=== PATIENT | male | born 1950 | race Caucasian/White ===

== ENCOUNTER 2022-08-20 07:48 | Outpatient (CLI) | payer MEDICARE, BC, SELFPAY ==
--- NOTE | 2022-08-20 09:43 | W.ANESCHARGE ---
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
--- NOTE | 2022-08-20 10:56 | W.ANESCHARGE ---
Anesthesia Charges Start Date/Time Anesthesia Start Date: 08/20/22 Anesthesia Start Time: 09:15 Stop Date/Time Anesthesia Stop Date: 08/20/22 Anesthesia Stop Time: 09:40
== END 2022-08-20 07:49 | disposition home or self-care (01) ==
LOC: OP CLINIC 07:52
PROVIDERS: PCP Family Medicine; Visit Provider Internal Medicine Gastroenterology
DX: K22.70 Barrett's esophagus without dysplasia (principal); K44.9 Diaphragmatic hernia without obstruction or gangrene; K31.89 Other diseases of stomach and duodenum
CPT/HCPCS: 43239; 731; 88305; 88342; 99100; J2704

== ENCOUNTER 2022-08-28 12:22 | Inpatient (IN) | payer OTHER, MEDICARE, BC, SELFPAY ==
[2022-08-28 12:30] VITALS: BP 151/89; PULSE 109; RESP 18; TEMP 36.5; O2SAT 93; BMI 34.2
--- NOTE | 2022-08-28 12:54 | CRLHL7_ITS ---
For Patients: As a result of the Century Cures Act, medical imaging exams and procedure reports are released immediately into your electronic medical record. You may view this report before your referring provider. If you have questions, please contact your health care provider. INDICATION: Leg pain and swelling TECHNIQUE: Ultrasound venous duplex lower right extremity. Compression venous exam was performed using prado-scale, color Doppler, and spectral Doppler imaging. COMPARISON: None. FINDINGS: There is extensive thrombosis within the distal superficial femoral, popliteal and peroneal vein thrombosis extending into the posterior tibial veins. The proximal superficial femoral and common femoral veins are compressible. IMPRESSION: Extensive deep venous thrombosis within the distal superficial femoral, popliteal and posterior tibial veins. Findings were discussed with Jorge Alberto Chin at 3:10 p.m. August 28, 2022 Dictated by Joe Cortés MD @ 08/28/2022 3:13:46 PM (Electronically Signed)
--- NOTE | 2022-08-28 12:56 | CRLHL7_ITS ---
For Patients: As a result of the Cures Act, medical imaging exams and procedure reports are released immediately into your electronic medical record. You may view this report before your referring provider. If you have questions, please contact your health care provider. INDICATION: Short of breath TECHNIQUE: Chest radiograph 2 views COMPARISON: 10/07/2014 FINDINGS: Mediastinum: The mediastinum is normal in appearance. The heart silhouette is normal in size and morphology. Lung: Both lungs are unremarkable in appearance. A small calcified granuloma is suspected in the left lateral costophrenic sulcus. No sign of pleural effusion seen. No pneumothorax is identified. Bone and Soft tissue: Unremarkable for age. IMPRESSION: 1. No acute cardiopulmonary disease is seen. Dictated by: Vinicio Ragland MD @ 08/28/2022 13:26:25 (Electronically Signed)
[2022-08-28 13:27] LABS: Troponin, Point-of-Care* 0.02 ng/ml (0.01-0.04)
--- NOTE | 2022-08-28 13:37 | ED_ITS ---
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 No radiation of discomfort, no pleuritic pain, no overt fevers at least not these take his temperature with, denies sore throat runny nose, fully COVID vaccinated but no history of COVID in the past. Just underwent upper endoscopy where they did biopsies approximately week and half ago. Wonders if this had something to do with it. No past history of DVTs pulmonary emboli, on no anticoagulants. Does have a history hypertension, Associated symptoms: cough, fever/chills, malaise and shortness of breath Treatments prior to arrival: none Related Data Home Medications Medication Instructions Recorded Confirmed amlodipine 5 mg tablet 10 mg PO DAILY 08/28/22 08/28/22 Allergies Allergy/AdvReac Type Severity Reaction Status Date / Time No Known Drug Allergies Allergy Verified 08/20/22 09:59 Review of Systems Status of ROS: Reports: 10 or more systems reviewed and unremarkable except as noted in History and below PFSH PFSH Social History Smoking Status: Never smoker How often do you have a drink containing alcohol: never AUDIT-C Alcohol total score: 0 Non-prescribed substance use: denies use Exam Narrative: Exam Narrative: On examination room 5 he has absolutely no distress he is pleasant and alert, speaking to me in conversing normally. Pupils are equal round reactive to light there is no scleral icterus or redness TMs bilaterally are normal his oropharynx is normal there is no lymphadenopathy in the anterior posterior chains, TMs are normal bilaterally chest is good air entry bilaterally full expiration inspiration is noted there is no splinting, no extra sounds, heart sounds no clicks murmurs or gallops his abdomen is soft and slightly obese, no guarding no organomegaly no tenderness is noted. 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 Const: Vital Signs, click to edit/add: Vital Signs - 24 hr 08/28/22 12:30 08/28/22 14:55 Temperature 97.7 F Pulse Rate [Pulse Oximeter] 109 H 95 Respiratory Rate 18 Blood Pressure [Ri ght Upper Arm] 151/89 H 136/89 Pulse Oximetry 93 92 Oxygen Delivery Me thod Room Air Room Air Documenting provider has reviewed patient's vital signs: yes Course Course Hospital Course: Patient's D-dimer is very high, this is consistent with his ultrasound which shows a large clot burden of his right leg, given his shortness of breath, we will also do a CT I am currently waiting on the basic metabolic profile, before order this. I discussed this with the patient. He likely will need admission Reevaluation(s) Reevaluation #1: Discussed with the patient we will do a chest CT, given his episode of shortness of breath is positive ultrasound of his legs, his creatinine was 1.0, Time: 16:26 Reevaluation #2: Chest CT and multiple pulmonary emboli are noted. We will wait for the radiological read, I spoke to Dr. Cantu from Hospital [facility], she would like Lovenox, we will dose this at 1 milligram/kilogram, and she follow-up with the results, spoke to patient, admissions suggested. Time: 17:21 Vital Signs Vital signs: Initial Vital Signs Temperature 97.7 F 08/28/22 12:30 Temperature Source Temporal Artery Scan 08/28/22 12:30 Pulse Rate 109 H 08/28/22 12:30 Respiratory Rate 18 08/28/22 12:30 Blood Pressure 151/89 H 08/28/22 12:30 Blood Pressure Mean 109 08/28/22 12:30 Blood Pressure Position Supine 08/28/22 12:30 Pulse Oximetry 93 08/28/22 12:30 Oxygen Delivery Method 08/28/22 12:30 Vital Signs Temperature 97.7 F 08/28/22 12:30 Pulse Rate 109 H 08/28/22 12:30 Respiratory Rate 18 08/28/22 12:30 Blood Pressure 151/89 H 03/21/23 12:30 Pulse Oximetry 93 08/28/22 12:30 Oxygen Delivery Method 08/28/22 12:30 Temperature 97.7 F 08/28/22 12:30 Pulse Rate 95 08/28/22 14:55 Respiratory Rate 18 08/28/22 12:30 Blood Pressure 136/89 08/28/22 14:55 Pulse Oximetry 92 08/28/22 14:55 Oxygen Delivery Method 08/28/22 14:55 Medical Decision Making MDM Narrative Medical decision making narrative: During this evaluation I did consider multiple causes of his shortness of breath and right leg pain including pulmonary embolism, DVT, ischemic heart disease, a tear, or strain, cellulitis, or necrotizing fasciitis, COVID, or other viral etiologies pneumonia. Medical Records Medical records reviewed: Yes I reviewed the patient's medical records Lab Data Lab results reviewed: Yes I reviewed the patient's lab results Labs: Lab Results 08/28/22 08/28/22 08/28/22 Range/Units 12:56 13:10 13:10 WBC (4.50-11.00) K/uL RBC (4.30-5.90) m/uL Hgb (13.5-17.5) gm/dL Hct (37.0-53.0) % MCV (80-100) fL MCH (26-34) pg MCHC (32-36) gm/dL RDW Coeff of Oleksandr (11.5-15.5) % Plt Count (140-440) K/uL Neut % (Auto) (42.0-72.0) % Lymph % (Auto) (20-44) % Mccreary % (Auto) (0.0-11.0) % Eos % (Auto) (0.0-7.0) % Baso % (Auto) (0.0-3.0) % Neut # (Auto) (1.7-7.0) K/uL Lymph # (Auto) (0.90-2.90) K/uL Mccreary # (Auto) (0.00-0.90) K/UL Eos # (Auto) (0.00-0.50) K/uL Baso # (Auto) (0.00-0.30) K/uL D-Dimer Quant (PE/DVT) 18.55 H (0.00-0.50) ug/ml Sodium (135-149) mmol/L Potassium (3.6-5.1) mmol/L Chloride (96-114) mmol/L Carbon Dioxide (20-32) mmol/L BUN (7-30) mg/dL Creatinine (0.5-1.5) mg/dL Estimated Creat Clear Estimated GFR ml/min Glucose (60-115) mg/dL Calcium (8.4-10.6) mg/dL C-Reactive Protein 5.2 H (0.5-1.0) mg/dL NT-Pro-B Natriuret Pep 402 pg/mL SARS-CoV-2 (PCR) Negative SARS-CoV-2 (Negative) Influenza Type A (PCR) Negative PCR FLU A (Negative) Influenza Type B (PCR) Negative PCR FLU B (Negative) RSV (PCR) Negative PCR RSV (Negative) POC Creatinine (0.6-1.3) mg/dl POC Troponin I (0.01-0.04) ng/ml 08/28/22 08/28/22 08/28/22 Range/Units 13:10 13:30 14:44 WBC 7.50 (4.50-11.00) K/uL RBC 4.52 (4.30-5.90) m/uL Hgb 13.8 (13.5-17.5) gm/dL Hct 40.5 (37.0-53.0) % MCV 90 (80-100) fL MCH 31 (26-34) pg MCHC 34 (32-36) gm/dL RDW Coeff of Oleksandr 11.8 (11.5-15.5) % Plt Count 163 (140-440) K/uL Neut % (Auto) 72.6 H (42.0-72.0) % Lymph % (Auto) 16.7 L (20-44) % Mccreary % (Auto) 8.8 (0.0-11.0) % Eos % (Auto) 1.1 (0.0-7.0) % Baso % (Auto) 0.5 (0.0-3.0) % Neut # (Auto) 5.40 (1.7-7.0) K/uL Lymph # (Auto) 1.30 (0.90-2.90) K/uL Mccreary # (Auto) 0.70 (0.00-0.90) K/UL Eos # (Auto) 0.08 (0.00-0.50) K/uL Baso # (Auto) 0.04 (0.00-0.30) K/uL D-Dimer Quant (PE/DVT) (0.00-0.50) ug/ml Sodium 137 (135-149) mmol/L Potassium 3.8 (3.6-5.1) mmol/L Chloride 108 (96-114) mmol/L Carbon Dioxide 23 (20-32) mmol/L BUN 19 (7-30) mg/dL Creatinine 1.1 (0.5-1.5) mg/dL Estimated Creat Clear 57.00 Estimated GFR 70 ml/min Glucose 171 H (60-115) mg/dL Calcium 8.5 (8.4-10.6) mg/dL C-Reactive Protein (0.5-1.0) mg/dL NT-Pro-B Natriuret Pep pg/mL SARS-CoV-2 (PCR) (Negative) Influenza Type A (PCR) (Negative) Influenza Type B (PCR) (Negative) RSV (PCR) (Negative) POC Creatinine (0.6-1.3) mg/dl POC Troponin I 0.02 (0.01-0.04) ng/ml 08/28/22 Range/Units 16:00 WBC (4.50-11.00) K/uL RBC (4.30-5.90) m/uL Hgb (13.5-17.5) gm/dL Hct (37.0-53.0) % MCV (80-100) fL MCH (26-34) pg MCHC (32-36) gm/dL RDW Coeff of Oleksandr (11.5-15.5) % Plt Count (140-440) K/uL Neut % (Auto) (42.0-72.0) % Lymph % (Auto) (20-44) % Mccreary % (Auto) (0.0-11.0) % Eos % (Auto) (0.0-7.0) % Baso % (Auto) (0.0-3.0) % Neut # (Auto) (1.7-7.0) K/uL Lymph # (Auto) (0.90-2.90) K/uL Mccreary # (Auto) (0.00-0.90) K/UL Eos # (Auto) (0.00-0.50) K/uL Baso # (Auto) (0.00-0.30) K/uL D-Dimer Quant (PE/DVT) (0.00-0.50) ug/ml Sodium (135-149) mmol/L Potassium (3.6-5.1) mmol/L Chloride (96-114) mmol/L Carbon Dioxide (20-32) mmol/L BUN (7-30) mg/dL Creatinine (0.5-1.5) mg/dL Estimated Creat Clear Estimated GFR ml/min Glucose (60-115) mg/dL Calcium (8.4-10.6) mg/dL C-Reactive Protein (0.5-1.0) mg/dL NT-Pro-B Natriuret Pep pg/mL SARS-CoV-2 (PCR) (Negative) Influenza Type A (PCR) (Negative) Influenza Type B (PCR) (Negative) RSV (PCR) (Negative) POC Creatinine 1.0 (0.6-1.3) mg/dl POC Troponin I (0.01-0.04) ng/ml Imaging Data Chest x-ray: Attestation: I have reviewed the pertinent imaging results. My impression: No acute findings Radiologist's impression: Patient: Elie William MR#: [id number] : 1950 Acct:[id number] Loc: ED Service Date: 08/28/[address]: Ordering Physician: Jorge Alberto Chin M.D. Date of Service: 08/28/22 Procedure(s): XR chest 2V Accession Number(s): [id number] cc: Kristin Bird M.D.; Jorge Alberto Chin M.D.~ For Patients:? As a result of the 21st Century Cures Act, medical imaging exams and procedure reports are released immediately into your electronic medical record.? You may view this report before your referring provider.? If you have questions, please contact your health care provider. INDICATION: Short of breath TECHNIQUE: Chest radiograph 2 views COMPARISON: 10/07/2014 FINDINGS: Mediastinum: The mediastinum is normal in appearance. The heart silhouette is normal in size and morphology. Lung: Both lungs are unremarkable in appearance. A small calcified granuloma is suspected in the left lateral costophrenic sulcus. No sign of pleural effusion seen. No pneumothorax is identified. Bone and Soft tissue: Unremarkable for age. IMPRESSION: 1. No acute cardiopulmonary disease is seen. Dictated by: Vinicio Ragland MD @ 08/28/2022 13:26:25 (Electronically Signed) ECG Data Attestation: I personally reviewed and interpreted this ECG as follows: Prior ECG tracings: not available for review Interpretation: EKG shows mild sinus tachycardia with heart rate of 103, no acute ST wave changes, QRS QT AR intervals are all normal. Assessment nonacute Discharge Plan Discharge Clinical Impression: Pulmonary air embolism, Deep venous thrombosis Patient Disposition: Admitted As Inpatient Condition: Stable
[2022-08-28 13:43] LABS: C Reactive Protein* 5.2 mg/dL (0.5-1.0)
[2022-08-28 13:46] LABS: D Dimer Quantitative* 18.55 ug/ml (0.00-0.50)
[2022-08-28 13:50] LABS: Basophils Absolute Auto 0.04 K/uL (0.00-0.30); Basophils Percent Auto 0.5 % (0.0-3.0); Eosinophils Absolute Auto 0.08 K/uL (0.00-0.50); Eosinophils Percent Auto 1.1 % (0.0-7.0); Hematocrit 40.5 % (37.0-53.0); Hemoglobin* 13.8 gm/dL (13.5-17.5); Immature Granulocytes Abs Auto 0.02 K/uL (0.00-0.30); Immature Granulocytes Pct Auto 0.3 %; Lymphocytes Percent Auto 16.7 % (20-44); Mean Corpuscular HGB Conc 34 gm/dL (32-36); Mean Corpuscular Hemoglobin 31 pg (26-34); Mean Corpuscular Volume 90 fL (80-100); Monocytes Percent Auto 8.8 % (0.0-11.0); Neutrophils Percent Auto 72.6 % (42.0-72.0); Platelet Count* 163 K/uL (140-440); RDW Coefficient of Variation % 11.8 % (11.5-15.5); Red Blood Count 4.52 m/uL (4.30-5.90)
[2022-08-28 13:57] LABS: Slide Review Reflex No
[2022-08-28 13:58] LABS: PCR FLU A Negative PCR FLU A (Negative); PCR FLU B Negative PCR FLU B (Negative); PCR RSV Negative PCR RSV (Negative)
[2022-08-28 13:58] LABS: NT Pro B Type NatriureticPept* 402 pg/mL
[2022-08-28 14:07] LABS: SARS PCR* Negative SARS-CoV-2 (Negative)
[2022-08-28 14:55] VITALS: BP 136/89; PULSE 95; O2SAT 92
[2022-08-28] MEDS: 0.9 % SODIUM CHLORIDE 500 ML 500 ML IV (15:33)
[2022-08-28 15:58] LABS: Chloride* 108 mmol/L (96-114); Potassium* 3.8 mmol/L (3.6-5.1); Sodium* 137 mmol/L (135-149)
[2022-08-28 16:01] LABS: Blood Urea Nitrogen* 19 mg/dL (7-30); Carbon Dioxide* 23 mmol/L (20-32); Creatinine* 1.1 mg/dL (0.5-1.5); Estimated Glomerular Filt Rate 70 ml/min; Glucose* 171 mg/dL (60-115)
[2022-08-28 16:02] LABS: Calcium* 8.5 mg/dL (8.4-10.6)
--- NOTE | 2022-08-28 16:12 | CRLHL7_ITS ---
For Patients: As a result of the Century Cures Act, medical imaging exams and procedure reports are released immediately into your electronic medical record. You may view this report before your referring provider. If you have questions, please contact your health care provider. INDICATION: Shortness of breath, known deep venous thrombosis. TECHNIQUE: CT chest PE was acquired with 95 cc Isovue 370 intravenous contrast. COMPARISON: None. FINDINGS: Heart and vasculature: Multiple filling defects within the pulmonary arteries consistent with pulmonary embolus. This includes a partially occlusive components within the right lower lobe, right middle lobe and right upper lobe as well as at the proximal aspect of the lingula and left upper lobe. Occlusive components within the superior segment of the left lower lobe. RV/LV ratio: 1.4 No pericardial effusion. Thoracic aorta is normal in caliber. No pericardial effusion. Lungs and pleural: No pleural effusion or pneumothorax. There is discoid atelectasis within the lung bases. Lymph nodes/mediastinum: No mediastinal, hilar, or axillary adenopathy. Chest wall: No masses. Upper abdomen: Moderate sized hiatal hernia. Multiple cysts within the liver. Low-density right adrenal lesion measuring 3.9 centimeters and -57 Hounsfield unit consistent with an adrenal myelolipoma. Colonic diverticulosis. Status post cholecystectomy. Bones: Unremarkable for age. IMPRESSION: 1. Acute pulmonary embolus extending to all lobes with elevated RV/LV ratio suggesting right heart strain. 2. Moderate-sized hiatal hernia. 3. Right adrenal myelolipoma measuring 3.9 centimeters. Results called to Dr. Krishnamurthy at 1745 on 08/28/2022 Please note that all CT scans at this facility use dose modulation, iterative reconstruction, and/or weight-based dosing when appropriate to reduce radiation dose to as low as reasonably achievable. Dictated by Delroy Aranda MD @ 08/28/2022 5:50:13 PM (Electronically Signed)
--- NOTE | 2022-08-28 16:34 | ED.NURSE ---
report given to salvador rn, pt will transfer to room [address]
[2022-08-28] MEDS: ENOXAPARIN 100 MG/ML INJ SUBCUT (17:40)
--- NOTE | 2022-08-28 17:43 | ED.NURSE ---
lovenox SQ given, update called to salvador rn, pt to medsurg via wheelchair with belongings.
[2022-08-28 18:20] VITALS: BP 149/95; PULSE 103; RESP 20; TEMP 36.8; O2SAT 93; BMI 34.2
--- NOTE | 2022-08-28 19:15 | P.IMHP_ITS ---
Hospitalist- H&P: HPI History of Present Illness Time Seen by Provider: 19:00 Date Seen: 08/28/22 Chief complaint: Right leg pain swelling/feeling hot and cold Narrative: Elie William is a 72 year old male garcia who presented through the emergency department with shortness of breath and right leg pain and swelling. He noticed his right leg was hurting about a month ago, but he thought it was just from sitting on his billfold, so he took his billfold out and the pain got better. About a week and a half ago he had a preop with his primary care provider for an EGD that he had later that same week. At the preop his primary care provider asked him if he was short of breath and he recalls saying that he was not at the time. Later that day he went out and was putting wood in the outside wood burner and he noticed that he did feel winded with some of the bigger chunks of would, which seemed unusual for him. He usually does not get his heart rate up otherwise because he walks slowly because of the ice and a bad knee. 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 About a week ago he had taken a trip to [place] by car and did drive a little bit farther, but recalls having frequent breaks with that as well. Last Saturday or Saturday he started having right leg pain in the upper calf and noticed that his leg was somewhat swollen as well. He has not had any chest pain or discomfort, but notices that the shortness of breath has been getting somewhat worse and is now present with almost any exertion. Today he is felt chilly especially while in the emergency department and now feels warm here. He has had some sweats over the last week and feelings of hot and cold. He has no history of DVTs or PEs. 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 Contact with stingray as cause of accidental injury Diverticulosis large intestine w/o perforation or abscess w/o bleeding Fatty liver Gallstone Hypertension Junctional nevus of back Severe obesity (BMI 35.0-35.9 with comorbidity) Sleep apnea Umbilical hernia without obstruction and without gangrene Urinary retention Varicose veins of both lower extremities Surgical History (Updated 08/28/22 @ 19:11 by Tabitha Cantu MD) H/O colonoscopy H/O esophagogastroduodenoscopy H/O umbilical hernia repair (~09/12/15) H/O wisdom tooth extraction Hx laparoscopic cholecystectomy (~09/12/15) S/P ERCP (~06/19/16) S/P total knee arthroplasty Status post laparoscopic Del fundoplication Family History (Updated 08/28/22 @ 19:11 by Tabitha Cantu MD) Father Prostate cancer Sister Stroke Social History (Updated 08/28/22 @ 19:49 by Tabitha Cantu MD) 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 Never smoker, no chewing tobacco. Denies EtOH or recreational drugs. FULL CODE, no mcc life support. Highest level of school completed/degree received: Associate degree: occupational, technical, vocational program Smoking Status: Never smoker How often do you have a drink containing alcohol: monthly or less AUDIT-C Alcohol total score: 1 Non-prescribed substance use: denies use Caffeine: Yes service: Yes Meds Home Medications and Allergies Home Medications Medication Instructions Recorded Confirmed Type amlodipine 5 mg tablet 10 mg PO DAILY 08/28/22 08/28/22 History loperamide 2 mg capsule 2 mg PO DAILY 08/28/22 08/28/22 History omeprazole 20 mg capsule,delayed 20 mg PO BID 08/28/22 08/28/22 History release Allergies Allergy/AdvReac Type Severity Reaction Status Date / Time No Known Drug Allergies Allergy Verified 08/20/22 09:59 Exam Narrative: Exam Narrative: General: [No acute distress.] [Awake alert oriented x3.] HEENT: [Normocephalic atraumatic], [pupils equally round and reactive to light and accommodation]. Oropharynx [clear]. Mucous membranes are [moist]. [No cervical lymphadenopathy, thyromegaly or carotid bruits]. No JVD. Cardiovascular: [Regular rate and rhythm]. [No murmurs, gallops, or rubs]. Chest: No increased work of breathing. Able to talk in full sentences. [Clear to auscultation bilaterally. No crackles or wheezes]. Abdomen: Bowel sounds [present]. [Soft, nondistended, nontender.] [No hepatosplenomegaly or masses]. Extremities: Varicose veins bilaterally. Right lower extremity has 1+ nonpitting edema, is slightly more warm without erythema. There is tenderness to palpation in the upper calf just below the knee posteriorly. Skin: [No jaundice,] [no pallor,] [no rashes]. Const: Vital Signs, click to edit/add: Vital Signs - 24 hr 08/28/22 12:30 08/28/22 14:55 08/28/22 18:20 Temperature 97.7 F 98.3 F Pulse Rate [Left P ulse Oximeter] 103 H Pulse Rate [Pulse Oximeter] 109 H 95 Respiratory Rate 18 20 Blood Pressure [Le ft Arm] 149/95 H Blood Pressure [Ri ght Upper Arm] 151/89 H 136/89 Pulse Oximetry 93 92 93 Oxygen Delivery Me thod Room Air Room Air Room Air Documenting provider has reviewed patient's vital signs: yes Hospitalist - H&P: Result Labs Labs: Short CBC 08/28/22 Range/Units 13:30 WBC 7.50 (4.50-11.00) K/uL Hgb 13.8 (13.5-17.5) gm/dL Hct 40.5 (37.0-53.0) % Plt Count 163 (140-440) K/uL BMP 08/28/22 14:44 Sodium 137 Potassium 3.8 Chloride 108 Carbon Dioxide 23 BUN 19 Creatinine 1.1 Glucose 171 H Calcium 8.5 08/28/2022 1:01 p.m. EKG: Sinus tachycardia, heart rate 103 beats per minute. Low-voltage QRS, cannot rule out anterior infarct, age undetermined. Ordering Physician: Jorge Alberto Chin M.D. Date of Service: 08/28/22 Procedure(s): US venous LE RT Accession Number(s): [id number] cc: Kristin Bird M.D.; Jorge Alberto Chin M.D.~ For Patients: As a result of the Cures Act, medical imaging exams and procedure reports are released immediately into your electronic medical record. You may view this report before your referring provider. If you have questions, please contact your health care provider. INDICATION: Leg pain and swelling TECHNIQUE: Ultrasound venous duplex lower right extremity. Compression venous exam was performed using prado-scale, color Doppler, and spectral Doppler imaging. COMPARISON: None. FINDINGS: There is extensive thrombosis within the distal superficial femoral, popliteal and peroneal vein thrombosis extending into the posterior tibial veins. The proximal superficial femoral and common femoral veins are compressible. IMPRESSION: Extensive deep venous thrombosis within the distal superficial femoral, popliteal and posterior tibial veins. Findings were discussed with Jorge Alberto Chin at 3:10 p.m. August 28, 2022 Dictated by Joe Cortés MD @ 08/28/2022 3:13:46 PM (Electronically Signed) Ordering Physician: Jorge Alberto Chin M.D. Date of Service: 08/28/22 Procedure(s): XR chest 2V Accession Number(s): [id number] cc: Kristin Bird M.D.; Jorge Alberto Chin M.D.~ For Patients: As a result of the Cures Act, medical imaging exams and procedure reports are released immediately into your electronic medical record. You may view this report before your referring provider. If you have questions, please contact your health care provider. INDICATION: Short of breath TECHNIQUE: Chest radiograph 2 views COMPARISON: 10/07/2014 FINDINGS: Mediastinum: The mediastinum is normal in appearance. The heart silhouette is normal in size and morphology. Lung: Both lungs are unremarkable in appearance. A small calcified granuloma is suspected in the left lateral costophrenic sulcus. No sign of pleural effusion seen. No pneumothorax is identified. Bone and Soft tissue: Unremarkable for age. IMPRESSION: 1. No acute cardiopulmonary disease is seen. Dictated by: Vinicio Ragland MD @ 08/28/2022 13:26:25 (Electronically Signed) Ordering Physician: Jorge Alberto Chin M.D. Date of Service: 08/28/22 Procedure(s): CT angio chest PE protocol Accession Number(s): [id number] cc: Kristin Bird M.D.; Jorge Alberto Chin M.D.~ For Patients: As a result of the Century Cures Act, medical imaging exams and procedure reports are released immediately into your electronic medical record. You may view this report before your referring provider. If you have questions, please contact your health care provider. INDICATION: Shortness of breath, known deep venous thrombosis. TECHNIQUE: CT chest PE was acquired with 95 cc Isovue 370 intravenous contrast. COMPARISON: None. FINDINGS: Heart and vasculature: Multiple filling defects within the pulmonary arteries consistent with pulmonary embolus. This includes a partially occlusive components within the right lower lobe, right middle lobe and right upper lobe as well as at the proximal aspect of the lingula and left upper lobe. Occlusive components within the superior segment of the left lower lobe. RV/LV ratio: 1.4 No pericardial effusion. Thoracic aorta is normal in caliber. No pericardial effusion. Lungs and pleural: No pleural effusion or pneumothorax. There is discoid atelectasis within the lung bases. Lymph nodes/mediastinum: No mediastinal, hilar, or axillary adenopathy. Chest wall: No masses. Upper abdomen: Moderate sized hiatal hernia. Multiple cysts within the liver. Low-density right adrenal lesion measuring 3.9 centimeters and -57 Hounsfield unit consistent with an adrenal myelolipoma. Colonic diverticulosis. Status post cholecystectomy. Bones: Unremarkable for age. IMPRESSION: 1. Acute pulmonary embolus extending to all lobes with elevated RV/LV ratio suggesting right heart strain. 2. Moderate-sized hiatal hernia. 3. Right adrenal myelolipoma measuring 3.9 centimeters. Results called to Dr. Krishnamurthy at 1745 on 08/28/2022 Please note that all CT scans at this facility use dose modulation, iterative reconstruction, and/or weight-based dosing when appropriate to reduce radiation dose to as low as reasonably achievable. Dictated by Delroy Aranda MD @ 08/28/2022 5:50:13 PM (Electronically Signed) Assessment and Plan Assessment and plan (1) Pulmonary embolism: Problem comment: CT chest 08/28/22: Acute pulmonary embolus extending to all lobes with elevated RV/LV ratio suggesting right heart strain. - Mildly tachycardic, vitals stable, troponin unremarkable. Due to extensive size and possible right heart strain, I will contact PE team at [facility]. Therapeutic Lovenox started in ER. Status: Acute (2) Deep venous thrombosis: Problem comment: Extensive deep venous thrombosis within the distal superficial femoral, popliteal and posterior tibial veins - Lovenox started. - Suspect varicose veins and sitting in tractor for extensive hours per day has contributed to this. Status: Acute (3) Varicose veins of both lower extremities: Status: Acute (4) Hypertension: Problem comment: Continue home meds Status: Chronic (5) Sleep apnea: Problem comment: Not using his CPAP. Did not work for him so stopped. Not snoring or apnea that he is aware Status: Chronic (6) Adenoma of right adrenal gland: Problem comment: - known since 09/19/2015 - Right adrenal myelolipoma measuring 3.[address] chest 08/28/22 Status: Chronic
[2022-08-28 20:00] VITALS: BP 140/84; PULSE 102; RESP 20; TEMP 36.9; O2SAT 92
[2022-08-28 21:30] VITALS: PULSE 94
[2022-08-28] MEDS: SODIUM CHLORIDE 0.9 % (FLUSH) 10 ML SYRINGE 5 ML IVF (21:54)
[2022-08-28] MEDS: OMEPRAZOLE 20 MG CAPSULE DR PO (21:54)
--- NOTE | 2022-08-28 22:48 | PC.NURSE ---
End of Shift: Patient admitted to 256. Pleasant and cooperative. Afebrile. Rating pain in right leg 4/10 at rest up to 7/10 with activity. Denies need for PRN pain medication. O2 sats greater than 90% while awake. Decrease to 87-89% while asleep. Tele showing NSR to sinus tach. Tolerating regular diet with no nausea.
[2022-08-29] VITALS (11 sets, daily range): BP systolic 119–134; BP diastolic 74–89; PULSE 79–96; RESP 14–20; TEMP 36.4–36.8; O2SAT 91–96
[2022-08-29] MEDS: ENOXAPARIN 120 MG/0.8 ML INJ 100 MG SUBCUT (05:32)
--- NOTE | 2022-08-29 07:36 | PC.NURSE ---
END OF SHIFT NOTE: PT PLEASANT AND COOPERATIVE. DENIES CP, SOB, N/V. PT C/O TENDERNESS TO RIGHT CALF; CALF IS SWOLLEN AND WARM. BILATERAL PEDAL PULSES STRONG AND EQUAL. AMBULATES INDEPENDENTLY WITHIN ROOM. VSS ON 2L SUPPLEMENTAL OXYGEN WITH SPO2 IN MID 90'S; AFEBRILE. CALL LIGHT WITHIN PT?S REACH.
[2022-08-29 07:40] LABS: Troponin I* < 0.01 ng/mL (0.01-0.04)
[2022-08-29] MEDS: OMEPRAZOLE 20 MG CAPSULE DR PO ×2 (07:44→20:51)
[2022-08-29] MEDS: SODIUM CHLORIDE 0.9 % (FLUSH) 10 ML SYRINGE 5 ML IVF ×2 (08:52→20:51)
[2022-08-29] MEDS: LOPERAMIDE HCL 2 MG CAPSULE PO (08:52)
[2022-08-29] MEDS: AMLODIPINE 5 MG TABLET 10 MG PO (08:52)
--- NOTE | 2022-08-29 09:42 | PM.IMPN1 ---
Progress Note: A&P Assessment and plan (1) Pulmonary embolism: Problem details: CT chest 08/28/22: Acute pulmonary embolus extending to all lobes with elevated RV/LV ratio suggesting right heart strain. Clinically improved overnight. Off oxygen this morning. Not tachycardic or hypotensive. Echocardiogram pending. Continue anticoagulation. Will check with pharmacy about cost to help decide what anticoagulation the patient will get. Status: Acute (2) Deep venous thrombosis: Problem details: Extensive deep venous thrombosis within the distal superficial femoral, popliteal and posterior tibial veins - Lovenox started. Decide about outpatient oral anticoagulant after review with pharmacy Status: Acute (3) Adenoma of right adrenal gland: Problem details: - known since 09/19/2015 - Right adrenal myelolipoma measuring 3.[address] chest 08/28/22 Status: Chronic (4) Sleep apnea: Problem details: Not using his CPAP. Did not work for him so stopped. Not snoring or apnea that he is aware Status: Chronic (5) Hypertension: Problem details: Hold home meds pending clinical course Status: Chronic (6) Varicose veins of both lower extremities: Problem details: Chronic, support hose Status: Acute Plan Continue in-hospital for monitoring of vital signs and symptoms. Continue anticoagulation. Investigate options for long-term anticoagulation. Time Spent With Patient Total time spent: Total time spent today is 45 minutes. 30 minutes in coordination of care with discussion about anticoagulation. Subjective Date Seen: 08/29/22 Interval history: 72-year-old male seen in followup of hospital admission for right lower extremity DVT and pulmonary embolism. Last week patient had onset of right lower extremity calf pain which has gradually increased over the past week. He has also noted some increase in dyspnea. He has also noted some chest pain which he attributed to esophageal biopsies last week. In the emergency department he was found to have extensive right lower extremity DVT and CT PE study showed multiple bilateral pulmonary emboli with evidence of right heart strain. He was started on enoxaparin. He was tachycardic and hypoxic on admission but that has resolved overnight. He was never hypotensive. He reports his leg is feeling a little better this morning. He has been on supplemental oxygen overnight and has had no dyspnea. He has no history of thrombophilia. He has no family history of thrombophilia except he thinks 1 of his nephews is had a blood clot. He has not had any recent lower extremity injury, hospitalization or surgery. 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 No prolonged immobilization. No history of malignancy. Exam Narrative: Exam Narrative: He is alert and appears in no distress. He is oriented to his circumstances. Breathing is unlabored. Respirations are clear to auscultation. Cardiovascular: S1, S2, regular rate and rhythm. No murmur gallop or rub. Abdomen: Bowel sounds active. Abdomen is soft without tenderness or mass. Lower extremities are examined. He has mild edema of the right calf compared to the left. There is mild tenderness on the left calf compared to the right. No other evidence of trauma or inflammation or erythema. Previous right knee arthroplasty noted. Incision is well healed and knee otherwise appears normal. Intact pedal pulses. Const: Vital Signs, click to edit/add: Vital Signs - 24 hr 08/28/22 12:30 08/28/22 14:55 08/28/22 18:20 Temperature 97.7 F 98.3 F Pulse Rate Pulse Rate [Left P ulse Oximeter] 103 H Pulse Rate [Pulse Oximeter] 109 H 95 Respiratory Rate 18 20 Blood Pressure [Le ft Arm] 149/95 H Blood Pressure [Ri ght Upper Arm] 151/89 H 136/89 Pulse Oximetry 93 92 93 Oxygen Delivery Me thod Room Air Room Air Room Air Oxygen Flow Rate 08/28/22 18:20 08/28/22 20:00 08/28/22 21:30 Temperature 98.4 F Pulse Rate 94 Pulse Rate [Left P ulse Oximeter] 102 H Pulse Rate [Pulse Oximeter] Respiratory Rate 20 20 Blood Pressure [Le ft Arm] 140/84 H Blood Pressure [Ri ght Upper Arm] Pulse Oximetry 92 Oxygen Delivery Me thod Room Air Oxygen Flow Rate 08/29/22 00:24 08/29/22 00:15 08/29/22 00:15 Temperature Pulse Rate 92 Pulse Rate [Left P ulse Oximeter] 89 Pulse Rate [Pulse Oximeter] Respiratory Rate 20 Blood Pressure [Le ft Arm] Blood Pressure [Ri ght Upper Arm] Pulse Oximetry 94 Oxygen Delivery Me thod Oxygen Flow Rate 08/29/22 00:15 08/29/22 00:15 08/29/22 03:10 Temperature 98.3 F Pulse Rate Pulse Rate [Left P ulse Oximeter] 89 85 Pulse Rate [Pulse Oximeter] Respiratory Rate 20 20 20 Blood Pressure [Le ft Arm] 126/85 125/82 Blood Pressure [Ri ght Upper Arm] Pulse Oximetry 94 94 94 Oxygen Delivery Me thod CPAP Nasal Cannula Oxygen Flow Rate 2 2 2 08/29/22 07:25 08/29/22 07:25 Temperature Pulse Rate Pulse Rate [Left P ulse Oximeter] Pulse Rate [Pulse Oximeter] Respiratory Rate 14 Blood Pressure [Le ft Arm] Blood Pressure [Ri ght Upper Arm] Pulse Oximetry 92 92 Oxygen Delivery Me thod Nasal Cannula Oxygen Flow Rate 2 Documenting provider has reviewed patient's vital signs: yes Labs Labs: Laboratory Results - last 24 hr 08/28/22 08/28/22 08/28/22 12:56 13:10 13:10 WBC RBC Hgb Hct MCV MCH MCHC RDW Coeff of Oleksandr Plt Count Neut % (Auto) Lymph % (Auto) [place] % (Auto) Eos % (Auto) Baso % (Auto) Neut # (Auto) Lymph # (Auto) [place] # (Auto) Eos # (Auto) Baso # (Auto) D-Dimer Quant (PE/DVT) 18.55 H Sodium Potassium Chloride Carbon Dioxide BUN Creatinine Estimated Creat Clear Estimated GFR Glucose Calcium Troponin I C-Reactive Protein 5.2 H NT-Pro-B Natriuret Pep 402 SARS-CoV-2 (PCR) Negative SARS-CoV-2 Influenza Type A (PCR) Negative PCR FLU A Influenza Type B (PCR) Negative PCR FLU B RSV (PCR) Negative PCR RSV POC Creatinine POC Troponin I 08/28/22 08/28/22 08/28/22 13:10 13:30 14:44 WBC 7.50 RBC 4.52 Hgb 13.8 Hct 40.5 MCV 90 MCH 31 MCHC 34 RDW Coeff of Oleksandr 11.8 Plt Count 163 Neut % (Auto) 72.6 H Lymph % (Auto) 16.7 L [place] % (Auto) 8.8 Eos % (Auto) 1.1 Baso % (Auto) 0.5 Neut # (Auto) 5.40 Lymph # (Auto) 1.30 [place] # (Auto) 0.70 Eos # (Auto) 0.08 Baso # (Auto) 0.04 D-Dimer Quant (PE/DVT) Sodium 137 Potassium 3.8 Chloride 108 Carbon Dioxide 23 BUN 19 Creatinine 1.1 Estimated Creat Clear 57.00 Estimated GFR 70 Glucose 171 H Calcium 8.5 Troponin I C-Reactive Protein NT-Pro-B Natriuret Pep SARS-CoV-2 (PCR) Influenza Type A (PCR) Influenza Type B (PCR) RSV (PCR) POC Creatinine POC Troponin I 0.02 08/28/22 08/29/22 16:00 05:33 WBC RBC Hgb Hct MCV MCH MCHC RDW Coeff of Oleksandr Plt Count Neut % (Auto) Lymph % (Auto) [place] % (Auto) Eos % (Auto) Baso % (Auto) Neut # (Auto) Lymph # (Auto) [place] # (Auto) Eos # (Auto) Baso # (Auto) D-Dimer Quant (PE/DVT) Sodium Potassium Chloride Carbon Dioxide BUN Creatinine Estimated Creat Clear Estimated GFR Glucose Calcium Troponin I < 0.01 L C-Reactive Protein NT-Pro-B Natriuret Pep SARS-CoV-2 (PCR) Influenza Type A (PCR) Influenza Type B (PCR) RSV (PCR) POC Creatinine 1.0 POC Troponin I Imaging Venous US: Radiologist's impression: INDICATION: Leg pain and swelling TECHNIQUE: Ultrasound venous duplex lower right extremity.? Compression venous exam was performed using prado-scale, color Doppler, and spectral Doppler imaging. COMPARISON: None. FINDINGS: There is extensive thrombosis within the distal superficial femoral, popliteal and peroneal vein thrombosis extending into the posterior tibial veins. The proximal superficial femoral and common femoral veins are compressible. IMPRESSION: Extensive deep venous thrombosis within the distal superficial femoral, popliteal and posterior tibial veins. CT scan - chest: Radiologist's impression: INDICATION: Shortness of breath, known deep venous thrombosis. TECHNIQUE: CT chest PE was acquired with 95 cc Isovue 370 intravenous contrast. COMPARISON: None. FINDINGS: Heart and vasculature: Multiple filling defects within the pulmonary arteries consistent with pulmonary embolus. This includes a partially occlusive components within the right lower lobe, right middle lobe and right upper lobe as well as at the proximal aspect of the lingula and left upper lobe. Occlusive components within the superior segment of the left lower lobe. RV/LV ratio: 1.4 No pericardial effusion. Thoracic aorta is normal in caliber. No pericardial effusion. Lungs and pleural: No pleural effusion or pneumothorax. There is discoid atelectasis within the lung bases. Lymph nodes/mediastinum: No mediastinal, hilar, or axillary adenopathy. Chest wall: No masses. Upper abdomen: Moderate sized hiatal hernia. Multiple cysts within the liver. Low-density right adrenal lesion measuring 3.9 centimeters and -57 Hounsfield unit consistent with an adrenal myelolipoma. Colonic diverticulosis. Status post cholecystectomy. Bones: Unremarkable for age. IMPRESSION: 1. Acute pulmonary embolus extending to all lobes with elevated RV/LV ratio suggesting right heart strain. 2. Moderate-sized hiatal hernia. 3. Right adrenal myelolipoma measuring 3.9 centimeters.
--- NOTE | 2022-08-29 14:22 | PC.NURSE ---
Pt cooperative and pleasant during shift. Pt is independent in room. Applied PORTIA coyle at 11am per MD request. Pt is tolerating well. Pt was on 2l of oxygen at beginning of shift. Now on RA and tolerating well. VSS. Pt slept on ad off most of shift. Pt had an echo done at 1400.
[2022-08-29] MEDS: ENOXAPARIN 100 MG/ML INJ SUBCUT (17:18)
--- NOTE | 2022-08-29 22:16 | PC.NURSE ---
Shift Note [id number]: Shift unremarkable. Pt moving independently around room. Denies pain. VS WNL and LS COA. Denies SOB or dyspnea.
[2022-08-30 03:00] VITALS: BP 132/83; PULSE 92; RESP 20; O2SAT 96
[2022-08-30] MEDS: ENOXAPARIN 100 MG/ML INJ SUBCUT (05:00)
--- NOTE | 2022-08-30 05:52 | PC.NURSE ---
END OF SHIFT NOTE: PT PLEASANT AND COOPERATIVE. DENIES CP, SOB, N/V. AMBULATES INDEPENDENTLY. VSS ON RA; AFEBRILE.?CALL LIGHT WITHIN PT?S REACH. PT REPORTS RIGHT CALF TENDERNESS, BUT DECLINES PAIN MEDICATION. HX OF ISIDRO. ON RA DURING SLEEP PT WITH PERIODS OF APNEA SPO2 DECREASE TO MID 80?S THEN REBOUNDED BACK INTO THE 90?S.?PT STATES HE IS HOPEFUL TO GO HOME TODAY.
[2022-08-30 07:00] VITALS: BP 141/92; PULSE 96; RESP 20; TEMP 36.4; O2SAT 94
[2022-08-30] MEDS: OMEPRAZOLE 20 MG CAPSULE DR PO (08:18)
[2022-08-30] MEDS: SODIUM CHLORIDE 0.9 % (FLUSH) 10 ML SYRINGE 5 ML IVF (08:31)
[2022-08-30 10:14] VITALS: PULSE 89; RESP 20; TEMP 36.4
--- NOTE | 2022-08-30 14:16 | P.DS_ITS ---
DS: Providers Provider Date Seen: 08/30/22 Date of admission: 08/28/22 20:35 Primary care physician: Kristin Bird MD Admitting Clinician: Tabitha Cantu MD Attending Physician on discharge: Cuco Mccauley MD Date of Discharge: 08/30/22 DS: Diagnosis Discharge Diagnosis (1) Pulmonary embolism: Status: Acute Problem details: CT chest 08/28/22: Acute pulmonary embolus extending to all lobes with elevated RV/LV ratio suggesting right heart strain. Initially hypoxic and tachycardic. Hypoxia and tachycardia resolved. Never hypotensive. Treated with enoxaparin in the hospital. Transition to apixaban as outpatient. Discussed anticoagulation at length with patient and [facility] to make sure there is no gap in anticoagulation. (2) Deep venous thrombosis: Status: Acute Problem details: Extensive deep venous thrombosis within the distal superficial femoral, popliteal and posterior tibial veins Treated as above. 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 Did not work for him so stopped. (5) Hypertension: Status: Chronic Problem details: Resume home meds on discharge (6) Varicose veins of both lower extremities: Status: Acute Problem details: Chronic, recommend support lubna DS: Summary Hospital Course Hospital Course: 72-year-old male admitted to the hospital with right leg pain and swelling. Incidentally noticed with some dyspnea with exertion as well. Emergency evaluation showed pulmonary embolism and DVT as above. Treated with enoxaparin. Signs and symptoms of PE mostly resolved. Still having some calf pain. Extensive conversation about appropriate anticoagulation. At this point patient elects to do apixaban 10 mg b.i.d. for 1 week followed by 5 mg b.i.d.. Duration of anticoagulation is uncertain. This appears to be unprovoked and therefore consideration of long-term anticoagulation is appropriate. Status at Discharge Functional status at discharge: independent ambulation Overall status at discharge: patient is back to baseline Time Spent with Patient Time attestation: Total time spent providing and/or coordinating discharge services: Time spent: Greater than 30 minutes Exam Narrative: Exam Narrative: He is alert and appears in no distress. Vitals are normal. Respirations are clear to auscultation. Cardiovascular: S1, S2, regular rate and rhythm. Right calf has mild tenderness and mild swelling. Const: Vital Signs, click to edit/add: Vital Signs - 24 hr 08/29/22 15:00 08/29/22 15:00 08/29/22 15:00 Temperature Pulse Rate 96 Pulse Rate [Left P ulse Oximeter] Respiratory Rate 16 Blood Pressure [Le ft Arm] Pulse Oximetry 91 91 Oxygen Delivery Me thod Room Air 08/29/22 15:00 08/29/22 15:00 08/29/22 19:00 Temperature 97.9 F 98.2 F Pulse Rate Pulse Rate [Left P ulse Oximeter] 93 91 91 Respiratory Rate 16 16 16 Blood Pressure [Le ft Arm] 119/74 131/75 Pulse Oximetry 91 91 Oxygen Delivery Me thod Room Air Room Air 08/29/22 23:00 08/29/22 23:00 08/29/22 23:00 Temperature Pulse Rate Pulse Rate [Left P ulse Oximeter] 91 Respiratory Rate 20 20 Blood Pressure [Le ft Arm] Pulse Oximetry 96 96 Oxygen Delivery Me thod Room Air 08/29/22 23:00 08/29/22 23:14 08/30/22 03:00 Temperature 98.1 F Pulse Rate 89 Pulse Rate [Left P ulse Oximeter] 91 92 Respiratory Rate 20 20 Blood Pressure [Le ft Arm] 122/78 132/83 Pulse Oximetry 96 96 Oxygen Delivery Me thod Room Air Room Air 08/30/22 07:00 08/30/22 07:00 08/30/22 07:00 Temperature 97.5 F L Pulse Rate Pulse Rate [Left P ulse Oximeter] 96 Respiratory Rate 20 20 Blood Pressure [Le ft Arm] 141/92 H Pulse Oximetry 94 94 94 Oxygen Delivery Me thod Room Air Room Air 08/30/22 10:14 Temperature 97.5 F L Pulse Rate 89 Pulse Rate [Left P ulse Oximeter] Respiratory Rate 20 Blood Pressure [Le ft Arm] Pulse Oximetry Oxygen Delivery Me thod Documenting provider has reviewed patient's vital signs: yes DS: Data Data Completed and Pending Labs on day of discharge: Preliminary micro results at discharge 08/28/22 13:30 Blood Culture - Preliminary Blood NO GROWTH AFTER 48 HOURS 08/28/22 13:10 Blood Culture - Preliminary Blood NO GROWTH AFTER 48 HOURS Discharge Plan Discharge Disposition: Home, Self-Care Date of Admission: 08/28/22 20:35 Attending Provider on Discharge: Prakash Mccauley Primary Care Provider: Kristin Bird Condition: Stable Anticipated Discharge Date/Time: 08/30/22 09:05 Discharge Medications: New apixaban 5 mg (74 tabs) tablets,dose pack 5 mg PO BID PRNQty: 74 0RF Rx Instructions: Take 10 mg twice daily for 7 days then 5 mg twice daily Continued amlodipine 5 mg tablet 10 mg PO DAILY loperamide 2 mg capsule 2 mg PO DAILY omeprazole 20 mg capsule,delayed release(DR/EC) 20 mg PO BID Discharge Orders: Discharge Order (Routine); Ordered 08/30/22 Ordered By: Prakash Mccauley Patient Education: Apixaban (By mouth), Pulmonary Embolism (GEN), Deep Vein Thrombosis (GEN) Activity Level: No Restrictions Discharge Diet: Regular Follow Up Appointments: Kristin Bird MD [Primary Care Provider] - 09/06/22 10:15 am ([facility] in [place]. Follow up with your doctor next week to follow-up your pulmonary embolism and blood pressure) Forms: [employer] ([email or web address]) Info Instructions
== END 2022-08-30 11:30 | disposition home or self-care (01) | DRG 176 ==
LOC: ED 17:17 → MEDSURG 17:44
PROVIDERS: Admitting Provider Family Medicine; Emergency Provider Family Medicine; PCP Family Medicine; Visit Provider Family Medicine
DX: I26.99 Other pulmonary embolism without acute cor pulmonale (principal); I82.413 Acute embolism and thrombosis of femoral vein, bilateral; I82.433 Acute embolism and thrombosis of popliteal vein, bilateral; I82.443 Acute embolism and thrombosis of tibial vein, bilateral; D35.01 Benign neoplasm of right adrenal gland; G47.30 Sleep apnea, unspecified; I10 Essential (primary) hypertension; I83.893 Varicose veins of bilateral lower extremities with other complications
CPT/HCPCS: 36415; 71046; 71260; 80048; 82565; 83880; 84484; 85025; 85379; 86140; 87040; 87502; 87634; 87635; 93005; 93306; 93971; 94761; 99285; A9270; J1650; J7120; Q9967

== ENCOUNTER 2023-07-08 12:23 | Emergency (ER) | payer MEDICARE, OTHER, BC, SELFPAY ==
[2023-07-08 12:51] VITALS: BP 135/95; PULSE 96; RESP 18; TEMP 36.6; O2SAT 95; BMI 35.0
--- NOTE | 2023-07-08 12:56 | ED_ITS ---
HPI - General Adult General Date Seen: 07/08/23 Chief complaint: Extremity Pain/Injury, Upper Stated complaint: Possible blood clot L arm Time Seen by Provider: 07/08/23 12:43 Source: patient and RN notes reviewed Mode of arrival: ambulatory Limitations: no limitations History of Present Illness HPI narrative: Patient is a 72-year-old male, cared for largely at the [facility], who presents for num bness and tingling and now some pain in his 4th and 5th finger on the left hand. Symptoms have been present for about 2 weeks. He has had some paresthesias in the left forearm as well in the ulnar distribution, but has not had anything more proximally to that. No trauma. Notably, he has not had swelling redness or warmth to the arm. Apparently he saw somebody for his symptoms previously who had suggested that he get an ultrasound to rule out a blood clot, he was then seen at the ER at the [facility], where they declined to do an ultrasound because they did not feel that symptoms were likely related to DVT. 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 He comes in today because he partially was concerned that they did not do an ultrasound as he was told by this other doctor that it could be a blood clot, and also because now he has pain in the fingers. He has not really noticed any weakness. He does note some viral symptoms with sore throat and cough over the past month although he says that that is largely improved. He does note that he has persistent sore throat and is wondering if that should be checked. Related Data Home Medications Medication Instructions Recorded Confirmed amlodipine 5 mg tablet 10 mg PO DAILY 08/28/22 08/28/22 loperamide 2 mg capsule 2 mg PO DAILY 08/28/22 08/28/22 omeprazole 20 mg capsule,delayed 20 mg PO BID 08/28/22 08/28/22 release Previous Rx's Medication Instructions Recorded apixaban 5 mg (74 tabs) tablets in 5 mg PO BID PRN #74 ea 08/30/22 a dose pack gabapentin 100 mg capsule 100 mg PO TID #30 caps 07/08/23 prednisone 20 mg tablet 20 mg PO BID #10 tabs 07/08/23 Allergies Allergy/AdvReac Type Severity Reaction Status Date / Time No Known Drug Allergies Allergy Verified 08/20/22 09:59 PFSH PFSH Medical History (Updated 07/08/23 @ 12:56 by Leigha Carrington MD) Varicose veins of both lower extremities ?I83.93 - Asymptomatic varicose veins of bilateral lower extremities (ICD-10) Contact with stingray as cause of accidental injury ?W56.89XA - Other contact with other nonvenomous marine animals, initial encounter (ICD-10) 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 (ICD-10) Adenomatous colon polyp ?D12.6 - Benign neoplasm of colon, unspecified (ICD-10) Severe obesity (BMI 35.0-35.9 with comorbidity) ?E66.01 - Morbid (severe) obesity due to excess calories (ICD-10) ?Z68.35 - Body mass index [BMI] 35.0-35.9, adult (ICD-10) Junctional nevus of back ?D22.5 - Melanocytic nevi of trunk (ICD-10) Abnormal LFTs ?R79.89 - Other specified abnormal findings of blood chemistry (ICD-10) Adenoma of right adrenal gland ?D35.01 - Benign neoplasm of right adrenal gland (ICD-10) Fatty liver ?K76.0 - Fatty (change of) liver, not elsewhere classified (ICD-10) Sleep apnea ?G47.30 - Sleep apnea, unspecified (ICD-10) Gallstone ?K80.20 - Calculus of gallbladder without cholecystitis without obstruction (ICD-10) Diverticulosis large intestine w/o perforation or abscess w/o bleeding ?K57.30 - Diverticulosis of large intestine without perforation or abscess without bleeding (ICD-10) Umbilical hernia without obstruction and without gangrene ?K42.9 - Umbilical hernia without obstruction or gangrene (ICD-10) Hypertension ?I10 - Essential (primary) hypertension (ICD-10) Urinary retention ?R33.9 - Retention of urine, unspecified (ICD-10) Surgical History (Updated 08/28/22 @ 19:11 by Tabitha Cantu MD) H/O wisdom tooth extraction ?K08.409 - Partial loss of teeth, unspecified cause, unspecified class (ICD- 10) H/O umbilical hernia repair (~09/12/15) ?Z98.890 - Other specified postprocedural states (ICD-10) ?Z87.19 - Personal history of other diseases of the digestive system (ICD-10) Hx laparoscopic cholecystectomy (~09/12/15) ?Z90.49 - Acquired absence of other specified parts of digestive tract (ICD- 10) Status post laparoscopic Del fundoplication ?Z98.890 - Other specified postprocedural states (ICD-10) S/P ERCP (~06/19/16) ?Z98.890 - Other specified postprocedural states (ICD-10) H/O esophagogastroduodenoscopy ?Z98.890 - Other specified postprocedural states (ICD-10) H/O colonoscopy ?Z98.890 - Other specified postprocedural states (ICD-10) S/P total knee arthroplasty ?Z96.659 - Presence of unspecified artificial knee joint (ICD-10) Family History (Updated 08/28/22 @ 19:11 by Tabitha Cantu MD) Father Prostate cancer Sister Stroke Social History (Updated 08/28/22 @ 19:49 by Tabitha Cantu MD) 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 Never smoker, no chewing tobacco. Denies EtOH or recreational drugs. 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 Highest level of school completed/degree received: Associate degree: occupation al, technical, vocational program Smoking Status: Never smoker How often do you have a drink containing alcohol: monthly or less AUDIT-C Alcohol total score: 1 Non-prescribed substance use: denies use Caffeine: Yes service: Yes Exam Narrative: Exam Narrative: Vital signs as noted above. In general, an alert, well-appearing patient. Head: Normocephalic, atraumatic. Eyes: Pupils are equal reactive. Extraocular movements are full. Conjunctivae are normal. ENT: Mucous membranes are moist. Throat is normal. Neck: Supple without lymphadenopathy. Heart: Regular rate and rhythm. No murmur or rub. Lungs: Clear bilaterally. No increased work of breathing, crackles or wheezes. Abdomen: Soft and nontender. No organomegaly. Extremities: Well perfused. No edema. No calf tenderness. Pulses intact. The left upper extremity specifically is normal in appearance without edema, erythema or tenderness. Pulses intact, distal CMS notable for mild weakness of the abductor digiti minimi and paresthesias over the 4th and 5th fingers. Remainder the hand is intact. Strength in the wrist, elbow and shoulder is intact. Neurologic: Patient is alert and oriented to person and place. Speech is fluent. Face is symmetric. Moves all extremities equally. Left upper extremity as noted above. Affect: Normal. Skin: Warm and dry. Well perfused. Const: Vital Signs, click to edit/add: Vital Signs - 24 hr 07/08/23 12:51 Temperature 97.9 F Pulse Rate [Pulse Oximeter] 96 Respiratory Rate 18 Blood Pressure [Ri ght Upper Arm] 135/95 H Pulse Oximetry 95 Oxygen Delivery Me thod Room Air Documenting provider has reviewed patient's vital signs: yes Course Course ED Course: I reviewed with him that I do not think this represents DVT and I would agree that an ultrasound is not needed. He appears to have ulnar neuropathy, which I would be more suspicious of a distal cause at the elbow or wrist but cannot entirely rule out the possibility of cervical problem. He did 1 I went back in to talk to him say that he has some pain that goes up and to the inside of his upper arm. I have suggested that we try some gabapentin and a short course of prednisone to see if we can help him symptomatically. I do think the appro priate next step would be EMG, which it seems has been arranged for at the [facility]. Discussed with him I would not be able to really accomplish that any faster than a couple of weeks from now. Return for acute worsening, otherwise will try the above medications, talked about avoiding placing his weight on his elbows, wrapping the elbow and a towel at night to prevent him from sleeping with his arm tightly flexed. I did run a strep for him which was negative, COVID flu and RSV testing pending at the time of his discharge. Vital Signs Vital signs: Initial Vital Signs Temperature 97.9 F 07/08/23 12:51 Temperature Source Temporal Artery Scan 07/08/23 12:51 Pulse Rate 96 07/08/23 12:51 Pulse Rhythm Regular 07/08/23 12:51 Respiratory Rate 18 07/08/23 12:51 Blood Pressure 135/95 H 07/08/23 12:51 Blood Pressure Mean 108 H 07/08/23 12:51 Blood Pressure Position Sitting 07/08/23 12:51 Pulse Oximetry 95 07/08/23 12:51 Oxygen Delivery Method Room Air 07/08/23 12:51 Vital Signs Temperature 97.9 F 07/08/23 12:51 Pulse Rate 96 07/08/23 12:51 Respiratory Rate 18 07/08/23 12:51 Blood Pressure 135/95 H 07/08/23 12:51 Pulse Oximetry 95 07/08/23 12:51 Oxygen Delivery Method Room Air 07/08/23 12:51 Temperature 97.9 F 07/08/23 12:51 Pulse Rate 96 07/08/23 12:51 Respiratory Rate 18 07/08/23 12:51 Blood Pressure 135/95 H 07/08/23 12:51 Pulse Oximetry 95 07/08/23 12:51 Oxygen Delivery Method Room Air 07/08/23 12:51 Medical Decision Making Lab Data Labs: Lab Results 07/08/23 Range/Units 13:12 SARS-CoV-2 (PCR) ERROR (Negative) Influenza Type A (PCR) ERROR (Negative) Influenza Type B (PCR) ERROR (Negative) RSV (PCR) ERROR (Negative) Group A Strep DNA NOT DETECTED (Not Detectd) Discharge Plan Discharge Clinical Impression: Neuropathy, ulnar nerve Patient Disposition: Home, Self-Care Condition: Stable Instructions: Paresthesia (ED) Additional Instructions: I agree with the diagnosis of ulnar neuropathy for your symptoms. Symptoms are not suggestive of a blood clot in the arm. It sounds as if you have appropriate follow-up scheduled, I would not be able to schedule anything sooner than that. We can try a medication for nerve related symptoms called gabapentin to see if that is helpful symptomatically. Another recommendation would be to wrap your arm and a towel at the elbow at night so that you are limited in how much you can flex your elbow. This protects the nerve and may help alleviate symptoms. Avoid leaning on your elbows as much as possible. Prescriptions: New gabapentin 100 mg capsule 100 mg PO TID Qty: 30 2RF prednisone 20 mg tablet 20 mg PO BID Qty: 10 0RF No Action amlodipine 5 mg tablet 10 mg PO DAILY loperamide 2 mg capsule 2 mg PO DAILY omeprazole 20 mg capsule,delayed release(DR/EC) 20 mg PO BID apixaban 5 mg (74 tabs) tablets,dose pack 5 mg PO BID PRNQty: 74 0RF Rx Instructions: Take 10 mg twice daily for 7 days then 5 mg twice daily Follow Up/Referrals: Kristin Bird MD [Primary Care Provider] - Stand Alone Forms: [employer] Info Instructions
--- OUTSIDE RECORDS SUMMARY | 2023-07-08 13:10 | XMS_ITS | Encounter Summary ---
Author Name [facility] Organization [facility] of [facility] Address [address] [place] [id number] Support Name Relationship Address Phone REJI WATTS Next of Kin RT [address] REJI WATTS Emergency Contact RT 4 JANA SALINAS [phone] Insurance Providers: All historical and current Section Date Range: From patient's date of to the date document was created. This section includes the names of all active insurance providers for the patient. Insurance Provider Type of Coverage Plan Name Start of Policy Coverage End of Policy Coverage Group Number Member ID Insurance Provider's Telephone Number Policy Mejias's Name Patient's Relationship to Policy Mejias [place] SU[place] MEDIC ARE SUPPL EMENT Jun 10, 2016 [id number] DELMA ZARATE PATIENT [place] MED[place] ARE SUPPL EMENT Jun 10, 2016 [id number] DELMA ZARATE PATIENT MEDICARE (WNR) MEDICARE (M) PART A Jul 11, 2013 PART A [id number] DELMA ZARATE PATIENT MEDICARE (WNR) MEDICARE (M) PART B Jul 11, 2013 PART B [id number] CRISTY ZARATEE PATIENT Selected Encounter This section includes the information on record at [facility] for the Encounter. Date/Time Encounter Type Encounter Description Reason Pro vider Source Aug 30, 2022 09:12 AM Outpatient Encounter TELEPHONE PRIMARY CARE [facility] Encounter Template Text not used by [facility] Plan of Treatment: Future Appointments (+ 6 months) and Future Tests (+/- 45 days) The Plan of Treatment section includes future care activities for the patient from all [facility] treatmentfacilities. This section includes future appointments and future orders which are active, pending or scheduled. Future Appointments This section includes appointments that were scheduled to occur 6 months from the date of the Encounter, up to a maximum of 20 appointments. The data comes from all [place] treatment facilities. Appointment Date/Time Appointment Type Appointme nt Facility Name Sep 03, 2022 10:30 AM AMBULATORY - NONE [facility] October 10, 2022 09:00 AM AMBULATORY - NONE [facility] Dec 26, 2022 10:00 AM [facility] - [facility]IC[facility] Dec 27, 2022 09:15 AM AMBULATORY - NONE [facility] Dec 27, 2022 09:30 AM AMBULATORY - NONE [facility] Dec 27, 2022 11:30 AM [facility]ORY - [facility] Lab Results: +/- 30 days of the encounter This section includes the Chemistry and Hematology Lab Results on record with [facility] for the patient. Radiology Reports and Pathology Reports are provided separately, in subsequent sections. Lab Results This section contains the Chemistry/Hematology Results that were resulted 30 days before or 30 daysafter the date of the Encounter. Date/Time Source Result Type Result - Unit Interpretation Reference Range Comment Sep 03, 2022 10:18 AM [facility] AST/SGOT Specimen Type: PLASMA No comment entered. Ordering Provider: ADRIAN SHELLEY Report Released Date/Time: Aug 30, 2022 02:20 PM Reporting Lab: [facility] [id number] Performing Lab: [facility] [id number] AST/SGOT 15 <34 Sep 03, 2022 10:18 AM [facility] ALT/SGPT Specimen Type: PLASMA No comment entered. Ordering Provider: ADRINA SHELLEY Report Released Date/Time: Aug 30, 2022 02:20 PM Reporting Lab: [facility] [id number] Performing Lab: [facility] [id number] ALT/SGPT 24 <55 Social History: Smoking Status (Most current) and Tobacco Use (All prior to encounter date) This section includes the most current, and the historical, smoking and tobacco- related health factors from the [place] facility where the Encounter took place. Current Smoking Status This section includes the most current smoking, or tobacco-related health factor, from the [place] facility where the Encounter took place. Date/Time Current Smoking Status Comment Facil ity Feb 23, 2021 08:44 AM VA-TOBACCO NEVER USED [facility] Tobacco Use History This section includes a history of the smoking, or tobacco-related health factors, that were collected on or before the date of the Encounter. The data comes from the [facility] where the Encounter took place. Date/Time Smoking Status/Tobacco Use Comment F acility Feb 24, 2019 12:45 PM VA-TOBACCO NEVER USED [facility] Jul 16, 2018 09:59 AM VA-TOBACCO NEVER USED [facility] Jul 09, 2017 07:52 AM FORMER TOBACCO USER 7Y OR GREATE R [facility] Jul 03, 2016 08:23 AM FORMER TOBACCO USER 7Y OR GREATE R [facility] May 27, 2015 08:15 AM LIFETIME NON-TOBACCO USER [facility] Mar 12, 2014 08:16 AM LIFETIME NON-TOBACCO USER [facility] Feb 12, 2007 07:57 AM LIFETIME NON-TOBACCO USER [facility] Encounter Notes: All associated encounter notes This section contains the clinical notes associated to the Encounter. Date/Time Encounter Note(s) Provider Source Aug 30, 2022 09:12 AM PRIMARY CARE [facility] NOTE: LOCAL TITLE: CO-MANAGED CARE NOTE STANDARD TITLE: PRIMARY CARE [facility] NOTE DATE OF NOTE: AUG 30, 2022@09:12 ENTRY DATE: AUG 30, 2022@09:12:41 AUTHOR: PAULINA LAWRENCE COSIGNER: URGENCY: STATUS: COMPLETED CO-MANAGED CARE NOTE Has ADDENDA Received a request for: 1. Apixaban 5mg, take 10mg every 12hours for 7 days, then 5mg every [address] an anticoag consult. Once the consult is placed please order a 30day supply for mail out. Records scanned and available for review. Rx written by: Dr Tabitha Cantu Facility: [facility] Local provider phone #[phone] Local provider fax #[phone] Please alert me if med isn't approved or additional information is requested. If med is denied let me know what alternatives would be approved so I can communicate that information back to the local provider. /melissa/ PAULINA LAWRENCE LPN [employer] Signed: 08/30/2022 09:23 Receipt Acknowledged By: 08/30/2022 10:44 /GARIMA Holcomb DNP 08/30/2022 ADDENDUM STATUS: COMPLETED Check if patient has apixaban - as per Pharm he needs to use [facility] for 30 day supply /GARIMA Holcomb DNP Signed: 08/30/2022 10:46 Receipt Acknowledged By: 08/30/2022 11:34 /melissa/ EMA COHEN RN, MOMO PACT RN 08/30/2022 ADDENDUM STATUS: COMPLETED RN spoke with [facility]-managed care. [facility] for 30 days with zero refills. RN will call pharmacy to overnight medication for . It is not necessary to use [facility]. /melissa/ EMA COHEN RN, MOMO PACT RN Signed: 08/30/2022 11:37 Receipt Acknowledged By: * AWAITING SIGNATURE * [facility]AYCE T[facility]
--- OUTSIDE RECORDS SUMMARY | 2023-07-08 13:10 | XMS_ITS | Encounter Summary ---
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 Department of Vetera [facility] Address [address] [place] [id number] Support Name Relationship Address Phone REJI WATTS Next of Kin RT 4 JANA SALINAS REJI WATTS Emergency Contact RT 4 JANA SALINAS [phone] Insurance Providers: All historical and current Section [...] MEDIC ARE SUPPL EMENT Jun 10, 2016 [id number] DELMA ZARATE PATIENT [place] MED[place] SUPPLEMEN LEOBARDO MEDIC ARE SUPPL EMENT Jun 10, 2016 [id number] [phone] DELMA ZARATE PATIENT MEDICARE (WNR) MEDICARE (M) PART A Jul 11, 2013 PART A [id number] [phone] DELMA ZARATE PATIENT MEDICARE (WNR) MEDICARE (M) PART B Jul 11, 2013 PART B [id number] DELMA ZARATE PATIENT Selected Encounter This section includes the information on record at [place] for the Encounter. Date/Time Encounter Type Encounter Description Reason Provider Source Aug 30, 2022 11:43 AM Outpatient Encounter ADMIN PAT ACTIVTIES (MASNONCT) ANOOP GONZALEZ Mick Encounter Template Text not used by [place] Plan of Treatment: Future Appointments (+ 6 months) and Future Tests (+/- 45 days) The Plan of Treatment section includes future care activities for the patient from all [place] treatmentfacil[facility] hospital. This section includes future appointments and future orders which are active, pending or scheduled. Future Appointments This section includes appointments that were scheduled to occur 6 months from the date of the Encounter, up to a maximum of 20 appointments. The data comes from all [place] treatment facilities. Appointment Date/Time Appointment Type Appointme nt Facility Name Sep 03, 2022 10:30 AM AMBULATORY - NONE [facility] October 10, 2022 09:00 AM AMBULATORY - NONE [facility] Dec 26, 2022 10:00 AM AM[facility]ATORY - MEDICINE [facility] Dec 27, 2022 09:15 AM AMBULATORY - NONE [facility] Dec 27, 2022 09:30 AM AMBULATORY - NONE [facility] Dec 27, 2022 11:30 AM AMBULATORY - MEDICINE [facility] Lab Results: +/- 30 days of the encounter This section includes the Chemistry and Hematology Lab Results on record with [place] for the patient. Radiology Reports and Pathology Reports are provided separately, in subsequent sections. Lab Results This section contains the Chemistry/Hematology Results that were resulted 30 days before or 30 daysafter the date of the Encounter. Date/Time Source Result Type Result - Unit Interpretation Reference Range Comment Sep 03, 2022 10:18 AM [facility] AST/SGOT Specimen Type: PLASMA No comment entered. Ordering Provider: ADRIAN SHELLEY Report Released Date/Time: Aug 30, 2022 02:20 PM Reporting Lab: [facility] [id number] Performing Lab: [facility] [id number] AST/SGOT 15 <34 Sep 03, 2022 10:18 AM [facility] ALT/SGPT Specimen Type: PLASMA No comment entered. Ordering Provider: ADRIAN SHELLEY Report Released Date/Time: Aug 30, 2022 02:20 PM Reporting Lab: [facility] [id number] Performing Lab: [facility] [id number] ALT/SGPT 24 <55 Social History: Smoking Status (Most current) and Tobacco Use (All prior to encounter date) This section includes the most current, and the historical, smoking and tobacco- related health factors from the [place] facility where the Encounter took place. Current Smoking Status This section includes the most current smoking, or tobacco-related health factor, from the [facility] where the Encounter took place. Date/Time Current Smoking Status Comment Facil ity Feb 23, 2021 08:44 AM VA-TOBACCO NEVER USED [facility] Tobacco Use History This section includes a history of the smoking, or tobacco-related health factors, that were collected on or before the date of the Encounter. The data comes from the [facility] where the Encounter took place. Date/Time Smoking Status/Tobacco Use Comment F acility Feb 24, 2019 12:45 PM VA-TOBACCO NEVER USED [facility] Jul 16, 2018 09:59 AM VA-TOBACCO NEVER USED [facility] Jul 09, 2017 07:52 AM FORMER TOBACCO USER 7Y OR GREATE R [facility] Jul 03, 2016 08:23 AM FORMER TOBACCO USER 7Y OR GREATE R [facility] May 27, 2015 08:15 AM LIFETIME NON-TOBACCO USER [facility] Mar 12, 2014 08:16 AM LIFETIME NON-TOBACCO USER [facility] Feb 12, 2007 07:57 AM LIFETIME NON-TOBACCO USER [facility] Encounter Notes: All associated encounter notes This section contains the clinical notes associated to the Encounter. Date/Time Encounter Note(s) Provider Source Aug 28, 2022 12:25 PM NONVA NOTE: LOCAL TITLE: [facility]UNITY [facility] SELF PRESENTING CARE COORD PLAN STANDARD TITLE: NONVA NOTE DATE OF NOTE: AUG 28, 2022@12:25 ENTRY DATE: AUG 30, 2022@11:44:56 AUTHOR: SERGIO MARTINEZ EXP COSIGNER: URGENCY: STATUS: COMPLETED COMMUNITY CARE-[facility] SELF PRESENTING CARE COORD PLAN NOTE Has ADDENDA Emergency Notification Intake Date Presenting to the Facility: Aug Method of Contact: Notified from ECR worklist Notification ID: [id number] [facility] Referral #: [facility] Name: Hospital: [facility] Address: City: [place] State: [place] Zip Code: Phone : [facility] Point of Contact: Name: FAMILIA BOYER RN Chief complaint: [id number], [id number], [id number] Primary Diagnosis: Disposition Unknown at time of intake note entry 1703 Clinical Review /es/ SERGIO MARTINEZ SENIOR RESEARCH SCIENTIST Signed: 08/30/2022 11:49 Receipt Acknowledged By: 08/30/2022 13:11 /junior GONZALEZ Community [facility] materials handling 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 /junior GONZALEZ [facility] materials handling equipment operator Signed: 08/30/2022 13:12 Receipt Acknowledged By: 08/30/2022 18:28 /junior LOVE RN REGISTERED NURSE for CRIS GARCIA 08/30/2022 ADDENDUM STATUS: COMPLETED DISCHARGE NOTE CLINICAL CARE COORDINATION INFORMATION Hospital Name: [facility] Admit date: 08/28/22 Discharge date: 08/30/22 Level of Care: med Primary Diagnosis: 1. Pulmonary Embolism, acute pulmonary embolus extending to all lobes w/ elevated RV/LV ratio suggesting right heart strain. Initially hypoxic and tachycardic, resolved. Never hypotensive. Treated w/ enoxaparin in the hospital. Transition to apixaban as outpatient. Discussed anticoagulation at length w/ pt and private pharmacy and [facility] to make sure there is no gap in anticoagulation. 2. DVT, Acute - extensive deep venous thrombosis within the distal superficial femoral, popliteal and posterior tibial veins 3. Adenoma of the right adrenal gland, sleep apnea, and HTN are chronic conditions 4. Varicose Veins of both Lower Extremities Other Issues for Outpatient Follow-up: Review medication regimen changes, anticoagulation orders. PCP f/u next week. Discharge Disposition: Independed ambulation. Home, Self-Care. Hospital records sent to [facility] to be uploaded. If notes are required immediately, contact me via [employer]. Please review for plan of care and any follow up needed. Thank you. /junior GONZALEZ Community [employer] materials handling equipment operator Signed: 08/30/2022 15:25 Receipt Acknowledged By: * AWAITING SIGNATURE * JAYCE TATE 08/30/2022 18:30 /junior LOVE RN REGISTERED NURSE for CRIS GARCIA 08/30/2022 ADDENDUM STATUS: COMPLETED Apixaban ordered and anticoagulation PharmD is following. /junior LOVE RN REGISTERED NURSE Signed: 08/30/2022 18:31 SERGIO MARTINEZ [facility]
--- OUTSIDE RECORDS SUMMARY | 2023-07-08 13:10 | XMS_ITS | Encounter Summary ---
Author Name [facility] Organization [facility] of [facility] Address [address] [place] [address] Support Name Relationship Address Phone REJI WATTS Next of Kin RT 4 JANA SALINAS REJI WATTS Emergency Contact RT 4 JANA SALINAS [phone] Insurance Providers: All historical and current Section [...] MEDIC ARE SUPPL EMENT Jun 10, 2016 [id number] DELMA ZARATE PATIENT [place] MEDICARE SUPPLEMEN LEOBARDO MEDIC ARE SUPPL EMENT Jun 10, 2016 [id number] [phone] DELMA ZARATE PATIENT MEDICARE (WNR) MEDICARE (M) PART A Jul 11, 2013 PART A [id number] DELMA ZARATE PATIENT MEDICARE (WNR) MEDICARE (M) PART B Jul 11, 2013 PART B [id number] DELMA ZARATE PATIENT Selected Encounter This section includes the information on record at [place] for the Encounter. Date/Time Encounter Type Encounter Description Reason Provider Source Aug 30, 2022 01:00 PM QNHP OL DIG ASSMT&MGMT 21+ CLINICAL PHARMACY ICD-10-CM Z79.01 penitentiary (current) use of anticoagulants BLANCA SHELLEY Encounter Template Text not used by [place] Assessments - Encounter Diagnoses This section includes the primary and secondary diagnoses documented for the Encounter. 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 This section includes future appointments and future orders which are active, pending or scheduled. Future Appointments This section includes appointments that were scheduled to occur 6 months from the date of the Encounter, up to a maximum of 20 appointments. The data comes from all [place] treatment facilities. Appointment Date/Time Appointment Type Appointme nt Facility Name Sep 03, 2022 10:30 AM AMBULATORY - NONE [facility] October 10, 2022 09:00 AM AMBULATORY - NONE [facility] Dec 26, 2022 10:00 AM AMBULATORY - MEDICINE [facility] Dec 27, 2022 09:15 AM AMBULATORY - NONE [facility] Dec 27, 2022 09:30 AM AMBULATORY - NONE [facility] Dec 27, 2022 11:30 AM AMB[facility]ATORY - MEDICINE [facility] Lab Results: +/- 30 days of the encounter This section includes the Chemistry and Hematology Lab Results on record with [place] for the patient. Radiology Reports and Pathology Reports are provided separately, in subsequent sections. Lab Results This section contains the Chemistry/Hematology Results that were resulted 30 days before or 30 daysafter the date of the Encounter. Date/Time Source Result Type Result - Unit Interpretation Reference Range Comment Sep 03, 2022 10:18 AM [facility] AST/SGOT Specimen Type: PLASMA No comment entered. Ordering Provider: ADRIAN SHELLEY Report Released Date/Time: Aug 30, 2022 02:20 PM Reporting Lab: [facility] [id number] Performing Lab: [facility] [id number] AST/SGOT 15 <34 Sep 03, 2022 10:18 AM [facility] ALT/SGPT Specimen Type: PLASMA No comment entered. Ordering Provider: ADRIAN SHELLEY Report Released Date/Time: Aug 30, 2022 02:20 PM Reporting Lab: [facility] [id number] Performing Lab: [facility] [id number] ALT/SGPT 24 <55 Social History: Smoking Status (Most current) and Tobacco Use (All prior to encounter date) This section includes the most current, and the historical, smoking and tobacco- related health factors from the [facility] where the Encounter took place. Current Smoking Status This section includes the most current smoking, or tobacco-related health factor, from the [facility] where the Encounter took place. Date/Time Current Smoking Status Comment Facil ity Feb 23, 2021 08:44 AM [place]-TOBACCO NEVER USED [facility] Tobacco Use History This section includes a history of the smoking, or tobacco-related health factors, that were collected on or before the date of the Encounter. The data comes from the [facility] where the Encounter took place. Date/Time Smoking Status/Tobacco Use Comment F acility Feb 24, 2019 12:45 PM VA-TOBACCO NEVER USED [facility] Jul 16, 2018 09:59 AM [place]-TOBACCO NEVER USED [facility] Jul 09, 2017 07:52 AM FORMER TOBACCO USER 7Y OR GREATE R [facility] Jul 03, 2016 08:23 AM FORMER TOBACCO USER 7Y OR GREATE R [facility] May 27, 2015 08:15 AM LIFETIME NON-TOBACCO USER [facility] Mar 12, 2014 08:16 AM LIFETIME NON-TOBACCO USER [facility] Feb 12, 2007 07:57 AM LIFETIME NON-TOBACCO USER [facility] Encounter Notes: All associated encounter notes This section contains the clinical notes associated to the Encounter. Date/Time Encounter Note(s) Provider Source Aug 30, 2022 01:00 PM MEDICATION MGT CON SULT: LOCAL TITLE: ANTICOAGULATION CLINIC CONSULT STANDARD TITLE: MEDICATION MGT CONSULT DATE OF NOTE: AUG 30, 2022@13:00 ENTRY DATE: AUG 30, 2022@13:00:09 AUTHOR: ADRIAN SHELLEY EXP COSIGNER: URGENCY: STATUS: COMPLETED DOAC INITIATION - Anticoagulant: Apixaban 10mg q12H x7d then 5mg q12H - Indication(s): unprovoked DVT/PE Details: dx at [facility] 08/28/22, extensive DVT in distal superficial femoral, popliteal & peroneal vein extending into the posterior tibial veins. Also acute PE extending to all lobes and suggesting R heart strain. 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 (breaks every 2-3 hours) - Relevant PMH: - Otto's esophagus, h/o Del fundoplication (stomach wrapped around lower part of the esophagus) - fatty liver, h/o abnormal LFTs - Prior major bleeds: none - Prior anticoagulants: o warfarin s/p TKA ~2013 - Start date: 08/28/22, ALL 08/30/22 - Anticipated duration: indefinite - HASBLED extrapolated = age = 1 --> MODERATE RISK - Risk of recurrent VTE (Chest 2016): --> HIGH RISK until 11/28/22 provoked due to non-surgical transient risk factor: 15%/5 years unprovoked: 30% in 5 years (continue unless high bleed risk) SUBJECTIVE/OBJECTIVE Obtained from chart review, [facility]/outside records, and patient at - pt had a biopsy on esophagus ~a week ago, was under anesthesia <15 minutes. - pt reported R leg symptoms >a month ago to [facility] ED provider on 08/28/22. OSH MD suggested initiating Lovenox and then apixaban. - apixaban requested through co-managed care on 08/29/22. - [facility] ?or overnight Rx requested of PCP on 08/30/22; pt only has 4 tablets of apixaban for tonight and tomorrow AM doses. YES Active bleeding/increased bleeding risk: - saws a lot of wood and uses tools, advised to take precautions and obtain bandages No Active endocarditis: No Falls risk: No Abnormal mental status\compliance concerns: - takes meds pretty well No Significant drug interactions: - generally stays away from meds - Lovenox BID 08/28-08/30/22 AM dose YES Alcohol use: - Baseline: 3-4 drinks/wk; advised on limits No Renal or hepatic dysfunction: No Valvular disease (mitral stenosis) or mechanical valve replacement: - outside ECHO 08/29/22: sclerotic mitral valve but no regurg No Active cancer/hypercoagulability: No History of bariatric or bowel resection surgery: - pt does have h/o Del fundoplication where the stomach is wrapped around a lower part of the esophagus, nothing actually removed. No Weight >150kg/BMI >50 Comanaged patients YES Agrees to management by our [facility] clinic since comanagement is not allowed. YES Agreeable to routine [facility] labs when requested. YES Agreeable to contacting us with major health changes from OSH. Dashboard flags: none Active and Recently Outpatient Medications (excluding Supplies): Active Outpatient Medications Status 1) FLUTICASONE PROP 50MCG 120D NASAL INHL SPRAY 1 SPRAY ACTIVE IN EACH NOSTRIL TWICE A DAY USE REGULARLY FOR RELIEF OF ALLERGIES/CONGESTION 2) LOPERAMIDE HCL 2MG CAP TAKE ONE CAPSULE BY FEEDING ACTIVE TUBE EVERY DAY NEEDED FOR DIARRHEA 3) OMEPRAZOLE 20MG EC CAP TAKE ONE CAPSULE BY MOUTH ACTIVE EVERY DAY ON AN EMPTY STOMACH, AT LEAST 30 MINUTES PRIOR TO A MEAL FOR STOMACH ACID Labs ---- Age: 72 Weight: 230.7 lb [104.64 kg] (02/26/2022 08:05) BMI: 34.1 Height: 69 in [175.3 cm] (02/26/2022 08:05) Outside hemoglobin Lab result: 13.8 Date: August 28, 2022 Outside platelet count Lab result: 163 Date: August 28, 2022 Outside creatinine (serum) Lab result: 1.1 Date: August 28, 2022 CREATININE 1.0 PLASMA (02/26/22 08:39) Cockcroft & Gault (Actual body weight) = 96 mL/min Collection DT Spec WBC HGB HCT PLT MCV NEUT LYMPHS 02/26/2022 08:39 BLOOD 5.82 15.4 45.6 200 90.7 64.1 27.0 Collection DT Specimen Test Name Result Units Ref Range 02/26/2022 08:39 PLASMA BILIRUBIN, TOTAL 0.6 mg/dL 0.2 - 1.2 02/26/2022 08:39 PLASMA ALKALINE PHOSPHAT 67 U/L 40 - 150 02/26/2022 08:39 PLASMA AST/SGOT 15 U/L Ref: <=34 02/26/2022 08:39 PLASMA ALT/SGPT 20 U/L Ref: <=55 Collection DT Specimen Test Name Result Units Ref Range 05/21/2013 13:29 PLASMA .INR 1.09 ASSESSMENT/PLAN - Appropriate for DOAC use. - Likely would NOT be appropriate for dose reduction after 6 months d/t: o massive clotting event - Baseline labs within the past ~30 days: o partially missing, updated remaining labs required within the next 30 days. 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 - Approve DOAC use: Apixaban 10mg q12H x7d then 5mg q12H --> overnighted 30-DS from [facility] before 2:30pm today. Will add additional refills after initial fill releases. - Education attempt(s) below. Will mail DOAC/Rx education materials. - Appropriate review planned: periodic, initial - Lab monitoring frequency defined by dashboard or as clinically indicated. - Monitor dashboard for labs, drug interactions, and compliance. - pt w/ h/o Del fundoplication; portion of upper stomach wrapped around lower esophagus, nothing actually removed. Advised pt on potential for reduced absorption, but apixaban is mainly absorbed in the small intestine. Pt does not prefer to go on warfarin. Time spent: 30 minutes Patient Education of Treatment Plan: Indicates readiness to learn, verbalizes understanding, agreement and satisfaction with the treatment plan. Denies further questions. Anticoagulation Educational Assessment Part One Barriers/Special Needs No barriers identified Part Two Readiness to learn No barriers identified PARTICIPANTS: Patient TEACHING STRATEGY: 1:1, Written/print materials Apixaban Content Reviewed: o Recognize medication by names (apixaban (Eliquis)) & proper tablet identification (on prescription bottle) o Indication, expected duration for therapy o Daily dosage, importance of medication adherence, management of missed/extra doses o Monitoring requirements, importance of compliance with follow-up lab monitoring requirements o Risks and benefits of therapy to include possible adverse reactions or medication failure and what to do if these occur; fall-associated risks & importance of seeking urgent care if falls occur o Interactions (drug, alcohol, and disease states) o Importance of informing your anticoagulation provider as soon as possible when major changes in medications/health occur, upcoming procedures are expected that require interruption, or for evidence of new bleeds or thromboses Patient received a written, detailed copy of the educational handout to include contact information for anticoagulation clinic and instructions for how to obtain supply of medication. PATIENT/FAMILY RESPONSE (OUTCOME): Demonstrates skills(s) safely and effectively FOLLOW-UP RECOMMENDED: None needed Time spent on education: 30 minutes /melissa/ Adrian Shelley PharmD. Pharmacist Signed: 08/30/2022 14:29 ADRIAN SHELLEY [facility]
--- OUTSIDE RECORDS SUMMARY | 2023-07-08 13:10 | XMS_ITS | Continuity of Care Document ---
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 It does not include entries that were removed or entered in error. 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 Benign prostatic hyperplasia Active Condition [facility] Body mass index 30+ - obesity Active Condition [facility] Cerebral atherosclerosis Active Condition Dec 27, 2022 Entered By: RAQUEL HODGE Comment: see 2013 CT for details [facility] Chest Wall Pain (ICD-9-CM 786.52) Active Condition [facility] Depressed mood (SNOMED CT 207209345) Active Condition [facility] DVT - Deep vein thrombosis Active Condition Mar 12, 2023 En tered By: FIONA FERREIRA Comment: Dx- 08/28/22, right leg DVT and PE, started on Eliquis [facility] Erectile dysfunction (SNOMED CT 169683172) Active Condition [facility] Family social history Active Condition Dec 27, 2022 En tered By: RAQUEL HODGE Comment: Lives alone, Friend lives with him some time, daughter helpsJul 2022 Entered By: RAQUEL HODGE Comment: [place], 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 , [place] Entered By: RAQUEL HODGE Comment: Alcohol 2 Beers 2 times a week or lessJul 2022 Entered By: RAQUEL HODGE Comment: NEVER USED TobaccoJul 2022 Entered By: RAQUEL HODGE Comment: 1 Biological daughter lives close byJul 2022 Entered By: RAQUEL HODGE Comment: Dad was 82, had prostate cancer, Mom was 100Jul 2022 Entered By: RAQUEL HODGE Comment: 2 Older sisters, one at age 82 aneurysm, One sister is aliveOct 2022 Entered By: FIONA FERREIRA Comment: last colonoscopy- 08/2022, 5 year plan , [facility] 2022 Entered By: FIONA FERREIRA Comment: [place] Entered By: FIONA FERREIRA Comment: OK to leave phone message [facility] Gynecomastia * (ICD-9-CM 611.1) Active Condition [facility] Hiatal hernia Active Condition Mar Entered By: FIONA FERREIRA Comment: Non [place] GI- Dr. Christian Noland, stae C5-M5 5 cm in size - last visit- 08/2022 [facility] History of surgery Active Condition Dec 27, 2022 En tered By: RAQUEL HODGE Comment: Jun 06, 2004 [facility] Entered By: RAQUEL HODGE Comment: s/p RIGHT KNEE REPLACEMENTJul 2022 Entered By: RAQUEL HODGE Comment: S/P Cholecystectomy [facility] Hyperlipidemia (SNOMED CT 93086409) Active Condition [facility] HYPERTENSION Active Condition [facility] Long-term current use of anticoagulant Active Condition [facility] MDD, Recurrent, unspec Active Condition [facility] Obstructive sleep apnea of adult Active Condition Dec 27, 2022 En tered By: RAQUEL HODGE Comment: Could not tolerate CPAP [facility] Onychomycosis Active Condition [facility] Osteoarthritis Active Condition Dec 092022 Entered By: RAQUEL HODGE Comment: Degenerative changes noted in spine on previous ABD CT [facility] Overactive Bladder (ICD-9-CM 596.51) Active Condition [facility] Pain in left arm Active Condition [facility] Pulmonary embolism Active Condition [facility] Umbilical hernia Active Condition Mar 12, 2023 Entered By: FIONA FERREIRA Comment: without obstruction and without gangrene [facility] Diagnosis: ICD-10-CM R20.2 Paresthesia of skin Active Diagnosis [facility] Diagnosis: ICD-10-CM M79.622 Pain in left upper arm Active Diagnosis [facility] Diagnosis: ICD-10-CM 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 Diagnosis [facility] Diagnosis: ICD-10-CM Z00.01 Encounter for general adult medical exam w abnormal findings Active Diagnosis [facility] Diagnosis: ICD-10-CM R51.9 Headache, unspecified Active Diagnosis [facility] Diagnosis: ICD-10-CM R42 Dizziness and giddiness Active Diagnosis [facility] Diagnosis: ICD-10-CM R73.09 Other abnormal glucose Active Diagnosis [facility] Diagnosis: ICD-10-CM R07.9 Chest pain, unspecified Active Diagnosis [facility] Diagnosis: ICD-10-CM Z51.81 Encounter for therapeutic drug level monitoring Active Diagnosis [facility] Diagnosis: ICD-10-CM Z00.00 Encntr for general adult medical exam w/o abnormal findings Active Diagnosis [facility] Medications Combined list of outpatient medications from Department of Defense and Veterans Affairs facilities.Medications provided include 1) outpatient medications from the last 15 months, and 2) patient-reported medications. Medication Details Route Status Patient Instructions Prescription Expires Prescription Number Last Dispense Date Ordering Provider Order Date Source AMLODIPINE BESYLATE 10MG TAB TAKE ONE TABLET BY MOUTH EVERY DAY FOR BLOOD PRESSURE ORALLY SUSPEND ED 07/03/2024 [id number] 4 NAY FERREIRA 2023 [facility] AMLODIPINE BESYLATE 10MG TAB TAKE ONE TABLET BY MOUTH EVERY DAY FOR BLOOD PRESSURE ORALLY DISCONT INUED 03/12/2024 [id number] 4 NAY FERREIRA 2022 [facility] AMLODIPINE BESYLATE 10MG TAB TAKE ONE TABLET BY MOUTH EVERY DAY FOR BLOOD PRESSURE ORALLY DISCONT INUED 10/11/2023 [id number] JOHNY TATE I 2022 [facility] APIXABAN 5MG TAB TAKE ONE TABLET BY MOUTH EVERY 12 HOURS TO TREAT AND/OR PREVENT BLOOD CLOTS ORALLY ACTIVE 03/14/2024 [id number] 4 ADRIAN SHELLEY 2022 [place] [facility] APIXABAN 5MG TAB TAKE ONE TABLET BY MOUTH EVERY 12 HOURS TO TREAT AND/OR PREVENT BLOOD CLOTS ORALLY DISCONT INUED (EDIT) 10/10/2023 [id number] VANESSA PONCE 2022 [place] [facility] APIXABAN 5MG TAB TAKE ONE TABLET BY MOUTH EVERY 12 HOURS TO TREAT AND/OR PREVENT BLOOD CLOTS ORALLY DISCONT INUED (EDIT) 09/01/2023 [id number] 3 ADRIAN SHELLEY 2022 [facility] APIXABAN 5MG TAB TAKE TWO TABLETS BY MOUTH EVERY 12 HOURS FOR 6 DAYS, THEN TAKE ONE TABLET EVERY 12 HOURS TO TREAT AND/OR PREVENT BLOOD CLOTS ORALLY DISCONT INUED 09/29/2022 [id number] ADRIAN SHELLEY 2022 [facility] CARBAMIDE PEROXIDE 6.5%/GLYCER IN SOLN,OTIC INSTILL 2 DROPS IN BOTH EARS EVERY MORNING FOR EAR WAX REMOVAL FOR NEXT 7DAYS BOTH EARS 06/10/2023 [id number] 3 NAY FERREIRA 2022 [facility] DICLOFENAC NA 1% GEL,TOP APPLY 4 GRAMS TOPICALL Y FOUR TIMES A DAY NEEDED TO AFFECTED AREA FOR PAIN TOPICA LLY ACTIVE 08/02/2023 [id number] DELMI GARRISON 2023 [place] [facility] FLUTICASONE PROPIONATE 50MCG/SPRAY SOLN,NASAL, 16GM SPRAY 1 SPRAY IN EACH NOSTRIL TWICE A DAY USE REGULARL Y FOR RELIEF OF ALLERGIE S/CONGES TION NASAL ACTIVE 03/12/2024 [id number] 4 NAY FERREIRA 2022 [facility] LOPERAMIDE HCL 2MG CAP TAKE ONE CAPSULE BY FEEDING TUBE EVERY DAY NEEDED FOR DIARRHEA FEEDIN G TUBE ACTIVE 03/12/2024 [id number] 3 NAY FERREIRA 2022 [facility] LORATADINE 10MG TAB TAKE ONE TABLET BY MOUTH EVERY DAY FOR ALLERGIE S ORALLY ACTIVE 03/12/2024 [id number] 3 NAY FERREIRA 2022 [facility] LORATADINE 10MG TAB TAKE ONE TABLET BY MOUTH EVERY DAY FOR ALLERGIE S ORALLY DISCONT INUED 10/11/2023 [id number] JOHNY TATE I 2022 [facility] OMEPRAZOLE 20MG CAP,EC TAKE ONE CAPSULE BY MOUTH EVERY DAY ON AN EMPTY STOMACH, AT LEAST 30 MINUTES PRIOR TO A MEAL FOR STOMACH ACID ORALLY ACTIVE 03/12/2024 [id number] 3 NAY FERREIRA 2022 [facility] POLYVINYL ALCOHOL 1.4%/POVIDO NE (PF) SOLN,OPH INSTILL DROP(S) IN BOTH EYES TWICE A DAY NEEDED FOR DRY EYES BOTH EYES ACTIVE 07/03/2024 [id number] 4 NAY FERREIRA 2023 [facility] SILDENAFIL CITRATE 50MG TAB TAKE ONE TABLET BY MOUTH EVERY DAY NEEDED FOR ERECTILE DYSFUNCT ION TAKE 30 MINUTES -4 HOURS BEFORE SEXUAL ACTIVITY , MAX- 100MG PER 24 HOURS ORALLY ACTIVE 04/08/2024 [id number] 3 NAY FERREIRA 2022 [facility] TAMSULOSIN HCL 0.4MG CAP TAKE ONE CAPSULE BY MOUTH EVERY MORNING FOR BLADDER SYMPTOMS AFTER MEAL ORALLY ACTIVE 04/08/2024 [id number] 3 NAY FERREIRA 2022 [facility] VANICREAM APPLY THIN LAYER TOPICALL Y EVERY MORNING FOR DRY SKIN TOPICA LLY ACTIVE 03/12/2024 [id number] 3 NAY FERREIRA 2022 [facility] Immunizations Combined list of available immunizations from the Department of Defense and Veterans Affairs facilities. 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 Comments Source TD (ADULT), 5 LF TETANUS TOXOID, PRESERVATIVE FREE, ADSORBED 2021 113 complet ed [facility] COVID-19 (mobicanvas), MRNA, LNP-S, PF, 30 MCG/0.3 ML DOSE 2021 208 complet ed [facility] COVID-19 (RFEyeD), VECTOR-NR, RS-AD26, PF, 0.5 ML 1 2020 212 complet ed [facility] ZOSTER RECOMBINANT 2 2018 187 complet ed [facility] ZOSTER RECOMBINANT 1 2018 187 complet ed [facility] INFLUENZA, HIGH DOSE SEASONAL 2017 135 complet ed [facility] INFLUENZA, HIGH DOSE SEASONAL 2016 135 complet ed [facility] PNEUMOCOCCAL POLYSACCHARID E PPV23 2016 33 complet ed mer[employer] lot [id number] exp 07/01/17 [facility] PNEUMOCOCCAL CONJUGATE PCV 13 2014 133 complet ed [id number], 09/2016 [facility] ZOSTER LIVE 2011 121 complet ed [employer] Lot# [id number] Exp.Date- -07/12/19 13 [facility] PNEUMOCOCCAL, UNSPECIFIED FORMULATION 2011 109 complet ed merck [id number], [facility] TDAP 2011 115 complet ed private [facility] TDAP 2008 115 complet ed [facility] INFLUENZA, UNSPECIFIED FORMULATION 2005 88 complet ed [facility] INFLUENZA, UNSPECIFIED FORMULATION 2004 88 complet ed [facility] Results Combined list of recent chemistry, hematology and other laboratory results from Department of Defense and Veterans Affairs, ranging from 15 months to all on record, depending upon the facility. Order Name Results Value Reference Range Date Interpretation Specimen Comments Source COVID-19 AND FLU/RSV DIAG PANEL(CB [facility]) SARS-COV-2 (COVID-19) RNA [PRESENCE] IN RESPIRATOR Y SPECIMEN BY SARY WITH PROBE DETECTION Not Detected 07/03 Specimen Type: NASOPHARYNG EAL No comment entered. Ordering Provider: JUAN MANUEL FERREIRA Report Released Date/Time: Jul 03, 2023 11:57 AM Reporting Lab: [facility] [address] [place] [address] Performing Lab: [facility] [address] [place] [address] [facility] COVID-19 AND FLU/RSV DIAG PANEL(CB [facility]) INFLUENZA VIRUS A RNA [PRESENCE] IN UPPER RESPIRATOR Y SPECIMEN BY SARY WITH PROBE DETECTION Not Detected 07/03 Specimen Type: NASOPHARYNG EAL No comment entered. Ordering Provider: JUAN MANUEL FERREIRA Report Released Date/Time: Jul 03, 2023 11:57 AM Reporting Lab: [facility] [address] [place] [place] [address] Performing Lab: [facility] [address] [place] [place] [address] [facility] COVID-19 AND FLU/RSV DIAG PANEL(CB [facility]) INFLUENZA VIRUS B RNA [PRESENCE] IN UPPER RESPIRATOR Y SPECIMEN BY SARY WITH PROBE DETECTION Not Detected 07/03 Specimen Type: NASOPHARYNG EAL No comment entered. Ordering Provider: JUAN MANUEL FERREIRA Report Released Date/Time: Jul 03, 2023 11:57 AM Reporting Lab: [facility] [address] [place] [place] [address] Performing Lab: [facility] [address] [place] [address] [facility] COVID-19 AND FLU/RSV DIAG PANEL(CB [facility]) RESPIRATOR Y SYNCYTIAL VIRUS RNA [PRESENCE] IN UPPER RESPIRATOR Y SPECIMEN BY SARY WITH PROBE DETECTION Not Detected 07/03 Specimen Type: NASOPHARYNG EAL No comment entered. Ordering Provider: JUAN MANUEL FERREIRA Report Released Date/Time: Jul 03, 2023 11:57 AM Reporting Lab: [facility] [address] [place] [address] Performing Lab: [facility] [address] [place] [address] [facility] BASIC METABOLI C PANEL+MG CREATININE [MASS/VOLU ME] IN SERUM OR PLASMA 1.0 0.7 - 1.2 07/03 Specimen Type: PLASMA No comment entered. Ordering Provider: JUAN MANUEL FERREIRA Report Released Date/Time: Jul 03, 2023 10:44 AM Reporting Lab: [facility] [address] Performing Lab: [facility] [address] [facility] BASIC METABOLI C PANEL+MG UREA NITROGEN [MASS/VOLU ME] IN SERUM OR PLASMA 25 8 - 26 07/03 Specimen Type: PLASMA No comment entered. Ordering Provider: JUAN MANUEL FERREIRA Report Released Date/Time: Jul 03, 2023 10:44 AM Reporting Lab: [facility] [address] Performing Lab: [facility] [address] [facility] BASIC METABOLI C PANEL+MG GLUCOSE [MASS/VOLU ME] IN SERUM OR PLASMA 137 70 - 100 07/03 H Specimen Type: PLASMA No comment entered. Ordering Provider: JUAN MANUEL FERREIRA Report Released Date/Time: Jul 03, 2023 10:44 AM Reporting Lab: [facility] [address] Performing Lab: [facility] [address] [facility] BASIC METABOLI C PANEL+MG SODIUM [MOLES/VOL UME] IN SERUM OR PLASMA 142 136 - 145 07/03 Specimen Type: PLASMA No comment entered. Ordering Provider: JUAN MANUEL FERREIRA Report Released Date/Time: Jul 03, 2023 10:44 AM Reporting Lab: [facility] [address] Performing Lab: [facility] [address] [facility] BASIC METABOLI C PANEL+MG POTASSIUM [MOLES/VOL UME] IN SERUM OR PLASMA 4.1 3.5 - 5.1 07/03 Specimen Type: PLASMA No comment entered. Ordering Provider: JUAN MANUEL FERREIRA Report Released Date/Time: Jul 03, 2023 10:44 AM Reporting Lab: [facility] [address] Performing Lab: [facility] [address] [facility] BASIC METABOLI C PANEL+MG CHLORIDE [MOLES/VOL UME] IN SERUM OR PLASMA 110 98 - 107 07/03 H Specimen Type: PLASMA No comment entered. Ordering Provider: JUAN MANUEL FERREIRA Report Released Date/Time: Jul 03, 2023 10:44 AM Reporting Lab: [facility] [address] Performing Lab: [facility] [address] [facility] BASIC METABOLI C PANEL+MG CARBON DIOXIDE, TOTAL [MOLES/VOL UME] IN SERUM OR PLASMA 22 - 07/03 Specimen Type: PLASMA No comment entered. Ordering Provider: JUAN MANUEL FERREIRA Report Released Date/Time: Jul 03, 2023 10:44 AM Reporting Lab: [facility] [address] Performing Lab: [facility] [address] [facility] BASIC METABOLI C PANEL+MG CALCIUM [MASS/VOLU ME] IN SERUM OR PLASMA 9.2 8.4 - 10.2 07/03 Specimen Type: PLASMA No comment entered. Ordering Provider: JUAN MANUEL FERREIRA Report Released Date/Time: Jul 03, 2023 10:44 AM Reporting Lab: [facility] [address] Performing Lab: [facility] [address] [facility] BASIC METABOLI C PANEL+MG MAGNESIUM [MASS/VOLU ME] IN SERUM OR PLASMA 2.0 1.6 - 2.6 07/03 Specimen Type: PLASMA No comment entered. Ordering Provider: JUAN MANUEL FERREIRA Report Released Date/Time: Jul 03, 2023 10:44 AM Reporting Lab: [facility] [address] Performing Lab: [facility] [address] [facility] BASIC METABOLI C PANEL+MG ANION GAP IN SERUM OR PLASMA 10 5 - 15 07/03 Specimen Type: PLASMA No comment entered. Ordering Provider: JUAN MANUEL FERREIRA Report Released Date/Time: Jul 03, 2023 10:44 AM Reporting Lab: [facility] [address] Performing Lab: [facility] [address] [facility] BASIC METABOLI C PANEL+MG GLOMERULAR FILTRATION RATE/1.73 SQ M.PREDICTE D [VOLUME RATE/AREA] IN SERUM, PLASMA OR BLOOD BY CREATININE -BASED FORMULA (CKD-EPI 2020) 79 60 07/03 Specimen Type: PLASMA No comment entered. Ordering Provider: JUAN MANUEL FERREIRA Report Released Date/Time: Jul 03, 2023 10:44 AM Reporting Lab: [facility] [address] Performing Lab: [facility] [address] [facility] CBC & DIFF LEUKOCYTES [#/VOLUME] IN BLOOD BY AUTOMATED COUNT 6.54 4.0 - 11.0 07/03 Specimen Type: BLOOD Comment: Automated Differentia l Performed Ordering Provider: JUAN MANUEL FERREIRA Report Released Date/Time: Jul 03, 2023 10:44 AM Reporting Lab: [facility] [address] Performing Lab: [facility] [address] [facility] CBC & DIFF ERYTHROCYT ES [#/VOLUME] IN BLOOD BY AUTOMATED COUNT 4.66 4.6 - 6.2 07/03 Specimen Type: BLOOD Comment: Automated Differentia l Performed Ordering Provider: JUAN MANUEL FERREIRA Report Released Date/Time: Jul 03, 2023 10:44 AM Reporting Lab: [facility] [address] Performing Lab: [facility] [address] [facility] CBC & DIFF HEMOGLOBIN [MASS/VOLU ME] IN BLOOD 14.5 13.5 - 17.9 07/03 Specimen Type: BLOOD Comment: Automated Differentia l Performed Ordering Provider: JUAN MANUEL FERREIRA Report Released Date/Time: Jul 03, 2023 10:44 AM Reporting Lab: [facility] [address] Performing Lab: [facility] [address] [facility] CBC & DIFF HEMATOCRIT [VOLUME FRACTION] OF BLOOD BY AUTOMATED COUNT 42.9 41 - 54 07/03 Specimen Type: BLOOD Comment: Automated Differentia l Performed Ordering Provider: JUAN MANUEL FERREIRA Report Released Date/Time: Jul 03, 2023 10:44 AM Reporting Lab: [facility] [address] Performing Lab: [facility] [address] [facility] CBC & DIFF MCV [ENTITIC VOLUME] BY AUTOMATED COUNT 92.1 80 - 100 07/03 Specimen Type: BLOOD Comment: Automated Differentia l Performed Ordering Provider: JUAN MANUEL FERREIRA Report Released Date/Time: Jul 03, 2023 10:44 AM Reporting Lab: [facility] [address] Performing Lab: [facility] [address] [facility] CBC & DIFF MCH [ENTITIC MASS] BY AUTOMATED COUNT 31.1 27 - 33 07/03 Specimen Type: BLOOD Comment: Automated Differentia l Performed Ordering Provider: JUAN MANUEL FERREIRA Report Released Date/Time: Jul 03, 2023 10:44 AM Reporting Lab: [facility] [address] Performing Lab: [facility] [address] [facility] CBC & DIFF MCHC [MASS/VOLU ME] BY AUTOMATED COUNT 33.8 32.0 - 37.5 07/03 Specimen Type: BLOOD Comment: Automated Differentia l Performed Ordering Provider: JUAN MANUEL FERREIRA Report Released Date/Time: Jul 03, 2023 10:44 AM Reporting Lab: [facility] [address] Performing Lab: [facility] [address] [facility] CBC & DIFF PLATELETS [#/VOLUME] IN BLOOD BY AUTOMATED COUNT 283 150 - 400 07/03 Specimen Type: BLOOD Comment: Automated Differentia l Performed Ordering Provider: JUAN MANUEL FERREIRA Report Released Date/Time: Jul 03, 2023 10:44 AM Reporting Lab: [facility] [address] Performing Lab: [facility] [address] [facility] CBC & DIFF PLATELET MEAN VOLUME [ENTITIC VOLUME] IN BLOOD BY AUTOMATED COUNT 10.5 7.4 - 10.4 07/03 H Specimen Type: BLOOD Comment: Automated Differentia l Performed Ordering Provider: JUAN MANUEL FERREIRA Report Released Date/Time: Jul 03, 2023 10:44 AM Reporting Lab: [facility] [address] Performing Lab: [facility] [address] [facility] CBC & DIFF NEUTROPHIL S/100 LEUKOCYTES IN BLOOD BY MANUAL COUNT 65.2 40.0 - 80.0 07/03 Specimen Type: BLOOD Comment: Automated Differentia l Performed Ordering Provider: JUAN MANUEL FERREIRA Report Released Date/Time: Jul 03, 2023 10:44 AM Reporting Lab: [facility] [address] Performing Lab: [facility] [address] [facility] CBC & DIFF LYMPHOCYTE S/100 LEUKOCYTES IN BLOOD BY MANUAL COUNT 26.5 15.0 - 45.0 07/03 Specimen Type: BLOOD Comment: Automated Differentia l Performed Ordering Provider: JUAN MANUEL FERREIRA Report Released Date/Time: Jul 03, 2023 10:44 AM Reporting Lab: [facility] [address] Performing Lab: [facility] [address] [facility] CBC & DIFF MONOCYTES/ 100 LEUKOCYTES IN BLOOD BY AUTOMATED COUNT 5.4 2.0 - 12.0 07/03 Specimen Type: BLOOD Comment: Automated Differentia l Performed Ordering Provider: JUAN MANUEL FERREIRA Report Released Date/Time: Jul 03, 2023 10:44 AM Reporting Lab: [facility] [address] Performing Lab: [facility] [address] [facility] CBC & DIFF EOSINOPHIL S/100 LEUKOCYTES IN BLOOD BY AUTOMATED COUNT 1.4 0.0 - 6.0 07/03 Specimen Type: BLOOD Comment: Automated Differentia l Performed Ordering Provider: JUAN MANUEL FERREIRA Report Released Date/Time: Jul 03, 2023 10:44 AM Reporting Lab: [facility] [address] Performing Lab: [facility] [address] [facility] CBC & DIFF BASOPHILS/ 100 LEUKOCYTES IN BLOOD BY MANUAL COUNT 0.9 0.0 - 2.0 07/03 Specimen Type: BLOOD Comment: Automated Differentia l Performed Ordering Provider: JUAN MANUEL FERREIRA Report Released Date/Time: Jul 03, 2023 10:44 AM Reporting Lab: [facility] [address] Performing Lab: [facility] [address] [facility] CBC & DIFF ERYTHROCYT E DISTRIBUTI ON WIDTH [RATIO] BY AUTOMATED COUNT 11.9 11.5 - 14.5 07/03 Specimen Type: BLOOD Comment: Automated Differentia l Performed Ordering Provider: JUAN MANUEL FERREIRA Report Released Date/Time: Jul 03, 2023 10:44 AM Reporting Lab: [facility] [address] Performing Lab: [facility] [address] [facility] CBC & DIFF LYMPHOCYTE S [#/VOLUME] IN BLOOD BY AUTOMATED COUNT 1.73 1.0 - 4.0 07/03 Specimen Type: BLOOD Comment: Automated Differentia l Performed Ordering Provider: JUAN MANUEL FERREIRA Report Released Date/Time: Jul 03, 2023 10:44 AM Reporting Lab: [facility] [address] Performing Lab: [facility] [address] [facility] CBC & DIFF MONOCYTES [#/VOLUME] IN BLOOD BY AUTOMATED COUNT 0.35 0.1 - 1.0 07/03 Specimen Type: BLOOD Comment: Automated Differentia l Performed Ordering Provider: JUAN MANUEL FERREIRA Report Released Date/Time: Jul 03, 2023 10:44 AM Reporting Lab: [facility] [address] Performing Lab: [facility] [address] [facility] CBC & DIFF NEUTROPHIL S [#/VOLUME] IN BLOOD BY AUTOMATED COUNT 4.27 2.0 - 7.7 07/03 Specimen Type: BLOOD Comment: Automated Differentia l Performed Ordering Provider: JUAN MANUEL FERREIRA Report Released Date/Time: Jul 03, 2023 10:44 AM Reporting Lab: [facility] [address] Performing Lab: [facility] [address] [facility] CBC & DIFF EOSINOPHIL S [#/VOLUME] IN BLOOD BY AUTOMATED COUNT 0.09 0 - 0.5 07/03 Specimen Type: BLOOD Comment: Automated Differentia l Performed Ordering Provider: JUAN MANUEL FERREIRA Report Released Date/Time: Jul 03, 2023 10:44 AM Reporting Lab: [facility] [address] Performing Lab: [facility] [address] [facility] CBC & DIFF BASOPHILS [#/VOLUME] IN BLOOD BY AUTOMATED COUNT 0.06 0 - 0.2 07/03 Specimen Type: BLOOD Comment: Automated Differentia l Performed Ordering Provider: JUAN MANUEL FERREIRA Report Released Date/Time: Jul 03, 2023 10:44 AM Reporting Lab: [facility] [address] [facility]forming Lab[facility] [facility] [address] [facility] CBC & DIFF IG(META,MY JEFFERY,PRO) 0.6 07/03 Specimen Type: BLOOD Comment: Automated Differentia l Performed Ordering Provider: JUAN MANUEL FERREIRA Report Released Date/Time: Jul 03, 2023 10:44 AM Reporting Lab: [facility] [address] Performing Lab: [facility] [address] [facility] CBC & DIFF IMMATURE GRANULOCYT ES [PRESENCE] IN BLOOD BY AUTOMATED COUNT 0.04 0 - 0.1 07/03 Specimen Type: BLOOD Comment: Automated Differentia l Performed Ordering Provider: JUAN MANUEL FERREIRA Report Released Date/Time: Jul 03, 2023 10:44 AM Reporting Lab: [facility] [address] Performing Lab: [facility] [address] [facility] TSH W/REFLEX TO FREE T4 THYROTROPI N [UNITS/VOL UME] IN SERUM OR PLASMA 1.72 0.35 - 4.94 03/12 Specimen Type: PLASMA No comment entered. Ordering Provider: JUAN MANUEL FERREIRA Report Released Date/Time: Mar 12, 2023 09:07 AM Reporting Lab: [facility] [address] Performing Lab: [facility] [address] [facility] HEMOGLOB IN A1C HEMOGLOBIN A1C/HEMOGL OBIN.TOTAL IN BLOOD 5.5 4.0 - 6.0 03/12 Specimen Type: BLOOD Comment: Values obtained from A1C measurement s can vary. For typical A1C assays, a reported value of 7.0 could actually be between 6.7 and 7.3 if measured by a reference method. A reported value of 9.0 could actually be between 8.7 and 9.3. Ref: http://www. ngsp.org/[place] Pdata.asp Ordering Provider: JUAN MANUEL FERREIRA Report Released Date/Time: Mar 12, 2023 09:07 AM Reporting Lab: [facility] [address] Performing Lab: [facility] [address] [facility] CBC LEUKOCYTES [#/VOLUME] IN BLOOD BY AUTOMATED COUNT 6.10 4.0 - 11.0 03/12 Specimen Type: BLOOD No comment entered. Ordering Provider: JUAN MANUEL FERREIRA Report Released Date/Time: Mar 12, 2023 09:07 AM Reporting Lab: [facility] [address] Performing Lab: [facility] [address] [facility] CBC ERYTHROCYT ES [#/VOLUME] IN BLOOD BY AUTOMATED COUNT 5.14 4.6 - 6.2 03/12 Specimen Type: BLOOD No comment entered. Ordering Provider: JUAN MANUEL FERREIRA Report Released Date/Time: Mar 12, 2023 09:07 AM Reporting Lab: [facility] [address] Performing Lab: [facility] [address] [facility] CBC HEMOGLOBIN [MASS/VOLU ME] IN BLOOD 16.2 13.5 - 17.9 03/12 Specimen Type: BLOOD No comment entered. Ordering Provider: JUAN MANUEL FERREIRA Report Released Date/Time: Mar 12, 2023 09:07 AM Reporting Lab: [facility] [address] Performing Lab: [facility] [address] [facility] CBC HEMATOCRIT [VOLUME FRACTION] OF BLOOD BY AUTOMATED COUNT 46.5 41 - 54 03/12 Specimen Type: BLOOD No comment entered. Ordering Provider: JUAN MANUEL FERREIRA Report Released Date/Time: Mar 12, 2023 09:07 AM Reporting Lab: [facility] [address] Performing Lab: [facility] [address] [facility] CBC MCV [ENTITIC VOLUME] BY AUTOMATED COUNT 90.5 80 - 100 03/12 Specimen Type: BLOOD No comment entered. Ordering Provider: JUAN MANUEL FERREIRA Report Released Date/Time: Mar 12, 2023 09:07 AM Reporting Lab: [facility] [address] Performing Lab: [facility] [address] [facility] CBC MCH [ENTITIC MASS] BY AUTOMATED COUNT 31.5 27 - 33 03/12 Specimen Type: BLOOD No comment entered. Ordering Provider: JUAN MANUEL FERREIRA Report Released Date/Time: Mar 12, 2023 09:07 AM Reporting Lab: [facility] [address] Performing Lab: [facility] [address] [facility] CBC MCHC [MASS/VOLU ME] BY AUTOMATED COUNT 34.8 32.0 - 37.5 03/12 Specimen Type: BLOOD No comment entered. Ordering Provider: JUAN MANUEL FERREIRA Report Released Date/Time: Mar 12, 2023 09:07 AM Reporting Lab: [facility] [address] Performing Lab: [facility] [address] [facility] CBC PLATELETS [#/VOLUME] IN BLOOD BY AUTOMATED COUNT 221 150 - 400 03/12 Specimen Type: BLOOD No comment entered. Ordering Provider: JUAN MANUEL FERREIRA Report Released Date/Time: Mar 12, 2023 09:07 AM Reporting Lab: [facility] [address] Performing Lab: [facility] [address] [facility] CBC PLATELET MEAN VOLUME [ENTITIC VOLUME] IN BLOOD BY AUTOMATED COUNT 11.2 7.4 - 10.4 03/12 H Specimen Type: BLOOD No comment entered. Ordering Provider: JUAN MANUEL FERREIRA Report Released Date/Time: Mar 12, 2023 09:07 AM Reporting Lab: [facility] [address] Performing Lab: [facility] [address] [facility] CBC ERYTHROCYT E DISTRIBUTI ON WIDTH [RATIO] BY AUTOMATED COUNT 12.0 11.5 - 14.5 03/12 Specimen Type: BLOOD No comment entered. Ordering Provider: JUAN MANUEL FERREIRA Report Released Date/Time: Mar 12, 2023 09:07 AM Reporting Lab: [facility] [address] Performing Lab: [facility] [address] [facility] COMPREHE NSIVE METABOLI C PANEL+MG CREATININE [MASS/VOLU ME] IN SERUM OR PLASMA 1.0 0.7 - 1.2 03/12 Specimen Type: PLASMA No comment entered. Ordering Provider: JUAN MANUEL FERREIRA Report Released Date/Time: Mar 12, 2023 09:07 AM Reporting Lab: [facility] [address] Performing Lab: [facility] [address] [facility] COMPREHE NSIVE METABOLI C PANEL+MG UREA NITROGEN [MASS/VOLU ME] IN SERUM OR PLASMA 22 8 - 26 03/12 Specimen Type: PLASMA No comment entered. Ordering Provider: JUAN MANUEL FERREIRA Report Released Date/Time: Mar 12, 2023 09:07 AM Reporting Lab: [facility] [address] Performing Lab: [facility] [address] [facility] COMPREHE NSIVE METABOLI C PANEL+MG GLUCOSE [MASS/VOLU ME] IN SERUM OR PLASMA 98 70 - 100 03/12 Specimen Type: PLASMA No comment entered. Ordering Provider: JUAN MANUEL FERREIRA Report Released Date/Time: Mar 12, 2023 09:07 AM Reporting Lab: [facility] [address] Performing Lab: [facility] [address] [facility] COMPREHE NSIVE METABOLI C PANEL+MG SODIUM [MOLES/VOL UME] IN SERUM OR PLASMA 139 136 - 145 03/12 Specimen Type: PLASMA No comment entered. Ordering Provider: JUAN MANUEL FERREIRA Report Released Date/Time: Mar 12, 2023 09:07 AM Reporting Lab: [facility] [address] Performing Lab: [facility] [address] [facility] COMPREHE NSIVE METABOLI C PANEL+MG POTASSIUM [MOLES/VOL UME] IN SERUM OR PLASMA 4.2 3.5 - 5.1 03/12 Specimen Type: PLASMA No comment entered. Ordering Provider: JUAN MANUEL FERREIRA Report Released Date/Time: Mar 12, 2023 09:07 AM Reporting Lab: [facility] [address] Performing Lab: [facility] [address] [facility] COMPREHE NSIVE METABOLI C PANEL+MG CHLORIDE [MOLES/VOL UME] IN SERUM OR PLASMA 107 98 - 107 03/12 Specimen Type: PLASMA No comment entered. Ordering Provider: JUAN MANUEL FERREIRA Report Released Date/Time: Mar 12, 2023 09:07 AM Reporting Lab: [facility] [address] Performing Lab: [facility] [address] [facility] COMPREHE NSIVE METABOLI C PANEL+MG CARBON DIOXIDE, TOTAL [MOLES/VOL UME] IN SERUM OR PLASMA 19 22 - 29 03/12 L Specimen Type: PLASMA No comment entered. Ordering Provider: JUAN MANUEL FERREIRA Report Released Date/Time: Mar 12, 2023 09:07 AM Reporting Lab: [facility] [address] Performing Lab: [facility] [address] [facility] COMPREHE NSIVE METABOLI C PANEL+MG CALCIUM [MASS/VOLU ME] IN SERUM OR PLASMA 9.6 8.4 - 10.2 03/12 Specimen Type: PLASMA No comment entered. Ordering Provider: JUAN MANUEL FERREIRA Report Released Date/Time: Mar 12, 2023 09:07 AM Reporting Lab: [facility] [address] Performing Lab: [facility] [address] [facility] COMPREHE NSIVE METABOLI C PANEL+MG PROTEIN [MASS/VOLU ME] IN SERUM OR PLASMA 7.9 6.0 - 8.3 03/12 Specimen Type: PLASMA No comment entered. Ordering Provider: JUAN MANUEL FERREIRA Report Released Date/Time: Mar 12, 2023 09:07 AM Reporting Lab: [facility] [address] Performing Lab: [facility] [address] [facility] COMPREHE NSIVE METABOLI C PANEL+MG ALBUMIN [MASS/VOLU ME] IN SERUM OR PLASMA 4.6 3.5 - 5.2 03/12 Specimen Type: PLASMA No comment entered. Ordering Provider: JUAN MANUEL FERREIRA Report Released Date/Time: Mar 12, 2023 09:07 AM Reporting Lab: [facility] [address] Performing Lab: [facility] [address] [facility] COMPREHE NSIVE METABOLI C PANEL+MG BILIRUBIN. TOTAL [MASS/VOLU ME] IN SERUM OR PLASMA 1.1 0.2 - 1.2 03/12 Specimen Type: PLASMA No comment entered. Ordering Provider: JUAN MANUEL FERREIRA Report Released Date/Time: Mar 12, 2023 09:07 AM Reporting Lab: [facility] [address] Performing Lab: [facility] [address] [facility] COMPREHE NSIVE METABOLI C PANEL+MG MAGNESIUM [MASS/VOLU ME] IN SERUM OR PLASMA 2.1 1.6 - 2.6 03/12 Specimen Type: PLASMA No comment entered. Ordering Provider: JUAN MANUEL FERREIRA Report Released Date/Time: Mar 12, 2023 09:07 AM Reporting Lab: [facility] [address] Performing Lab: [facility] [address] [facility] COMPREHE NSIVE METABOLI C PANEL+MG ANION GAP IN SERUM OR PLASMA 13 5 - 15 03/12 Specimen Type: PLASMA No comment entered. Ordering Provider: JUAN MANUEL FERREIRA Report Released Date/Time: Mar 12, 2023 09:07 AM Reporting Lab: [facility] [address] Performing Lab: [facility] [address] [facility] COMPREHE NSIVE METABOLI C PANEL+MG ALKALINE PHOSPHATAS E [ENZYMATIC ACTIVITY/V OLUME] IN SERUM OR PLASMA 75 40 - 150 03/12 Specimen Type: PLASMA No comment entered. Ordering Provider: JUAN MANUEL FERREIRA Report Released Date/Time: Mar 12, 2023 09:07 AM Reporting Lab: [facility] [address] Performing Lab: [facility] [address] [facility] COMPREHE NSIVE METABOLI C PANEL+MG ALANINE AMINOTRANS FERASE [ENZYMATIC ACTIVITY/V OLUME] IN SERUM OR PLASMA 24 <55 - 55 03/12 Specimen Type: PLASMA No comment entered. Ordering Provider: JUAN MANUEL FERREIRA Report Released Date/Time: Mar 12, 2023 09:07 AM Reporting Lab: [facility] [address] Performing Lab: [facility] [address] [facility] COMPREHE NSIVE METABOLI C PANEL+MG ASPARTATE AMINOTRANS FERASE [ENZYMATIC ACTIVITY/V OLUME] IN SERUM OR PLASMA 20 <34 - 34 03/12 Specimen Type: PLASMA No comment entered. Ordering Provider: JUAN MANUEL FERREIRA Report Released Date/Time: Mar 12, 2023 09:07 AM Reporting Lab: [facility] [address] Performing Lab: [facility] [address] [facility] COMPREHE NSIVE METABOLI C PANEL+MG GLOMERULAR FILTRATION RATE/1.73 SQ M.PREDICTE D [VOLUME RATE/AREA] IN SERUM, PLASMA OR BLOOD BY CREATININE -BASED FORMULA (CKD-EPI 2020) 79 60 03/12 Specimen Type: PLASMA No comment entered. Ordering Provider: JUAN MANUEL FERREIRA Report Released Date/Time: Mar 12, 2023 09:07 AM Reporting Lab: [facility] [address] Performing Lab: [facility] [address] [facility] HEMOGLOB IN A1C HEMOGLOBIN A1C/HEMOGL OBIN.TOTAL IN BLOOD 5.5 4.0 - 6.0 12/27 Specimen Type: BLOOD Comment: Values obtained from A1C measurement s can vary. For typical A1C assays, a reported value of 7.0 could actually be between 6.7 and 7.3 if measured by a reference method. A reported value of 9.0 could actually be between 8.7 and 9.3. Ref: http://www. ngsp.org/[place] Pdata.asp Ordering Provider: Steffany TATE Report Released Date/Time: Dec 26, 2022 10:26 AM Reporting Lab: [facility] [address] Performing Lab: [facility] [address] [facility] BASIC METABOLI C PANEL+MG CREATININE [MASS/VOLU ME] IN SERUM OR PLASMA 1.1 0.7 - 1.2 12/27 Specimen Type: PLASMA No comment entered. Ordering Provider: Steffany TATE Report Released Date/Time: Dec 26, 2022 10:26 AM Reporting Lab: [facility] [address] Performing Lab: [facility] [address] [facility] BASIC METABOLI C PANEL+MG UREA NITROGEN [MASS/VOLU ME] IN SERUM OR PLASMA 15 8 - 26 12/27 Specimen Type: PLASMA No comment entered. Ordering Provider: Steffany TATE Report Released Date/Time: Dec 26, 2022 10:26 AM Reporting Lab: [facility] [address] Performing Lab: [facility] [address] [facility] BASIC METABOLI C PANEL+MG GLUCOSE [MASS/VOLU ME] IN SERUM OR PLASMA 100 70 - 100 07/20 /2023 Specimen Type: PLASMA No comment entered. Ordering Provider: Steffany TATE Report Released Date/Time: Dec 26, 2022 10:26 AM Reporting Lab: [facility] [address] Performing Lab: [facility] [address] [facility] BASIC METABOLI C PANEL+MG SODIUM [MOLES/VOL UME] IN SERUM OR PLASMA 137 136 - 145 12/27 Specimen Type: PLASMA No comment entered. Ordering Provider: Steffany TATE Report Released Date/Time: Dec 26, 2022 10:26 AM Reporting Lab: [facility] [address] Performing Lab: [facility] [address] [facility] BASIC METABOLI C PANEL+MG POTASSIUM [MOLES/VOL UME] IN SERUM OR PLASMA 4.2 3.5 - 5.1 12/27 Specimen Type: PLASMA No comment entered. Ordering Provider: Steffany TATE Report Released Date/Time: Dec 26, 2022 10:26 AM Reporting Lab: [facility] [address] Performing Lab: [facility] [address] [facility] BASIC METABOLI C PANEL+MG CHLORIDE [MOLES/VOL UME] IN SERUM OR PLASMA 105 98 - 107 12/27 Specimen Type: PLASMA No comment entered. Ordering Provider: Steffany TATE Report Released Date/Time: Dec 26, 2022 10:26 AM Reporting Lab: [facility] [address] Performing Lab: [facility] [address] [facility] BASIC METABOLI C PANEL+MG CARBON DIOXIDE, TOTAL [MOLES/VOL UME] IN SERUM OR PLASMA 24 22 - 29 12/27 Specimen Type: PLASMA No comment entered. Ordering Provider: Steffany TATE Report Released Date/Time: Dec 26, 2022 10:26 AM Reporting Lab: [facility] [address] Performing Lab: [facility] [address] [facility] BASIC METABOLI C PANEL+MG CALCIUM [MASS/VOLU ME] IN SERUM OR PLASMA 9.2 8.4 - 10.2 12/27 Specimen Type: PLASMA No comment entered. Ordering Provider: Steffany TATE Report Released Date/Time: Dec 26, 2022 10:26 AM Reporting Lab: [facility] [address] Performing Lab: [facility] [address] [facility] BASIC METABOLI C PANEL+MG MAGNESIUM [MASS/VOLU ME] IN SERUM OR PLASMA 2.1 1.6 - 2.6 12/27 Specimen Type: PLASMA No comment entered. Ordering Provider: Steffany TATE Report Released Date/Time: Dec 26, 2022 10:26 AM Reporting Lab: [facility] [address] Performing Lab: [facility] [address] [facility] BASIC METABOLI C PANEL+MG ANION GAP IN SERUM OR PLASMA 8 5 - 15 12/27 Specimen Type: PLASMA No comment entered. Ordering Provider: Steffany TATE Report Released Date/Time: Dec 26, 2022 10:26 AM Reporting Lab: [facility] [address] Performing Lab: [facility] [address] [facility] BASIC METABOLI C PANEL+MG GLOMERULAR FILTRATION RATE/1.73 SQ M.PREDICTE D [VOLUME RATE/AREA] IN SERUM, PLASMA OR BLOOD BY CREATININE -BASED FORMULA (CKD-EPI 2020) 70 12/27 Specimen Type: PLASMA No comment entered. Ordering Provider: Steffany TATE Report Released Date/Time: Dec 26, 2022 10:26 AM Reporting Lab: [facility] [address] Performing Lab: [facility] [address] [facility] CBC & DIFF LEUKOCYTES [#/VOLUME] IN BLOOD BY AUTOMATED COUNT 6.07 4.0 - 11.0 12/27 Specimen Type: BLOOD Comment: Automated Differentia l Performed Ordering Provider: Steffany TATE Report Released Date/Time: Dec 26, 2022 10:26 AM Reporting Lab: [facility] [address] Performing Lab: [facility] [address] [facility] CBC & DIFF ERYTHROCYT ES [#/VOLUME] IN BLOOD BY AUTOMATED COUNT 5.21 4.6 - 6.2 12/27 Specimen Type: BLOOD Comment: Automated Differentia l Performed Ordering Provider: Steffany TATE Report Released Date/Time: Dec 26, 2022 10:26 AM Reporting Lab: [facility] [address] Performing Lab: [facility] [address] [facility] CBC & DIFF HEMOGLOBIN [MASS/VOLU ME] IN BLOOD 16.0 13.5 - 17.9 12/27 Specimen Type: BLOOD Comment: Automated Differentia l Performed Ordering Provider: Steffany TATE Report Released Date/Time: Dec 26, 2022 10:26 AM Reporting Lab: [facility] [address] Performing Lab: [facility] [address] [facility] CBC & DIFF HEMATOCRIT [VOLUME FRACTION] OF BLOOD BY AUTOMATED COUNT 47.5 41 - 54 12/27 Specimen Type: BLOOD Comment: Automated Differentia l Performed Ordering Provider: Steffany TATE Report Released Date/Time: Dec 26, 2022 10:26 AM Reporting Lab: [facility] [address] Performing Lab: [facility] [address] [facility] CBC & DIFF MCV [ENTITIC VOLUME] BY AUTOMATED COUNT 91.2 80 - 100 12/27 Specimen Type: BLOOD Comment: Automated Differentia l Performed Ordering Provider: Steffany TATE Report Released Date/Time: Dec 26, 2022 10:26 AM Reporting Lab: [facility] [address] Performing Lab: [facility] [address] [facility] CBC & DIFF MCH [ENTITIC MASS] BY AUTOMATED COUNT 30.7 27 - 33 12/27 Specimen Type: BLOOD Comment: Automated Differentia l Performed Ordering Provider: Steffany TATE Report Released Date/Time: Dec 26, 2022 10:26 AM Reporting Lab: [facility] [address] Performing Lab: [facility] [address] [facility] CBC & DIFF MCHC [MASS/VOLU ME] BY AUTOMATED COUNT 33.7 32.0 - 37.5 12/27 Specimen Type: BLOOD Comment: Automated Differentia l Performed Ordering Provider: Steffany TATE Report Released Date/Time: Dec 26, 2022 10:26 AM Reporting Lab: [facility] [address] Performing Lab: [facility] [address] [facility] CBC & DIFF PLATELETS [#/VOLUME] IN BLOOD BY AUTOMATED COUNT 231 150 - 400 12/27 Specimen Type: BLOOD Comment: Automated Differentia l Performed Ordering Provider: Steffany TATE Report Released Date/Time: Dec 26, 2022 10:26 AM Reporting Lab: [facility] [address] Performing Lab: [facility] [address] [facility] CBC & DIFF PLATELET MEAN VOLUME [ENTITIC VOLUME] IN BLOOD BY AUTOMATED COUNT 10.7 7.4 - 10.4 12/27 H Specimen Type: BLOOD Comment: Automated Differentia l Performed Ordering Provider: Steffany TATE Report Released Date/Time: Dec 26, 2022 10:26 AM Reporting Lab: [facility] [address] Performing Lab: [facility] [address] [facility] CBC & DIFF NEUTROPHIL S/100 LEUKOCYTES IN BLOOD BY MANUAL COUNT 59.2 12/27 Specimen Type: BLOOD Comment: Automated Differentia l Performed Ordering Provider: Steffany TATE Report Released Date/Time: Dec 26, 2022 10:26 AM Reporting Lab: [facility] [address] Performing Lab: [facility] [address] [facility] CBC & DIFF LYMPHOCYTE S/100 LEUKOCYTES IN BLOOD BY MANUAL COUNT 30.6 12/27 Specimen Type: BLOOD Comment: Automated Differentia l Performed Ordering Provider: Steffany TATE Report Released Date/Time: Dec 26, 2022 10:26 AM Reporting Lab: [facility] [address] Performing Lab: [facility] [address] [facility] CBC & DIFF MONOCYTES/ 100 LEUKOCYTES IN BLOOD BY AUTOMATED COUNT 7.7 12/27 Specimen Type: BLOOD Comment: Automated Differentia l Performed Ordering Provider: Steffany TATE Report Released Date/Time: Dec 26, 2022 10:26 AM Reporting Lab: [facility] [address] Performing Lab: [facility] [address] [facility] CBC & DIFF EOSINOPHIL S/100 LEUKOCYTES IN BLOOD BY AUTOMATED COUNT 1.2 12/27 Specimen Type: BLOOD Comment: Automated Differentia l Performed Ordering Provider: Steffany TATE Report Released Date/Time: Dec 26, 2022 10:26 AM Reporting Lab: [facility] [address] Performing Lab: [facility] [address] [facility] CBC & DIFF BASOPHILS/ 100 LEUKOCYTES IN BLOOD BY MANUAL COUNT 1.0 12/27 Specimen Type: BLOOD Comment: Automated Differentia l Performed Ordering Provider: Steffany TATE Report Released Date/Time: Dec 26, 2022 10:26 AM Reporting Lab: [facility] [address] Performing Lab: [facility] [address] [facility] CBC & DIFF ERYTHROCYT E DISTRIBUTI ON WIDTH [RATIO] BY AUTOMATED COUNT 12.2 11.5 - 14.5 12/27 Specimen Type: BLOOD Comment: Automated Differentia l Performed Ordering Provider: Steffany TATE Report Released Date/Time: Dec 26, 2022 10:26 AM Reporting Lab: [facility] [address] Performing Lab: [facility] [address] [facility] CBC & DIFF LYMPHOCYTE S [#/VOLUME] IN BLOOD BY AUTOMATED COUNT 1.86 1.0 - 4.0 12/27 Specimen Type: BLOOD Comment: Automated Differentia l Performed Ordering Provider: Steffany TATE Report Released Date/Time: Dec 26, 2022 10:26 AM Reporting Lab: [facility] [address] Performing Lab: [facility] [address] [facility] CBC & DIFF MONOCYTES [#/VOLUME] IN BLOOD BY AUTOMATED COUNT 0.47 0.1 - 1.0 12/27 Specimen Type: BLOOD Comment: Automated Differentia l Performed Ordering Provider: Steffany TATE Report Released Date/Time: Dec 26, 2022 10:26 AM Reporting Lab: [facility] [address] Performing Lab: [facility] [address] [facility] CBC & DIFF NEUTROPHIL S [#/VOLUME] IN BLOOD BY AUTOMATED COUNT 3.59 2.0 - 7.7 12/27 Specimen Type: BLOOD Comment: Automated Differentia l Performed Ordering Provider: Steffany TATE Report Released Date/Time: Dec 26, 2022 10:26 AM Reporting Lab: [facility] [address] Performing Lab: [facility] [address] [facility] CBC & DIFF EOSINOPHIL S [#/VOLUME] IN BLOOD BY AUTOMATED COUNT 0.07 0 - 0.5 12/27 Specimen Type: BLOOD Comment: Automated Differentia l Performed Ordering Provider: Steffany TATE Report Released Date/Time: Dec 26, 2022 10:26 AM Reporting Lab: [facility] [id number] Performing Lab: [facility] [phone] [facility] CBC & DIFF BASOPHILS [#/VOLUME] IN BLOOD BY AUTOMATED COUNT 0.06 0 - 0.2 12/27 Specimen Type: BLOOD Comment: Automated Differentia l Performed Ordering Provider: Steffany TATE Report Released Date/Time: Dec 26, 2022 10:26 AM Reporting Lab: [facility] [phone] Performing Lab: [facility] [address] [facility] CBC & DIFF IG(META,MY JEFFERY,PRO) 0.3 12/27 Specimen Type: BLOOD Comment: Automated Differentia l Performed Ordering Provider: Steffany TATE Report Released Date/Time: Dec 26, 2022 10:26 AM Reporting Lab: [facility] [id number] Performing Lab: [facility] [address] [facility] CBC & DIFF IMMATURE GRANULOCYT ES [PRESENCE] IN BLOOD BY AUTOMATED COUNT 0.02 0 - 0.1 12/27 Specimen Type: BLOOD Comment: Automated Differentia l Performed Ordering Provider: Steffany TATE Report Released Date/Time: Dec 26, 2022 10:26 AM Reporting Lab: [facility] SYSTEM [id number] Performing Lab: [facility] [id number] [facility] Vital Signs Combined list of inpatient and outpatient Vital Signs from Department of Defense and Veterans Affairs, ranging from 12 months to all on record, depending upon the facility. Vital Sign Value Date Comments Source SYSTOLIC BLOOD PRESSURE 134 07/03/2023 10:12:11 [facility] DIASTOLIC BLOOD PRESSURE 89 07/03/2023 10:12:11 [facility] PULSE OXIMETRY 96% 07/03/2023 10:12:11 [facility] WEIGHT 230.9 07/03/2023 10:12:11 [facility] BMI 35kg/m2 07/03/2023 10:12:11 [facility] PAIN 6 07/03/2023 10:12:11 [facility] TEMPERATURE 99.3 07/03/2023 10:12:11 [facility] PULSE 93 07/03/2023 10:12:11 [facility] RESPIRATION 16 07/03/2023 10:12:11 [facility] SYSTOLIC BLOOD PRESSURE 143 03/12/2023 08:18:17 [facility] DIASTOLIC BLOOD PRESSURE 89 03/12/2023 08:18:17 [facility] PULSE OXIMETRY 95% 03/12/2023 08:18:17 [facility] WEIGHT 230.8 03/12/2023 08:18:17 [facility] BMI 35kg/m2 03/12/2023 08:18:17 [facility] PAIN 0 03/12/2023 08:18:17 [facility] HEIGHT 68.504 03/12/2023 08:18:17 [facility] TEMPERATURE 97.4 03/12/2023 08:18:17 [facility] PULSE 74 03/12/2023 08:18:17 [facility] RESPIRATION 16 03/12/2023 08:18:17 [facility] SYSTOLIC BLOOD PRESSURE 137 12/27/2022 09:52:43 [facility] DIASTOLIC BLOOD PRESSURE 87 12/27/2022 09:52:43 [facility] PULSE OXIMETRY 95% 12/27/2022 09:52:43 [facility] PAIN 7 12/27/2022 09:52:43 [facility] TEMPERATURE 97.7 12/27/2022 09:52:43 [facility] PULSE 78 12/27/2022 09:52:43 [facility] SYSTOLIC BLOOD PRESSURE 142 10/10/2022 09:16:54 [facility] DIASTOLIC BLOOD PRESSURE 87 10/10/2022 09:16:54 [facility] PULSE OXIMETRY 96% 10/10/2022 09:16:54 [facility] WEIGHT 228.9 10/10/2022 09:16:54 [facility] BMI 34kg/m2 10/10/2022 09:16:54 [facility] PAIN 0 10/10/2022 09:16:54 [facility] TEMPERATURE 97.1 10/10/2022 09:16:54 [facility] PULSE 69 10/10/2022 09:16:54 [facility] RESPIRATION 16 10/10/2022 09:16:54 [facility] SYSTOLIC BLOOD PRESSURE 120 09/03/2022 10:45:02 [facility] DIASTOLIC BLOOD PRESSURE 82 09/03/2022 10:45:02 [facility] PULSE 76 09/03/2022 10:45:02 [facility] Encounters Combined list of: 1) Encounters from [facility] facilities going back up to thelast 18 months. 2) Encounters from the [facility] of [facility] facilities going back up to 280 months. Location Location Details Encounter Type Encounter Number Reason For Visit Attending Provider ADM Date DC Date Status Disposition Source [place] [id number] Diagnos is: ICD-10- CM Z00.00 Encntr for general adult medical exam w/o abnorma l finding s
Jolanta GUZMAN EBECCA L 02/26 [facility] Outpatient Encounter [id number] 02/27 [facility] [place] [facility] Outpatient Encounter [id number] STAS GODWIN 03/20 [facility] [place] [facility] Outpatient Encounter [id number] 03/23 [place] [facility] [place] [facility] Outpatient Encounter [id number] 08/28 [place] [facility] [place] [facility] Outpatient Encounter [id number] 08/29 [place] [facility] [place] [facility] Outpatient Encounter [id number] 08/30 [place] [facility] [place] [facility] Outpatient Encounter [id number] HANY GONZALEZ 08/30 [place] [facility] [place] [facility] QNHP OL DIG ASSMT&MGMT 21+ [id number] Diagnos is: ICD-10- CM Z79.01 nursing home (curren t) use of anticoa gulants
HELMRICK,A BBIE M 08/30 [place] [facility] [place] [facility] Outpatient Encounter [id number] 09/07 [place] [facility] [place] [facility] Outpatient Encounter [id number] 10/04 [place] [facility] [place] [facility] HC PRO PHONE CALL 11-20 MIN [id number] Diagnos is: ICD-10- CM Z51.81 Encount er for therape utic drug level monitor ing<br/ > VANESSA PONCE 10/09 [place] [facility] HC PRO PHONE CALL 11-20 MIN [id number] Diagnos is: ICD-10- CM Z79.01 nursing home (curren t) use of anticoa gulants
FULLERTONVANESSA TITUS 10/09 [facility] OFFICE O/P EST LOW 20-29 MIN [id number] Diagnos is: ICD-10- CM R07.9 Chest pain, unspeci fied
NALLUSAMY, SELVINUMATHI 10/10 [facility] HC PRO PHONE CALL 11-20 MIN [id number] Diagnos is: ICD-10- CM R73.09 Other abnorma l glucose
GRICELDA COHENEMA Susie 12/26 [facility] OFF/OP EST MAY X REQ PHY/QHP [id number] Diagnos is: ICD-10- CM R42 Dizzine ss and giddine ss
GRICELDA COHENEMA Susie 12/27 [facility] [place] [facility] Outpatient Encounter [id number] 12/27 [place] OFFICE O/P EST MOD 30-39 MIN [id number] Diagnos is: ICD-10- CM R51.9 Headach e, unspeci fied
HODGEELISE Yuriy S 12/27 [facility] [place] [facility] QNHP OL DIG ASSMT&MGMT 11-20 [id number] Diagnos is: ICD-10- CM Z79.01 nursing home (curr t) use of anticoa gulants
BORIS GARCIA 02/27 [place] [facility] [place] [facility] Outpatient Encounter [id number] 03/11 [place] [facility] [place] [facility] Outpatient Encounter [id number] 03/12 [place] OFFICE O/P EST LOW 20-29 MIN [id number] Diagnos is: ICD-10- CM Z00.01 Encount er for general adult medical exam w abnorma l finding s
LACEY FERREIRA ANTONY D 03/12 [facility] [place] [facility] QNHP OL DIG ASSMT&MGMT 21+ [id number] Diagnos is: ICD-10- CM Z79.01 nursing home (curr t) use of anticoa gulants
Yuriy SHELLEY 03/13 [place] [facility] [place] [facility] Outpatient Encounter [id number] 04/05 [place] [facility] [place] [facility] Outpatient Encounter [id number] 04/08 [place] [facility] [place] [facility] Outpatient Encounter [id number] 07/02 [place] [facility] OFFICE O/P EST MOD 30 MIN [id number] Diagnos is: ICD-10- CM M79.622 Pain in left upper arm<br/ > LACEY FERREIRA CASSIA Pearl 07/03 [facility] [place] [facility] EMERGENCY DEPT VISIT [facility] [id number] Diagnos is: ICD-10- CM R20.2 Paresth esia of skin
DELMI GARRISON 07/03 [facility] Social History Combined list of available smoking, tobacco, and other social history from Department of Defense and Veterans Affairs facilities. Social History Type Response Date Comment Sourc e Tobacco smoking status [facility] VA-TOBACCO NEVER USED 03/12/2023 [facility] History of tobacco use [place] US[place] 02/26/2022 [facility] History of tobacco use [place] US[place] 02/23/2021 [facility] History of tobacco use [place] NEVER USED 02/24/2019 [facility] History of tobacco use [place] NEVER USED 07/16/2018 [facility] History of tobacco use FORMER TOBACCO US ER 7Y OR GREATER 07/09/2017 [facility] History of tobacco use FORMER TOBACCO US ER 7Y OR GREATER 07/03/2016 [facility] 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 Additional future care activities may be listed in the Assessment and Plan section. Date/Time Care Activity Care Activity Detail Facili ty 07/19/2023 AMBULATORY - NONE [facility] NONE [facility]
--- OUTSIDE RECORDS SUMMARY | 2023-07-08 13:10 | XMS_ITS | Encounter Summary ---
Author Name Department of [facility] Organization Department of [facility] Address [address] [place] [address] Support Name Relationship Address Phone REJI WATTS Next of Kin RT 4 JANA SALINAS REJI WATTS Emergency Contact RT 4 JANA SALINAS [phone] Insurance Providers: All historical and current Section [...] Name Patient's Relationship to Policy [place] SUPPLEMEN [place] MEDIC ARE SUPPL EMENT Jun 10, 2016 [id number] [phone] DELMA ZARATE PATIENT [place] MED[place]ARE SUPPLEMEN [place] MEDIC ARE SUPPL EMENT Jun 10, 2016 [id number] [phone] DELMA ZARATE PATIENT MEDICARE (WNR) MEDICARE (M) PART A Jul 11, 2013 PART A [id number] DELMA ZARATE PATIENT MEDICARE (WNR) MEDICARE (M) PART B Jul 11, 2013 PART B [id number] [phone] DELMA ZARATE PATIENT Selected Encounter This section includes the information on record at [place] for the Encounter. Date/Time Encounter Type Encounter Description Reason Pro vider Source Aug 28, 2022 12:00 AM Outpatient Encounter EVENT (HISTORICAL) IHE Encounter Template Text not used by [facility] Plan of Treatment: Future Appointments (+ 6 months) and Future Tests (+/- 45 days) The Plan of Treatment section includes future care activities for the patient from all [facility]. This section includes future appointments and future orders which are active, pending or scheduled. Future Appointments This section includes appointments that were scheduled to occur 6 months from the date of the Encounter, up to a maximum of 20 appointments. The data comes from all [place] treatment facilities. Appointment Date/Time Appointment Type Appointme nt Facility Name Aug 30, 2022 11:43 AM [facility]ORY - NONE [place] [facility] Sep 03, 2022 10:30 AM AMBULATORY - NONE [facility] October 10, 2022 09:00 AM AMBULATORY - NONE [facility] Dec 26, 2022 10:00 AM [facility] - [facility] Dec 27, 2022 09:15 AM AMBULATORY - NONE [facility] Dec 27, 2022 09:30 AM AMBULATORY - NONE [facility] Dec 27, 2022 11:30 AM [facility]ORY - MEDICINE [facility] Lab Results: +/- 30 days of the encounter This section includes the Chemistry and Hematology Lab Results on record with [place] for the patient. Radiology Reports and Pathology Reports are provided separately, in subsequent sections. Lab Results This section contains the Chemistry/Hematology Results that were resulted 30 days before or 30 daysafter the date of the Encounter. Date/Time Source Result Type Result - Unit Interpretation Reference Range Comment Sep 03, 2022 10:18 AM [facility] AST/SGOT Specimen Type: PLASMA No comment entered. Ordering Provider: ADRIAN SHELLEY Report Released Date/Time: Aug 30, 2022 02:20 PM Reporting Lab: [facility] [id number] Performing Lab: [facility] [id number] AST/SGOT 15 <34 Sep 03, 2022 10:18 AM [facility] ALT/SGPT Specimen Type: PLASMA No comment entered. Ordering Provider: ADRIAN SEHLLEY Report Released Date/Time: Aug 30, 2022 02:20 PM Reporting Lab: [facility] [id number] Performing Lab: [facility] [id number] ALT/SGPT 24 <55 Social History: Smoking Status (Most current) and Tobacco Use (All prior to encounter date) This section includes the most current, and the historical, smoking and tobacco- related health factors from the [place] facility where the Encounter took place. Current Smoking Status This section includes the most current smoking, or tobacco-related health factor, from the [place] facility where the Encounter took place. Date/Time Current Smoking Status Comment Facil ity Feb 23, 2021 08:44 AM VA-TOBACCO NEVER USED [facility] Tobacco Use History This section includes a history of the smoking, or tobacco-related health factors, that were collected on or before the date of the Encounter. The data comes from the [place] facility where the Encounter took place. Date/Time Smoking Status/Tobacco Use Comment F acility Feb 24, 2019 12:45 PM VA-TOBACCO NEVER USED [facility] Jul 16, 2018 09:59 AM VA-TOBACCO NEVER USED [facility] Jul 09, 2017 07:52 AM FORMER TOBACCO USER 7Y OR GREATE R [facility] Jul 03, 2016 08:23 AM FORMER TOBACCO USER 7Y OR GREATE R [facility] May 27, 2015 08:15 AM LIFETIME NON-TOBACCO USER [facility] Mar 12, 2014 08:16 AM LIFETIME NON-TOBACCO USER [facility] Feb 12, 2007 07:57 AM LIFETIME NON-TOBACCO USER [facility]
--- OUTSIDE RECORDS SUMMARY | 2023-07-08 13:10 | XMS_ITS | Encounter Summary ---
Author Name Department of [facility] Organization Department of [facility] Address [address] [place] [address] Support Name Relationship Address Phone REJI WATTS Next of Kin RT 4 JANA SALINAS REJI WATTS Emergency Contact RT 4 JANA SALINAS [phone] Insurance Providers: All historical and current Section [...] MEDIC ARE SUPPL EMENT Jun 10, 2016 [id number] DELMA ZARATE PATIENT [place] SUPPLEMEN [place] MEDIC ARE SUPPL EMENT Jun 10, 2016 [id number] DELMA ZARATE PATIENT MEDICARE (WNR) MEDICARE (M) PART A Jul 11, 2013 PART A [id number] [phone] DELMA ZARATE PATIENT MEDICARE (WNR) MEDICARE (M) PART B Jul 11, 2013 PART B [id number] CRISTY ZARATEE PATIENT Selected Encounter This section includes the information on record at [place] for the Encounter. Date/Time Encounter Type Encounter Description Reason Pro vider Source Aug 29, 2022 02:31 PM Outpatient Encounter [facility]IMARY [facility] IHE Encounter Template Text not used by [place] Plan of Treatment: Future Appointments (+ 6 months) and Future Tests (+/- 45 days) The Plan of Treatment section includes future care activities for the patient from all [place] treatmentfacilities. This section includes future appointments and future orders which are active, pending or scheduled. Future Appointments This section includes appointments that were scheduled to occur 6 months from the date of the Encounter, up to a maximum of 20 appointments. The data comes from all [place] treatment facilities. Appointment Date/Time Appointment Type Appointme nt Facility Name Aug 30, 2022 11:43 AM [facility]ORY - NONE [place] [facility] Sep 03, 2022 10:30 AM AMBULATORY - NONE [facility] October 10, 2022 09:00 AM AMBULATORY - NONE [facility] Dec 26, 2022 10:00 AM [facility] - MEDICINE [facility] Dec 27, 2022 09:15 AM AMBULATORY - NONE [facility] Dec 27, 2022 09:30 AM AMBULATORY - NONE [facility] Dec 27, 2022 11:30 AM [facility] - MEDICINE [facility] Lab Results: +/- 30 days of the encounter This section includes the Chemistry and Hematology Lab Results on record with [place] for the patient. Radiology Reports and Pathology Reports are provided separately, in subsequent sections. Lab Results This section contains the Chemistry/Hematology Results that were resulted 30 days before or 30 daysafter the date of the Encounter. Date/Time Source Result Type Result - Unit Interpretation Reference Range Comment Sep 03, 2022 10:18 AM [facility] AST/SGOT Specimen Type: PLASMA No comment entered. Ordering Provider: ADRIAN SHELLEY Report Released Date/Time: Aug 30, 2022 02:20 PM Reporting Lab: [facility] [id number] Performing Lab: [facility] [id number] AST/SGOT 15 <34 Sep 03, 2022 10:18 AM [facility] ALT/SGPT Specimen Type: PLASMA No comment entered. Ordering Provider: ADRIAN SHELLEY Report Released Date/Time: Aug 30, 2022 02:20 PM Reporting Lab: [facility] [id number] Performing Lab: [facility] [id number] ALT/SGPT 24 <55 Social History: Smoking Status (Most current) and Tobacco Use (All prior to encounter date) This section includes the most current, and the historical, smoking and tobacco- related health factors from the [place] facility where the Encounter took place. Current Smoking Status This section includes the most current smoking, or tobacco-related health factor, from the [place] facility where the Encounter took place. Date/Time Current Smoking Status Comment Facil ity Feb 23, 2021 08:44 AM VA-TOBACCO NEVER USED [facility] Tobacco Use History This section includes a history of the smoking, or tobacco-related health factors, that were collected on or before the date of the Encounter. The data comes from the [facility] where the Encounter took place. Date/Time Smoking Status/Tobacco Use Comment F acility Feb 24, 2019 12:45 PM VA-TOBACCO NEVER USED [facility] Jul 16, 2018 09:59 AM VA-TOBACCO NEVER USED [facility] Jul 09, 2017 07:52 AM FORMER TOBACCO USER 7Y OR GREATE R [facility] Jul 03, 2016 08:23 AM FORMER TOBACCO USER 7Y OR GREATE R [facility] May 27, 2015 08:15 AM LIFETIME NON-TOBACCO USER [facility] Mar 12, 2014 08:16 AM LIFETIME NON-TOBACCO USER [facility] Feb 12, 2007 07:57 AM LIFETIME NON-TOBACCO USER [facility] Encounter Notes: All associated encounter notes This section contains the clinical notes associated to the Encounter. Date/Time Encounter Note(s) Provider Source Aug 29, 2022 02:31 PM PRIMARY CARE NONVA NOTE: LOCAL TITLE: CO-MANAGED CARE NOTE STANDARD TITLE: PRIMARY CARE NONVA NOTE DATE OF NOTE: AUG 29, 2022@14:31 ENTRY DATE: AUG 29, 2022@14:31:58 AUTHOR: ORTIZ ALFORD EXP COSIGNER: URGENCY: STATUS: COMPLETED The following prescriptions have been received in co-managed care. Prescriptions are generally reviewed in the order received. A separate co-managed care note will be entered and alerted to the PCP once reviewed if records have been received. If additional records are needed or formulary issues need to be addressed co- managed care will attempt to work with the patient's local clinic to resolve those issues. apixaban rx and records rcv'd /es/ ORTIZ ALFORD LPN [employer]inder Signed: 08/29/2022 14:33 ORTIZ ALFORD [facility]
--- OUTSIDE RECORDS SUMMARY | 2023-07-08 13:10 | XMS_ITS | Encounter Summary ---
Author Name [facility] Organization [facility] Address [address] [place] [id number] Support Name Relationship Address Phone REJI WATTS Next of Kin RT 4 JANA SALINAS REJI WATTS Emergency Contact RT 4 JANA SALINAS [phone] Insurance Providers: All historical and current Section [...] MEDIC ARE SUPPL EMENT Jun 10, 2016 [id number] [phone] DELMA ZARATE [place] SUPPLEMEN [place] MEDIC ARE SUPPL EMENT Jun 10, 2016 [id number] [phone] DELMA ZARATE PATIENT MEDICARE (WNR) MEDICARE (M) PART A Jul 11, 2013 PART A [id number] [phone] DELMA ZARATE PATIENT MEDICARE (WNR) MEDICARE (M) PART B Jul 11, 2013 PART B [id number] [phone] DELMA ZARATE PATIENT Selected Encounter This section includes the information on record at [place] for the Encounter. Date/Time Encounter Type Encounter Description Reason Pro vider Source Sep 07, 2022 09:41 AM Outpatient Encounter [facility] Encounter Template Text not used by [facility] Plan of Treatment: Future Appointments (+ 6 months) and Future Tests (+/- 45 days) The Plan of Treatment section includes future care activities for the patient from all [facility] treatment[facility]. This section includes future appointments and future orders which are active, pending or scheduled. Future Appointments This section includes appointments that were scheduled to occur 6 months from the date of the Encounter, up to a maximum of 20 appointments. The data comes from all [place] treatment facilities. Appointment Date/Time Appointment Type Appointme nt Facility Name October 10, 2022 09:00 AM AMBULATORY - NONE [facility] Dec 26, 2022 10:00 AM AMBULATORY - MEDICINE [facility] Dec 27, 2022 09:15 AM AMBULATORY - NONE [facility] Dec 27, 2022 09:30 AM AMBULATORY - NONE [facility] Dec 27, 2022 11:30 AM AMBULATORY - MEDICINE [facility] Lab Results: +/- 30 days of the encounter This section includes the Chemistry and Hematology Lab Results on record with [place] for the patient. Radiology Reports and Pathology Reports are provided separately, in subsequent sections. Lab Results This section contains the Chemistry/Hematology Results that were resulted 30 days before or 30 daysafter the date of the Encounter. Date/Time Source Result Type Result - Unit Interpretation Reference Range Comment Sep 03, 2022 10:18 AM [facility] AST/SGOT Specimen Type: PLASMA No comment entered. Ordering Provider: ADRIAN SHELLEY Report Released Date/Time: Aug 30, 2022 02:20 PM Reporting Lab: [facility] [id number] Performing Lab: [facility] [id number] AST/SGOT 15 <34 Sep 03, 2022 10:18 AM [facility] ALT/SGPT Specimen Type: PLASMA No comment entered. Ordering Provider: ADRIAN SHELLEY Report Released Date/Time: Aug 30, 2022 02:20 PM Reporting Lab: [facility] [id number] Performing Lab: [facility] [id number] ALT/SGPT 24 <55 Social History: Smoking Status (Most current) and Tobacco Use (All prior to encounter date) This section includes the most current, and the historical, smoking and tobacco- related health factors from the [place] facility where the Encounter took place. Current Smoking Status This section includes the most current smoking, or tobacco-related health factor, from the [place] facility where the Encounter took place. Date/Time Current Smoking Status Comment Facil ity Feb 23, 2021 08:44 AM VA-TOBACCO NEVER USED [facility] Tobacco Use History This section includes a history of the smoking, or tobacco-related health factors, that were collected on or before the date of the Encounter. The data comes from the [place] facility where the Encounter took place. Date/Time Smoking Status/Tobacco Use Comment Julienne acmatilde Feb 24, 2019 12:45 PM VA-TOBACCO NEVER USED [facility] Jul 16, 2018 09:59 AM VA-TOBACCO NEVER USED [facility] Jul 09, 2017 07:52 AM FORMER TOBACCO USER 7Y OR GREATE R [facility] Jul 03, 2016 08:23 AM FORMER TOBACCO USER 7Y OR GREATE R [facility] May 27, 2015 08:15 AM LIFETIME NON-TOBACCO USER [facility] Mar 12, 2014 08:16 AM LIFETIME NON-TOBACCO USER [facility] Feb 12, 2007 07:57 AM LIFETIME NON-TOBACCO USER [facility] Encounter Notes: All associated encounter notes This section contains the clinical notes associated to the Encounter. Date/Time Encounter Note(s) Provider Source Sep 07, 2022 09:47 AM PHARMACY NOTE: LOCAL TITLE: PHARMACY NON [place] CARE MEDICATIONS STANDARD TITLE: PHARMACY NOTE DATE OF NOTE: SEP 07, 2022@09:47 ENTRY DATE: SEP 07, 2022@09:47:18 AUTHOR: LIT ADAMS EXP COSIGNER: URGENCY: STATUS: COMPLETED [facility] Outpatient [facility] RECEIVED electronic prescription(s) (eRX(s)) from NON-[place] Provider: PAULINA RICHARDS Date eRX received: Aug not eligible to receive non-[facility] prescription(s) at this time. Prescription(s) REDIRECTED via FAX to: [X] [facility] eRx Reference #: [id number] eRx Prescription Information: Graduated Compression Stockings eRx Qty: 2 eRx Refills: 3 For personal use. Length: calf Strength: 16-20 mmHg Size large regular E 2 pairs /es/ Lit Adams, Pharm.D PHARMACIST Signed: 09/07/2022 09:48 LIT ADAMS [facility] Sep 07, 2022 09:41 AM PHARMACY NOTE: LOCAL TITLE: PHARMACY NON [place] CARE MEDICATIONS STANDARD TITLE: PHARMACY NOTE DATE OF NOTE: SEP 07, 2022@09:41 ENTRY DATE: SEP 07, 2022@09:41:51 AUTHOR: LIT ADAMS EXP COSIGNER: URGENCY: STATUS: COMPLETED [facility] received an eRX from [facility] provider eRX Information: eRx Provider: PAULINA RICHARDS eRx Reference #: [id number] apixaban 5 mg tablet (ELIQUIS) eRx Qty: 180 eRx Refills: 1 eRx Written Date: SEP 06, 2022 1 Tablet (5 mg) two times daily The eRX prescription was REJECTED back to the provider for the following reason: [ ] Patient not eligible [ ] Non-formulary drug [ ] Incorrect Pharmacy [X] [facility] ALREADY FOLLOW[facility] Additional comments: Clinic, please be aware community provider requesting 90 day supply. /melissa/ Lit Adams, Pharm.D PHARMACIST Signed: 09/07/2022 09:45 Receipt Acknowledged By: * AWAITING SIGNATURE * ADRIAN SHELLEY JASON R [facility]
--- OUTSIDE RECORDS SUMMARY | 2023-07-08 13:11 | XMS_ITS | Encounter Summary ---
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 Department of Vetera [facility] Address [address] [place] [id number] Support Name Relationship Address Phone REJI WATTS Next of Kin RT 4 JANA SALINAS REJI WATTS Emergency Contact RT 4 JANA SALINAS [phone] Insurance Providers: All historical and current Section [...] Name Patient's Relationship to Policy Mejias [place] SUPPLEMEN [place] MEDIC ARE SUPPL EMENT Jun 10, 2016 [id number] DELMA WILLIAM PATIENT [place] SUPPLEMEN [place] MEDIC ARE SUPPL EMENT Jun 10, 2016 [id number] DELMA WILLIAM PATIENT MEDICARE (WNR) MEDICARE (M) PART A Jul 11, 2013 PART A [id number] [phone] DELMA WILLIAM PATIENT MEDICARE (WNR) MEDICARE (M) PART B Jul 11, 2013 PART B [id number] [phone] DELMA WILLIAM PATIENT Selected Encounter This section includes the information on record at [place] for the Encounter. Date/Time Encounter Type Encounter Description Reason Provider Source Dec 27, 2022 11:30 AM OFFICE O/P EST MOD 30-39 MIN PRIMARY CARE/MEDICINE ICD-10-CM R51.9 Headache, unspecified HODGE,RAQUEL S IHE Encounter Template Text not used by [facility] Assessments - Encounter Diagnoses This section includes the primary and secondary diagnoses documented for the Encounter. Date/Time Primary/Secondary Diagnosis Diagnosis Name Provider Source Dec 27, 2022 08:06 PM PRIMARY Headache, unspecified RAQUEL HODGE [facility] Dec 27, 2022 08:06 PM SECONDARY Allergic rhinitis, unspecified RAQUEL HODGE [facility] Dec 27, 2022 08:06 PM SECONDARY Contact with and exposure to other hazardous substances RAQUEL HODGE [facility] Dec 27, 2022 08:06 PM SECONDARY Depression, unspecified HODGERAQUEL FLORENCE [facility] Dec 27, 2022 08:06 PM SECONDARY Dizziness and giddiness RAQUEL HODGE [facility] Dec 27, 2022 08:06 PM SECONDARY [facility] (current) use of anticoagulants RAQUEL HODGE [facility] Dec 27, 2022 08:06 PM SECONDARY Other male erectile dysfunction RAQUEL HODGE [place] [facility] Plan of Treatment: Future Appointments (+ 6 months) and Future Tests (+/- 45 days) The Plan of Treatment section includes future care activities for the patient from all [place] treatmentfacilities. This section includes future appointments and future orders which are active, pending or scheduled. Future Appointments This section includes appointments that were scheduled to occur 6 months from the date of the Encounter, up to a maximum of 20 appointments. The data comes from all [place] treatment facilities. Appointment Date/Time Appointment Type Appointme nt Facility Name Mar 12, 2023 08:30 AM AMBULATORY - MEDICINE CHANELL HDEZ [facility] Lab Results: +/- 30 days of the encounter This section includes the Chemistry and Hematology Lab Results on record with [place] for the patient. Radiology Reports and Pathology Reports are provided separately, in subsequent sections. Lab Results This section contains the Chemistry/Hematology Results that were resulted 30 days before or 30 daysafter the date of the Encounter. Date/Time Source Result Type Result - Unit Interpretation Reference Range Comment Dec 27, 2022 09:15 AM [place] [facility] HEMOGLOBIN A1C Specimen Type: BLOOD Comment: Values obtained from A1C measurements can vary. For typical A1C assays, a reported value of 7.0 could actually be between 6.7 and 7.3 if measured by a reference method. A reported value of 9.0 could actually be between 8.7 and 9.3. Ref: http://www.ngsp .org/CAPdata.as p Ordering Provider: SUZIE TATE Report Released Date/Time: Dec 26, 2022 10:26 AM Reporting Lab: [facility] [id number] Performing Lab: [facility] [id number] HEMOGLOBIN A1C 5.5 4.0-6.0 Dec 27, 2022 09:15 AM [facility] BASIC METABOLIC PANEL+MG Specimen Type: PLASMA No comment entered. Ordering Provider: SUZIE TATE Report Released Date/Time: Dec 26, 2022 10:26 AM Reporting Lab: [facility] [id number] Performing Lab: [facility] [id number] CREATININE 1.1 0.7-1.2 UREA NITROGEN 15 8-26 GLUCOSE 100 70-100 SODIUM 137 136-145 POTASSIUM 4.2 3.5-5.1 CHLORIDE 105 98-107 CO2 24 22-29 CALCIUM 9.2 8.4-10.2 MAGNESIUM 2.1 1.6-2.6 ANION GAP 8 5-15 .CREAT EGFR(CKD-EPI) 70 See_Comment Dec 27, 2022 09:15 AM [facility] CBC & DIFF Specimen Type: BLOOD Comment: Automated Differential Performed Ordering Provider: SUZIE TATE Report Released Date/Time: Dec 26, 2022 10:26 AM Reporting Lab: [facility] [id number] Performing Lab: [facility] [id number] WBC 6.07 4.0-11.0 RBC 5.21 4.6-6.2 HGB 16.0 13.5-17.9 HCT 47.5 41-54 MCV 91.2 80-100 MCH 30.7 27-33 MCHC 33.7 32.0-37.5 PLT 231 150-400 MPV 10.7 H 7.4-10.4 NEUT 59.2 LYMPHS 30.6 MONO 7.7 EOSINO 1.2 BASO 1.0 RDW 12.2 11.5-14.5 ABS LYMPH 1.86 1.0-4.0 ABS MONO 0.47 0.1-1.0 ABS NEUT 3.59 2.0-7.7 ABS EOS 0.07 0-0.5 ABS BASO 0.06 0-0.2 IG(META,MYELO ,PRO) 0.3 ABS IMMATURE GRAN 0.02 0-0.1 Vital Signs: All taken on the encounter date This section contains inpatient and outpatient Vital Signs collected on the date of the Encounter. Date/Time Temperature Pulse Blood Pressure Respiratory Rate SP02 Pain Height Weight Body Mass Index Source Dec 27, 2022 11:48 AM 97.8 F 78 /min 123/75 mm[Hg] 16 /min 97 % 0 232.2 lb 34 [facility] Dec 27, 2022 09:52 AM 97.7 F 78 /min 137/87 mm[Hg] 95 % 7 [facility] Social History: Smoking Status (Most current) and Tobacco Use (All prior to encounter date) This section includes the most current, and the historical, smoking and tobacco- related health factors from the [place] facility where the Encounter took place. Current Smoking Status This section includes the most current smoking, or tobacco-related health factor, from the [place] facility where the Encounter took place. Date/Time Current Smoking Status Comment Facil ity Feb 26, 2022 08:00 AM VA-TOBACCO NEVER USED [facility] Encounter Notes: All associated encounter notes This section contains the clinical notes associated to the Encounter. Date/Time Encounter Note(s) Provider Source Dec 27, 2022 12:48 PM PRIMARY CARE NOTE: LOCAL TITLE: [facility] PROGRESS NOTE - [facility] STANDARD TITLE: PRIMARY CARE NOTE DATE OF NOTE: DEC 27, 2022@12:48 ENTRY DATE: DEC 27, 2022@12:48:08 AUTHOR: RAQUEL HODGE EXP COSIGNER: URGENCY: STATUS: COMPLETED Nurse's notes reviewed from today. Co-managed care with a non-VA provider. Dr.Cynthia Kaur Bird MD at [facility]. DELMA WILLIAM is a 72 year old MALE with the following Chief complaint: Follow up for headache and dizziness. HPI: is a 72-year-old man with a known history of obesity, recurrent depression, Otto's esophagus, hypertension, untreated allergies, hyperlipidemia, overactive bladder, erectile dysfunction, untreated obstructive sleep apnea, cerebral atherosclerosis, currently on anticoagulation for pulmonary embolism and DVT. He is here today in the absence of [facility] clinician for evaluation of headache and dizziness. He was seen earlier today by RN and lab test results from earlier today are pending at this time. He tells me that everybody has told him that he has allergies and he needs to take medication but he feels that loratadine and Flonase is not helpful. 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 He does not report any new injury to his head. He has no associated nausea or vomiting or fever. He clears his throat constantly during conversation and does not report any cough or chest pain or shortness of breath. He has not been able to tolerate CPAP and reports that his head feels fuzzy. His older sister of an aneurysm and he has had a concussion 5 years ago. He has had a negative head CT in 2013 except for cerebrovascular atherosclerosis. He is currently on blood pressure medication and his LDL from 2020 was 92 and 95 in [facility] in 2020 at [facility]. He has never used tobacco and drinks alcohol 2 beers up to 2 times a week. No other concerns today. ROS: is negative, see positives in HPI Past Medical History Active problems - Computerized Problem List is the source for the followin. MDD, Recurrent, unspec 2. Otto's Esophagus 3. Gastro-esophageal reflux disease with esophagitis (SNOMED CT [id number]) 4. DEPRESSIVE DISORDER 5. History of surgery - Jun 06, 2004 Laparoscopy, Surgical, Esophagogastric Fundoplasty in [place] - s/p RIGHT KNEE REPLACEMENT - S/P Cholecystectomy 6. Gynecomastia * 7. Benign neoplasm of adrenal gland 8. Overactive Bladder 9. Male erectile disorder 10. HYPERTENSION 11. Chest Wall Pain 12. HYPERLIPIDEMIA NEC/NOS 13. 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 Obstructive sleep apnea of adult - Could not tolerate CPAP 15. Osteoarthritis - Degenerative changes noted in spine on previous ABD CT 16. Abnormal glucose level - A1C normal in 2020 17. Onychomycosis 18. Benign prostatic hyperplasia 19. Long-term current use of anticoagulant 20. DVT - Deep vein thrombosis 21. Pulmonary embolism 22. Cerebral atherosclerosis - see 2013 CT for details 23. Body mass index 30+ - obesity 24. Allergic Rhinitis ([facility] [id number]) Allergies: Patient has answered NKA Please see med list at the end of my note Patient Health Questionnaire - 9 (PHQ-9) Date Given: 12/27/2022 Clinician: Raquel Hodge Location: [facility] [place]: Delma William SSN: [id number] : [birth year] ([birth year]) Gender: Man PHQ-9 Depression Scale Score: 1 The total score may range from 0 to 27. Total Score Depression Severity 1-4 Minimal depression 5-9 Mild depression 10-14 Moderate depression 15-19 Moderately severe depression 20-27 Severe depression Questions and Answers Over the last 2 weeks, how often have you been bothered by any of the following problems? 1. Little interest or pleasure in doing things Not at all 2. Feeling down, depressed, or hopeless Several days 3. Trouble falling or staying asleep, or sleeping too much Not at all 4. Feeling tired or having little energy Not at all 5. Poor appetite or overeating Not at all 6. Feeling bad about yourself or that you are a failure or have let yourself or your family down Not at all 7. Trouble concentrating on things, such as reading the newspaper or watching television Not at all 8. Moving or speaking so slowly that other people could have noticed. Or the opposite being so fidgety or restless that you have been moving around a lot more than usual Not at all 9. Thoughts that you would be better off or of hurting yourself in some way Not at all 10. If you checked off any problems, how DIFFICULT have these problems made it for you to do your work, take care of things at home or get along with other people? Not difficult at all Information contained in this note is based on a self report assessment and is not sufficient to use alone for diagnostic purposes. Assessment results should be verified for accuracy and used in conjunction with other diagnostic activities. Copyright 2001 [employer]. All rights reserved. Reproduced with permission of [employer]. SHAMA is a trademark of [employer] EXAM: Vitals: BP: 123/75 (12/27/2022 11:48) P: 78 (12/27/2022 11:48) R: 16 (12/27/2022 11:48) T: 97.8 F [36.6 C] (12/27/2022 11:48) WT: 232.2 lb [105.32 kg] (12/27/2022 11:48) BMI: 34.4 Pain: 0 (12/27/2022 11:48) O2 Sat: 97% (12/27/2022 11:48) General: Alert, well dressed and groomed, no apparent distress HEENT: Normocephalic, atraumatic, ear canals clear, TMs normal, OP congested without exudates, neck: Movements intact, supple without mass, adenopathy or thyromegaly Lungs: Clear; no wheezes, rhonchi or rales, CV: RRR without murmur, rub or gallop GI: Abdomen is obese Skin: is intact, no rash or erythema MS: No joint swelling, ambulates without difficulty Psych: Good eye contact, speech normal rate and rhythm, affect full range Data/Labs: previous labs reviewed and today's test results are pending Assessment and Plan: Acute concerns today: Headache and dizziness or vertigo due to congestion and eustachian dysfunction from untreated allergies. Will await today's test results to rule out other causes. [place] reluctantly agrees to restart allergy medication and use neti pot along with mucinex when symptoms are not under control. He declines medicatoin and additional help from mental health services. [place] is informed to be seen in the ER if there is further changes in his health or if there is additional new symptoms or worsening symptoms. He is given information regarding Debrox eardrops to use as needed for cerumen impaction. Depressive disorder: [place] reassures me that he will be fine as he needs to and wants to take care of his animals. Venous stasis with pedal edema: He tells me that his oil pit attendant told him not to use compression socks anymore but he notes that his leg swells up without it. He is informed to continue using support stockings during the day and elevate legs when he is sitting down along with cutting back on salt intake. Erectile dysfunction: [place] wanted to know if it is safe for him to take sildenafil. I reviewed risk benefits of sildenafil and today's labs are still pending. He might benefit with taking low-dose statin to reduce cardiovascular risk. He is encouraged him to follow-up with his primary care aid for further management. Above plan was repeated multiple times and questions were answered. is encouraged to follow-up early as needed and or return as planned previously for annual visit. Patient verbalized understanding in agreement with satisfaction of the treatment plan. Toxic Exposure Screening Follow-Up: Exposure Concern(s): 10/10/2022 Agent [place] - Toxic Exposure Concern Airborne Hazards/Open Burn Pit - Toxic Exposure Concern Follow-up Question(s): 10/10/2022 No Questions - Toxic Exposure Concern [place]/caregiver has health or medical concerns related to their concern of environmental exposure. Concern: was exposed to agent orange in [place], has HYPERTENSION The following connections were provided to the [place]/caregiver: Veterans Benefits Administration (VBA) for Benefits/claims: [place] [employer]/Organization (VSO) https://www.macvso.org/find-a-cvso. html Medication Reconciliation: Education Evaluations *Was medication education provided for NEW medications or CHANGES to medications? (including medication name, dose, route, reason for use, and potential side effects). Yes. Verbal education was provided to patient/caregiver and patient/caregiver verbalized understanding. Additional Comment: reluctantly agrees to restart allergy medication and use neti pot along with mucinex when symptoms are not under control. He declines medicatoin and additional help from mental health services. He reassures me that he will be fine as he needs to and wants to take care of his animals. TERATOGENIC MED & CONTRACEPTION REVIEW (Optional)... [place] was informed about potential teratogenic risk of prescribed medications. intentions and need for effective contraception, if applicable, were discussed. MEDICATION RECONCILIATION List Given: An updated medication list was provided to the patient/caregiver. Review Done: The medication list shown below was verified for accuracy and it includes all pending medications/active medications/all medications or discontinued within the last 90 days/all remote medications and non-VA medications. If a given category (i.e. remote meds) is not shown, that means that a patient doesn't have a medication(s) in that category. Allergies listed below were also reviewed/updated for accuracy. Allergies/ADR from [facility] may not display in CPRS. Use JLV MRT5 - Allergies/ADRs FACILITY ALLERGY/ADR -------- No Remote Allergy/ADR Data available for this patient [facility] No Known Allergies Active and Recently Outpatient Medications (including Supplies): Issue Date Status Last Fill Active Outpatient Medications Refills Expiration === 1) AMLODIPINE BESYLATE 10MG TAB Qty: 90 ACTIVE Issu:10-10-22 for 90 days Sig: TAKE ONE TABLET BY Refills: 3 Last:10-10-22 MOUTH EVERY DAY FOR BLOOD PRESSURE Expr:10-11-23 2) APIXABAN 5MG TAB Qty: 180 for 90 days ACTIVE Issu:10-09-22 Sig: TAKE ONE TABLET BY MOUTH EVERY 12 Refills: 3 Last:10-10-22 HOURS TO TREAT AND/OR PREVENT BLOOD Expr:10-10-23 CLOTS 3) FLUTICASONE PROP 50MCG 120D NASAL INHL ACTIVE Issu:02-26-22 Qty: 3 for 90 days Sig: SPRAY 1 SPRAY Refills: 3 Last:02-27-22 IN EACH NOSTRIL TWICE A DAY USE Expr:02-27-23 REGULARLY FOR RELIEF OF ALLERGIES/CONGESTION 4) LOPERAMIDE HCL 2MG CAP Qty: 90 for 90 ACTIVE Issu:02-26-22 days Sig: TAKE ONE CAPSULE BY FEEDING Refills: 3 Last:02-27-22 TUBE EVERY DAY NEEDED FOR DIARRHEA Expr:02-27-23 5) LORATADINE 10MG TAB Qty: 90 for 90 days ACTIVE Issu:10-10-22 Sig: TAKE ONE TABLET BY MOUTH EVERY Refills: 3 Last:10-10-22 DAY FOR ALLERGIES Expr:10-11-23 6) OMEPRAZOLE 20MG EC CAP Qty: 90 for 90 ACTIVE Issu:02-26-22 days Sig: TAKE ONE CAPSULE BY MOUTH Refills: 3 Last:03-02-22 EVERY DAY ON AN EMPTY STOMACH, AT Expr:02-27-23 LEAST 30 MINUTES PRIOR TO A MEAL FOR STOMACH ACID Issue Date Status Last Fill Inactive Outpatient Medications Refills Expiration === 1) APIXABAN 5MG TAB Qty: 60 for 30 days DISCONTINUED Issu:08-31-22 Sig: TAKE ONE TABLET BY MOUTH EVERY 12 (EDIT) Last:10-11-22 HOURS TO TREAT AND/OR PREVENT BLOOD Refills: 4 Expr:09-01-23 CLOTS 2) APIXABAN 5MG TAB Qty: 72 for 30 days DISCONTINUED Issu:08-30-22 Sig: TAKE TWO TABLETS BY MOUTH EVERY Refills: 0 Last:08-30-22 12 HOURS FOR 6 DAYS, THEN TAKE ONE Expr:09-29-22 TABLET EVERY 12 HOURS TO TREAT AND/OR PREVENT BLOOD CLOTS Start Date Inactive Non-VA Medications Refills Expiration === 1) Non-VA AMLODIPINE BESYLATE 10MG TAB DISCONTINUED SiMG MOUTH EVERY DAY 9 Total Medications /es/ RAQUEL HODGE MD PHYSICIAN [facility] Signed: 12/27/2022 20:06 Receipt Acknowledged By: * AWAITING SIGNATURE * JAYCE TATE GANGA S [place] [facility] Dec 27, 2022 11:49 AM PRIMARY CARE NURSI MAT NOTE: LOCAL TITLE: [facility] NURSING PROGRESS NOTE STANDARD TITLE: PRIMARY CARE NURSING NOTE DATE OF NOTE: DEC 27, 2022@11:49 ENTRY DATE: DEC 27, 2022@11:49:46 AUTHOR: MONET YOUNG EXP COSIGNER: URGENCY: STATUS: COMPLETED TYPE OF VISIT: Appointment Check In Type of appointment: In-person appointment REASON FOR VISIT: HEADACHES, DIZZY, HEADACHESD, AMISH PRESSURE SHOOTING PAIN THROUGH TOP OF HEAD ALLERGIES: Patient has answered NKA VITAL SIGNS: Blood Pressure: 123/75 (12/27/2022 11:48) Pulse: 78 (12/27/2022 11:48) Respiration: 16 (12/27/2022 11:48) Temperature: 97.8 F [36.6 C] (12/27/2022 11:48) Weight: 232.2 lb [105.32 kg] (12/27/2022 11:48) Height: 69 in [175.3 cm] (02/26/2022 08:05) BMI: 34.4 O2 Sat: 97% (12/27/2022 11:48) Pain: 0 (12/27/2022 11:48) PAIN SCREEN: Patient is not having significant pain that they wish to discuss with their provider today. MEDICATION Active Outpatient Medications (including Supplies): AMLODIPINE BESYLATE 10MG TAB TAKE ONE TABLET BY MOUTH ACTIVE EVERY DAY FOR BLOOD PRESSURE APIXABAN 5MG TAB TAKE ONE TABLET BY MOUTH EVERY 12 HOURS ACTIVE TO TREAT AND/OR PREVENT BLOOD CLOTS FLUTICASONE PROP 50MCG 120D NASAL INHL SPRAY 1 SPRAY IN ACTIVE EACH NOSTRIL TWICE A DAY USE REGULARLY FOR RELIEF OF ALLERGIES/CONGESTION LOPERAMIDE HCL 2MG CAP TAKE ONE CAPSULE BY FEEDING TUBE ACTIVE EVERY DAY NEEDED FOR DIARRHEA LORATADINE 10MG TAB TAKE ONE TABLET BY MOUTH EVERY DAY FOR ACTIVE ALLERGIES OMEPRAZOLE 20MG EC CAP TAKE ONE CAPSULE BY MOUTH EVERY DAY ACTIVE ON AN EMPTY STOMACH, AT LEAST 30 MINUTES PRIOR TO A MEAL FOR STOMACH ACID Patient reports the following changes regarding the current pharmacy list of medications: GAVE MED RECON: OK CONCUSSION PREVIOUSLY Over the Counter/Herbal Medications: The patient denies taking any outside medications or herbals. /melissa/ MONET YOUNG LPN LICENSED PRACTICAL NURSE Signed: 12/27/2022 11:52 MONET YOUNG [facility]
--- OUTSIDE RECORDS SUMMARY | 2023-07-08 13:11 | XMS_ITS | Encounter Summary ---
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 [facility] Address [address] [place] [address] Support Name Relationship Address Phone REJI WATTS Next of Kin RT 4 JANA SALINAS REJI WATTS Emergency Contact RT 4 JANA SALINAS [phone] Insurance Providers: All historical and current Section [...] MEDIC ARE SUPPL EMENT Jun 10, 2016 [id number] [phone] DELMA ZARATE PATIENT [place] SUPPLEMEN LEOBARDO MEDIC ARE SUPPL EMENT Jun 10, 2016 [id number] DELMA ZARATE PATIENT MEDICARE (WNR) MEDICARE (M) PART A Jul 11, 2013 PART A [id number] DELMA ZARATE PATIENT MEDICARE (WNR) MEDICARE (M) PART B Jul 11, 2013 PART B [id number] CRISTY ZARATEE PATIENT Selected Encounter This section includes the information on record at [place] for the Encounter. Date/Time Encounter Type Encounter Description Reason Provider Source Dec 26, 2022 10:00 AM HC PRO PHONE CALL 11-20 MIN TELEPHONE PRIMARY CARE ICD-10-CM R73.09 Other abnormal glucose EMA CAMILO Encounter Template Text not used by [facility] Assessments - Encounter Diagnoses This section includes the primary and secondary diagnoses documented for the Encounter. Date/Time Primary/Secondary Diagnosis Diagnosis Name Provider Source Dec 26, 2022 10:00 AM PRIMARY Other abnormal glucose GRICELDA COHENEMA Susie BOYD [facility] Plan of Treatment: Future Appointments (+ 6 months) and Future Tests (+/- 45 days) The Plan of Treatment section includes future care activities for the patient from all [place] treatmentfacilities. This section includes future appointments and future orders which are active, pending or scheduled. Future Appointments This section includes appointments that were scheduled to occur 6 months from the date of the Encounter, up to a maximum of 20 appointments. The data comes from all [place] treatment facilities. Appointment Date/Time Appointment Type Appointme nt Facility Name Dec 27, 2022 09:15 AM AMBULATORY - NONE [facility] Dec 27, 2022 09:30 AM AMBULATORY - NONE [facility] Dec 27, 2022 11:30 AM AMBULATORY - MEDICINE [facility] Mar 12, 2023 08:30 AM AMBULATORY - MEDICINE [facility] Lab Results: +/- 30 days of the encounter This section includes the Chemistry and Hematology Lab Results on record with [place] for the patient. Radiology Reports and Pathology Reports are provided separately, in subsequent sections. Lab Results This section contains the Chemistry/Hematology Results that were resulted 30 days before or 30 daysafter the date of the Encounter. Date/Time Source Result Type Result - Unit Interpretation Reference Range Comment Dec 27, 2022 09:15 AM [facility] HEMOGLOBIN A1C Specimen Type: BLOOD Comment: Values [...] Dec 26, 2022 10:26 AM Reporting Lab: [facility] [id number] Performing Lab: [facility] [id number] HEMOGLOBIN A1C 5.5 4.0-6.0 Dec 27, 2022 09:15 AM [facility] BASIC METABOLIC PANEL+MG Specimen Type: PLASMA No comment entered. Ordering Provider: SUZIE TATE Report Released Date/Time: Dec 26, 2022 10:26 AM Reporting Lab: [facility] [id number] Performing Lab: [facility] [id number] CREATININE 1.1 0.7-1.2 UREA NITROGEN 15 8-26 GLUCOSE 100 70-100 SODIUM 137 136-145 POTASSIUM 4.2 3.5-5.1 CHLORIDE 105 98-107 CO2 24 22-29 CALCIUM 9.2 8.4-10.2 MAGNESIUM 2.1 1.6-2.6 ANION GAP 8 5-15 .CREAT EGFR(CKD-EPI) 70 See_Comment Dec 27, 2022 09:15 AM [facility] CBC & DIFF Specimen Type: BLOOD Comment: Automated Differential Performed Ordering Provider: SUZIE TATE Report Released Date/Time: Dec 26, 2022 10:26 AM Reporting Lab: [facility] [id number] Performing Lab: [facility] [id number] WBC 6.07 4.0-11.0 RBC 5.21 4.6-6.2 HGB [...] ,PRO) 0.3 ABS IMMATURE GRAN 0.02 0-0.1 Social History: Smoking Status (Most current) and Tobacco Use (All prior to encounter date) This section includes the most current, and the historical, smoking and tobacco- related health factors from the [place] facility where the Encounter took place. Current Smoking Status This section includes the most current smoking, or tobacco-related health factor, from the [place] facility where the Encounter took place. Date/Time Current Smoking Status Comment Crystal barriga Feb 26, 2022 08:00 AM [place]-TOBACCO NEVER USED [facility] [facility] Encounter Notes: All associated encounter notes This section contains the clinical notes associated to the Encounter. 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 Yes, if yes when? He reports that he has been to ENT for ear condition and was told his ears are good. He was treated for presumed allergies with nasal spray and Claritin but it has not helped. Possible reasons the patient identified this problem is occurring : was found to have blood clot in August and is worried this has something to do with that. Additional History: Active problems - Computerized Problem List is the source for the followin. MDD, Recurrent, unspec 2. Otto's Esophagus 3. Gastro-esophageal reflux disease with esophagitis (SNOMED CT [id number]) 4. DEPRESSIVE DISORDER 5. Laparoscopy, Surgical, Esophagogastric Fundoplasty (E.g. Jemima andrew Proc - Jun 06, 2004 in [facility] 6. Gynecomastia * 7. Benign neoplasm of adrenal gland 8. Overactive Bladder 9. Male erectile disorder 10. HYPERTENSION 11. Chest Wall Pain 12. HYPERLIPIDEMIA NEC/NOS 13. Health Maintenance - pneumovax 06/20/2011 14. Obstructive Sleep Apnea (Adult) (Pediatric) 15. Neck pain (SNOMED CT [id number]) 16. Abnormal glucose level 17. Onychomycosis 18. Benign prostatic hyperplasia 19. Long-term current use of anticoagulant 20. DVT - Deep vein thrombosis 21. Pulmonary embolism Treatments the has tried: Allergy medication What is the patient goal for the call? I don't know I just want to see if someone can figure me out Recommendation based on full assessment : Plan: Repeat A1C and other labs- (last 02/2021) 12/27/22 RN clinic visit for ear exam 12/27/22 Evaluation : agrees with plan. Additional Instructions to [place]: scheduled 12/27 929 Phone number can be reached if necessary: Patient calling with symptoms has been instructed to call if symptoms worsen or seek emergency care if symptoms become sever/life threatening. /es/ EMA COHEN RN, CWOCN PACT RN Signed: 12/26/2022 10:33 GRICELDA COHEN,EMA [facility]
--- OUTSIDE RECORDS SUMMARY | 2023-07-08 13:11 | XMS_ITS | Encounter Summary ---
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 [facility] Address [address] [place] [address] Support Name Relationship Address Phone REJI WATTS Next of Kin RT 4 JANA SALINAS REJI WATTS Emergency Contact RT 4 JANA SALINAS [phone] Insurance Providers: All historical and current Section [...] MEDIC ARE SUPPL EMENT Jun 10, 2016 [id number] [phone] DELMA ZARATE PATIENT [place] MED[place]ARE SUPPLEMEN LEOBARDO MEDIC ARE SUPPL EMENT Jun 10, 2016 [id number] DELMA ZARATE PATIENT MEDICARE (WNR) MEDICARE (M) PART A Jul 11, 2013 PART A [id number] DELMA ZARATE PATIENT MEDICARE (WNR) MEDICARE (M) PART B Jul 11, 2013 PART B [id number] CRISTY ZARATEE PATIENT Selected Encounter This section includes the information on record at [facility] for the Encounter. Date/Time Encounter Type Encounter Description Reason Provider Source Dec 27, 2022 09:30 AM OFF/OP EST OCTOBER X REQ PHY/QHP PRIMARY CARE/MEDICINE ICD-10-CM R42 Dizziness and giddiness EMA CAMILO Encounter Template Text not used by [facility] Assessments - Encounter Diagnoses This section includes the primary and secondary diagnoses documented for the Encounter. Date/Time Primary/Secondary Diagnosis Diagnosis Name Provider Source Dec 27, 2022 10:18 AM PRIMARY Dizziness and giddiness EMA CAMILO Plan of Treatment: Future Appointments (+ 6 months) and Future Tests (+/- 45 days) The Plan of Treatment section includes future care activities for the patient from all [place] treatmentfacilities. This section includes future appointments and [...] 08:30 AM AMBULATORY - MEDICINE [facility] Lab Results: +/- 30 days of [...] Range Comment Dec 27, 2022 09:15 AM [facility] HEMOGLOBIN A1C Specimen Type: BLOOD Comment: [...] Dec 26, 2022 10:26 AM Reporting Lab: [facility] [id number] Performing Lab: [facility] [id number] HEMOGLOBIN A1C 5.5 4.0-6.0 Dec 27, 2022 09:15 AM [facility] BASIC METABOLIC PANEL+MG Specimen Type: PLASMA No comment entered. Ordering Provider: SUZIE TATE Report Released Date/Time: Dec 26, 2022 10:26 AM Reporting Lab: [facility] [id number] Performing Lab: [facility] [id number] CREATININE 1.1 0.7-1.2 UREA NITROGEN 15 8-26 GLUCOSE 100 70-100 SODIUM 137 136-145 POTASSIUM 4.2 3.5-5.1 CHLORIDE 105 98-107 CO2 24 22-29 CALCIUM 9.2 8.4-10.2 MAGNESIUM 2.1 1.6-2.6 ANION GAP 8 5-15 .CREAT EGFR(CKD-EPI) 70 See_Comment Dec 27, 2022 09:15 AM [facility] CBC & DIFF Specimen Type: BLOOD Comment: Automated Differential Performed Ordering Provider: SUZIE TATE Report Released Date/Time: Dec 26, 2022 10:26 AM Reporting Lab: [facility] [id number] Performing Lab: [facility] [phone] WBC 6.07 4.0-11.0 RBC 5.21 4.6-6.2 HGB [...] /min 97 % 0 232.2 lb 34 [facility] Dec 27, 2022 09:52 AM 97.7 [...] Crystal barriga Feb 26, 2022 08:00 AM [place]-TOBACCO NEVER USED [facility] Encounter Notes: All associated encounter notes This section contains the clinical notes associated to the Encounter. Date/Time Encounter Note(s) Provider Source Dec 27, 2022 09:54 AM NURSING OUTPATIENT NOTE: LOCAL TITLE: [facility] NURSING RN NOTE STANDARD TITLE: NURSING OUTPATIENT NOTE DATE OF NOTE: DEC 27, 2022@09:54 ENTRY DATE: DEC 27, 2022@09:54:20 AUTHOR: EMA CAMILO COSIGNER: URGENCY: STATUS: COMPLETED TYPE OF VISIT: Nurse Clinic REASON FOR VISIT: c/o ANTONY and popping in ears and feeling woozy after eating. He was brought into RN clinic for ear check. Last A1C 2020 Today's plan: Labs and ear eval HX of DVT from Pharmacy note 10/09/22 Anticoagulant: Apixaban 10mg q12H x7d then 5mg [...] 08/28/22, ALL 08/30/22 - Anticipated duration: indefinite ASSESSMENT [place] walked to exam room slowly but independent. He c/o feeling not so good VS wnl for him Ear exam completed R ear has significant wax and L ear was clear No redness or drainage noted. RN instructed on benefit of getting ears cleaned out. He was instructed to start Debrox prior to coming for irrigation. [place] went on to talk about the pain in his head. He says headache is from the temporal area to top of head. Sometimes he gets a sharp pain that runs through his head He feels dizzy when bending over. Pain is worse after eating Increased weakness Neg facial drooping Neg arm weakness Neg slurred speech Neg vision changes Neg concerns with swallowing Denies poor balance Denies falls Negative neuro checks significant for DVT 08/28/2022 Diabetes history -Dx of diabetes -2020 A1C 5.6 ALLERGIES: FACILITY ALLERGY/ADR -------- No Remote Allergy/ADR Data available for this patient [facility] No Known Allergies VITAL SIGNS: Blood Pressure: 137/87 (12/27/2022 09:52) Pulse: 78 (12/27/2022 09:52) Respiration: 16 (10/10/2022 09:16) Temperature: 97.7 F [36.5 C] (12/27/2022 09:52) Weight: 228.9 lb [103.83 kg] (10/10/2022 09:16) Height: 69 in [175.3 cm] (02/26/2022 08:05) BMI: 33.9 O2 Sat: 95% (12/27/2022 09:52) Pain: 7 (12/27/2022 09:52) MEDICATION Active Outpatient Medications (including Supplies): AMLODIPINE [...] PRIOR TO A MEAL FOR STOMACH ACID PLAN: -Labs ordered today -Consultation with provider today due to changes in ANTONY/dizzyness with hx of DVT /es/ EMA COHEN RN, CWOCN PACT RN Signed: 12/27/2022 10:18 GRICELDA COHEN,EMA BOYD [facility]
--- OUTSIDE RECORDS SUMMARY | 2023-07-08 13:11 | XMS_ITS | Encounter Summary ---
Author Name [facility] Organization Department of [facility] Address [address] [place] [phone] Support Name Relationship Address Phone REJI WATTS Next of Kin RT 4 JANA SALINAS REJI WATTS Emergency Contact RT 4 JANA SALINAS [phone] Insurance Providers: All historical and current Section [...] Name Patient's Relationship to Policy Mejias [place] SUPPLEMEN [place]OBARDO MEDIC ARE SUPPL EMENT Jun 10, 2016 [id number] [phone] DELMA ZARATE PATIENT [place] MED[place] SUPPLEMEN LEOBARDO MEDIC ARE SUPPL EMENT Jun 10, 2016 [id number] [phone] DELMA ZARATE PATIENT MEDICARE (WNR) MEDICARE (M) PART A Jul 11, 2013 PART A [id number] DELMA ZARATE PATIENT MEDICARE (WNR) MEDICARE (M) PART B Jul 11, 2013 PART B [id number] CRISTY ZARATEE PATIENT Selected Encounter This section includes the information on record at [place] for the Encounter. Date/Time Encounter Type Encounter Description Reason Pro vider Source Oct 04, 2022 07:24 AM Outpatient Encounter TELEPHONE PRIMARY CARE IHE Encounter Template Text not used by [place] Plan of Treatment: Future Appointments (+ 6 months) and Future Tests (+/- 45 days) The Plan of Treatment section includes future care activities for the patient from all [place] treatmentfacilities. This section includes future appointments and future orders which are active, pending or scheduled. Future Appointments This section includes appointments that were scheduled to occur 6 months from the date of the Encounter, up to a maximum of 20 appointments. The data comes from all [place] treatment facilities. Appointment Date/Time Appointment Type Appointme nt Facility Name October 10, 2022 09:00 AM AMBULATORY - NONE [facility] Dec 26, 2022 10:00 AM AMBULATORY - MEDICINE [facility] Dec 27, 2022 09:15 AM AMBULATORY - NONE [facility] Dec 27, 2022 09:30 AM AMBULATORY - NONE [facility] Dec 27, 2022 11:30 AM [facility]ORY - MEDICINE [facility] Mar 12, 2023 08:30 AM [facility]ORY - MEDICINE [facility] Lab Results: +/- 30 days of the encounter This section includes the Chemistry and Hematology Lab Results on record with [place] for the patient. Radiology Reports and Pathology Reports are provided separately, in subsequent sections. Lab Results This section contains the Chemistry/Hematology Results that were resulted 30 days before or 30 daysafter the date of the Encounter. Date/Time Source Result Type Result - Unit Interpretation Reference Range Comment October 10, 2022 09:55 AM [facility] TSH W/REFLEX TO FREE T4 Specimen Type: PLASMA No comment entered. Ordering Provider: SUZIE TATE Report Released Date/Time: October 10, 2022 09:44 AM Reporting Lab: [facility] [id number] Performing Lab: [facility] [address] TSH 1.80 0.35-4.94 October 10, 2022 09:55 AM [facility] BASIC METABOLIC PANEL+MG Specimen Type: PLASMA No comment entered. Ordering Provider: SUZIE TATE ATHI Report Released Date/Time: October 10, 2022 09:44 AM Reporting Lab: [facility] [id number] Performing Lab: [facility] [address] CREATININE 1.0 0.7-1.2 UREA NITROGEN 20 8-26 GLUCOSE 103 H 70-100 SODIUM 137 136-145 POTASSIUM 4.2 3.5-5.1 CHLORIDE 106 98-107 CO2 20 L 22-29 CALCIUM 9.5 8.4-10.2 MAGNESIUM 2.0 1.6-2.6 ANION GAP 11 5-15 .CREAT EGFR(CKD-EPI) 79 >60 October 10, 2022 09:55 AM [facility] CBC & DIFF Specimen Type: BLOOD Comment: Automated Differential Performed Ordering Provider: SUZIE TATE Report Released Date/Time: October 10, 2022 09:44 AM Reporting Lab: [facility] [id number] Performing Lab: [facility] [id number] WBC 5.83 4.0-11.0 RBC 5.03 4.6-6.2 HGB 15.5 13.5-17.9 HCT 46.3 41-54 MCV 92.0 80-100 MCH 30.8 27-33 MCHC 33.5 32.0-37.5 PLT 229 150-400 MPV 10.9 H 7.4-10.4 NEUT 68.9 LYMPHS 22.8 MONO 6.2 EOSINO 0.9 BASO 0.9 RDW 12.5 11.5-14.5 ABS LYMPH 1.33 1.0-4.0 ABS MONO 0.36 0.1-1.0 ABS NEUT 4.02 2.0-7.7 ABS EOS 0.05 0-0.5 ABS BASO 0.05 0-0.2 IG(META,MYELO ,PRO) 0.3 ABS IMMATURE GRAN 0.02 0-0.1 Social History: Smoking Status (Most current) and Tobacco Use (All prior to encounter date) This section includes the most current, and the historical, smoking and tobacco- related health factors from the [place] facility where the Encounter took place. Current Smoking Status This section includes the most current smoking, or tobacco-related health factor, from the [place] facility where the Encounter took place. Date/Time Current Smoking Status Comment Crystal barriga Feb 23, 2021 08:44 AM [place]-TOBACCO NEVER USED [facility] Tobacco Use History This section includes a history of the smoking, or tobacco-related health factors, that were collected on or before the date of the Encounter. The data comes from the [place] facility where the Encounter took place. Date/Time Smoking Status/Tobacco Use Comment Julienne sandoval Feb 24, 2019 12:45 PM VA-TOBACCO NEVER USED [facility] Jul 16, 2018 09:59 AM VA-TOBACCO NEVER USED [facility] Jul 09, 2017 07:52 AM FORMER TOBACCO USER 7Y OR GREATE R [facility] Jul 03, 2016 08:23 AM FORMER TOBACCO USER 7Y OR GREATE R [facility] May 27, 2015 08:15 AM LIFETIME NON-TOBACCO USER [facility] Mar 12, 2014 08:16 AM LIFETIME NON-TOBACCO USER [facility] Feb 12, 2007 07:57 AM LIFETIME NON-TOBACCO USER [facility] Radiology Reports: +/- 30 days of the encounter Radiology Reports For cases when an order for radiology services may have been completed prior to the date of the Encounter, the report list includes the Radiology Reports that were completed up to 30 days before dateof the Encounter. For cases when an order for radiology services may have been completed after the date of the Encounter, the report list also includes the Radiology Reports that were completed up to30 days after date of the Encounter. The data comes from all [facility] facilities. Date/Time Radiology Report Provider Source October 10, 2022 09:43 AM CHEST 2 VIEWS PA A ND LAT: DELMA ZARATE [id number] -[id number] M Exm Date: OCTOBER 10, 2022@09:43 Req Phys: NALLUSAMY,VASUMATHI Pat Loc: [facility]ART[facility] (Req'g Loc) Img Loc: [facility] RADIOLOGY Service: Unknown (Case [id number] COMPLETE) CHEST 2 VIEWS PA AND LAT (RAD Detailed) CPT:28545 Reason for Study: chest pain - recent PE Clinical History: [place] IS NOT under investigation for COVID-19 or is COVID-19 negative chest pain - had a recent PE Responsible provider name and phone number to notify for critical findings if other than user placing the order and pager listed below: User placing orders pager: LAST CREATININE 1.0 (02/26/22) Report Status: Verified Date Reported: OCTOBER 10, 2022 Date Verified: OCTOBER 10, 2022 Opticianry Teacher E-Sig:/ES/BIPIN CULLEN MD Report: EXAMINATION: CHEST 2 VIEWS PA AND LAT 10/10/2022 9:43 AM INDICATION: chest pain - recent PE Impression: Heart size and pulmonary vascularity within normal limits. No pulmonary infiltrate or pleural effusion. Possible strands of fibrosis/atelectasis projected over the left costophrenic angle. Degenerative changes of the thoracic spine with mild right thoracic curve. Old healed upper left rib fracture. Primary Interpreting Staff: BIPIN CULLEN MD, RADIOLOGIST (Opticianry Teacher) /RTS BIPIN CULLEN [facility] Encounter Notes: All associated encounter notes This section contains the clinical notes associated to the Encounter. Date/Time Encounter Note(s) Provider Source Oct 04, 2022 07:24 AM PRIMARY CARE NONVA NOTE: LOCAL TITLE: CO-MANAGED CARE NOTE STANDARD TITLE: PRIMARY CARE NONVA NOTE DATE OF NOTE: OCT 04, 2022@07:24 ENTRY DATE: OCT 04, 2022@07:24:10 AUTHOR: ALEJANDRINA COREY EXP COSIGNER: URGENCY: STATUS: COMPLETED The following prescriptions have been received in co-managed care. Prescriptions are generally reviewed in the order received. A separate co-managed care note will be entered and alerted to the PCP once reviewed if records have been received. If additional records are needed or formulary issues need to be addressed co-managed care will attempt to work with the patient's local clinic to resolve those issues. Prescription dated: 09/06/22 Date prescription received: 09/06/22 Name of prescription/s received: graduated compression stockings Records received: no Faxed for additional information: 10/04/22 /melissa/ Alejandrina Corey LPN Co-Chlorine Operator Signed: 10/04/2022 07:25 ALEJANDRINA COREY [facility]
--- OUTSIDE RECORDS SUMMARY | 2023-07-08 13:11 | XMS_ITS | Encounter Summary ---
Author Name Department of [facility] Organization Department of [facility] Address [address] [place] [id number] Support Name Relationship Address Phone REJI WATTS Next of Kin RT 4 JANA SALINAS REJI WATTS Emergency Contact RT 4 JANA SALINAS [phone] Insurance Providers: All historical and current Section [...] Name Patient's Relationship to Policy [place] SU[place] MEDIC ARE SUPPL EMENT Jun 10, 2016 [id number] [phone] DELMA ZARATE PATIENT [place] SUPPLEMEN [place] MEDIC ARE SUPPL EMENT Jun 10, 2016 [id number] [phone] DELMA ZARATE PATIENT MEDICARE (WNR) MEDICARE (M) PART A Jul 11, 2013 PART A [id number] DELMA ZARATE PATIENT MEDICARE (WNR) MEDICARE (M) PART B Jul 11, 2013 PART B [id number] [phone] DELMA ZARATE PATIENT Selected Encounter This section includes the information on [place] at [place] for the [place]counter. Date/Time Encounter Type Encounter Description Reason Provider Source October 09, 2022 09:24 AM PRO PHONE CALL 11-20 MIN TELEPHONE/MICHELLE KEE ICD-10-CM Z51.81 Encounter for therapeutic drug level monitoring SALONI PONCE E Encounter Template Text not used by [place] Assessments - Encounter Diagnoses This section includes the primary and secondary diagnoses documented for the Encounter. Date/Time Primary/Secondary Diagnosis Diagnosis Name Provider Source October 09, 2022 09:24 AM PRIMARY Encounter for therapeutic drug level monitoring NURIS GALARZA [facility] October 09, 2022 09:24 AM SECONDARY Acute embolism and thombos unsp deep vn unsp lower extremity NURIS GALARZA [facility] October 09, 2022 09:24 AM SECONDARY rn international (current) use of anticoagulants NURIS GALARZA [facility] Plan of Treatment: Future Appointments (+ 6 months) and Future Tests (+/- 45 days) The Plan of Treatment section includes [place] care activities for the [place] [facility] [place] [facility] This section includes future appointments and future orders which are active, pending or scheduled. Future Appointments This section includes appointments that were scheduled to occur 6 months from the date of the Encounter, up to a maximum of 20 appointments. The data comes from all [place] treatment facilities. Appointment Date/Time Appointment Type Appointme nt Facility Name October 10, 2022 09:00 AM AMBULATORY - NONE [facility] Dec 26, 2022 10:00 AM AM[facility]ATORY - MEDICINE [facility] Dec 27, 2022 09:15 AM AMBULATORY - NONE [facility] Dec 27, 2022 09:30 AM AMBULATORY - NONE [facility] Dec 27, 2022 11:30 AM AM[facility]ATORY - [facility]IC[facility] Mar 12, 2023 08:30 AM AMBULATORY - MEDICINE [facility] Lab Results: +/- 30 days of the encounter This section includes the Chemistry and Hematology Lab Results on record with [place] for the patient. Radiology Reports and Pathology Reports are provided separately, in subsequent sections. Lab Results This section contains the Chemistry/Hematology Results that were resulted 30 days before or 30 daysafter the date of the Encounter. Date/Time Source Result Type Result - Unit Interpretation Reference Range Comment October 10, 2022 09:55 AM [facility] TSH W/REFLEX TO FREE T4 Specimen Type: PLASMA No comment entered. Ordering Provider: SUZIE TATE Report Released Date/Time: October 10, 2022 09:44 AM Reporting Lab: [facility] [id number] Performing Lab: [facility] [id number] TSH 1.80 0.35-4.94 October 10, 2022 09:55 AM [employer] BASIC METABOLIC PANEL+MG Specimen Type: PLASMA No comment entered. Ordering Provider: SUZIE TATE Report Released Date/Time: October 10, 2022 09:44 AM Reporting Lab: [facility] [id number] Performing Lab: [facility] [id number] CREATININE 1.0 0.7-1.2 UREA NITROGEN 20 8-26 GLUCOSE 103 H 70-100 SODIUM 137 136-145 POTASSIUM 4.2 3.5-5.1 CHLORIDE 106 98-107 CO2 20 L 22-29 CALCIUM 9.5 8.4-10.2 MAGNESIUM 2.0 1.6-2.6 ANION GAP 11 5-15 .CREAT EGFR(CKD-EPI) 79 >60 October 10, 2022 09:55 AM [facility] CBC & DIFF Specimen Type: BLOOD Comment: Automated Differential Performed Ordering Provider: SUZIE TATE ATHJaylyn Report Released Date/Time: October 10, 2022 09:44 AM Reporting Lab: [facility] [id number] Performing Lab: [facility] [id number] WBC 5.83 4.0-11.0 RBC 5.03 4.6-6.2 HGB [...] and tobacco- related health factors from the [place] facility where the Encounter took place. Current Smoking Status This section includes the most current smoking, or tobacco-related health factor, from the [place] facility where the Encounter took place. Date/Time Current Smoking Status Comment Facil ity Feb 23, 2021 08:44 AM VA-TOBACCO NEVER USED [facility] Tobacco Use History This section includes a history of the smoking, or tobacco-related health factors, that were collected on or before the date of the Encounter. The data comes from the [facility] where the Encounter took place. Date/Time Smoking Status/Tobacco Use Comment F acility Feb 24, 2019 12:45 PM VA-TOBACCO NEVER USED [facility] Jul 16, 2018 09:59 AM VA-TOBACCO NEVER USED [facility] Jul 09, 2017 07:52 AM FORMER TOBACCO USER 7Y OR GREATE R [facility] Jul 03, 2016 08:23 AM FORMER TOBACCO USER 7Y OR GREATE R [facility] May 27, 2015 08:15 AM LIFETIME NON-TOBACCO USER [facility] Mar 12, 2014 08:16 AM LIFETIME NON-TOBACCO USER [facility] Feb 12, 2007 07:57 AM LIFETIME NON-TOBACCO USER [facility] Radiology Reports: +/- 30 days of the [...] the Encounter. The data comes from all [facility] facilities. Date/Time Radiology Report Provider Source October 10, 2022 09:43 AM CHEST 2 VIEWS PA A ND LAT: DELMA ZARATE [id number] -[id number] M Exm Date: OCTOBER 10, 2022@09:43 Req Phys: NALLUSAMY,VASUMATHI Pat Loc: [facility] (Req'g Loc) Img Loc: [facility] RADIOLOGY Service: Unknown (Case [id number] COMPLETE) CHEST 2 VIEWS PA AND LAT (RAD Detailed) CPT:15860 Reason for Study: chest pain - recent PE Clinical History: IS NOT under investigation for COVID-19 or is COVID-19 negative chest pain - had a recent PE Responsible provider name and phone number to notify for critical findings if other than user placing the order and pager listed below: User placing orders pager: LAST CREATININE 1.0 (02/26/22) Report Status: Verified Date Reported: OCTOBER 10, 2022 Date Verified: OCTOBER 10, 2022 Rod Buster E-Sig:/ES/BIPIN CULLEN MD Report: EXAMINATION: CHEST 2 [...] Primary Interpreting Staff: BIPIN CULLEN MD, RADIOLOGIST (Rod Buster) /BIPIN [facility] Encounter Notes: All associated encounter notes This section contains the clinical notes associated to the Encounter. Date/Time Encounter Note(s) Provider Source October 09, 2022 09:24 AM PHARMACY OUTPATIEN T MEDICATION MGT NOTE: LOCAL TITLE: PHARMACY ANTICOAGULATION CLINIC F/U STANDARD TITLE: PHARMACY OUTPATIENT MEDICATION MGT NOTE DATE OF NOTE: OCTOBER 09, 2022@09:24 ENTRY DATE: OCTOBER 09, 2022@09:24:44 AUTHOR: NURIS GALARZA COSIGNER: URGENCY: STATUS: COMPLETED INITIAL DOAC FOLLOW-UP - Anticoagulant: Apixaban 5mg q12H - Indication(s): unprovoked DVT/PE Details: [...] 5 years (continue unless high bleed risk) SUBJECTIVE/OBJECTIVE: History obtained from chart review, and patient via phone [phone]. Yes Recent health changes: - headaches, lightheaded/dizzy, dry cough (see below) No Upcoming procedures requiring interruption: YES Bleeding or thromboembolic complications: - Chest pains that are moving from left to right side of his chest. Also stating felt lightheaded/dizzy, and having headache this morning. Recommended to seek emergent medical care for worsening symptoms -> attempt transfer call to provider -> noted to provider of request to call patient. No Falls or injuries: - denies any falls/injuries No Significant drug interactions: - generally stays away from meds YES Alcohol use: - Baseline: 3-4 drinks/wk; reiterated nmt2 drinks per day No Compliance concerns/frequently missed doses: ~Taking consistently as directed dashboard flags: none Lab: ---- Age: 72 Weight: 230.7 lb [104.64 kg] (02/26/2022 08:05) Height: 69 in [175.3 cm] (02/26/2022 08:05) Outside hemoglobin Lab result: 13.8 Date: August 28, 2022 Outside platelet count Lab result: 163 Date: August 28, 2022 Outside creatinine (serum) Lab result: 1.1 Date: August 28, 2022 Cockcroft & Gault (Actual body weight) = 87.2 mL/min Collection DT Spec WBC HGB HCT PLT MCV NEUT LYMPHS 02/26/2022 08:39 BLOOD 5.82 15.4 45.6 200 90.7 64.1 27.0 Collection DT Specimen Test Name Result Units Ref Range 02/26/2022 08:39 PLASMA BILIRUBIN, TOTAL 0.6 mg/dL 0.2 - 1.2 02/26/2022 08:39 PLASMA ALKALINE PHOSPHAT 67 U/L 40 - 150 09/03/2022 10:18 PLASMA AST/SGOT 15 U/L Ref: <=34 09/03/2022 10:18 PLASMA ALT/SGPT 24 U/L Ref: <=55 ASSESSMENT/PLAN: - Concerns noted regarding compliance, medication use, or adverse effects: Reported chest pains, lightheaded/dizzy, and headaches - NEW LABS DRAWN SINCE INITIAL CONSULT; PHARMACIST TO REVIEW. - Continue anticoagulation at current dose. - No questions about written education previously sent. - Monitor dashboard for labs, drug interactions, and compliance. - Lab monitoring frequency defined by dashboard or as clinically indicated. - 90-day supply Rx needed by pharmacist; refill NOT requested. Time spent: 15 minutes Patient education of treatment plan: Patient indicates readiness to learn, verbalizes understanding, agreement and satisfaction with the treatment plan. Denies further questions. /melissa/ NUIRS GALARZA [employer]ES Signed: 10/09/2022 14:04 Receipt Acknowledged By: * AWAITING SIGNATURE * VANESSA PONCE [facility]IE [facility]
--- OUTSIDE RECORDS SUMMARY | 2023-07-08 13:11 | XMS_ITS | Encounter Summary ---
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 Department of Vetera [facility] Address [address] [place] [id number] Support Name Relationship Address Phone REJI WATTS Next of Kin RT 4 JANA SALINAS REJI WATTS Emergency Contact RT 4 JANA SALINAS [phone] Insurance Providers: All historical and current Section [...] Name Patient's Relationship to Policy Me[place] SUPPLEMEN [place] MEDIC ARE SUPPL EMENT Jun 10, 2016 [id number] [phone] DELMA ZARATE [place]IENT [place] SUPPLEMEN [place] MEDIC ARE SUPPL EMENT Jun 10, 2016 [id number] [phone] DELMA ZARATE PATIENT MEDICARE (WNR) MEDICARE (M) PART A Jul 11, 2013 PART A [id number] [phone] DELMA ZARATE PATIENT MEDICARE (WNR) MEDICARE (M) PART B Jul 11, 2013 PART B [id number] [phone] DELMA ZARATE PATIENT Selected Encounter This section includes the information on record at [place] for the Encounter. Date/Time Encounter Type Encounter Description Reason Provider Source October 10, 2022 09:00 AM OFFICE O/P EST LOW 20-29 MIN PRIMARY CARE/MEDICINE ICD-10-CM R07.9 Chest pain, unspecified NALLUSAMY,SAMMIE MATHI IHE Encounter Template Text not used by [facility] Assessments - Encounter Diagnoses This section includes the primary and secondary diagnoses documented for the Encounter. Date/Time Primary/Secondary Diagnosis Diagnosis Name Provider Source October 10, 2022 07:26 PM PRIMARY Chest pain, unspecified LEASAMMIE CAMELIA BOYD CB October 10, 2022 07:26 PM SECONDARY Acute embolism and thombos unsp deep vn unsp lower extremity NALSAMMIE SILVA CB October 10, 2022 07:26 PM SECONDARY Otto's esophagus without dysplasia MARYSASAMMIE HERNANDEZ CB October 10, 2022 07:26 PM SECONDARY penitentiary (current) use of anticoagulants SAMMIE TATE CB October 10, 2022 07:26 PM SECONDARY Other pulmonary embolism without acute cor pulmonale SAMMIE TATE Plan of Treatment: Future Appointments (+ 6 months) and Future Tests (+/- 45 days) The Plan of Treatment section includes future care activities for the [facility] [place] [facility] This section includes future appointments and future orders which are active, pending or scheduled. Future Appointments This section includes appointments that were scheduled to occur 6 months from the date of the Encounter, up to a maximum of 20 appointments. The data comes from all [place] treatment facilities. Appointment Date/Time Appointment Type Appointme nt Facility Name Dec 26, 2022 10:00 AM [facility]BULATORY - MEDICINE [facility] Dec 27, 2022 09:15 AM AMBULATORY - NONE [facility] Dec 27, 2022 09:30 AM AMBULATORY - NONE [facility] Dec 27, 2022 11:30 AM [facility]ORY - MEDICINE [facility] Mar 12, 2023 08:30 AM [facility] Lab Results: +/- 30 days of the encounter This section includes the Chemistry and Hematology Lab Results on record with [place] for the patient. Radiology Reports and Pathology Reports are provided separately, in subsequent sections. Lab Results This section contains the Chemistry/Hematology Results that were resulted 30 days before or 30 daysafter the date of the Encounter. Date/Time Source Result Type Result - Unit Interpretation Reference Range Comment October 10, 2022 09:55 AM [facility] TSH W/REFLEX TO FREE T4 Specimen Type: PLASMA No comment entered. Ordering Provider: SUZIE TATE Report Released Date/Time: October 10, 2022 09:44 AM Reporting Lab: [facility] [id number] Performing Lab: [facility] [id number] TSH 1.80 0.35-4.94 October 10, 2022 09:55 AM [facility] CBC & DIFF Specimen Type: BLOOD Comment: Automated Differential Performed Ordering Provider: SUZIE TATE Report Released Date/Time: October 10, 2022 09:44 AM Reporting Lab: [facility] [id number] Performing Lab: [facility] [id number] WBC 5.83 4.0-11.0 RBC 5.03 4.6-6.2 HGB [...] ,PRO) 0.3 ABS IMMATURE GRAN 0.02 0-0.1 October 10, 2022 09:55 AM [facility] BASIC METABOLIC PANEL+MG Specimen Type: PLASMA No comment entered. Ordering Provider: SUZIE TATE Report Released Date/Time: October 10, 2022 09:44 AM Reporting Lab: [facility] [id number] Performing Lab: [facility] [id number] CREATININE 1.0 0.7-1.2 UREA NITROGEN 20 8-26 GLUCOSE 103 H 70-100 SODIUM 137 136-145 POTASSIUM 4.2 3.5-5.1 CHLORIDE 106 98-107 CO2 20 L 22-29 CALCIUM 9.5 8.4-10.2 MAGNESIUM 2.0 1.6-2.6 ANION GAP 11 5-15 .CREAT EGFR(CKD-EPI) 79 >60 Vital Signs: All taken on the encounter date This section contains inpatient and outpatient Vital Signs collected on the date of the Encounter. Date/Time Temperature Pulse Blood Pressure Respiratory Rate SP02 Pain Height Weight Body Mass Index Source October 10, 2022 09:25 AM 130/84 mm[Hg] [facility] October 10, 2022 09:16 AM 97.1 F 69 /min 142/87 mm[Hg] 16 /min 96 % 0 228.9 lb 34 [facility] Social History: Smoking Status (Most current) and Tobacco Use (All prior to encounter date) This section includes the most current, and the historical, smoking and tobacco- related health factors from the [place] facility where the Encounter took place. Current Smoking Status This section includes the most current smoking, or tobacco-related health factor, from the [place] facility where the Encounter took place. Date/Time Current Smoking Status Comment Facil ity Feb 26, 2022 08:00 AM VA-TOBACCO NEVER USED [facility] Radiology Reports: +/- 30 days of the [...] the Encounter. The data comes from all [place] treatment facilities. Date/Time Radiology Report Provider Source October 10, 2022 09:43 AM CHEST 2 VIEWS PA A ND LAT: DELMA ZARATE [id number] M Exm Date: OCTOBER 10, 2022@09:43 Req Phys: NALLUSAMY,VASUMATHI Pat Loc: [facility] (Req'g Loc) Img Loc: [facility] RADIOLOGY Service: Unknown (Case [id number] COMPLETE) CHEST 2 VIEWS PA AND LAT (RAD Detailed) CPT:74455 Reason for Study: chest pain - recent [...] 10, 2022 Date Verified: OCTOBER 10, 2022 Water Quality Control Engineer E-Sig:/ES/BIPIN CULLEN MD Report: EXAMINATION: CHEST 2 [...] Primary Interpreting Staff: BIPIN CULLEN MD, RADIOLOGIST (Water Quality Control Engineer) /[facility]IPIN [facility] Encounter Notes: All associated encounter notes This section contains the clinical notes associated to the Encounter. Date/Time Encounter Note(s) Provider Source October 14, 2022 03:20 AM LETTERS: LOCAL TITLE: FOLLOW UP RESULTS LETTER STANDARD TITLE: LETTERS DATE OF NOTE: OCTOBER 14, 2022@03:20 ENTRY DATE: OCTOBER 14, 2022@03:20:58 AUTHOR: JAYCE TATE EXP COSIGNER: URGENCY: STATUS: COMPLETED [facility] [address] [place] [address] October DELMA ZARATE [id number] [address] [facility] [address] Dear [place]: You should be receiving another letter with the results of the tests you had done through the [facility]. I have reviewed the results and they looked fine which is very reassuring. If you have any further questions or problems, please contact the call center at [phone] to speak with a nurse or leave me a message. Sincerely, GARIMA GARDINER DNP, VASUMATHI [facility] October 10, 2022 09:18 AM PRIMARY CARE NURSI MAT NOTE: LOCAL TITLE: [facility] NURSING PROGRESS NOTE STANDARD TITLE: PRIMARY CARE NURSING NOTE DATE OF NOTE: OCTOBER 10, 2022@09:18 ENTRY DATE: OCTOBER 10, 2022@09:18:12 AUTHOR: RUDDY REEVES COSIGNER: URGENCY: STATUS: COMPLETED TYPE OF VISIT: Appointment Check In Type of appointment: In-person appointment REASON FOR VISIT: clinic f/u ALLERGIES: Patient has answered NKA VITAL SIGNS: Blood Pressure: 142/87 (10/10/2022 09:16) 2nd BP: 130/84 Pulse: 69 (10/10/2022 09:16) Respiration: 16 (10/10/2022 09:16) Temperature: 97.1 F [36.2 C] (10/10/2022 09:16) Weight: 228.9 lb [103.83 kg] (10/10/2022 09:16) Height: 69 in [175.3 cm] (02/26/2022 08:05) BMI: 33.9 O2 Sat: 96% (10/10/2022 09:16) Pain: 0 (10/10/2022 09:16) PAIN SCREEN: Patient is not having significant pain that they wish to discuss with their provider today. MEDICATION Active Outpatient Medications (including Supplies): APIXABAN 5MG TAB TAKE ONE TABLET BY MOUTH EVERY 12 HOURS ACTIVE (S) TO TREAT AND/OR PREVENT BLOOD CLOTS FLUTICASONE PROP 50MCG 120D NASAL INHL SPRAY 1 SPRAY IN ACTIVE EACH NOSTRIL TWICE A DAY USE REGULARLY FOR RELIEF OF ALLERGIES/CONGESTION LOPERAMIDE HCL 2MG CAP TAKE ONE CAPSULE BY FEEDING TUBE ACTIVE EVERY DAY NEEDED FOR DIARRHEA OMEPRAZOLE 20MG EC CAP TAKE ONE CAPSULE BY MOUTH EVERY DAY ACTIVE ON AN EMPTY STOMACH, AT LEAST 30 MINUTES PRIOR TO A MEAL FOR STOMACH ACID Toxic Exposure Screening: The /caregiver was asked if they believe the experienced any toxic exposure(s), such as Airborne Hazards and Open Burn Pit, [place] related exposures, [place], Radiation, contaminated water at [place] or other such exposures, while serving in the Armed [employer]. 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 Printed information was offered and provided if desired. [place]: /caregiver was made aware of educational resources that includes information on the Registry Program, presumptive conditions and how to file a claim. Printed information was offered and provided if desired. No questions at this time [place]/caregiver was informed of local points of contact. Contact information for local resources: - Airborne Hazards and Burn Pit Exposures - Public Health ([place].gov) - Veterans Benefits for claims submission: Have the call or have them visit the following web address for online scheduling: [email or web address] A/[email or web address]/ - [place] Healthcare Enrollment: -VETS (5968) - Find a Central Supply Nurse (VSO): Have the call [phone] or look up their VSO at: [email or web address]- [email or web address]-[email or web address] - [facility] Navigators: Dr. Kev Roque: [phone] [email or web address] Dr. Silvio Prince: [phone] Toxic Exposure Screening Follow-Up reminder is needed. Name of person notified: JEANNA Tate /melissa/ RUDDY REEVES LPN LICENSED PRACTICAL NURSE Signed: 10/10/2022 09:34 [facility] October 10, 2022 09:11 AM PRIMARY CARE NOTE: LOCAL TITLE: [facility] PROGRESS NOTE - [facility] STANDARD TITLE: PRIMARY CARE NOTE DATE OF NOTE: OCTOBER 10, 2022@09:11 ENTRY DATE: OCTOBER 10, 2022@09:11:49 AUTHOR: JAYCE TATE EXP COSIGNER: URGENCY: STATUS: COMPLETED Today's Nurse check-in note reviewed. Chief complaint: The patient is a 72 year old MALE who is comanaged with Anabel Cedeno , established at this clinic, who is here with the following concern(s) Chest Pain History of Present Illness: On 08/28 he went into the emergency room with swelling shortness of breath and pain was diagnosed with DVT and PE and was started on apixaban . Yesterday when he was talking to the anticoagulation clinic he told them he had some chest pain travelling right to left or left to right. I am seeing him today to follow-up on that He still has leg pain with his DVT. 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 throughout the day. He wears his compression stockings every day. Since he started the blood pressure medication he has been feeling dizzy on getting up which is still there. Patient reported chest pain on & off since about the time of VTE dx on right sometimes on the left, it comes briefly on and disappears. I do note in chart review he had a recent endoscopy and biopsy, he has a diagnosis of Otto's esophagus and a small hiatal hernia. No new swelling in the feet no shortness of breath no chest pain on exertion no chest tightness no nausea vomiting or constipation. He does have some occasional cough and he has seasonal allergies for which he is not taking any medication Remainder of 10 point ROS is negative, except as above. Allergies: Patient has answered NKA Medications: Active Outpatient Medications (including Supplies): Active Outpatient Medications Status 1) APIXABAN 5MG TAB TAKE ONE TABLET BY MOUTH EVERY 12 ACTIVE (S) HOURS TO TREAT AND/OR PREVENT BLOOD CLOTS 2) FLUTICASONE PROP 50MCG 120D NASAL INHL SPRAY 1 SPRAY ACTIVE IN EACH NOSTRIL TWICE A DAY USE REGULARLY FOR RELIEF OF ALLERGIES/CONGESTION 3) LOPERAMIDE HCL 2MG CAP TAKE ONE CAPSULE BY FEEDING ACTIVE TUBE EVERY DAY NEEDED FOR DIARRHEA 4) OMEPRAZOLE 20MG EC CAP TAKE ONE CAPSULE BY MOUTH ACTIVE EVERY DAY ON AN EMPTY STOMACH, AT LEAST 30 MINUTES PRIOR TO A MEAL FOR STOMACH ACID Pending Outpatient Medications Status 1) AMLODIPINE BESYLATE 10MG TAB TAKE ONE TABLET BY MOUTH PENDING EVERY DAY 2) LORATADINE 10MG TAB TAKE ONE TABLET BY MOUTH EVERY PENDING DAY 6 Total Medications Physical Exam: Vitals: BP: 130/84 (10/10/2022 09:25) P: 69 (10/10/2022 09:16) R: 16 (10/10/2022 09:16) T: 97.1 F [36.2 C] (10/10/2022 09:16) WT: 228.9 lb [103.83 kg] (10/10/2022 09:16) BMI: 33.9 Pain: 0 (10/10/2022 09:16) O2 Sat: 96% (10/10/2022 09:16) General: Alert, well dressed and groomed, no apparent distress HEENT: Normocephalic, atraumatic, ear canals clear, TMs normal, OP clear, neck supple without mass, adenopathy or thyromegaly Lungs: Clear; no wheezes, rhonchi or rales CV: RRR without murmur, rub or gallop GI: Abdomen non distended, soft, non tender, normal bowel sounds, no mass or HSM Skin: Warm and moist, no rash or erythema MS: Has compression stockings on , No joint swelling, ambulates without difficulty Psych: Good eye contact, speech normal rate and rhythm, affect full range Assessment/Plan: - Patient is stable now, no cardiac concerns. EKG - normal sinus rhythm - Chest pain consistent with resolvig PE - differential may be Flatulence and GERD - continue PPI - will get a chest xray and labs - He has a follow up with Non [facility] vascular -Discussed plan what to expect etc. patient's questions were answered. He will follow-up with vascular medicine as above. if s/s get worst like pain on deep breathing go to ER [place] understands and agrees to the plan. Follow up as discussed. Sooner if questions or concerns. Disclaimer: This note consists of symbols derived from keyboarding, dictation and/or voice recognition software. As a result, there may be errors in the script that have gone undetected. Please consider this when interpreting information found in this chart. /melissa/ GARIMA GARDINER DNP Signed: 10/10/2022 19:27 JAYCE TATEE [facility]
--- OUTSIDE RECORDS SUMMARY | 2023-07-08 13:11 | XMS_ITS | Encounter Summary ---
Author Name Department of [facility] Organization Department of [facility] Address [address] [place] [id number] Support Name Relationship Address Phone REJI WATTS Next of Kin RT 4 JANA SALINAS REJI WATTS Emergency Contact RT 4 JANA SALINAS [phone] Insurance Providers: All historical and current Section [...] Name Patient's Relationship to Policy Mejias [place] SUPPLEMEN [place] MEDIC ARE SUPPL EMENT Jun 10, 2016 [id number] [phone] DELMA ZARATE PATIENT [place] SUPPLEMEN [place]ARD[place] MEDIC ARE SUPPL EMENT Jun 10, 2016 [id number] [phone] DELMA ZARATE PATIENT MEDICARE (WNR) MEDICARE (M) PART A Jul 11, 2013 PART A [id number] DELMA ZARATE PATIENT MEDICARE (WNR) MEDICARE (M) PART B Jul 11, 2013 PART B [id number] [phone] DELMA ZARATE PATIENT Selected Encounter This section includes the information on record at [place] for the Encounter. 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 Date/Time Primary/Secondary Diagnosis Diagnosis Name Provider Source October 09, 2022 11:31 AM PRIMARY assisted (current) use of anticoagulants ADOLPH PONCE [facility] October 09, 2022 11:31 AM SECONDARY Personal history of other venous thrombosis and embolism ADOLPH PONCE [facility] Plan of Treatment: Future Appointments (+ 6 months) and Future Tests (+/- 45 days) The Plan of Treatment section includes future care activities for the patient from all [place] [facility]. This section includes future appointments and future orders which are active, pending or scheduled. Future Appointments This section includes appointments that were scheduled to occur 6 months from the date of the Encounter, up to a maximum of 20 appointments. The data comes from all [place] treatment facilities. Appointment Date/Time Appointment Type Appointme nt Facility Name October 10, 2022 09:00 AM AMBULATORY - NONE [facility] Dec 26, 2022 10:00 AM AM[facility]ATORY - MEDICINE [facility] Dec 27, 2022 09:15 AM AMBULATORY - NONE [facility] Dec 27, 2022 09:30 AM AMBULATORY - NONE [facility] Dec 27, 2022 11:30 AM [facility]ORY - MEDICINE [facility] Mar 12, 2023 08:30 AM [facility]ORY - MEDICINE [facility] Lab Results: +/- 30 days of the encounter This section includes the Chemistry and Hematology Lab Results on record with [place] for the patient. Radiology Reports and Pathology Reports are provided separately, in subsequent sections. Lab Results This section contains the Chemistry/Hematology Results that were resulted 30 days before or 30 daysafter the date of the Encounter. Date/Time Source Result Type Result - Unit Interpretation Reference Range Comment October 10, 2022 09:55 AM [facility] TSH W/REFLEX TO FREE T4 Specimen Type: PLASMA No comment entered. Ordering Provider: SUZIE TATE Report Released Date/Time: October 10, 2022 09:44 AM Reporting Lab: [facility] [id number] Performing Lab: [facility] [id number] TSH 1.80 0.35-4.94 October 10, 2022 09:55 AM [facility] BASIC METABOLIC PANEL+MG Specimen Type: PLASMA No comment entered. Ordering Provider: SUZIE TATE Report Released Date/Time: October 10, 2022 09:44 AM Reporting Lab: [facility] [id number] Performing Lab: [facility] [id number] CREATININE 1.0 0.7-1.2 UREA NITROGEN 20 8-26 GLUCOSE 103 H 70-100 SODIUM 137 136-145 POTASSIUM 4.2 3.5-5.1 CHLORIDE 106 98-107 CO2 20 L 22-29 CALCIUM 9.5 8.4-10.2 MAGNESIUM 2.0 1.6-2.6 ANION GAP 11 5-15 .CREAT EGFR(CKD-EPI) 79 >60 October 10, 2022 09:55 AM [facility] CBC & DIFF Specimen Type: BLOOD Comment: Automated Differential Performed Ordering Provider: SUZIE TATE Report Released Date/Time: October 10, 2022 09:44 AM Reporting Lab: [facility] [id number] Performing Lab: [facility] [id number] WBC 5.83 4.0-11.0 RBC 5.03 4.6-6.2 HGB [...] and tobacco- related health factors from the [place] facility where the Encounter took place. Current Smoking Status This section includes the most current smoking, or tobacco-related health factor, from the [place] facility where the Encounter took place. Date/Time Current Smoking Status Comment Facil ity Feb 23, 2021 08:44 AM VA-TOBACCO NEVER USED [facility] Tobacco Use History This section includes a history of the smoking, or tobacco-related health factors, that were collected on or before the date of the Encounter. The data comes from the [place] facility where the Encounter took place. Date/Time Smoking Status/Tobacco Use Comment F acility Feb 24, 2019 12:45 PM VA-TOBACCO NEVER USED [facility] Jul 16, 2018 09:59 AM VA-TOBACCO NEVER USED [facility] Jul 09, 2017 07:52 AM FORMER TOBACCO USER 7Y OR GREATE R [facility] Jul 03, 2016 08:23 AM FORMER TOBACCO USER 7Y OR GREATE R [facility] May 27, 2015 08:15 AM LIFETIME NON-TOBACCO USER [facility] Mar 12, 2014 08:16 AM LIFETIME NON-TOBACCO USER [facility] Feb 12, 2007 07:57 AM LIFETIME NON-TOBACCO USER [facility] Radiology Reports: +/- 30 days of [...] the Encounter. The data comes from all [facility] facilities. Date/Time Radiology Report Provider Source October 10, 2022 09:43 AM CHEST 2 VIEWS PA A ND LAT: DELMA ZARATE [id number] -[id number] M Exm Date: OCTOBER 10, 2022@09:43 Req Phys: NALLUSAMY,VASUMATHI Pat Loc: [facility] (Req'g Loc) Img Loc: [facility] RADIOLOGY Service: Unknown (Case [id number] COMPLETE) CHEST 2 VIEWS PA AND LAT (RAD Detailed) CPT:58332 Reason for Study: chest pain - recent PE Clinical History: [place] IS NOT under investigation for COVID-19 or is COVID-19 negative chest pain - had a recent PE Responsible provider name and phone number to notify for critical findings if other than user placing the order and pager listed below: User placing orders pager: LAST CREATININE 1.0 (02/26/22) Report Status: Verified Date Reported: OCTOBER 10, 2022 Date Verified: OCTOBER 10, 2022 Unix Consultant E-Sig:/ES/BIPIN CULLEN MD Report: EXAMINATION: CHEST 2 [...] Primary Interpreting Staff: BIPIN CULLEN MD, RADIOLOGIST (Unix Consultant) /RTS BIPIN CULLEN [facility] Encounter Notes: All associated encounter notes This section contains the clinical notes associated to the Encounter. Date/Time Encounter Note(s) Provider Source October 09, 2022 11:31 AM REPORT OF CONTACT: LOCAL TITLE: PATIENT CONTACT NOTE - PHARMACY STANDARD TITLE: REPORT OF CONTACT DATE OF NOTE: OCTOBER 09, 2022@11:31 ENTRY DATE: OCTOBER 09, 2022@11:32:07 AUTHOR: VANESSA PONCE EXP COSIGNER: URGENCY: STATUS: COMPLETED SUBJECT: anticoag PATIENT CONTACT NOTE - PHARMACY Has ADDENDA Patient Contact Name of : DELMA ZARATE Date & Time of Contact: October@11:32 Type of Contact: Telephone Reason for Contact: Called patient after alerted to reports of chest pain during routine DOAC follow-up call with AC tech - Anticoagulant: Apixaban 10mg 5mg q12H - 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 Patient also reported lightheadedness/dizzy with position changes and sometimes after eating. Patient also reported his ears feel plugged and he feels weird today, which he partially attributes to coffee intake (does not normally drink coffee). Based on conversation, patient may have discussed some of these symptoms with non-VA PCP and may just live with it. Recommend patient NOT ignore symptoms since they could be signs of something bigger going on. Recommend contact PCP (VA or non-VA) to discuss possible appointment. Counseled pt to seek ER evaluation if symptom worsen. Patient agreed to call for [facility] PCP appointment today Disposition: - Appointment with provider: pt agreed to call for appointment - Seek ER evaluation if symptoms worsen - Message to provider: see above. Reporting intermittent chest pain & dizziness for about 6 weeks Education/Instruction: Patient indicates readiness to learn, and has been instructed on the above information. Time Spent: 15min /melissa/ VANESSA PONCE, JUAN DANIELD CLINICAL CONVEX GRINDER OPERATOR Signed: 10/09/2022 11:43 Receipt Acknowledged By: 10/09/2022 15:02 /melissa/ GARIMA GARDINER DNP 10/09/2022 ADDENDUM STATUS: COMPLETED Routing to [facility] for assistance- schedule an acute appointment /melissa/ JAYCE TATE DNPGARIMA Signed: 10/09/2022 15:07 Receipt Acknowledged By: 10/09/2022 15:24 /melissa/ KENNEDY THORNTON [facility] 10/09/2022 ADDENDUM STATUS: COMPLETED Skirt Panel Assembler spoke with per alert received. PCP is aware of concerns. Pt was offered an acute appt for tomorrow morning, appt was accepted for 10/10 @ 0900. Pt denies any acute or distressing concerns. Pt is aware he should seek ER/UC care or 911 for any acute concerns such as active chest pain, shortness of breath, ANTONY pain, N/V, sweating, etc. Pt verbalized agreement and understanding. [facility] notified that appt has been scheduled. /melissa/ LIU HAN,RN REGISTERED NURSE Signed: 10/09/2022 15:26 Receipt Acknowledged By: * AWAITING SIGNATURE * JAYCE TATE HANNAH L [facility]
--- OUTSIDE RECORDS SUMMARY | 2023-07-08 13:11 | XMS_ITS | Encounter Summary ---
Author Name [facility] Organization [facility] Address [address] [place] [id number] Support Name Relationship Address Phone REJI WATTS Next of Kin RT 4 JANA SALINAS REJI WATTS Emergency Contact RT 4 JANA SALINAS [phone] Insurance Providers: All historical and current Section [...] Name Patient's Relationship to Policy Mejias [place] SUPPLEMEN [place] MEDIC ARE SUPPL EMENT Jun 10, 2016 [id number] [phone] DEMLA ZARATE PATIENT [place] SUPPLEMEN [place] MEDIC ARE SUPPL EMENT Jun 10, 2016 [id number] [phone] DELMA ZARATE PATIENT MEDICARE (WNR) MEDICARE (M) PART A Jul 11, 2013 PART A [id number] DELMA ZARATE PATIENT MEDICARE (WNR) MEDICARE (M) PART B Jul 11, 2013 PART B [id number] CRISTY ZARATEE PATIENT Selected Encounter This section includes the information on record at [place] for the Encounter. Date/Time Encounter Type Encounter Description Reason Pro vider Source Dec 27, 2022 11:30 AM Outpatient Encounter PRIMARY CARE/MEDICINE IHE Encounter Template Text not used by [place] Plan of Treatment: Future Appointments (+ 6 months) and Future Tests (+/- 45 days) The Plan of Treatment section includes future care activities for the patient from all [facility]. This section includes future appointments and future orders which are active, pending or scheduled. Future Appointments This section includes appointments that were scheduled to occur 6 months from the date of the Encounter, up to a maximum of 20 appointments. The data comes from all [facility] facilities. Appointment Date/Time Appointment Type Appointme nt Facility Name Mar 12, 2023 08:30 AM AMBULATORY - MEDICINE [facility] Lab Results: +/- 30 days of [...] Range Comment Dec 27, 2022 09:15 AM [facility] HEMOGLOBIN A1C Specimen Type: BLOOD Comment: [...] Dec 26, 2022 10:26 AM Reporting Lab: [facility] [id number] Performing Lab: [facility] [id number] HEMOGLOBIN A1C 5.5 4.0-6.0 Dec 27, 2022 09:15 AM [facility] BASIC METABOLIC PANEL+MG Specimen Type: PLASMA No comment entered. Ordering Provider: SUZIE TATE Report Released Date/Time: Dec 26, 2022 10:26 AM Reporting Lab: [facility] [id number] Performing Lab: [facility] [id number] CREATININE 1.1 0.7-1.2 UREA NITROGEN 15 8-26 GLUCOSE 100 70-100 SODIUM 137 136-145 POTASSIUM 4.2 3.5-5.1 CHLORIDE 105 98-107 CO2 24 22-29 CALCIUM 9.2 8.4-10.2 MAGNESIUM 2.1 1.6-2.6 ANION GAP 8 5-15 .CREAT EGFR(CKD-EPI) 70 See_Comment Dec 27, 2022 09:15 AM [facility] CBC & DIFF Specimen Type: BLOOD Comment: Automated Differential Performed Ordering Provider: SUZIE TATE Report Released Date/Time: Dec 26, 2022 10:26 AM Reporting Lab: [facility] [id number] Performing Lab: [facility] [id number] WBC 6.07 4.0-11.0 RBC 5.21 4.6-6.2 HGB [...] place. Date/Time Current Smoking Status Comment Crystal ity Feb 23, 2021 08:44 AM VA-TOBACCO NEVER USED [facility] Tobacco Use History This section includes a history of the smoking, or tobacco-related health factors, that were collected on or before the date of the Encounter. The data comes from the [place] facility where the Encounter took place. Date/Time Smoking Status/Tobacco Use Comment F acility Feb 24, 2019 12:45 PM VA-TOBACCO NEVER USED [facility] Jul 16, 2018 09:59 AM VA-TOBACCO NEVER USED [facility] Jul 09, 2017 07:52 AM FORMER TOBACCO USER 7Y OR GREATE R [facility] Jul 03, 2016 08:23 AM FORMER TOBACCO USER 7Y OR GREATE R [facility] May 27, 2015 08:15 AM LIFETIME NON-TOBACCO USER [facility] Mar 12, 2014 08:16 AM LIFETIME NON-TOBACCO USER [facility] Feb 12, 2007 07:57 AM LIFETIME NON-TOBACCO USER [facility] Encounter Notes: All associated encounter notes This section contains the clinical notes associated to the Encounter. Date/Time Encounter Note(s) Provider Source Dec 27, 2022 10:16 AM MEDICATION MGT NOT E: LOCAL TITLE: MEDICATION RECONCILIATION NOTE STANDARD TITLE: MEDICATION MGT NOTE DATE OF NOTE: DEC 27, 2022@10:16 ENTRY DATE: DEC 27, 2022@10:16:47 AUTHOR: MONET YOUNG EXP COSIGNER: URGENCY: STATUS: COMPLETED MEDICATION RECONCILIATION Active Outpatient Medications (excluding Supplies): Outpatient Medications Status 1) AMLODIPINE BESYLATE 10MG TAB TAKE ONE TABLET BY MOUTH ACTIVE EVERY DAY FOR BLOOD PRESSURE 2) APIXABAN 5MG TAB TAKE ONE TABLET BY MOUTH EVERY 12 ACTIVE HOURS TO TREAT AND/OR PREVENT BLOOD CLOTS 3) FLUTICASONE PROP 50MCG 120D NASAL INHL SPRAY 1 SPRAY ACTIVE IN EACH NOSTRIL TWICE A DAY USE REGULARLY FOR RELIEF OF ALLERGIES/CONGESTION 4) LOPERAMIDE HCL 2MG CAP TAKE ONE CAPSULE BY FEEDING ACTIVE TUBE EVERY DAY NEEDED FOR DIARRHEA 5) LORATADINE 10MG TAB TAKE ONE TABLET BY MOUTH EVERY ACTIVE DAY FOR ALLERGIES 6) OMEPRAZOLE 20MG EC CAP TAKE ONE CAPSULE BY MOUTH ACTIVE EVERY DAY ON AN EMPTY STOMACH, AT LEAST 30 MINUTES PRIOR TO A MEAL FOR STOMACH ACID /es/ MONET YOUNG LPN LICENSED PRACTICAL NURSE Signed: 12/27/2022 10:16 MONET YOUNG [facility]
--- OUTSIDE RECORDS SUMMARY | 2023-07-08 13:12 | XMS_ITS | Encounter Summary ---
Author Name Department of [facility] Organization Department of [facility] Address [address] [place] [address] Support Name Relationship Address Phone REJI WATTS Next of Kin RT 4 JANA SALINAS REJI WATTS Emergency Contact RT 4 JANA SALINAS [phone] Insurance Providers: All historical and current Section [...] MEDIC ARE SUPPL EMENT Jun 10, 2016 [id number] [phone] DELMA ZARATE PATIENT [place] SUPPLEMEN LEOBARDO MEDIC ARE SUPPL EMENT Jun 10, 2016 [id number] [phone] DELMA ZARATE PATIENT MEDICARE (WNR) MEDICARE (M) PART A Jul 11, 2013 PART A [id number] DELMA ZARATE PATIENT MEDICARE (WNR) MEDICARE (M) PART B Jul 11, 2013 PART B [id number] DELMA ZARATE PATIENT Selected Encounter This section includes the information on record at [place] for the Encounter. Date/Time Encounter Type Encounter Description Reason Provider Source Feb 27, 2023 01:44 PM QNHP OL DIG ASSMT&MGMT 11-20 CLINICAL PHARMACY ICD-10-CM Z79.01 [facility] (current) use of anticoagulants GEOFF GARCIA Encounter Template Text not used by DC Assessments - Encounter Diagnoses This section includes the primary and secondary diagnoses documented for the Encounter. 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 GEOFF GARCIA [facility] Feb 27, 2023 01:56 PM SECONDARY Acute embolism and thombos unsp deep vn unsp lower extremity GEOFF GARCIA [facility] Feb 27, 2023 01:56 PM SECONDARY Encounter for therapeutic drug level monitoring GEOFF GARCIA [facility] Feb 27, 2023 01:56 PM SECONDARY Other pulmonary embolism without acute cor pulmonale GEOFF GARCIA [facility] Plan of Treatment: Future Appointments (+ 6 months) and Future Tests (+/- 45 days) The Plan of Treatment section includes future care activities for the [facility] This section includes future appointments and future orders which are active, pending or scheduled. Future Appointments This section includes appointments that were scheduled to occur 6 months from the date of the Encounter, up to a maximum of 20 appointments. The data comes from all [facility] facilities. Appointment Date/Time Appointment Type Appointme nt Facility Name Mar 12, 2023 08:30 AM AMBULATORY - MEDICINE [facility] Lab Results: +/- 30 days of the encounter This section includes the Chemistry and Hematology Lab Results on record with DC for the patient. Radiology Reports and Pathology Reports are provided separately, in subsequent sections. Lab Results This section contains the Chemistry/Hematology Results that were resulted 30 days before or 30 daysafter the date of the Encounter. Date/Time Source Result Type Result - Unit Interpretation Reference Range Comment Mar 12, 2023 09:20 AM [facility] TSH W/REFLEX TO FREE T4 Specimen Type: PLASMA No comment entered. Ordering Provider: FIONA FERREIRA Report Released Date/Time: Mar 12, 2023 09:07 AM Reporting Lab: [facility] [id number] Performing Lab: [facility] [id number] TSH 1.72 0.35-4.94 Mar 12, 2023 09:20 AM [facility] HEMOGLOBIN A1C Specimen Type: BLOOD Comment: Values obtained from A1C measurements can vary. For typical A1C assays, a reported value of 7.0 could actually be between 6.7 and 7.3 if measured by a reference method. A reported value of 9.0 could actually be between 8.7 and 9.3. Ref: http://www.ngs p.org/CAPdata. asp Ordering Provider: FIONA FERREIRA Report Released Date/Time: Mar 12, 2023 09:07 AM Reporting Lab: [facility] [id number] Performing Lab: [facility] [id number] HEMOGLOBIN A1C 5.5 4.0-6.0 Mar 12, 2023 09:20 AM [facility] CBC Specimen Type: BLOOD No comment entered. Ordering Provider: FIONA FERREIRA Report Released Date/Time: Mar 12, 2023 09:07 AM Reporting Lab: [facility] [id number] Performing Lab: [facility] [id number] WBC 6.10 4.0-11.0 RBC 5.14 4.6-6.2 HGB 16.2 13.5-17.9 HCT 46.5 41-54 MCV 90.5 80-100 MCH 31.5 27-33 MCHC 34.8 32.0-37.5 PLT 221 150-400 MPV 11.2 H 7.4-10.4 RDW 12.0 11.5-14.5 Mar 12, 2023 09:20 AM [facility] COMPREHENSIVE METABOLIC PANEL+MG Specimen Type: PLASMA No comment entered. Ordering Provider: FIONA FERREIRA Report Released Date/Time: Mar 12, 2023 09:07 AM Reporting Lab: [facility] [id number] Performing Lab: [facility] [id number] CREATININE 1.0 0.7-1.2 UREA NITROGEN 22 8-26 GLUCOSE 98 70-100 SODIUM 139 136-145 POTASSIUM 4.2 3.5-5.1 CHLORIDE 107 98-107 CO2 19 L 22-29 CALCIUM 9.6 8.4-10.2 PROTEIN,TOTAL 7.9 6.0-8.3 ALBUMIN 4.6 3.5-5.2 BILIRUBIN, TOTAL 1.1 0.2-1.2 MAGNESIUM 2.1 1.6-2.6 ANION GAP 13 5-15 ALKALINE PHOSPHATASE 75 40-150 ALT/SGPT 24 <55 AST/SGOT 20 <34 .CREAT EGFR(CKD-EPI) 79 >60 Social History: Smoking Status (Most current) and Tobacco Use (All prior to encounter date) This section includes the most current, and the historical, smoking and tobacco- related health factors from the [facility] where the Encounter took place. Current Smoking Status This section includes the most current smoking, or tobacco-related health factor, from the [facility] where the Encounter took place. Date/Time Current Smoking Status Comment Crystal ity Feb 23, 2021 08:44 AM VA-TOBACCO NEVER USED [facility] Tobacco Use History This section includes a history of the smoking, or tobacco-related health factors, that were collected on or before the date of the Encounter. The data comes from the [facility] where the Encounter took place. Date/Time Smoking Status/Tobacco Use Comment F acility Feb 24, 2019 12:45 PM DC-TOBACCO NEVER USED [facility] Jul 16, 2018 09:59 AM DC-TOBACCO NEVER USED [facility] Jul 09, 2017 07:52 AM FORMER TOBACCO USER 7Y OR GREATE R [facility] Jul 03, 2016 08:23 AM FORMER TOBACCO USER 7Y OR GREATE R [facility] May 27, 2015 08:15 AM LIFETIME NON-TOBACCO USER [facility] Mar 12, 2014 08:16 AM LIFETIME NON-TOBACCO USER [facility] Feb 12, 2007 07:57 AM LIFETIME NON-TOBACCO USER [facility] Encounter Notes: All associated encounter notes This section contains the clinical notes associated to the Encounter. Date/Time Encounter Note(s) Provider Source Feb 27, 2023 01:44 PM PHARMACY OUTPATIEN T MEDICATION MGT NOTE: LOCAL TITLE: PHARMACY ANTICOAGULATION CLINIC F/U STANDARD TITLE: PHARMACY OUTPATIENT MEDICATION MGT NOTE DATE OF NOTE: FEB 27, 2023@13:44 ENTRY DATE: FEB 27, 2023@13:44:42 AUTHOR: GEOFF GARCIA EXP COSIGNER: URGENCY: STATUS: COMPLETED DOAC DASHBOARD ALERT - Anticoagulant: Apixaban 10mg q12H x7d then 5mg q12H - Indication(s): unprovoked DVT/PE dx at OSH 08/28/22 Details: extensive DVT in distal superficial femoral, popliteal [...] Risk of recurrent VTE (Chest 2016): --> MODERATE RISK (VTE 3-12 months ago) provoked due to non-surgical transient risk factor: 15%/5 years unprovoked: 30% in 5 years (continue unless high bleed risk) SUBJECTIVE/OBJECTIVE: Obtained from chart review. Dosing DOAC dashboard flag: After at least six months of therapy for acute VTE, the dose of apixaban and rivaroxaban may be reduced for long-term secondary PE/DVT prophylaxis Labs ==== Age: 72 Height: 69 in [175.3 cm] (02/26/2022 08:05) Weight: 232.2 lb [105.32 kg] (12/27/2022 11:48) Collection DT Specimen Test Name Result Units Ref Range 12/27/2022 09:15 PLASMA CREATININE 1.1 mg/dL 0.7 - 1.2 10/10/2022 09:55 PLASMA CREATININE 1.0 mg/dL 0.7 - 1.2 02/26/2022 08:39 PLASMA CREATININE 1.0 mg/dL 0.7 - 1.2 02/27/2021 09:48 PLASMA!! CREATININE 1.0 mg/dL 0.7 - 1.2 08/12/2018 07:43 PLASMA CREATININE 1.0 mg/dL .7 - 1.2 07/09/2017 06:29 PLASMA CREATININE 1.0 mg/dL .7 - 1.2 05/27/2015 07:02 PLASMA CREATININE 0.9 mg/dL .7 - 1.2 05/21/2013 13:29 PLASMA!! CREATININE 1.0 mg/dL .7 - 1.2 11/14/2012 07:32 PLASMA!! CREATININE 0.8 mg/dL .7 - 1.2 05/17/2010 08:17 PLASMA!! CREATININE 1.1 mg/dL .7 - 1.2 !! Indicates COMMENTS AVAILABLE...Refer to Interim Lab Report. Cockcroft & Gault (Actual body weight) = 87.8 mL/min Collection DT Spec WBC HGB HCT PLT MCV NEUT LYMPHS 12/27/2022 09:15 BLOOD 6.07 16.0 47.5 231 91.2 59.2 30.6 10/10/2022 09:55 BLOOD 5.83 15.5 46.3 229 92.0 68.9 22.8 ASSESSMENT/PLAN: - Likely NOT appropriate for ppx dose reduction after 6 months d/t: o massive clotting event. - Continue anticoagulation at current dose. - Monitor dashboard for labs, drug interactions, and compliance. - Dashboard flags reviewed/cleared. - Lab monitoring frequency defined by dashboard or as clinically indicated. - Reviewed if Rx renewal needed. Time Spent: 15min /es/ GEOFF GARCIA, PHARMD Clinical Pharmacist Signed: 02/27/2023 13:56 GEOFF GARCIA [facility]
--- OUTSIDE RECORDS SUMMARY | 2023-07-08 13:12 | XMS_ITS | Encounter Summary ---
Author Name Department of [facility] Organization Department of [facility] Address [address] [place] [address] Support Name Relationship Address Phone REJI WATTS Next of Kin RT 4 JANA SALINAS REJI WATTS Emergency Contact RT 4 JANA SALINAS [phone] Insurance Providers: All historical and current Section [...] Name Patient's Relationship to Policy Mejias BCBS [place] MEDICARE SUPPLEMEN LEOBARDO MEDIC ARE SUPPL EMENT Jun 10, 2016 [id number] DELMA ZARATE PATIENT [place] SUPPLEMEN [place]OBARDO MEDIC ARE SUPPL EMENT Jun 10, 2016 [id number] CRISTY ZARATEE PATIENT MEDICARE (WNR) MEDICARE (M) PART A Jul 11, 2013 PART A [id number] CRISTY ZARATEE PATIENT MEDICARE (WNR) MEDICARE (M) PART B Jul 11, 2013 PART B [id number] ARELYDANNIELLEBORISDELMA PATIENT Selected Encounter This section includes the information on record at [place] for the Encounter. Date/Time Encounter Type Encounter Description Reason Pro vider Source IHE Encounter Template Text not used by [place]
--- OUTSIDE RECORDS SUMMARY | 2023-07-08 13:13 | XMS_ITS | Encounter Summary ---
Author Name Department of [facility] Organization Department of [facility] Address [address] [place] [address] Support Name Relationship Address Phone REJI WATTS Next of Kin RT 4 JANA SALINAS REJI WATTS Emergency Contact RT 4 JANA SALINAS [phone] Insurance Providers: All historical and current Section [...] MEDIC ARE SUPPL EMENT Jun 10, 2016 [id number] DELMA ZARATE PATIENT BCBS ID MEDICARE SUPPLEMEN LEOBARDO MEDIC ARE SUPPL EMENT Jun 10, 2016 [id number] [phone] DELMA ZARATE PATIENT MEDICARE (WNR) MEDICARE (M) PART A Jul 11, 2013 PART A [id number] DELMA ZARATE PATIENT MEDICARE (WNR) MEDICARE (M) PART B Jul 11, 2013 PART B [id number] DELMA ZARATE PATIENT Selected Encounter This section includes the information on record at [place] for the Encounter. Date/Time Encounter Type Encounter Description Reason Pro vider Source Mar 11, 2023 06:22 PM Outpatient Encounter CLINICAL PHARMACY E Encounter Template Text not used by [place] Plan of Treatment: Future Appointments (+ 6 [...] 20 appointments. The data comes from all [facility] facilities. Appointment Date/Time Appointment Type Appointme nt Facility Name Mar 12, 2023 08:30 AM AMBULATORY - MEDICINE [facility] Lab Results: +/- 30 days of [...] Comment Mar 12, 2023 09:20 AM [facility] TSH W/REFLEX TO FREE T4 Specimen Type: PLASMA No comment entered. Ordering Provider: FIONA FERREIRA Report Released Date/Time: Mar 12, 2023 09:07 AM Reporting Lab: [facility] [id number] Performing Lab: [facility] [id number] TSH 1.72 0.35-4.94 Mar 12, 2023 09:20 AM [facility] HEMOGLOBIN A1C Specimen Type: BLOOD Comment: [...] Mar 12, 2023 09:07 AM Reporting Lab: [facility] [id number] Performing Lab: [facility] [id number] HEMOGLOBIN A1C 5.5 4.0-6.0 Mar 12, 2023 09:20 AM [facility] CBC Specimen Type: BLOOD No comment entered. Ordering Provider: FIONA FERREIRA Report Released Date/Time: Mar 12, 2023 09:07 AM Reporting Lab: [facility] [id number] Performing Lab: [facility] [id number] WBC 6.10 4.0-11.0 RBC 5.14 4.6-6.2 HGB 16.2 13.5-17.9 HCT 46.5 41-54 MCV 90.5 80-100 MCH 31.5 27-33 MCHC 34.8 32.0-37.5 PLT 221 150-400 MPV 11.2 H 7.4-10.4 RDW 12.0 11.5-14.5 Mar 12, 2023 09:20 AM [facility] COMPREHENSIVE METABOLIC PANEL+MG Specimen Type: PLASMA No comment entered. Ordering Provider: FIONA FERREIRA Report Released Date/Time: Mar 12, 2023 09:07 AM Reporting Lab: [facility] [id number] Performing Lab: [facility] [phone] CREATININE 1.0 0.7-1.2 UREA NITROGEN 22 8-26 [...] and tobacco- related health factors from the [facility] where the Encounter took place. Current Smoking Status This section includes the most current smoking, or tobacco-related health factor, from the [place] facility where the Encounter took place. Date/Time Current Smoking Status Comment Crystal barriga Feb 23, 2021 08:44 AM VA-TOBACCO NEVER USED [facility] Tobacco Use History This section includes a history of the smoking, or tobacco-related health factors, that were collected on or before the date of the Encounter. The data comes from the [place] facility where the Encounter took place. Date/Time Smoking Status/Tobacco Use Comment F acility Feb 24, 2019 12:45 PM VA-TOBACCO NEVER USED [facility] Jul 16, 2018 09:59 AM VA-TOBACCO NEVER USED [facility] Jul 09, 2017 07:52 AM FORMER TOBACCO USER 7Y OR GREATE R [facility] Jul 03, 2016 08:23 AM FORMER TOBACCO USER 7Y OR GREATE R [facility] May 27, 2015 08:15 AM LIFETIME NON-TOBACCO USER [facility] Mar 12, 2014 08:16 AM LIFETIME NON-TOBACCO USER [facility] Feb 12, 2007 07:57 AM LIFETIME NON-TOBACCO USER [facility] Encounter Notes: All associated encounter notes This section contains the clinical notes associated to the Encounter. Date/Time Encounter Note(s) Provider Source Mar 11, 2023 06:22 PM LETTERS: LOCAL TITLE: FOLLOW UP RESULTS LETTER STANDARD TITLE: LETTERS DATE OF NOTE: MAR 11, 2023@18:22 ENTRY DATE: MAR 11, 2023@18:22:09 AUTHOR: YASMIN ALEJANDRO COSIGNER: URGENCY: STATUS: COMPLETED SUBJECT: [facility] [address] [place] [address] Mar DELMA ZARATE [address] [facility] [id number] Dear : We are following up on your anticoagulant (blood thinner) medication, Apixaban. We noticed it has been a while since you last refilled your [facility] prescription. We wanted to ensure you are still taking your anticoagulant regularly to prevent clotting complications. Please call us at [phone], option 3 if you are taking your anticoagulant differently than prescribed or have since stopped taking it so we can update our records. We do NOT need a call back regarding this letter if you previously had an extra supply of medication and are still taking this medication as prescribed. We hope you are doing well. Thank you for your service and we look forward to hearing from you. Sincerely, [facility] Team ----- Phone number: [phone] -option 1 to schedule or reschedule an appointment -option 2 to refill medications or call the phone number on the bottle -option 3 for all other communication Fax number: [phone] Clinic Hours: Saturday-Saturday, 8:00am to 4:00pm (excluding Federal holidays) CHERISE ALEJANDRO Pharmacist YASMIN ALEJANDRO [facility]
--- OUTSIDE RECORDS SUMMARY | 2023-07-08 13:13 | XMS_ITS | Encounter Summary ---
Author Name [facility] of [facility] Organization [facility] of [facility] Address [address] [place] [id number] Support Name Relationship Address Phone REJI WATTS Next of Kin RT 4 JANA SALINAS REJI WATTS Emergency Contact RT 4 JANA SALINAS [phone] Insurance Providers: All historical and current Section [...] Name Patient's Relationship to Policy Mejias [place] SUPPLEMEN [place] MEDIC ARE SUPPL EMENT Jun 10, 2016 [id number] [phone] DELMA ZARATE PATIENT [place] MED[place]ARE SUPPLEMEN LEOBARDO MEDIC ARE SUPPL EMENT Jun 10, 2016 [id number] [phone] DELMA ZARATE PATIENT MEDICARE (WNR) MEDICARE (M) PART A Jul 11, 2013 PART A [id number] [phone] DELMA ZARATE PATIENT MEDICARE (WNR) MEDICARE (M) PART B Jul 11, 2013 PART B [id number] [phone] DELMA ZARATE PATIENT Selected Encounter This section includes the information on record at [place] for the Encounter. Date/Time Encounter Type Encounter Description Reason Provider Source Mar 13, 2023 11:53 AM [facility] OL DIG ASSMT&MGMT 21+ CLINICAL PHARMACY ICD-10-CM Z79.01 nursing home (current) use of anticoagulants BLANCA SHELLEY Encounter Template Text not used by [place] Assessments - Encounter Diagnoses This section includes the primary and secondary diagnoses documented for the Encounter. Date/Time Primary/Secondary Diagnosis Diagnosis Name Provider Source Mar 14, 2023 03:28 PM PRIMARY long term (current) use of anticoagulants BLANCA SHEL[facility] Mar 14, 2023 03:28 PM SECONDARY Acute embolism and thombos unsp deep vn unsp lower extremity BLANCA SHE[facility] Mar 14, 2023 03:28 PM SECONDARY Encounter for therapeutic drug level monitoring BLANCA SHEL[facility] Mar 14, 2023 03:28 PM SECONDARY Other pulmonary embolism without acute cor pulmonale [facility] Lab Results: +/- 30 days of the [...] Range Comment Mar 12, 2023 09:20 AM [facility] TSH W/REFLEX TO FREE T4 Specimen Type: PLASMA No comment entered. Ordering Provider: FIONA FERREIRA Report Released Date/Time: Mar 12, 2023 09:07 AM Reporting Lab: [facility] [id number] Performing Lab: [facility] [id number] TSH 1.72 0.35-4.94 Mar 12, 2023 09:20 AM [facility] HEMOGLOBIN A1C Specimen Type: BLOOD Comment: [...] Mar 12, 2023 09:07 AM Reporting Lab: [facility] [id number] Performing Lab: [facility] [id number] HEMOGLOBIN A1C 5.5 4.0-6.0 Mar 12, 2023 09:20 AM [facility] CBC Specimen Type: BLOOD No comment entered. Ordering Provider: FIONA FERREIRA Report Released Date/Time: Mar 12, 2023 09:07 AM Reporting Lab: [facility] [id number] Performing Lab: [facility] [id number] WBC 6.10 4.0-11.0 RBC 5.14 4.6-6.2 HGB 16.2 13.5-17.9 HCT 46.5 41-54 MCV 90.5 80-100 MCH 31.5 27-33 MCHC 34.8 32.0-37.5 PLT 221 150-400 MPV 11.2 H 7.4-10.4 RDW 12.0 11.5-14.5 Mar 12, 2023 09:20 AM [facility] COMPREHENSIVE METABOLIC PANEL+MG Specimen Type: PLASMA No comment entered. Ordering Provider: FIONA FERREIRA Report Released Date/Time: Mar 12, 2023 09:07 AM Reporting Lab: [facility] [id number] Performing Lab: [facility] [id number] CREATININE 1.0 0.7-1.2 UREA NITROGEN 22 8-26 [...] Encounter took place. Date/Time Current Smoking Status Ambrosio barriga Feb 23, 2021 08:44 AM VA-TOBACCO NEVER USED [facility] Tobacco Use History This section includes a history of the smoking, or tobacco-related health factors, that were collected on or before the date of the Encounter. The data comes from the [place] facility where the Encounter took place. Date/Time Smoking Status/Tobacco Use Comment Julienne de la cruzmatilde Feb 24, 2019 12:45 PM VA-TOBACCO NEVER USED [facility] Jul 16, 2018 09:59 AM VA-TOBACCO NEVER USED [facility] Jul 09, 2017 07:52 AM FORMER TOBACCO USER 7Y OR GREATE R [facility] Jul 03, 2016 08:23 AM FORMER TOBACCO USER 7Y OR GREATE R [facility] May 27, 2015 08:15 AM LIFETIME NON-TOBACCO USER [facility] Mar 12, 2014 08:16 AM LIFETIME NON-TOBACCO USER [facility] Feb 12, 2007 07:57 AM LIFETIME NON-TOBACCO USER [facility] Encounter Notes: All associated encounter notes This section contains the clinical notes associated to the Encounter. 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 Also acute PE extending to all lobes and suggesting R heart strain. 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 Recieved alert from [facility] that PCP/local provider had reduced pt's apixaban dose to 2.5mg q12H. [place] PCP D/C'ed his [facility] clinic Rx order for apixaban. Pt has been splitting his 5mg tabs and states that it is difficult to do so. 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 reduced apix dose, we avoided reduction d/t massive clotting event and pt spends 13-14 hrs on his tractor, compression stockings ordered No Upcoming procedures requiring interruption: YES Bleeding or thromboembolic complications: - pt w/ signs of post-thrombotic syndrome No Falls or injuries: No Significant medication changes/new DDIs: YES Alcohol use: - Baseline: 3-4 drinks/week No Compliance concerns/frequently missed doses: - has missed a couple PM doses d/t work, but tries to remember both doses every day Dashboard flags: none Labs: ---- Age: 72 Weight: 230.8 lb [104.69 kg] (03/12/2023 08:18) Height: 68.504 in [174.0 cm] (03/12/2023 08:18) CREATININE 1.0 PLASMA (03/12/23 09:20) 1.1 PLASMA (12/27/22 09:15) 1.0 PLASMA (10/10/22 09:55) Cockcroft & Gault (Actual body weight) = 96 mL/min Collection DT Spec WBC HGB HCT PLT MCV NEUT LYMPHS 03/12/2023 09:20 BLOOD 6.10 16.2 46.5 221 90.5 12/27/2022 09:15 BLOOD 6.07 16.0 47.5 231 91.2 59.2 30.6 10/10/2022 09:55 BLOOD 5.83 15.5 46.3 229 92.0 68.9 22.8 Collection DT Specimen Test Name Result Units Ref Range 03/12/2023 09:20 PLASMA BILIRUBIN, TOTAL 1.1 mg/dL 0.2 - 1.2 03/12/2023 09:20 PLASMA ALKALINE PHOSPHAT 75 U/L 40 - 150 03/12/2023 09:20 PLASMA AST/SGOT 20 U/L Ref: <=34 03/12/2023 09:20 PLASMA ALT/SGPT 24 U/L Ref: <=55 ASSESSMENT/PLAN: Taking DOAC correctly, with compliance, and without adverse effects attributable to the use of the drug. Labs are stable. [place] provider recommends NOT dose-reducing apixaban dose d/t: o previous massive clotting event w/ possible R heart strain o immobility w/ long hours on tractor Discussed at length w/ pt the risk vs benefit of dose-reduction. Although we aim to reduce doses in many patients after 6 months of tx, would not recommend it in his case, especially since he is tolerating apixaban full-dose and continues to spend long hours on the tractor, and also has post-thrombotic syndrome. Advised that if pt were to have more bleeding issues in the future, although not an absolute bleed risk reduction, we could entertain the idea of reducing the dose at that time. Pt agrees to continue on full dose at this time. Pt also asks about the actual clots themselves - where they are, how they're resorbed, etc. Discussed that AC is not a clot buster but aims to protect from new clots. Advised if ever any s/s of new clots or swelling, sudden SOB, stroke symptoms, these are all reasons to get re-evaluated right away. Discussed how vasculature is changed after having clots, especially extensive ones like his. - Continue anticoagulation at current dose. - Monitor dashboard for labs, drug interactions, and compliance at discharge. - Lab monitoring frequency defined by dashboard or as clinically indicated. - Renewed Rx Time spent: 25 minutes Patient education of treatment plan: Patient indicates readiness to learn, verbalizes understanding, agreement and satisfaction with the treatment plan. Denies further questions. /melissa/ Adrian Shelley PharmD Clinical Pharmacist - [facility] clinic Signed: 03/14/2023 15:[address] [facility]
--- OUTSIDE RECORDS SUMMARY | 2023-07-08 13:13 | XMS_ITS | Encounter Summary ---
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 [facility] Address [address] [place] [id number] Support Name Relationship Address Phone REJI WATTS Next of Kin RT 4 JANA SALINAS REJI WATTS Emergency Contact RT 4 JANA SALINAS [phone] Insurance Providers: All historical and current Section [...] MEDIC ARE SUPPL EMENT Jun 10, 2016 [id number] [phone] ELIE ZARATE PATIENT BCBS MD MEDICARE SUPPLEMEN LEOBARDO MEDIC ARE SUPPL EMENT Jun 10, 2016 [id number] ELIE ZARATE PATIENT MEDICARE (WNR) MEDICARE (M) PART A Jul 11, 2013 PART A [id number] [phone] ELIE ZARATE PATIENT MEDICARE (WNR) MEDICARE (M) PART B Jul 11, 2013 PART B [id number] [phone] ELIE ZARATE PATIENT Selected Encounter This section includes the information on record at [place] for the Encounter. Date/Time Encounter Type Encounter Description Reason Provider Source Mar 12, 2023 08:30 AM OFFICE O/P EST LOW 20-29 MIN PRIMARY CARE/MEDICINE ICD-10-CM Z00.01 Encounter for general adult medical exam w abnormal findings FIONA FERREIRA Encounter Template Text not used by [facility] Assessments - Encounter Diagnoses This section includes the primary and secondary diagnoses documented for the Encounter. 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 TRUE,[facility] Mar 12, 2023 08:00 PM SECONDARY Disorder of the skin and subcutaneous tissue, unspecified TRUE,[facility] Mar 12, 2023 08:00 PM SECONDARY Essential (primary) hypertension TRUE,[facility] Mar 12, 2023 08:00 PM SECONDARY Hyperlipidemia, unspecified TRUE,[facility] Mar 12, 2023 08:00 PM SECONDARY Impacted cerumen, bilateral TRUE,GIULIANA [facility]D [facility] Mar 12, 2023 08:00 PM SECONDARY supervisor intermediates (current) use of anticoagulants TRUE,[facility] Mar 12, 2023 08:00 PM SECONDARY Major depressive disorder, recurrent, unspecified TRUE,[facility] Mar 12, 2023 08:00 PM SECONDARY Obstructive sleep apnea (adult) (pediatric) TRUE,[facility] Mar 12, 2023 08:00 PM SECONDARY Other family history of colon polyps TRUE,GIULIANA BOYD [facility] Mar 12, 2023 08:00 PM SECONDARY Personal history of pulmonary embolism TRUE,GIULIANA BOYD CBJONATHAN Lab Results: +/- 30 days of the [...] Range Comment Mar 12, 2023 09:20 AM [facility] TSH W/REFLEX TO FREE T4 Specimen Type: PLASMA No comment entered. Ordering Provider: FIONA FERREIRA Report Released Date/Time: Mar 12, 2023 09:07 AM Reporting Lab: [facility] [id number] Performing Lab: [facility] [id number] TSH 1.72 0.35-4.94 Mar 12, 2023 09:20 AM [facility] HEMOGLOBIN A1C Specimen Type: BLOOD Comment: [...] Mar 12, 2023 09:07 AM Reporting Lab: [facility] [id number] Performing Lab: [facility] [id number] HEMOGLOBIN A1C 5.5 4.0-6.0 Mar 12, 2023 09:20 AM [facility] CBC Specimen Type: BLOOD No comment entered. Ordering Provider: FIONA FERREIRA Report Released Date/Time: Mar 12, 2023 09:07 AM Reporting Lab: [facility] [id number] Performing Lab: [facility] [id number] WBC 6.10 4.0-11.0 RBC 5.14 4.6-6.2 HGB 16.2 13.5-17.9 HCT 46.5 41-54 MCV 90.5 80-100 MCH 31.5 27-33 MCHC 34.8 32.0-37.5 PLT 221 150-400 MPV 11.2 H 7.4-10.4 RDW 12.0 11.5-14.5 Mar 12, 2023 09:20 AM [facility] COMPREHENSIVE METABOLIC PANEL+MG Specimen Type: PLASMA No comment entered. Ordering Provider: FIONA FERREIRA Report Released Date/Time: Mar 12, 2023 09:07 AM Reporting Lab: [facility] [id number] Performing Lab: [facility] [id number] CREATININE 1.0 0.7-1.2 [facility]A NITROGEN 22 8-26 GLUCOSE 98 70-100 SODIUM 139 136-145 POTASSIUM 4.2 3.5-5.1 CHLORIDE 107 98-107 CO2 19 L 22-29 CALCIUM 9.6 8.4-10.2 PROTEIN,TOTAL 7.9 6.0-8.3 ALBUMIN 4.6 3.5-5.2 BILIRUBIN, TOTAL 1.1 0.2-1.2 MAGNESIUM 2.1 1.6-2.6 ANION GAP 13 5-15 ALKALINE PHOSPHATASE 75 40-150 ALT/SGPT 24 <55 AST/SGOT 20 <34 .CREAT EGFR(CKD-EPI) 79 >60 Vital Signs: All taken on the encounter date This section contains inpatient and outpatient Vital Signs collected on the date of the Encounter. Date/Time Temperature Pulse Blood Pressure Respiratory Rate SP02 Pain Height Weight Body Mass Index Source Mar 12, 2023 08:28 AM 136/90 mm[Hg] [facility] Mar 12, 2023 08:18 AM 97.4 F 74 /min 143/89 mm[Hg] 16 /min 95 % 0 68.504 in 230.8 lb 35 [facility] Social History: Smoking Status [...] Date/Time Current Smoking Status Comment Crystal barriga Mar 12, 2023 08:30 AM VA-TOBACCO NEVER USED [facility] Tobacco Use History This section includes a history of the smoking, or tobacco-related health factors, that were collected on or before the date of the Encounter. The data comes from the [place] facility where the Encounter took place. Date/Time Smoking Status/Tobacco Use Comment Julienne sandoval Feb 26, 2022 08:00 AM VA-TOBACCO NEVER USED [facility] Encounter Notes: All associated encounter notes This section contains the clinical notes associated to the Encounter. Date/Time Encounter Note(s) Provider Source Mar 13, 2023 08:54 AM LETTERS: LOCAL TITLE: FOLLOW UP RESULTS LETTER STANDARD TITLE: LETTERS DATE OF NOTE: MAR 13, 2023@08:54 ENTRY DATE: MAR 13, 2023@08:54:46 AUTHOR: FIONA FERREIRA EXP COSIGNER: URGENCY: STATUS: [place] [address] Mar ELIE ZARATE [id number] [address] [facility] [address] Dear : You should be receiving another letter with the results of the tests you had done through the [facility]. I have reviewed the results and they looked fine which is very reassuring. If you have any further questions or problems, please contact the call center at [phone] to speak with a nurse or leave me a message. Sincerely, FIONA FERREIRA DNP,STORE CLERK CHECKER,ARDMS FIONA FERREIRA [facility] Mar 12, 2023 09:21 AM H & P NOTE: LOCAL TITLE: [facility] ANNUAL VISIT STANDARD TITLE: H & P NOTE DATE OF NOTE: MAR 12, 2023@09:21 ENTRY DATE: MAR 12, 2023@09:21:44 AUTHOR: FIONA FERREIRA EXP COSIGNER: URGENCY: STATUS: COMPLETED Today's Nurse check-in note reviewed. Kilmichael seen in the clinic today. Followed all current PPE guidelines during the visit. Preferred name: Elie Patient brought in outside medical records and have been reviewed: Co-managed care with a non-VA provider. Non-VA- PCP- at [facility] Non-VA specialist:[facility]- Dr. Tabitha Cantu Non [place] PCP manages all dxs/rxs; gets all meds filled at [facility] *[facility] = active Chief complaint: An established patient here for Annual Wellness and preventive medicine visit. The patient is concern about his riht ankle/leg swelling. History of Present Illness: 72 year old male seen in the clinic today. He told me that he ahs ongoing right ankle and right leg swelling which he never recovered from his DVT. Denies any chest pain, SOB, headache, dizziness today. Broght the after visit summary from his In House Counsel from a recent visit in 12/2022. In House Counsel decreased the dose of his Apixaban and now he is taking 2.5 mg 1 tab BID instead of 5 mg BID. He is cutting his tab in half now. Today b/p is mildly elevated and he told me he forgot to take his meds today because he was in hurry to come to the clinic. 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 We discussed in detail about leg swelling. Explained the pathophysiology of DVT, what causes the swelling and medication side effects. Answered all his questions today. Mild swelling noted on right ankle. No redness, warmth, pain or swelling noted on other parts of the right leg. He is wearing the compression stockings. Asking for Nylon based - thin compression stockings today. 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 Denies any melena or hematochazia. Denies any depression or anxiety today. Review of Systems: Denies chest pain, shortness of breath, recent significant. weight changes, rash, bowel or bladder changes, new joint pain or swelling, headaches, lightheadedness, vision changes, new numbness or tingling or weakness. Remainder of the ROS is negative, except as above. We discussed the pros and cons and current recommendations regarding prostate cancer. 's questions were addressed and he opted to forgo testing this time. Past Medical History: Active problems - Computerized Problem List is the source for the followin. 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 Depressed mood (SNOMED CT 160285847) 4. History of surgery - Jun 06, 2004 Laparoscopy, Surgical, Esophagogastric Fundoplasty in [facility] - s/p RIGHT KNEE REPLACEMENT - S/P Cholecystectomy 5. Gynecomastia * 6. Benign neoplasm of adrenal gland 7. Overactive Bladder 8. Erectile dysfunction (SNOMED CT 030042425) 9. HYPERTENSION 10. Chest Wall Pain 11. Hyperlipidemia (SNOMED CT [id number]) 12. Family social history - Lives alone, Friend [...] age 82 aneurysm, One sister is alive - last colonoscopy- 08/2022, 5 year plan , Non [facility] - wants all medcations from [place] - OK to leave phone message 13. Obstructive sleep apnea of adult - Could not tolerate CPAP 14. Osteoarthritis - Degenerative changes noted in spine on previous ABD CT 15. Abnormal glucose level - A1C normal in 2020 16. Onychomycosis 17. Benign prostatic hyperplasia 18. Long-term current use of anticoagulant 19. DVT - Deep vein thrombosis - Dx- 08/28/22, right leg DVT and PE, started on Eliquis 20. Pulmonary embolism 21. Cerebral atherosclerosis - see 2013 CT for details 22. Body mass index 30+ - obesity 23. Allergic Rhinitis (SCT 85384731) 24. Umbilical hernia - without obstruction and without gangrene 25. Hiatal hernia - Non [facility]- Dr. Christian Noland, stae C5-M5 5 cm in size - last visit- 08/2022 Service: Service Branch Service # Entered Discharge [facility] [id number] AUG 03, 1970 MAR 07, 1972 HONORABLE Allergies: Patient has answered NKA Medications: Active Outpatient Medications (including Supplies): Active Outpatient Medications Status === 1) AMLODIPINE BESYLATE 10MG TAB TAKE ONE TABLET BY MOUTH ACTIVE EVERY DAY FOR BLOOD PRESSURE 2) LORATADINE 10MG TAB TAKE ONE TABLET BY MOUTH EVERY ACTIVE DAY FOR ALLERGIES Pending Outpatient Medications Status === 1) AMLODIPINE BESYLATE 10MG TAB TAKE ONE TABLET BY MOUTH PENDING EVERY DAY 2) APIXABAN 2.5MG TAB TAKE ONE TABLET BY MOUTH EVERY 12 PENDING HOURS 3) CARBAMIDE PEROXIDE 6.5% OTIC SOLN INSTILL 2 DROPS IN PENDING BOTH EARS EVERY MORNING 4) FLUTICASONE PROP 50MCG 120D NASAL INHL SPRAY 1 SPRAY PENDING IN EACH NOSTRIL TWICE A DAY USE REGULARLY FOR RELIEF OF ALLERGIES/CONGESTION 5) LOPERAMIDE HCL 2MG CAP TAKE ONE CAPSULE BY FEEDING PENDING TUBE EVERY DAY NEEDED FOR DIARRHEA 6) LORATADINE 10MG TAB TAKE ONE TABLET BY MOUTH EVERY PENDING DAY 7) OMEPRAZOLE 20MG EC CAP TAKE ONE CAPSULE BY MOUTH PENDING EVERY DAY ON AN EMPTY STOMACH, AT LEAST 30 MINUTES PRIOR TO A MEAL FOR STOMACH ACID 8) VANICREAM TOP CREAM APPLY THIN LAYER TOPICALLY EVERY PENDING MORNING 10 Total Medications MEDICATION RECONCILIATION Outpatient At this visit I have reviewed the medication list, and discussed relevant medications with the patient/surrogate. An updated patient medication list was given to the participant(s). Change/New: I have noted this on the patient's copy of the medication list. Education on NEW Medication: I have reviewed the medication list for possible drug:drug interactions or contraindications prior to ordering NEW medications during this visit. Patient indicated readiness to learn and has been instructed on action, dose, frequency and side effects of the new medication and I noted new medication on participant's copy of the medication list. Verbalizes understanding Physical Exam: Vitals: BP: 136/90 (03/12/2023 08:28) P: 74 (03/12/2023 08:18) R: 16 (03/12/2023 08:18) T: 97.4 F [36.3 C] (03/12/2023 08:18) WT: 230.8 lb [104.69 kg] (03/12/2023 08:18) BMI: 34.7 Pain: 0 (03/12/2023 08:18) O2 Sat: 95% (03/12/2023 08:18) GENERAL: Alert and oriented x 3, No acute distress, Well-nourished, dressed and groomed HEENT: Normocephalic, atraumatic, ear canals clear, TMs normal, OP clear, neck supple without mass, no adenopathy or thyromegaly, cerumen impaction- bilat ears LUNGS: Clear to auscultation bilaterally, No accessory muscle use no wheezes, rhonchi or rales CV: RRR without murmur, rub or gallop GI: Abdomen non distended, soft, non tender, normal bowel sounds in all quadrants, no palpable mass SKIN: Warm, very dry skin on back- multiple benign moles on upper back MSK: No joint swelling, ambulates without difficulty EXTREMITIES: right ankle swelling +1 pitting edema , no redness, no warmth on bilateral upper and lower extremities NEUROLOGIC: No focal neurological deficits, CN II-XII grossly intact, but not individually tested PSYCHIATRIC: Cooperative, Good eye contact,Appropriate mood and affect Assessment/Plan: Wellness/screening visit completed. prefers to continue care with Non VA provider - Non VA provider Manages meds,health maintenance and all preventative screenings. Requested prescriptions filled during today's visit after reviewing JLV Counseling and education provided today includes proper nutrition and health habits, fall prevention, and for those labs and consults ordered today #Annual Vested exam - meds: reviewed, updated and renewed - Routine preventative lasb ordered today as per request - the ACTIVE PROBLEM LIST above is considered to be the Past Medical History for the purposes of this note; it was reviewed during the visit and no changes unless otherwise noted above #Health Maintenance/Wellness As per non-VA provider Active problems - Computerized Problem List is the source for the followin. MDD, Recurrent, unspec -stable and denies any symptoms , monitor 2. Otto esophagus - no acute concerns, will follow Non [place] GI 3. HYPERTENSION - usually stable as per , denies any hyper or hypotension, continue on Amlodipine, monitor 4. Hyperlipidemia (SNOMED CT [id number]) - as per Cardiology never recommended statin use 5. Obstructive sleep apnea of adult - Could not tolerate CPAP, will follow up with his non [place] sleep medicine provider for alternative optins 6. Long-term current use of anticoagulant/ DVT - Deep vein thrombosis/ Pulmonary embolism -No acute concerns, right ankle edema is more due to sitting on his tractor for longer period of time daily and possible SE of Amlodipine, -compression stockings ordered 7. Cerumen impaction -started on debrox for 7 days and then he will call to schedule ear irrigation if needed 8. Dry skin - Venicream ordered -PACT RN will follow up on compression therapy Kilmichael understands and agrees to the plan. Will follow up with labs once results available. RTC in one year. Sooner if questions or concerns. Disclaimer: This note consists of symbols derived from keyboarding, dictation and/or voice recognition software. As a result, there may be errors in the script that have gone undetected. Please consider this when interpreting information found in this chart. Follow Up Colonoscopy: Colonoscopy is due based on information available to this reminder. Patient has arranged or is choosing to arrange a Colonoscopy independent of and w/out assistance from this [facility]. Assess Statin Use - Lipids (CVD/DM): The patient declines to be treated with a statin. Comment: He will dsicuss with his Cardiology, recommendation provided HTN Assess for Elevated BP>=140/90: The patient's blood pressure is usually adequately controlled. No medication changes are indicated at this time. Comment: he forgot his today's dose The patient was counseled on the importance of regular exercise and/or physical activity in the control of blood pressure. The patient has a limited ability to exercise but was encouraged to increase physical activity as much as possible since any increase in activity may be beneficial in improving blood pressure control. The patient was counseled on the importance of diet and weight loss/ control in the regulation of blood pressure. /melissa/ FIONA FERREIRA DNP,STORE CLERK CHECKER,CAPOS Signed: 03/12/2023 20:01 Receipt Acknowledged By: 03/13/2023 07:23 /melissa/ EMA COHEN RN, CWOCN PACT RN FIONA FERREIRA [facility] Mar 12, 2023 08:21 AM PRIMARY CARE NURSING NOTE: LOCAL TITLE: [facility] NURSING PROGRESS NOTE STANDARD TITLE: PRIMARY CARE NURSING NOTE DATE OF NOTE: MAR 12, 2023@08:21 ENTRY DATE: MAR 12, 2023@08:21:57 AUTHOR: TAI BROWN EXP COSIGNER: URGENCY: STATUS: COMPLETED TYPE OF VISIT: Appointment Check In Type of appointment: In-person appointment REASON FOR VISIT: Annual ALLERGIES: Patient has answered NKA VITAL SIGNS: Blood Pressure: 143/89 (03/12/2023 08:18) Pulse: 74 (03/12/2023 08:18) Respiration: 16 (03/12/2023 08:18) Temperature: 97.4 F [36.3 C] (03/12/2023 08:18) Weight: 230.8 lb [104.69 kg] (03/12/2023 08:18) Height: 68.504 in [174.0 cm] (03/12/2023 08:18) BMI: 34.7 O2 Sat: 95% (03/12/2023 08:18) Pain: 0 (03/12/2023 08:18) PAIN SCREEN: Patient is not having significant pain that they wish to discuss with their provider today. MEDICATION Active Outpatient Medications (including Supplies): AMLODIPINE BESYLATE 10MG TAB TAKE ONE TABLET BY MOUTH ACTIVE EVERY DAY FOR BLOOD PRESSURE APIXABAN 5MG TAB TAKE ONE TABLET BY MOUTH EVERY 12 HOURS ACTIVE TO TREAT AND/OR PREVENT BLOOD CLOTS LORATADINE 10MG TAB TAKE ONE TABLET BY MOUTH EVERY DAY FOR ACTIVE ALLERGIES COVID-19 Immunization: Defer vaccine, reassess in 3 months Reason: Out of stock Suicide Screen: C-SSRS Screening [place] Suicide Severity Rating Scale (C-SSRS) screener 1. Over the past month, have you wished you were or wished you could go to sleep and not wake up? No 2. Over the past month, have you had any actual thoughts of killing yourself? No 3. Over the past month, have you been thinking about how you might do this? Response not required due to responses to other questions. 4. Over the past month, have you had these thoughts and had some intention of acting on them? Response not required due to responses to other questions. 5. Over the past month, have you started to work out or worked out the details of how to kill yourself? Response not required due to responses to other questions. 6. If yes, at any time in the past month did you intend to carry out this plan? Response not required due to responses to other questions. 7. In your lifetime, have you ever done anything, started to do anything, or prepared to do anything to end your life (for example, collected pills, obtained a gun, gave away valuables, went to the roof but didn't jump)? No 8. If YES, was this within the past 3 months? Response not required due to responses to other questions. Influenza Immunization: The patient declines to receive the recommended dose of seasonal influenza vaccine. Immunization: INFLUENZA, UNSPECIFIED FORMULATION Refusal Reason: PATIENT DECISION Patient refuses all immunization(s) in the FLU group Date Documented: 03/12/23 08:24 Depression Screening: Perform PHQ-2 A PHQ-2 screen was performed. The score was 0 which is a negative screen for depression. Over the past two weeks, how often have you been bothered by the following problems? 1. Little interest or pleasure in doing things Not at all 2. Feeling down, depressed, or hopeless Not at all Alcohol Use Screen (AUDIT-C): Alcohol Screen: SCREEN FOR ALCOHOL (AUDIT-C) An alcohol screening test (AUDIT-C) was negative (score=0). 1. How often did you have a drink containing alcohol in the past year? Never 2. How many drinks containing alcohol did you have on a typical day when you were drinking in the past year? Response not required due to responses to other questions. 3. How often did you have six or more drinks on one occasion in the past year? Response not required due to responses to other questions. PTSD Screening: PC-PTSD-5 A PTSD screening test (PC-PTSD-5) was negative (score=0). IN THE PAST MONTH, have you ever had any experience that was so frightening, horrible or traumatic. For example: A serious accident or fire a physical or sexual assault or abuse An earthquake or flood A war Seeing someone be killed or seriously injured Having a loved one through homicide or suicide Have you ever experienced this kind of event? NO 1. Had nightmares about the event(s) or thought about the event(s) when you did not want to? Response not required due to responses to other questions. 2. Tried hard not to think about the event(s) or went out of your way to avoid situations that reminded you of the event(s)? Response not required due to responses to other questions. 3. Been constantly on guard, watchful, or easily startled? Response not required due to responses to other questions. 4. [place] numb or detached from people, activities, or your surroundings? Response not required due to responses to other questions. 5. [place] guilty or unable to stop blaming yourself or others for the event(s) or any problems the event(s) may have caused? Response not required due to responses to other questions. Nursing Annual Screening: Fall History Screen During the past 12 months, have you had any falls? Patient does not report any falls in the past 12 months. MEDICATIONS: Patient does not have an active prescription for one of the following medications: Antihypertensives, Antidepressants, Antipsychotics, Diuretics, or Opioid Analgesics (Contolled Substance medications used for pain). FALL RISK ADVICE: Fall Risk Advice provided. Handout entitled Fall Prevention At Home reviewed and given to patient and/or significant other. Skin Screen Patient reports any current pressure ulcers, a history of pressure ulcers, or a wound from a director of medical review or Patient is bed-confined or a wheelchair-user or Patient requires assistance to transfer/change position No, Skin Screen is Negative Home Abuse/Violence Screen Is your home free of abuse and violence? Yes MOVE! Program Screen Body Mass Index (BMI)= 34.7 [place]: Collection DT Specimen Test Name Result Units Ref Range 12/27/2022 09:15 BLOOD !! HEMOGLOBIN A1C 5.5 % 4.0 - 6.0 !! Indicates COMMENTS AVAILABLE...Refer to Interim Lab Report. [place] Hgb A1C: No data available [place] Hgb A1C: No data available Point of Care Hgb A1C: POC HGB A1C____ Outpatient Nutrition Screen Body Mass Index (BMI)= 34.7 [place]: Collection DT Specimen Test Name Result Units Ref Range 12/27/2022 09:15 BLOOD !! HEMOGLOBIN A1C 5.5 % 4.0 - 6.0 !! Indicates COMMENTS AVAILABLE...Refer to Interim Lab Report. [place] Hgb A1C: No data available [place] Hgb A1C: No data available Point of Care Hgb A1C: POC HGB A1C____ Is patient's BMI less than 18.5? No Does patient have swallowing, coughing, or chewing problems affecting oral intake? No Has patient experienced unplanned weight loss or gain greater than 10 pounds over the last 2 months? No Is patient's Hgb A1C (Glycosylated Hemoglobin) greater than 9.5? Information not available Is patient receiving Total Parenteral Nutrition (TPN) or Tube Feedings? No Patient Health Education Screen BARRIERS/SPECIAL NEEDS: No barriers identified PREFERRED STYLE OF LEARNING: Listening Client Assistive Service (MICKIE) Screen Does the patient require assistance with outpatient visit? No Tobacco Use Screening: The patient has never used tobacco. ADV DIR Notification and Screening: ADVANCE DIRECTIVE NOTIFICATION: I was unable to give the patient written notification of the following rights because: Comment: Educated on bringing in ADVANCE DIRECTIVE SCREENING: Does patient have an Advance Directive? The patient has an Advance Directive. Does the patient wish to make any changes or revoke their current Advance Directive? Yes, the patient has an Advance Directive, but it is not in the medical record. Kilmichael was asked to obtain a copy for their medical record. /melissa/ TAI BROWN LPN Signed: 03/12/2023 08:27 TAI BROWN [facility]
--- OUTSIDE RECORDS SUMMARY | 2023-07-08 13:13 | XMS_ITS | Encounter Summary ---
Author Name Department of [facility] Organization Department of [facility] Address [address] [place] [address] Support Name Relationship Address Phone REJI WATTS Next of Kin RT 4 JANA SALINAS REJI WATTS Emergency Contact RT 4 JANA SALINAS [phone] Insurance Providers: All historical and current Section [...] Name Patient's Relationship to Policy Mejias BCBS [place] MEDICARE SUPPLEMEN LEOBARDO MEDIC ARE SUPPL EMENT Jun 10, 2016 [id number] DELMA ZARATE PATIENT [place]BS [place] MED[place]ARE SUPPLEMEN LEOABRDO MEDIC ARE SUPPL EMENT Jun 10, 2016 [id number] DELMA ZARATE PATIENT MEDICARE (WNR) MEDICARE (M) PART A Jul 11, 2013 PART A [id number] DELMA ZARATE PATIENT MEDICARE (WNR) MEDICARE (M) PART B Jul 11, 2013 PART B [id number] DELMA ZARATE PATIENT Selected Encounter This section includes the information on record at [place] for the Encounter. Date/Time Encounter Type Encounter Description Reason Pro vider Source Mar 12, 2023 12:00 AM Outpatient Encounter EVENT (HISTORICAL) IHE Encounter Template Text not used by [facility] Lab Results: +/- 30 days of the encounter This section includes the Chemistry and Hematology Lab Results on record with [place] for the patient. Radiology Reports and Pathology Reports are provided separately, in subsequent sections. Lab Results This section contains the Chemistry/Hematology Results that were resulted 30 days before or 30 daysafter the date of the Encounter. Date/Time Source Result Type Result - Unit Interpretation Reference Range Comment Mar 12, 2023 09:20 AM [facility] HEMOGLOBIN A1C Specimen Type: BLOOD Comment: [...] 12, 2023 09:07 AM Reporting Lab: [facility] [id number] Performing Lab: [facility] [id number] HEMOGLOBIN A1C 5.5 4.0-6.0 Mar 12, 2023 09:20 AM [facility] TSH W/REFLEX TO FREE T4 Specimen Type: PLASMA No comment entered. Ordering Provider: FIONA FERREIRA Report Released Date/Time: Mar 12, 2023 09:07 AM Reporting Lab: [facility] [id number] Performing Lab: [facility] [address] TSH 1.72 0.35-4.94 Mar 12, 2023 09:20 AM [facility] CBC Specimen Type: BLOOD No comment entered. Ordering Provider: FIONA FERREIRA Report Released Date/Time: Mar 12, 2023 09:07 AM Reporting Lab: [facility] [id number] Performing Lab: [facility] [address] WBC 6.10 4.0-11.0 RBC 5.14 4.6-6.2 HGB 16.2 13.5-17.9 HCT 46.5 41-54 MCV 90.5 80-100 MCH 31.5 27-33 MCHC 34.8 32.0-37.5 PLT 221 150-400 MPV 11.2 H 7.4-10.4 RDW 12.0 11.5-14.5 Mar 12, 2023 09:20 AM [facility] COMPREHENSIVE METABOLIC PANEL+MG Specimen Type: PLASMA No comment entered. Ordering Provider: FIONA FERREIRA Report Released Date/Time: Mar 12, 2023 09:07 AM Reporting Lab: [facility] [address] Performing Lab: [facility] [address] CREATININE 1.0 0.7-1.2 UREA NITROGEN 22 8-26 [...] and tobacco- related health factors from the [place] facility where the Encounter took place. Current Smoking Status This section includes the most current smoking, or tobacco-related health factor, from the [place] facility where the Encounter took place. Date/Time Current Smoking Status Comment Crystal itjacques Feb 23, 2021 08:44 AM VA-TOBACCO NEVER USED [facility] Tobacco Use History This section includes a history of the smoking, or tobacco-related health factors, that were collected on or before the date of the Encounter. The data comes from the [place] facility where the Encounter took place. Date/Time Smoking Status/Tobacco Use Comment F acility Feb 24, 2019 12:45 PM VA-TOBACCO NEVER USED [facility] Jul 16, 2018 09:59 AM VA-TOBACCO NEVER USED [facility] Jul 09, 2017 07:52 AM FORMER TOBACCO USER 7Y OR GREATE R [facility] Jul 03, 2016 08:23 AM FORMER TOBACCO USER 7Y OR GREATE R [facility] May 27, 2015 08:15 AM LIFETIME NON-TOBACCO USER [facility] Mar 12, 2014 08:16 AM LIFETIME NON-TOBACCO USER [facility] Feb 12, 2007 07:57 AM LIFETIME NON-TOBACCO USER [facility]
--- OUTSIDE RECORDS SUMMARY | 2023-07-08 13:14 | XMS_ITS | Encounter Summary ---
Author Name Department of [facility] Organization Department of [facility] Address [address] [place] [address] Support Name Relationship Address Phone REJI WATTS Next of Kin RT 4 JANA SALINAS REJI WATTS Emergency Contact RT 4 JANA SALINAS [phone] Insurance Providers: All historical and current Section [...] Name Patient's Relationship to Policy Mejias [place] MEDICARE SUPPLEMEN LEOBARDO MEDIC ARE SUPPL EMENT Jun 10, 2016 [id number] DELMA ZAARTE PATIENT BCBS [place] MEDICARE SUPPLEMEN LEOBARDO MEDIC ARE SUPPL EMENT Jun 10, 2016 [id number] [phone] DELMA ZARATE PATIENT MEDICARE (WNR) MEDICARE (M) PART A Jul 11, 2013 PART A [id number] DELMA ZARATE PATIENT MEDICARE (WNR) MEDICARE (M) PART B Jul 11, 2013 PART B [id number] DELMA ZARATE PATIENT Selected Encounter This section includes the information on record at [place] for the Encounter. Date/Time Encounter Type Encounter Description Reason Pro vider Source Jul 02, 2023 10:15 AM Outpatient Encounter PRIMARY CARE/MEDICINE IHE Encounter Template Text not used by [place] Plan of Treatment: Future Appointments (+ 6 months) and Future Tests (+/- 45 days) The Plan of Treatment section includes future care activities for the patient from all [facility]. This section includes future appointments and future orders which are active, pending or scheduled. Future Appointments This section includes appointments that were scheduled to occur 6 months from the date of the Encounter, up to a maximum of 20 appointments. The data comes from all [facility]. Appointment Date/Time Appointment Type Appointme nt Facility Name Jul 03, 2023 10:30 AM [facility] Jul 03, 2023 12:03 PM AMBULATORY - MEDICINE [facility] Jul 19, 2023 06:00 PM AMBUL[facility]ORY - NONE [place] [facility] Aug 01, 2023 01:00 PM AMBULATORY - REHAB MEDICIN E [facility] Active, Pending, and Scheduled Orders This section includes a listing of several types of active, pending, and scheduled orders, including clinic medications orders, diagnostic test orders, procedure orders and consult orders; where the start date of the order is 45 days before the date of the Encounter or 45 days after the date of theEncounter. The data comes from all [facility]. 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 Ordering Provider: FIONA FERREIRA Report Released Date/Time: Jul 03, 2023 11:57 AM Reporting Lab: [facility] [address] [facility] [address] Performing Lab: [facility] [address] [facility] [address] COVID-19 (CEPHEID) Not Detected Not Detected INFLUENZA A (PCR) Not Detected Not Detected INFLUENZA B (PCR) Not Detected Not Detected RSV (PCR) Not Detected Not Detected Jul 03, 2023 11:10 AM [employer] BASIC METABOLIC PANEL+MG Specimen Type: PLASMA No comment entered. Ordering Provider: FIONA FERREIRA Report Released Date/Time: Jul 03, 2023 10:44 AM Reporting Lab: [facility] [address] Performing Lab: [facility] [address] CREATININE 1.0 0.7-1.2 UREA NITROGEN 25 8-26 GLUCOSE 137 H 70-100 SODIUM 142 136-145 POTASSIUM 4.1 3.5-5.1 CHLORIDE 110 H 98-107 CO2 22 22-29 CALCIUM 9.2 8.4-10.2 MAGNESIUM 2.0 1.6-2.6 ANION GAP 10 5-15 .CREAT EGFR(CKD-EPI ) 79 >60 Jul 03, 2023 11:10 AM [facility] CBC & DIFF Specimen Type: BLOOD Comment: Automated Differential Performed Ordering Provider: FIONA FERREIRA Report Released Date/Time: Jul 03, 2023 10:44 AM Reporting Lab: [facility] [address] Performing Lab: [facility] [address] WBC 6.54 4.0-11.0 RBC 4.66 4.6-6.2 HGB 14.5 13.5-17.9 HCT 42.9 41-54 MCV 92.1 80-100 MCH 31.1 27-33 MCHC 33.8 32.0-37.5 PLT 283 150-400 MPV 10.5 H 7.4-10.4 NEUT 65.2 40.0-80.0 LYMPHS 26.5 15.0-45.0 MONO 5.4 2.0-12.0 EOSINO 1.4 0.0-6.0 BASO 0.9 0.0-2.0 RDW 11.9 11.5-14.5 ABS LYMPH 1.73 1.0-4.0 ABS MONO 0.35 0.1-1.0 ABS NEUT 4.27 2.0-7.7 ABS EOS 0.09 0-0.5 ABS BASO 0.06 0-0.2 IG(META,MYEL O,PRO) 0.6 ABS IMMATURE GRAN 0.04 0-0.1 Social History: Smoking Status (Most current) [...] 23, 2021 08:44 AM VA-TOBACCO NEVER USED [facility] Tobacco Use History This section includes a history of the smoking, or tobacco-related health factors, that were collected on or before the date of the Encounter. The data comes from the [facility] where the Encounter took place. Date/Time Smoking Status/Tobacco Use Comment F acility Feb 24, 2019 12:45 PM [place]-TOBACCO NEVER USED [facility] Jul 16, 2018 09:59 AM VA-TOBACCO NEVER USED [facility] Jul 09, 2017 07:52 AM FORMER TOBACCO USER 7Y OR GREATE R [facility] Jul 03, 2016 08:23 AM FORMER TOBACCO USER 7Y OR GREATE R [facility] May 27, 2015 08:15 AM LIFETIME NON-TOBACCO USER [facility] Mar 12, 2014 08:16 AM LIFETIME NON-TOBACCO USER [facility] Feb 12, 2007 07:57 AM LIFETIME NON-TOBACCO USER [facility] Radiology Reports: +/- 30 days [...] the Encounter. The data comes from all [place] treatment facilities. Date/Time Radiology Report Provider Source Jul 03, 2023 10:48 AM ELBOW LEFT 2 VIEWS : HARISHBORISDELMA [id number] -[id number] M Exm Date: JUL 03, 2023@10:48 Req Phys: FIONA FERREIRA Loc: [facility] PACT DIAMONDS (Req'g Loc) Img Loc: [facility] RAD[facility] Service: Unknown (Case [id number] COMPLETE) ELBOW LEFT 2 VIEWS (RAD Detailed) CPT:08701 Proc Modifiers : LEFT Reason for Study: elbow pain Clinical History: Napavine IS NOT under investigation for COVID-19 or is COVID-19 negative left elbow pain from past 1 week with numbness and tingling Responsible provider name and phone number to notify for critical findings if other than user placing the order and pager listed below: User placing orders pager: LAST CREATININE 1.0 (03/12/23) Report Status: Verified Date Reported: JUL 03, 2023 Date Verified: JUL 03, 2023 Research Development Director E-Sig:/ES/RAÚL QUILES MD Report: Exam: Two views left elbow. History: Left elbow pain from past one week with numbness and tingling. Comparison: None Impression: There is no displacement of the normal elbow fat pads. No displaced fracture. Normal mineralization. Normal joint alignment. Primary Interpreting Staff: RAÚL QUILES MD, STAFF NUCLEAR RADIOLOGIST (Research Development Director) /RAÚL VELIZ [facility] Jul 03, 2023 10:48 AM SHOULDER LEFT 2-3 VIEWS: DELMA ZARATE Bonifacio [id number] -[id number] M Ex Date: JUL 03, 2023@10:48 Req Phys: FIONA FERREIRA Loc: [facility] PACT DIAMONDS (Req'g Loc) Img Loc: [facility] RAD[facility] Service: Unknown (Case [id number] COMPLETE) SHOULDER LEFT 2-3 VIEWS (RAD Detailed) CPT:63991 Proc Modifiers : LEFT Reason for Study: pain from past one week Clinical History: IS NOT under investigation for COVID-19 or is COVID-19 negative left arm pain Responsible provider name and phone number to notify for critical findings if other than user placing the order and pager listed below: User placing orders pager: LAST CREATININE 1.0 (03/12/23) Report Status: Verified Date Reported: JUL 03, 2023 Date Verified: JUL 03, 2023 Research Development Director E-Sig:/ES/RAÚL QUILES MD Report: Exam: Three views left shoulder History: Pain from past one week. Left arm pain. Comparison: No prior imaging of the left shoulder. Impression: The left humeral head is well-seated in the glenoid fossa. The glenohumeral joint space is intact. The subacromial space is preserved. No displaced fracture. Normal mineralization. The visualized left lung appears unremarkable. Primary Interpreting Staff: RAÚL QUILES MD, STAFF NUCLEAR RADIOLOGIST (Research Development Director) /CPD RAÚL QUILES [facility] Encounter Notes: All associated encounter notes This section contains the clinical notes associated to the Encounter. Date/Time Encounter Note(s) Provider Source Jul 02, 2023 10:37 AM ADDENDUM: LOCAL TITLE: Addendum STANDARD TITLE: ADDENDUM DATE OF NOTE: JUL 02, 2023@10:37:39 ENTRY DATE: JUL 02, 2023@10:37:40 AUTHOR: RON VAUGHN COSIGNER: URGENCY: STATUS: COMPLETED Progressive Care Nurse called and spoke with dayton regarding his arm numbness. Per stated I have been sick for a month. I have a headache, chills, decreased appetite and feeling tired. Progressive Care Nurse asked if he has taken a covid test and he said no. My neighbor asked if I wanted to take a home test and I said why bother. If I have covid I have covid. Progressive Care Nurse explained that we have Covid drive up testing at 2pm and if he would like to come in for the test? Napavine stated no. Progressive Care Nurse asked if he could get the home test from his neighbor and take the test? said maybe. Progressive Care Nurse asking when the arm numbness started and he said a week ago. I have numbness and tingling in LT arm and hand is swollen. Progressive Care Nurse asked if he is monitoring his BP? stated I have a machine but don't check it like I should. 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 I can maybe check it later. Progressive Care Nurse explained that he should be seen in the Er now to be evaluated. stated I am not going to the ER. Just get me an appointment to see the provider. Progressive Care Nurse explained that he has a non- VA provider in [place] and he should call to see if he can be seen today. Napavine stated I don't want to see them. They will turn me away if they think I am sick. I will wait for [facility] provider visit for my LT arm/hand. Progressive Care Nurse explained that will send a message to provider to review and recommend if appropriate. Progressive Care Nurse to place provider appointment and explained that they will call to schedule. understands and agrees with plan. Clinic number provided to cll with questions or concerns. /melissa/ RON VAUGHN REGISTERED NURSE Signed: 07/02/2023 11:06 Receipt Acknowledged By: 07/03/2023 07:50 /es/ FIONA FERREIRA DNP,DAIRY FEED SALES CONSULTANT,CHARLEYDMS --- Original Document --- 07/02/23 PATIENT CONTACT NOTE: Patient contact Name of Napavine: DELMA ZARATE Name/Relationship of Contact if other than : Date & Time of Contact: Jun@10:15 Type of Contact: Reason for Contact: called and left a VM in regards to arm numbness /es/ GEOFF JUAREZ [facility] Signed: 07/02/2023 10:21 Receipt Acknowledged By: 07/02/2023 15:11 /es/ CRIS GARCIA REGISTERED NURSE for EMA MADISON RON [facility] Jul 02, 2023 10:15 AM REPORT OF CONTACT: LOCAL TITLE: PATIENT CONTACT NOTE STANDARD TITLE: REPORT OF CONTACT DATE OF NOTE: JUL 02, 2023@10:15 ENTRY DATE: JUL 02, 2023@10:15:42 AUTHOR: GEOFF JUAREZ COSIGNER: URGENCY: STATUS: COMPLETED PATIENT CONTACT NOTE Has ADDENDA Patient contact Name of : DELMA ZARATE Name/Relationship of Contact if other than Napavine: Date & Time of Contact: Jun@10:15 Type of Contact: Reason for Contact: called and left a VM in regards to arm numbness /es/ GEOFF JUAREZ [facility] Signed: 07/02/2023 10:21 Receipt Acknowledged By: 07/02/2023 15:11 /melissa/ CRIS GARCIA REGISTERED NURSE for EMA COHEN 07/02/2023 ADDENDUM STATUS: COMPLETED Progressive Care Nurse called and spoke with dayton regarding his arm numbness. Per stated I have been sick for a month. I have a headache, chills, decreased appetite and feeling tired. Progressive Care Nurse asked if he has taken a covid test and he said no. My neighbor asked if I wanted to take a home test and I said why bother. If I have covid I have covid. Progressive Care Nurse explained that we have Covid drive up testing at 2pm and if he would like to come in for the test? Napavine stated no. Progressive Care Nurse asked if he could get the home test from his neighbor and take the test? said maybe. Progressive Care Nurse asking when the arm numbness started and he said a week ago. I have numbness and tingling in LT arm and hand is swollen. Progressive Care Nurse asked if he is monitoring his BP? Napavine stated I have a machine but don't check it like I should. 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 I can maybe check it later. Progressive Care Nurse explained that he should be seen in the Er now to be evaluated. Napavine stated I am not going to the ER. Just get me an appointment to see the provider. Progressive Care Nurse explained that he has a non- VA provider in [place] and he should call to see if he can be seen today. stated I don't want to see them. They will turn me away if they think I am sick. I will wait for [place] provider visit for my LT arm/hand. Progressive Care Nurse explained that will send a message to provider to review and recommend if appropriate. Progressive Care Nurse to place provider appointment and explained that they will call to schedule. Napavine understands and agrees with plan. Clinic number provided to cll with questions or concerns. /melissa/ RON VAUGHN REGISTERED NURSE Signed: 07/02/2023 11:06 Receipt Acknowledged By: * AWAITING SIGNATURE * FIONA FERREIRA [facility]
--- OUTSIDE RECORDS SUMMARY | 2023-07-08 13:14 | XMS_ITS | Encounter Summary ---
Author Name Department of [facility] Organization Department of [facility] Address [address] [place] [address] Support Name Relationship Address Phone REJI WATTS Next of Kin RT 4 JANA SALINAS REJI WATTS Emergency Contact RT 4 JANA SALINAS [phone] Insurance Providers: All historical and current Section [...] MEDIC ARE SUPPL EMENT Jun 10, 2016 [id number] [phone] DELMA ZARATE PATIENT BCBS [place] MEDICARE SUPPLEMEN LEOBARDO MEDIC ARE SUPPL EMENT Jun 10, 2016 [id number] [phone] DELMA ZARATE PATIENT MEDICARE (WNR) MEDICARE (M) PART A Jul 11, 2013 PART A [id number] DELMA ZARATE PATIENT MEDICARE (WNR) MEDICARE (M) PART B Jul 11, 2013 PART B [id number] DELMA ZARATE PATIENT Selected Encounter This section includes the information on record at [place] for the Encounter. Date/Time Encounter Type Encounter Description Reason Pro vider Source Apr 05, 2023 11:15 AM Outpatient Encounter COMMUNITY CARE CONSULT IHE Encounter Template Text not used by [place] Lab Results: +/- 30 days of the encounter This section includes the Chemistry and Hematology Lab Results on record with [place] for the patient. Radiology Reports and Pathology Reports are provided separately, in subsequent sections. Lab Results This section contains the Chemistry/Hematology Results that were resulted 30 days before or 30 daysafter the date of the Encounter. Date/Time Source Result Type Result - Unit Interpretation Reference Range Comment Mar 12, 2023 09:20 AM [facility] TSH W/REFLEX TO FREE T4 Specimen Type: PLASMA No comment entered. Ordering Provider: FIONA FERREIRA Report Released Date/Time: Mar 12, 2023 09:07 AM Reporting Lab: [facility] [address] Performing Lab: [facility] [address] TSH 1.72 0.35-4.94 Mar 12, 2023 09:20 AM [facility] HEMOGLOBIN A1C Specimen Type: BLOOD Comment: [...] Mar 12, 2023 09:07 AM Reporting Lab: [facility] [address] Performing Lab: [facility] [address] HEMOGLOBIN A1C 5.5 4.0-6.0 Mar 12, 2023 09:20 AM [facility] CBC Specimen Type: BLOOD No comment entered. Ordering Provider: FIONA FERREIRA Report Released Date/Time: Mar 12, 2023 09:07 AM Reporting Lab: [facility] [address] Performing Lab: [facility] [address] WBC 6.10 4.0-11.0 RBC 5.14 4.6-6.2 HGB 16.2 13.5-17.9 HCT 46.5 41-54 MCV 90.5 80-100 MCH 31.5 27-33 MCHC 34.8 32.0-37.5 PLT 221 150-400 MPV 11.2 H 7.4-10.4 RDW 12.0 11.5-14.5 Mar 12, 2023 09:20 AM [facility] COMPREHENSIVE METABOLIC PANEL+MG Specimen Type: PLASMA No comment entered. Ordering Provider: FIONA FERREIRA Report Released Date/Time: Mar 12, 2023 09:07 AM Reporting Lab: [facility] [address] Performing Lab: [facility] [address] CREATININE 1.0 0.7-1.2 UREA NITROGEN 22 8-26 [...] and tobacco- related health factors from the [place] facility where the Encounter took place. Current Smoking Status This section includes the most current smoking, or tobacco-related health factor, from the [place] facility where the Encounter took place. Date/Time Current Smoking Status Comment Crystal barriga Feb 23, 2021 08:44 AM VA-TOBACCO NEVER USED [facility] Tobacco Use History This section includes a history of the smoking, or tobacco-related health factors, that were collected on or before the date of the Encounter. The data comes from the [place] facility where the Encounter took place. Date/Time Smoking Status/Tobacco Use Comment F acmatilde Feb 24, 2019 12:45 PM VA-TOBACCO NEVER USED [facility] Jul 16, 2018 09:59 AM VA-TOBACCO NEVER USED [facility] Jul 09, 2017 07:52 AM FORMER TOBACCO USER 7Y OR GREATE R [facility] Jul 03, 2016 08:23 AM FORMER TOBACCO USER 7Y OR GREATE R [facility] May 27, 2015 08:15 AM LIFETIME NON-TOBACCO USER [facility] Mar 12, 2014 08:16 AM LIFETIME NON-TOBACCO USER [facility] Feb 12, 2007 07:57 AM LIFETIME NON-TOBACCO USER [facility] Encounter Notes: All associated encounter notes This section contains the clinical notes associated to the Encounter. Date/Time Encounter Note(s) Provider Source Apr 05, 2023 11:15 AM PHARMACY NOTE: LOCAL TITLE: PHARMACY NON [place] CARE MEDICATIONS STANDARD TITLE: PHARMACY NOTE DATE OF NOTE: APR 05, 2023@11:15 ENTRY DATE: APR 05, 2023@11:15:35 AUTHOR: FREIDA DE EXP COSIGNER: URGENCY: STATUS: COMPLETED [facility] RECEIVED electronic prescription(s) (eRX(s)) from NON-VA Provider: Date eRX received: Mar Outside (NON-VA) provider not authorized to write for prescription(s) through [place] pharmacy. Prescription request REDIRECTED via FAX to one of the following for review: [X][facility] (Dual) [facility] [ ]Other: [ ] [facility] ([facility]) [ ] [facility] [ ] [facility] [ ] [facility] eRx Reference #: eRx Prescription Information: 1. DELMA ZARATE 48 sildenafiL 50 mg tabl TROY JASSO 04/04/23 2. DELMA ZARATE 48 tamsulosin 0.4 mg cap TROY JASSO 04/04/23 /melissa/ FREIDA DE pharmacist Signed: 04/05/2023 11:15 FREIDA DE [facility]
--- OUTSIDE RECORDS SUMMARY | 2023-07-08 13:14 | XMS_ITS | Encounter Summary ---
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 [facility] Address [address] [place] [id number] Support Name Relationship Address Phone REJI WATTS Next of Kin RT 4 JANA SALINAS REJI WATTS Emergency Contact RT 4 JANA SALINAS [phone] Insurance Providers: All historical and current Section [...] MEDIC ARE SUPPL EMENT Jun 10, 2016 [id number] [phone] DELMA ZARATE PATIENT [place]BS [place] MED[place] SUPPLEMEN LEOBARDO MEDIC ARE SUPPL EMENT Jun 10, 2016 [id number] DELMA ZARATE PATIENT MEDICARE (WNR) MEDICARE (M) PART A Jul 11, 2013 PART A [id number] EDLMA ZARATE PATIENT MEDICARE (WNR) MEDICARE (M) PART B Jul 11, 2013 PART B [id number] [phone] DELMA ZARATE PATIENT Selected Encounter This section includes the information on record at [place] for the Encounter. Date/Time Encounter Type Encounter Description Reason Provider Source Jul 03, 2023 10:30 AM OFFICE O/P EST MOD 30 MIN PRIMARY CARE/MEDICINE ICD-10-CM M79.622 Pain in left upper arm FIONA FERREIRA Encounter Template Text not used by [facility] Assessments - Encounter Diagnoses This section includes the primary and secondary diagnoses documented for the Encounter. Date/Time Primary/Secondary Diagnosis Diagnosis Name Provider Source Jul 03, 2023 11:28 AM PRIMARY Pain in left upper arm FIONA FERREIRA Plan of Treatment: Future Appointments (+ 6 months) and Future Tests (+/- 45 days) The Plan of Treatment section includes future care activities for the patient from all [place] treatmentfacilities. This section includes future appointments and future orders which are active, pending or scheduled. Future Appointments This section includes appointments that were scheduled to occur 6 months from the date of the Encounter, up to a maximum of 20 appointments. The data comes from all [place] treatment facilities. Appointment Date/Time Appointment Type Appointme nt Facility Name Jul 19, 2023 06:00 PM AMB[facility]ATORY - NONE [facility] Aug 01, 2023 01:00 PM AMBULATORY - REHAB MEDICIN [facility] Active, Pending, and Scheduled Orders This section includes a listing of several types of active, pending, and scheduled orders, including clinic medications orders, diagnostic test orders, procedure orders and consult orders; where the start date of the order is 45 days before the date of the Encounter or 45 days after the date of theEncounter. The data comes from all [place] treatment [facility]. Test Date/Time Test Type Test Details Facility Name Jul 03, 2023 01:37 PM Consult Order EMG OUTPT Cons Divorce Lawyer's Choice [facility] Lab Results: +/- 30 days of the encounter This section includes the Chemistry and Hematology Lab Results on record with [place] for the patient. Radiology Reports and Pathology Reports are provided separately, in subsequent sections. Lab Results This section contains the Chemistry/Hematology Results that were resulted 30 days before or 30 daysafter the date of the Encounter. Date/Time Source Result Type Result - Unit Interpretation Reference Range Comment Jul 03, 2023 11:18 AM [facility] COVID-19 AND FLU/RSV DIAG PANEL([facility]) Specimen Type: NASOPHARYNGEAL No comment entered. Ordering Provider: FIONA FERREIRA Report Released Date/Time: Jul 03, 2023 11:57 AM Reporting Lab: [facility] [address] [facility] [id number] Performing Lab: [facility] [address] [facility] [address] COVID-19 (CEPHEID) Not Detected Not Detected INFLUENZA A (PCR) Not Detected Not Detected INFLUENZA B (PCR) Not Detected Not Detected RSV (PCR) Not Detected Not Detected Jul 03, 2023 11:10 AM [facility] BASIC METABOLIC PANEL+MG Specimen Type: PLASMA No comment entered. Ordering Provider: FIONA FERREIRA Report Released Date/Time: Jul 03, 2023 10:44 AM Reporting Lab: [facility] [id number] Performing Lab: [facility] [address] CREATININE 1.0 0.7-1.2 UREA NITROGEN 25 8-26 GLUCOSE 137 H 70-100 SODIUM 142 136-145 POTASSIUM 4.1 3.5-5.1 CHLORIDE 110 H 98-107 CO2 22 22-29 CALCIUM 9.2 8.4-10.2 MAGNESIUM 2.0 1.6-2.6 ANION GAP 10 5-15 .CREAT EGFR(CKD-EPI ) 79 >60 Jul 03, 2023 11:10 AM [facility] CBC & DIFF Specimen Type: BLOOD Comment: Automated Differential Performed Ordering Provider: FIONA FERREIRA Report Released Date/Time: Jul 03, 2023 10:44 AM Reporting Lab: [facility] [address] Performing Lab: [facility] [id number] WBC 6.54 4.0-11.0 RBC 4.66 4.6-6.2 HGB [...] O,PRO) 0.6 ABS IMMATURE GRAN 0.04 0-0.1 Vital Signs: All taken on the encounter date This section contains inpatient and outpatient Vital Signs collected on the date of the Encounter. Date/Time Temperature Pulse Blood Pressure Respiratory Rate SP02 Pain Height Weight Body Mass Index Source Jul 03, 2023 10:12 AM 99.3 F 93 /min 134/89 mm[Hg] 16 /min 96 % 6 230.9 lb 35 [facility] Social History: Smoking Status (Most current) and Tobacco Use (All prior to encounter date) This section includes the most current, and the historical, smoking and tobacco- related health factors from the [place] facility where the Encounter took place. Current Smoking Status This section includes the most current smoking, or tobacco-related health factor, from the [place] facility where the Encounter took place. Date/Time Current Smoking Status Comment Facil ity Mar 12, 2023 08:30 AM VA-TOBACCO NEVER USED [facility] Tobacco Use History This section includes a history of the smoking, or tobacco-related health factors, that were collected on or before the date of the Encounter. The data comes from the [place] facility where the Encounter took place. Date/Time Smoking Status/Tobacco Use Comment F acility Feb 26, 2022 08:00 AM VA-TOBACCO NEVER USED [facility] Radiology Reports: +/- 30 days of [...] the Encounter. The data comes from all [place] treatment facilities. Date/Time Radiology Report Provider Source Jul 03, 2023 10:48 AM ELBOW LEFT 2 VIEWS : DELMA ZARATE [id number] -[id number] M Exm Date: JUL 03, 2023@10:48 Req Phys: FIONA FERREIRA Loc: [facility] PACT DIAMONDS (Req'g Loc) Img Loc: [facility] Service: Unknown (Case [id number] COMPLETE) ELBOW LEFT 2 VIEWS (RAD Detailed) CPT:77676 Proc Modifiers : LEFT Reason for Study: elbow pain Clinical History: IS NOT under investigation for [...] 03, 2023 Date Verified: JUL 03, 2023 Senior Power Plant Operator E-Sig:/ES/RAÚL QUILES MD Report: Exam: Two views left elbow. History: Left elbow pain from past one week with numbness and tingling. Comparison: None Impression: There is no displacement of the normal elbow fat pads. No displaced fracture. Normal mineralization. Normal joint alignment. Primary Interpreting Staff: RAÚL QUILES MD, STAFF NUCLEAR RADIOLOGIST (Senior Power Plant Operator) /RAÚL VELIZ [facility] Jul 03, 2023 10:48 AM SHOULDER LEFT 2-3 VIEWS: DELMA ZARATE Bonifacio [id number] -1950 M Ex Date: JUL 03, 2023@10:48 Req Phys: FIONA FERREIRA Loc: [facility] PACT DIAMONDS (Req'g Loc) [facility] Loc: [facility] Service: Unknown (Case [id number] COMPLETE) SHOULDER LEFT 2-3 VIEWS (RAD Detailed) CPT:32182 Proc Modifiers : LEFT Reason for Study: [...] 03, 2023 Date Verified: JUL 03, 2023 Senior Power Plant Operator E-Sig:/ES/RAÚL QUILES MD Report: Exam: Three views [...] Staff: RAÚL QUILES MD, STAFF NUCLEAR RADIOLOGIST (Senior Power Plant Operator) /CPD RAÚL QUILES [facility] Encounter Notes: All associated encounter notes This section contains the clinical notes associated to the Encounter. Date/Time Encounter Note(s) Provider Source Jul 04, 2023 02:24 PM ADDENDUM: LOCAL TITLE: Addendum STANDARD TITLE: ADDENDUM DATE OF NOTE: JUL 04, 2023@14:24:51 ENTRY DATE: JUL 04, 2023@14:24:52 AUTHOR: RON VAUGHN EXP COSIGNER: URGENCY: STATUS: COMPLETED SUBJECT: Patient Care Note Molded Grid And Parts Inspector called and explained provider recommendation of being seen today in [place] ER to be evaluated for LT arm pain, swelling and numbness. Per stated I have a to go to tomorrow so won't being going to the ER and really want to wait until I can be seen in Neurology. Molded Grid And Parts Inspector explained that provider is placing a STAT US for [facility] and they will be calling to schedule within a week and provider is reaching out to speak with the Neurologist regarding your issue. [place] understands and agrees with plan except going to the ER. Clinic number provided to call with questions or concerns. /melissa/ RON VAUGHN REGISTERED NURSE Signed: 07/04/2023 14:31 Receipt Acknowledged By: 07/04/2023 16:16 /melissa/ FIONA FERREIRA DNP,ELECTRONIC MUSICAL INSTRUMENT REPAIRER,ARDMS ======== --- Original Document --- 07/03/23 [facility] PROGRESS NOTE - [facility]: Today's Nurse check-in note reviewed. [place] seen in the clinic today. Followed all current PPE guidelines during the visit. Preferred name: Delma Patient brought in outside medical records and have been reviewed: In [facility] V Co-managed care with a non-VA provider. Non-VA- PCP-[facility] Non-VA specialist: [place] -[place] [facility], Kellie Frye PA-C Cardiology-[facility] Non [place] PCP manages all dxs/rxs; gets some meds filled [facility] *JLV = active Chief complaint: An established patient here for acute visit related to left arm numbness and pain from past 1 week. 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 Reluctant about checking COVID-19 in the past, ROM intact in the shoulder and left elbow with some pain. Taking NyQuil at night for congestion and cough which helps him to sleep better. Recently we started tamsulosin as per urology . Used to take tamsulosin without any side effects in the past . Covering PACT RN note-07/02/2023-recommended ED visit which he refused Denies chest pain, SOB, dyspnea, nausea or vomiting, any vision changes. Interval History: Recent Urology visit at [place] [facility]- 06/18/2023 for BPH -restarted tamsulosin and recommended to start PF PT, follow-up in 3 months Review of Systems: Denies chest pain, shortness of breath, recent significant. weight changes, rash, bowel or bladder changes, new joint pain or swelling, headaches, lightheadedness, vision changes, new numbness or tingling or weakness. Remainder of the ROS is negative, except as above. Past Medical History: Active problems - Computerized Problem List is the source for the followin. 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 Depressed mood (SNOMED CT 930228363) 4. History of surgery - Jun 06, 2004 Laparoscopy, Surgical, Esophagogastric Fundoplasty in [place] - s/p RIGHT KNEE REPLACEMENT - S/P Cholecystectomy 5. Gynecomastia * 6. Benign neoplasm of adrenal gland 7. Overactive Bladder 8. Erectile dysfunction (SNOMED CT 063136551) 9. HYPERTENSION 10. Chest Wall Pain 11. Hyperlipidemia (SNOMED CT 50783677) 12. 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 [...] 30+ - obesity 23. Allergic Rhinitis (SCT 83617712) 24. Umbilical hernia - without obstruction and without gangrene 25. Hiatal hernia - Non [place] GI- Dr. Christian Noland, stae C5-M5 5 cm in size - last visit- 08/2022 Allergies: Patient has answered NKA Medication Reconciliation: Education Evaluations *Was medication education provided for NEW medications or CHANGES to medications? (including medication name, dose, route, reason for use, and potential side effects). Yes. Verbal education was provided to patient/caregiver and patient/caregiver verbalized understanding. TERATOGENIC MED & CONTRACEPTION REVIEW (Optional)... MEDICATION RECONCILIATION Review Done: The medication list shown below [...] Allergy/ADR Data available for this patient [facility] No Known Allergies Active and Recently Outpatient Medications (including Supplies): Issue Date Status Last Fill Active Outpatient Medications Refills Expiration === 1) AMLODIPINE BESYLATE 10MG TAB Qty: 90 ACTIVE Issu:03-12-23 for 90 days Sig: TAKE ONE TABLET BY Refills: 2 Last:06-17-23 MOUTH EVERY DAY FOR BLOOD PRESSURE Expr:03-12-24 2) APIXABAN 5MG TAB Qty: 180 for 90 days ACTIVE Issu:03-14-23 Sig: TAKE ONE TABLET BY MOUTH EVERY 12 Refills: 2 Last:06-21-23 HOURS TO TREAT AND/OR PREVENT BLOOD Expr:03-14-24 CLOTS 3) FLUTICASONE PROP 50MCG 120D NASAL INHL ACTIVE Issu:03-12-23 Qty: 3 for 90 days Sig: SPRAY 1 SPRAY Refills: 2 Last:06-28-23 IN EACH NOSTRIL TWICE A DAY USE Expr:03-12-24 REGULARLY FOR RELIEF OF ALLERGIES/CONGESTION 4) LOPERAMIDE HCL 2MG CAP Qty: 90 for 90 ACTIVE Issu:03-12-23 days Sig: TAKE ONE CAPSULE BY FEEDING Refills: 2 Last:06-06-23 TUBE EVERY DAY NEEDED FOR DIARRHEA Expr:03-12-24 5) LORATADINE 10MG TAB Qty: 90 for 90 days ACTIVE Issu:03-12-23 Sig: TAKE ONE TABLET BY MOUTH EVERY Refills: 3 Last:03-12-23 DAY FOR ALLERGIES Expr:03-12-24 6) OMEPRAZOLE 20MG EC CAP Qty: 90 for 90 ACTIVE Issu:03-12-23 days Sig: TAKE ONE CAPSULE BY MOUTH Refills: 3 Last:03-12-23 EVERY DAY ON AN EMPTY STOMACH, AT Expr:03-12-24 LEAST 30 MINUTES PRIOR TO A MEAL FOR STOMACH ACID 7) SILDENAFIL CITRATE 50MG TAB Qty: 18 for ACTIVE Issu:04-08-23 90 days Sig: TAKE ONE TABLET BY MOUTH Refills: 3 Last:04-09-23 EVERY DAY NEEDED FOR ERECTILE Expr:04-08-24 DYSFUNCTION TAKE 30 MINUTES -4 HOURS BEFORE SEXUAL ACTIVITY, MAX- 100MG PER 24 HOURS 8) TAMSULOSIN HCL 0.4MG CAP Qty: 90 for 90 ACTIVE Issu:04-08-23 days Sig: TAKE ONE CAPSULE BY MOUTH Refills: 3 Last:04-09-23 EVERY MORNING FOR BLADDER SYMPTOMS Expr:04-08-24 AFTER MEAL 9) VANICREAM TOP CREAM Qty: 454 for 90 ACTIVE Issu:03-12-23 days Sig: APPLY THIN LAYER TOPICALLY Refills: 1 Last:03-12-23 EVERY MORNING FOR DRY SKIN Expr:03-12-24 Issue Date Status Last Fill Pending Outpatient Medications Refills Expiration === 1) AMLODIPINE BESYLATE 10MG TAB Qty: 90 PENDING Sig: TAKE ONE TABLET BY MOUTH EVERY Refills: 0 DAY 2) ARTIFICIAL TEARS PVA 1.4%/POVIDONE (PF) PENDING Qty: 30 Sig: INSTILL DROP(S) IN BOTH Refills: 0 EYES TWICE A DAY NEEDED Issue Date Status Last Fill Inactive Outpatient Medications Refills Expiration === 1) AMLODIPINE BESYLATE 10MG TAB Qty: 90 DISCONTINUED Issu:10-10-22 for 90 days Sig: TAKE ONE TABLET BY Refills: 2 Last:01-07-23 MOUTH EVERY DAY FOR BLOOD PRESSURE Expr:10-11-23 2) APIXABAN 5MG TAB Qty: 180 for 90 days DISCONTINUED Issu:10-09-22 Sig: TAKE ONE TABLET BY MOUTH EVERY 12 (EDIT) Last:10-10-22 HOURS TO TREAT AND/OR PREVENT BLOOD Refills: 3 Expr:10-10-23 CLOTS 3) CARBAMIDE PEROXIDE 6.5% OTIC SOLN Qty: Issu:03-12-23 15 for 90 days Sig: INSTILL 2 DROPS Refills: 0 Last:03-12-23 IN BOTH EARS EVERY MORNING FOR EAR WAX Expr:06-10-23 REMOVAL FOR NEXT 7DAYS 4) LORATADINE 10MG TAB Qty: 90 for 90 days DISCONTINUED Issu:10-10-22 Sig: TAKE ONE TABLET BY MOUTH EVERY Refills: 3 Last:10-10-22 DAY FOR ALLERGIES Expr:10-11-23 15 Total Medications Physical Exam: Vitals: BP: 134/89 (07/03/2023 10:12) P: 93 (07/03/2023 10:12) R: 16 (07/03/2023 10:12) T: 99.3 F [37.4 C] (07/03/2023 10:12) WT: 230.9 lb. [104.73 kg] (07/03/2023 10:12) BMI: 34.7 Pain: 6 (07/03/2023 10:12) O2 Sat: 96% (07/03/2023 10:12) General: Alert, well dressed and groomed, no apparent distress HEENT: Normocephalic, atraumatic, ear canals clear, TMs normal, OP clear, neck supple without mass, adenopathy or thyromegaly Lungs: Clear; no wheezes, rhonchi or rales CV: RRR without murmur, rub or gallop GI: Abdomen non distended, soft, non-tender, normal bowel sounds, no mass or HSM Skin: Warm and moist, no rash or erythema MS: ROM intact in left shoulder and elbow-pain with movement, 5 out of 5 strength, mild swelling medial forearm and left hand all digits , left hand numbness and tingling psych: Good eye contact, speech normal rate and rhythm, affect full range Assessment and plan: #Left arm pain with numbness and tingling -Left shoulder and left elbow x-ray ordered today -Reviewed his symptoms, previous medical history and recommended him to go to [facility] ER to have an ultrasound done to rule out DVT in his left arm -He does not want to drive to the city so he will go back to the [place] ER- -CBC with differential and BMP, COVID-19 RSV influenza swab ordered today -EKG-NSR today -Refresh prescription provided for dry eyes -Refilled his blood pressure medication -RTC as needed I will follow-up on labs and x-rays once available. verbalized the understanding of the above plan and in agreement to go to ED for further evaluation. Disclaimer: This note consists of symbols derived from keyboarding, dictation and/or voice recognition software. As a result, there may be errors in the script that have gone undetected. Please consider this when interpreting information found in this chart. /junior FERREIRA DNP, APRN, ARDMS Signed: 07/03/2023 11:29 07/03/2023 ADDENDUM STATUS: COMPLETED Please update that his COVID-19 /RSV/ flu swab came back negative for any of the viral infection. His x-rays are also negative for any acute fracture or dislocation. Tell him to update us after his ER visit regarding on his left arm swelling in numbness and tingling with pain. /junior FERREIRA DNP, APRN, ARDMS Signed: 07/03/2023 15:09 Receipt Acknowledged By: 07/03/2023 15:12 /melissa/ TAI BROWN LPN 07/03/2023 ADDENDUM STATUS: COMPLETED Called Pt. to PCP message, and Pt. isn't happy with result of going to [facility] ER, Pt. said they did the same stuff that was done at [facility]. Pt. said that they want him to be seen by neurology. Pt. understood message from PCP at the [facility]. /melissa/ TAI BROWN LPN Signed: 07/03/2023 15:30 07/04/2023 ADDENDUM STATUS: COMPLETED Molded Grid And Parts Inspector called and spoke with regarding ER visit and how he is doing now. Per stated I continue to have a problem with LT arm hurting and 3-5 fingers and palm of hand are swollen and numb. My thumb and 1st two are ok. I need to have something done because my arm/hand feel . They are mailing out the diclofenac gel and haven't received yet. They want me to see a neurologist for some testing for carpal tunnel they think I have. Per provider you labs were ok. Molded Grid And [employer] Inspector asked if he would consider PT and stated Not at this time because I want to know what to see Neurology for the nerve testing before deciding on anything else. Molded Grid And Parts Inspector explained that will send message to provider to review and recommend if appropriate. [place] understands and agrees with plan. Clinic number provided to call with questions or concerns. /junior VAUGHN REGISTERED NURSE Signed: 07/04/2023 14:24 Receipt Acknowledged By: 07/04/2023 16:17 /junior FERREIRA DNP, APRN, ARDMS MEDVED, DONNA J [facility] Jul 04, 2023 02:11 PM ADDENDUM: LOCAL TITLE: Addendum STANDARD TITLE: ADDENDUM DATE OF NOTE: JUL 04, 2023@14:11:38 ENTRY DATE: JUL 04, 2023@14:11:39 AUTHOR: RON VAUGHN COSIGNER: URGENCY: STATUS: COMPLETED SUBJECT: Patient Contact Note Molded Grid And Parts Inspector called and spoke with regarding ER visit and how he is doing now. Per stated I continue to have a problem with LT arm hurting and 3-5 fingers and palm of hand are swollen and numb. My thumb and 1st two are ok. I need to have something done because my arm/hand feel . They are mailing out the diclofenac gel and haven't received yet. They want me to see a neurologist for some testing for carpal tunnel they think I have. Per provider you labs were ok. Molded [employer] And [employer] Inspector asked if he would consider PT and stated Not at this time because I want to know what to see Neurology for the nerve testing before deciding on anything else. Molded Grid And [employer] Inspector explained that will send message to provider to review and recommend if appropriate. [place] understands and agrees with plan. Clinic number provided to call with questions or concerns. /junior VAUGHN REGISTERED NURSE Signed: 07/04/2023 14:24 Receipt Acknowledged By: 07/04/2023 16:17 /junior FERREIRA DNP, APRN, ARDMS ======== --- Original Document --- 07/03/23 [facility] PROGRESS NOTE - [facility]: Today's Nurse check-in note reviewed. seen in the clinic today. Followed all current PPE guidelines during the visit. Preferred name: Delma Patient brought in outside medical records and have been reviewed: In [facility] Co-managed care with a non-VA provider. Non-VA- PCP-[facility]/clinics Non-VA specialist: [place] -[place] [facility], Kellie Frye PA-C Cardiology-[facility] Non [place] PCP manages all dxs/rxs; gets some meds filled [facility] *JLV = active Chief complaint: An established patient here for acute visit related to left arm numbness and pain from past 1 week. 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 Reluctant about checking COVID-19 in the past, ROM intact in the shoulder and left elbow with some pain. Taking NyQuil at night for congestion and cough which helps him to sleep better. Recently we started tamsulosin as per urology . Used to take tamsulosin without any side effects in the past . Covering PACT RN note-07/02/2023-recommended ED visit which he refused Denies chest pain, SOB, dyspnea, nausea or vomiting, any vision changes. Interval History: Recent [place] visit at [place] [facility]- 06/18/2023 for BPH -restarted tamsulosin and recommended to start PF PT, follow-up in 3 months Review of Systems: Denies chest pain, shortness of breath, recent significant. weight changes, rash, bowel or bladder changes, new joint pain or swelling, headaches, lightheadedness, vision changes, new numbness or tingling or weakness. Remainder of the ROS is negative, except as above. Past Medical History: Active problems - Computerized Problem List is the source for the followin. 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 Depressed mood (SNOMED CT [id number]) 4. History of surgery - Jun 06, 2004 Laparoscopy, Surgical, Esophagogastric Fundoplasty in [facility] - s/p RIGHT KNEE REPLACEMENT - S/P Cholecystectomy 5. Gynecomastia * 6. Benign neoplasm of adrenal gland 7. Overactive Bladder 8. Erectile dysfunction (SNOMED CT 772039580) 9. HYPERTENSION 10. Chest Wall Pain 11. Hyperlipidemia (SNOMED CT 09598117) 12. Family social history - Lives alone, Friend lives with him some time, daughter helps - [employer], [employer] - [employer]: E5 , was in [...] , [facility] [place] - [place] to leave phone message 13. [...] 30+ - obesity 23. Allergic Rhinitis (SCT [id number]) 24. Umbilical hernia - without obstruction and without gangrene 25. [facility]atal [facility] Dr. Christian Noland, stae C5-M5 5 cm in size - last visit- 08/2022 Allergies: Patient has answered NKA Medication Reconciliation: Education Evaluations *Was medication education provided for NEW medications or CHANGES to medications? (including medication name, dose, route, reason for use, and potential side effects). Yes. Verbal education was provided to patient/caregiver and patient/caregiver verbalized understanding. TERATOGENIC MED & CONTRACEPTION REVIEW (Optional)... MEDICATION RECONCILIATION Review Done: The medication list shown below [...] Remote Allergy/ADR Data available for this patient [facility] No Known Allergies Active and Recently Outpatient Medications (including Supplies): Issue Date Status Last Fill Active Outpatient Medications Refills Expiration === 1) AMLODIPINE BESYLATE 10MG TAB Qty: 90 ACTIVE Issu:03-12-23 for 90 days Sig: TAKE ONE TABLET BY Refills: 2 Last:06-17-23 MOUTH EVERY DAY FOR BLOOD PRESSURE Expr:03-12-24 2) APIXABAN 5MG TAB Qty: 180 for 90 days ACTIVE Issu:03-14-23 Sig: TAKE ONE TABLET BY MOUTH EVERY 12 Refills: 2 Last:06-21-23 HOURS TO TREAT AND/OR PREVENT BLOOD Expr:03-14-24 CLOTS 3) FLUTICASONE PROP 50MCG 120D NASAL INHL ACTIVE Issu:03-12-23 Qty: 3 for 90 days Sig: SPRAY 1 SPRAY Refills: 2 Last:06-28-23 IN EACH NOSTRIL TWICE A DAY USE Expr:03-12-24 REGULARLY FOR RELIEF OF ALLERGIES/CONGESTION 4) LOPERAMIDE HCL 2MG CAP Qty: 90 for 90 ACTIVE Issu:03-12-23 days Sig: TAKE ONE CAPSULE BY FEEDING Refills: 2 Last:06-06-23 TUBE EVERY DAY NEEDED FOR DIARRHEA Expr:03-12-24 5) LORATADINE 10MG TAB Qty: 90 for 90 days ACTIVE Issu:03-12-23 Sig: TAKE ONE TABLET BY MOUTH EVERY Refills: 3 Last:03-12-23 DAY FOR ALLERGIES Expr:03-12-24 6) OMEPRAZOLE 20MG EC CAP Qty: 90 for 90 ACTIVE Issu:03-12-23 days Sig: TAKE ONE CAPSULE BY MOUTH Refills: 3 Last:03-12-23 EVERY DAY ON AN EMPTY STOMACH, AT Expr:03-12-24 LEAST 30 MINUTES PRIOR TO A MEAL FOR STOMACH ACID 7) SILDENAFIL CITRATE 50MG TAB Qty: 18 for ACTIVE Issu:04-08-23 90 days Sig: TAKE ONE TABLET BY MOUTH Refills: 3 Last:04-09-23 EVERY DAY NEEDED FOR ERECTILE Expr:04-08-24 DYSFUNCTION TAKE 30 MINUTES -4 HOURS BEFORE SEXUAL ACTIVITY, MAX- 100MG PER 24 HOURS 8) TAMSULOSIN HCL 0.4MG CAP Qty: 90 for 90 ACTIVE Issu:04-08-23 days Sig: TAKE ONE CAPSULE BY MOUTH Refills: 3 Last:04-09-23 EVERY MORNING FOR BLADDER SYMPTOMS Expr:04-08-24 AFTER MEAL 9) VANICREAM TOP CREAM Qty: 454 for 90 ACTIVE Issu:03-12-23 days Sig: APPLY THIN LAYER TOPICALLY Refills: 1 Last:03-12-23 EVERY MORNING FOR DRY SKIN Expr:03-12-24 Issue Date Status Last Fill Pending Outpatient Medications Refills Expiration === 1) AMLODIPINE BESYLATE 10MG TAB Qty: 90 PENDING Sig: TAKE ONE TABLET BY MOUTH EVERY Refills: 0 DAY 2) ARTIFICIAL TEARS PVA 1.4%/POVIDONE (PF) PENDING Qty: 30 Sig: INSTILL DROP(S) IN BOTH Refills: 0 EYES TWICE A DAY NEEDED Issue Date Status Last Fill Inactive Outpatient Medications Refills Expiration === 1) AMLODIPINE BESYLATE 10MG TAB Qty: 90 DISCONTINUED Issu:10-10-22 for 90 days Sig: TAKE ONE TABLET BY Refills: 2 Last:01-07-23 MOUTH EVERY DAY FOR BLOOD PRESSURE Expr:10-11-23 2) APIXABAN 5MG TAB Qty: 180 for 90 days DISCONTINUED Issu:05-02-23 Sig: TAKE ONE TABLET BY MOUTH EVERY 12 (EDIT) Last:10-10-22 HOURS TO TREAT AND/OR PREVENT BLOOD Refills: 3 Expr:10-10-23 CLOTS 3) CARBAMIDE PEROXIDE 6.5% OTIC SOLN Qty: Issu:03-12-23 15 for 90 days Sig: INSTILL 2 DROPS Refills: 0 Last:03-12-23 IN BOTH EARS EVERY MORNING FOR EAR WAX Expr:06-10-23 REMOVAL FOR NEXT 7DAYS 4) LORATADINE 10MG TAB Qty: 90 for 90 days DISCONTINUED Issu:10-10-22 Sig: TAKE ONE TABLET BY MOUTH EVERY Refills: 3 Last:10-10-22 DAY FOR ALLERGIES Expr:10-11-23 15 Total Medications Physical Exam: Vitals: BP: 134/89 (07/03/2023 10:12) P: 93 (07/03/2023 10:12) R: 16 (07/03/2023 10:12) T: 99.3 F [37.4 C] (07/03/2023 10:12) WT: 230.9 lb. [104.73 kg] (07/03/2023 10:12) BMI: 34.7 Pain: 6 (07/03/2023 10:12) O2 Sat: 96% (07/03/2023 10:12) General: Alert, well dressed and groomed, no apparent distress HEENT: Normocephalic, atraumatic, ear canals clear, TMs normal, OP clear, neck supple without mass, adenopathy or thyromegaly Lungs: Clear; no wheezes, rhonchi or rales CV: RRR without murmur, rub or gallop GI: Abdomen non distended, soft, non-tender, normal bowel sounds, no mass or HSM Skin: Warm and moist, no rash or erythema MS: ROM intact in left shoulder and elbow-pain with movement, 5 out of 5 strength, mild swelling medial forearm and left hand all digits , left hand numbness and tingling psych: Good eye contact, speech normal rate and rhythm, affect full range Assessment and plan: #Left arm pain with numbness and tingling -Left shoulder and left elbow x-ray ordered today -Reviewed his symptoms, previous medical history and recommended him to go to [facility] ER to have an ultrasound done to rule out DVT in his left arm -[facility] will go back to the [place] ER- -CBC with differential and BMP, COVID-19 RSV influenza swab ordered today -EKG-NSR today -Refresh prescription provided for dry eyes -Refilled his blood pressure medication -RTC as needed I will follow-up on labs and x-rays once available. verbalized the understanding of the above plan and in agreement to go to ED for further evaluation. Disclaimer: This note consists of symbols derived from keyboarding, dictation and/or voice recognition software. As a result, there may be errors in the script that have gone undetected. Please consider this when interpreting information found in this chart. /junior FERREIRA DNP, APRN, ARDMS Signed: 07/03/2023 11:29 07/03/2023 ADDENDUM STATUS: COMPLETED Please update that his COVID-19 /RSV/ flu swab came back negative for any of the viral infection. His x-rays are also negative for any acute fracture or dislocation. Tell him to update us after his ER visit regarding on his left arm swelling in numbness and tingling with pain. /junior FERREIRA DNP, APRN, ARDMS Signed: 07/03/2023 15:09 Receipt Acknowledged By: 07/03/2023 15:12 /junior BROWN LPN 07/03/2023 ADDENDUM STATUS: COMPLETED Called Pt. to PCP message, and Pt. isn't happy with result of going to [facility] ER, Pt. said they did the same stuff that was done at [facility]. Pt. said that they want him to be seen by neurology. Pt. understood message from PCP at the [facility]. /junior BROWN LPN Signed: 07/03/2023 15:30 07/04/2023 ADDENDUM STATUS: COMPLETED [employer] called and explained provider recommendation of being seen today in [place] ER to be evaluated for LT arm pain, swelling and numbness. Per stated I have a to go to tomorrow so won't being going to the ER and really want to wait until I can be seen in Neurology. [employer] Inspector explained that provider is placing a STAT US for [facility] and they will be calling to schedule within a week and provider is reaching out to speak with the Neurologist regarding your issue. understands and agrees with plan except going to the ER. Clinic number provided to call with questions or concerns. /melissa/ RON VAUGHN REGISTERED NURSE Signed: 07/04/2023 14:31 Receipt Acknowledged By: 07/04/2023 16:16 /melissa/ FIONA FERREIRA DNP, APRN, ARDMS [facility]VED, DONNA J [facility] [facility] Jul 03, 2023 03:08 PM ADDENDUM: LOCAL TITLE: Addendum STANDARD TITLE: ADDENDUM DATE OF NOTE: JUL 03, 2023@15:08:13 ENTRY DATE: JUL 03, 2023@15:08:13 AUTHOR: FIONA FERREIRA EXP COSIGNER: URGENCY: STATUS: COMPLETED Please update that his COVID-19 /RSV/ flu swab came back negative for any of the viral infection. His x-rays are also negative for any acute fracture or dislocation. Tell him to update us after his ER visit regarding on his left arm swelling in numbness and tingling with pain. /junior FERREIRA DNP, APRN, ARDMS Signed: 07/03/2023 15:09 Receipt Acknowledged By: 07/03/2023 15:12 /melissa/ TAI BROWN LPN ======== --- Original Document --- 07/03/23 [facility] PROGRESS NOTE - [place]: Today's Nurse check-in note reviewed. [place] seen in the clinic today. Followed all current PPE guidelines during the visit. Preferred name: Delma Patient brought in outside medical records and have been reviewed: In [place] Co-managed care with a non-VA provider. Non-VA- PCP-[facility] Non-[facility] specialist: [place] -[place] [facility], Kellie Frye PA-C Cardiology-[facility] Non [place] PCP manages all dxs/rxs; gets [facility] meds filled [facility] *JLV = active Chief complaint: An established patient here for acute visit related to left arm numbness and pain from past 1 week. 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 Reluctant about checking COVID-19 in the past, ROM intact in the shoulder and left elbow with some pain. Taking NyQuil at night for congestion and cough which helps him to sleep better. Recently we started tamsulosin as per urology . Used to take tamsulosin without any side effects in the past . Covering PACT RN note-07/02/2023-recommended ED visit which he refused Denies chest pain, SOB, dyspnea, nausea or vomiting, any vision changes. Interval History: Recent Urology visit at [place] [facility]- 06/18/2023 for BPH -restarted tamsulosin and recommended to start PF PT, follow-up in 3 months Review of Systems: Denies chest pain, shortness of breath, recent significant. weight changes, rash, bowel or bladder changes, new joint pain or swelling, headaches, lightheadedness, vision changes, new numbness or tingling or weakness. Remainder of the ROS is negative, except as above. Past Medical History: Active problems - Computerized Problem List is the source for the followin. 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 Depressed mood (SNOMED CT [id number]) 4. History of surgery - Jun 06, 2004 Laparoscopy, Surgical, Esophagogastric Fundoplasty in [place] - s/p RIGHT KNEE REPLACEMENT - S/P Cholecystectomy 5. Gynecomastia * 6. Benign neoplasm of adrenal gland 7. Overactive Bladder 8. Erectile dysfunction (SNOMED CT 939231007) 9. HYPERTENSION 10. Chest Wall Pain 11. Hyperlipidemia (SNOMED CT 06507063) 12. 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 [...] 30+ - obesity 23. Allergic Rhinitis (SCT [id number]) 24. Umbilical hernia - without obstruction and without gangrene 25. Hiatal hernia - Non [place] GI- Dr. Christian Noland, stae C5-M5 5 cm in size - last visit- 08/2022 Allergies: Patient has answered NKA Medication Reconciliation: Education Evaluations *Was medication education provided for NEW medications or CHANGES to medications? (including medication name, dose, route, reason for use, and potential side effects). Yes. Verbal education was provided to patient/caregiver and patient/caregiver verbalized understanding. TERATOGENIC MED & CONTRACEPTION REVIEW (Optional)... MEDICATION RECONCILIATION Review Done: The medication list shown below [...] Allergy/ADR Data available for this patient [facility] No Known Allergies Active and Recently Outpatient Medications (including Supplies): Issue Date Status Last Fill Active Outpatient Medications Refills Expiration === 1) AMLODIPINE BESYLATE 10MG TAB Qty: 90 ACTIVE Issu:03-12-23 for 90 days Sig: TAKE ONE TABLET BY Refills: 2 Last:06-17-23 MOUTH EVERY DAY FOR BLOOD PRESSURE Expr:03-12-24 2) APIXABAN 5MG TAB Qty: 180 for 90 days ACTIVE Issu:03-14-23 Sig: TAKE ONE TABLET BY MOUTH EVERY 12 Refills: 2 Last:06-21-23 HOURS TO TREAT AND/OR PREVENT BLOOD Expr:03-14-24 CLOTS 3) FLUTICASONE PROP 50MCG 120D NASAL INHL ACTIVE Issu:03-12-23 Qty: 3 for 90 days Sig: SPRAY 1 SPRAY Refills: 2 Last:06-28-23 IN EACH NOSTRIL TWICE A DAY USE Expr:03-12-24 REGULARLY FOR RELIEF OF ALLERGIES/CONGESTION 4) LOPERAMIDE HCL 2MG CAP Qty: 90 for 90 ACTIVE Issu:03-12-23 days Sig: TAKE ONE CAPSULE BY FEEDING Refills: 2 Last:06-06-23 TUBE EVERY DAY NEEDED FOR DIARRHEA Expr:03-12-24 5) LORATADINE 10MG TAB Qty: 90 for 90 days ACTIVE Issu:03-12-23 Sig: TAKE ONE TABLET BY MOUTH EVERY Refills: 3 Last:03-12-23 DAY FOR ALLERGIES Expr:03-12-24 6) OMEPRAZOLE 20MG EC CAP Qty: 90 for 90 ACTIVE Issu:03-12-23 days Sig: TAKE ONE CAPSULE BY MOUTH Refills: 3 Last:03-12-23 EVERY DAY ON AN EMPTY STOMACH, AT Expr:03-12-24 LEAST 30 MINUTES PRIOR TO A MEAL FOR STOMACH ACID 7) SILDENAFIL CITRATE 50MG TAB Qty: 18 for ACTIVE Issu:04-08-23 90 days Sig: TAKE ONE TABLET BY MOUTH Refills: 3 Last:04-09-23 EVERY DAY NEEDED FOR ERECTILE Expr:04-08-24 DYSFUNCTION TAKE 30 MINUTES -4 HOURS BEFORE SEXUAL ACTIVITY, MAX- 100MG PER 24 HOURS 8) TAMSULOSIN HCL 0.4MG CAP Qty: 90 for 90 ACTIVE Issu:04-08-23 days Sig: TAKE ONE CAPSULE BY MOUTH Refills: 3 Last:04-09-23 EVERY MORNING FOR BLADDER SYMPTOMS Expr:04-08-24 AFTER MEAL 9) VANICREAM TOP CREAM Qty: 454 for 90 ACTIVE Issu:03-12-23 days Sig: APPLY THIN LAYER TOPICALLY Refills: 1 Last:03-12-23 EVERY MORNING FOR DRY SKIN Expr:03-12-24 Issue Date Status Last Fill Pending Outpatient Medications Refills Expiration === 1) AMLODIPINE BESYLATE 10MG TAB Qty: 90 PENDING Sig: TAKE ONE TABLET BY MOUTH EVERY Refills: 0 DAY 2) ARTIFICIAL TEARS PVA 1.4%/POVIDONE (PF) PENDING Qty: 30 Sig: INSTILL DROP(S) IN BOTH Refills: 0 EYES TWICE A DAY NEEDED Issue Date Status Last Fill Inactive Outpatient Medications Refills Expiration === 1) AMLODIPINE BESYLATE 10MG TAB Qty: 90 DISCONTINUED Issu:10-10-22 for 90 days Sig: TAKE ONE TABLET BY Refills: 2 Last:01-07-23 MOUTH EVERY DAY FOR BLOOD PRESSURE Expr:10-11-23 2) APIXABAN 5MG TAB Qty: 180 for 90 days DISCONTINUED Issu:10-09-22 Sig: TAKE ONE TABLET BY MOUTH EVERY 12 (EDIT) Last:10-10-22 HOURS TO TREAT AND/OR PREVENT BLOOD Refills: 3 Expr:10-10-23 CLOTS 3) CARBAMIDE PEROXIDE 6.5% OTIC SOLN Qty: Issu:03-12-23 15 for 90 days Sig: INSTILL 2 DROPS Refills: 0 Last:03-12-23 IN BOTH EARS EVERY MORNING FOR EAR WAX Expr:06-10-23 REMOVAL FOR NEXT 7DAYS 4) LORATADINE 10MG TAB Qty: 90 for 90 days DISCONTINUED Issu:10-10-22 Sig: TAKE ONE TABLET BY MOUTH EVERY Refills: 3 Last:10-10-22 DAY FOR ALLERGIES Expr:10-11-23 15 Total Medications Physical Exam: Vitals: BP: 134/89 (07/03/2023 10:12) P: 93 (07/03/2023 10:12) R: 16 (07/03/2023 10:12) T: 99.3 F [37.4 C] (07/03/2023 10:12) WT: 230.9 lb. [104.73 kg] (07/03/2023 10:12) BMI: 34.7 Pain: 6 (07/03/2023 10:12) O2 Sat: 96% (07/03/2023 10:12) General: Alert, well dressed and groomed, no apparent distress HEENT: Normocephalic, atraumatic, ear canals clear, TMs normal, OP clear, neck supple without mass, adenopathy or thyromegaly Lungs: Clear; no wheezes, rhonchi or rales CV: RRR without murmur, rub or gallop GI: Abdomen non distended, soft, non-tender, normal bowel sounds, no mass or HSM Skin: Warm and moist, no rash or erythema MS: ROM intact in left shoulder and elbow-pain with movement, 5 out of 5 strength, mild swelling medial forearm and left hand all digits , left hand numbness and tingling psych: Good eye contact, speech normal rate and rhythm, affect full range Assessment and plan: #Left arm pain with numbness and tingling -Left shoulder and left elbow x-ray ordered today -Reviewed his symptoms, previous medical history and recommended him to go to [facility] ER to have an ultrasound done to rule out DVT in his left arm -He does not want to drive to the city so he will go back to the [place] ER- -CBC with differential and BMP, COVID-19 RSV influenza swab ordered today -EKG-NSR today -Refresh prescription provided for dry eyes -Refilled his blood pressure medication -RTC as needed I will follow-up on labs and x-rays once available. [place] verbalized the understanding of the above plan and in agreement to go to ED for further evaluation. Disclaimer: This note consists of symbols derived from keyboarding, dictation and/or voice recognition software. As a result, there may be errors in the script that have gone undetected. Please consider this when interpreting information found in this chart. /melissa/ FIONA FERREIRA DNP,ELECTRONIC MUSICAL INSTRUMENT REPAIRER,ARDMS Signed: 07/03/2023 11:29 07/03/2023 ADDENDUM STATUS: COMPLETED Called Pt. to PCP message, and Pt. isn't happy with result of going to [facility] ER, Pt. said they did the same stuff that was done at [facility]. Pt. said that they want him to be seen by neurology. Pt. understood message from PCP at the [facility]. /melissa/ TAI BROWN LPN Signed: 07/03/2023 15:30 FIONA FERREIRA [facility] Jul 03, 2023 10:13 AM PRIMARY CARE NURSING NOTE: LOCAL TITLE: CBOC NURSING PROGRESS NOTE STANDARD TITLE: PRIMARY CARE NURSING NOTE DATE OF NOTE: JUL 03, 2023@10:13 ENTRY DATE: JUL 03, 2023@10:13:31 AUTHOR: TAI BROWN EXP COSIGNER: URGENCY: STATUS: COMPLETED TYPE OF VISIT: Appointment Check In Type of appointment: In-person appointment REASON FOR VISIT: Sick, LT Arm hand and numbness ALLERGIES: Patient has answered NKA VITAL SIGNS: Blood Pressure: 134/89 (07/03/2023 10:12) Pulse: 93 (07/03/2023 10:12) Respiration: 16 (07/03/2023 10:12) Temperature: 99.3 F [37.4 C] (07/03/2023 10:12) Weight: 230.9 lb [104.73 kg] (07/03/2023 10:12) Height: 68.504 in [174.0 cm] (03/12/2023 08:18) BMI: 34.7 O2 Sat: 96% (07/03/2023 10:12) Pain: 6 (07/03/2023 10:12) PAIN SCREEN: Patient is having significant pain that they would like to talk to their provider about today. Acute pain is new pain, which as been present for less than 6 months Words used to describe pain: dull, other: numbness, deadness Number that best describes pain intensity on average in the past week: 6 Pain located in the following location(s): other: LUE Pain has been happening for: 1-4 weeks Pain is worse when: other: None Pain is better when: other: Rest a lot MEDICATION Active Outpatient Medications (including Supplies): AMLODIPINE [...] PRIOR TO A MEAL FOR STOMACH ACID SILDENAFIL CITRATE 50MG TAB TAKE ONE TABLET BY MOUTH EVERY ACTIVE DAY NEEDED FOR ERECTILE DYSFUNCTION TAKE 30 MINUTES -4 HOURS BEFORE SEXUAL ACTIVITY, MAX- 100MG PER 24 HOURS TAMSULOSIN HCL 0.4MG CAP TAKE ONE CAPSULE BY MOUTH EVERY ACTIVE MORNING FOR BLADDER SYMPTOMS AFTER MEAL VANICREAM TOP CREAM APPLY THIN LAYER TOPICALLY EVERY ACTIVE MORNING FOR DRY SKIN Pain raidated down arm from bicep down fingers. Heavy chest pain to feels better when waking up in the morning. Has [place] eye. /melissa/ TAI BROWN LPN Signed: 07/03/2023 10:20 TAI BROWN [facility] Jul 03, 2023 08:39 AM PRIMARY CARE NOTE: LOCAL TITLE: [facility] PROGRESS NOTE - [place] STANDARD TITLE: PRIMARY CARE NOTE DATE OF NOTE: JUL 03, 2023@08:39 ENTRY DATE: JUL 03, 2023@08:39:36 AUTHOR: FIONA FERREIRA EXP COSIGNER: URGENCY: STATUS: COMPLETED [facility] PROGRESS NOTE - [place] Has ADDENDA Today's Nurse check-in note reviewed. seen in the clinic today. Followed all current PPE guidelines during the visit. Preferred name: Delma Patient brought in outside medical records and have been reviewed: In [facility] Co-managed care with a non-VA provider. Non-VA- PCP-[facility] Non-[facility] specialist: [place] -[place] [facility], Kellie Frye PA-C [facility] Non [place] PCP manages all dxs/rxs; gets [facility] meds filled [facility] *[facility]LV = active Chief complaint: An established patient here for acute visit related to left arm numbness and pain from past 1 week. 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 Reluctant about checking COVID-19 in the past, ROM intact in the shoulder and left elbow with some pain. Taking NyQuil at night for congestion and cough which helps him to sleep better. Recently we started tamsulosin as per urology . Used to take tamsulosin without any side effects in the past . Covering PACT RN note-07/02/2023-recommended ED visit which he refused Denies chest pain, SOB, dyspnea, nausea or vomiting, any vision changes. Interval History: Recent Urology visit at [place] [facility]- 06/18/2023 for BPH -restarted tamsulosin and recommended to start PF PT, follow-up in 3 months Review of Systems: Denies chest pain, shortness of breath, recent significant. weight changes, rash, bowel or bladder changes, new joint pain or swelling, headaches, lightheadedness, vision changes, new numbness or tingling or weakness. Remainder of the ROS is negative, except as above. Past Medical History: Active problems - Computerized Problem List is the source for the followin. 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 Depressed mood (SNOMED CT [id number]) 4. History of surgery - Jun 06, 2004 Laparoscopy, Surgical, Esophagogastric Fundoplasty in [facility] - s/p RIGHT KNEE REPLACEMENT - S/P Cholecystectomy 5. Gynecomastia * 6. Benign neoplasm of adrenal gland 7. Overactive Bladder 8. Erectile dysfunction (SNOMED CT 594113275) 9. HYPERTENSION 10. Chest Wall Pain 11. Hyperlipidemia (SNOMED CT 90892274) 12. 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 [...] 30+ - obesity 23. Allergic Rhinitis (SCT 29553736) 24. Umbilical hernia - without obstruction and without gangrene 25. Hiatal [place] [facility]- [facility]. Christian Noland, stae C5-M5 5 cm in size - last visit- 08/2022 Allergies: Patient has answered NKA Medication Reconciliation: Education Evaluations *Was medication education provided for NEW medications or CHANGES to medications? (including medication name, dose, route, reason for use, and potential side effects). Yes. Verbal education was provided to patient/caregiver and patient/caregiver verbalized understanding. TERATOGENIC MED & CONTRACEPTION REVIEW (Optional)... MEDICATION RECONCILIATION Review Done: The medication list shown below was verified for accuracy and it includes all pending medications/active medications/all medications or discontinued within the last 90 days/all remote medications and non-VA medications. If a given category (i.e. remote meds) is not shown, that means that a patient doesn't have a medication(s) in that category. Allergies listed below were also reviewed/updated for accuracy. Allergies/ADR from [facility] may not display in CPRS. Use JLV MRT5 - Allergies/ADRs FACILITY ALLERGY/ADR -------- No Remote Allergy/ADR Data available for this patient [facility] No Known Allergies Active and Recently Outpatient Medications (including Supplies): Issue Date Status Last Fill Active Outpatient Medications Refills Expiration === 1) AMLODIPINE BESYLATE 10MG TAB Qty: 90 ACTIVE Issu:03-12-23 for 90 days Sig: TAKE ONE TABLET BY Refills: 2 Last:06-17-23 MOUTH EVERY DAY FOR BLOOD PRESSURE Expr:03-12-24 2) APIXABAN 5MG TAB Qty: 180 for 90 days ACTIVE Issu:03-14-23 Sig: TAKE ONE TABLET BY MOUTH EVERY 12 Refills: 2 Last:06-21-23 HOURS TO TREAT AND/OR PREVENT BLOOD Expr:03-14-24 CLOTS 3) FLUTICASONE PROP 50MCG 120D NASAL INHL ACTIVE Issu:03-12-23 Qty: 3 for 90 days Sig: SPRAY 1 SPRAY Refills: 2 Last:06-28-23 IN EACH NOSTRIL TWICE A DAY USE Expr:03-12-24 REGULARLY FOR RELIEF OF ALLERGIES/CONGESTION 4) LOPERAMIDE HCL 2MG CAP Qty: 90 for 90 ACTIVE Issu:03-12-23 days Sig: TAKE ONE CAPSULE BY FEEDING Refills: 2 Last:06-06-23 TUBE EVERY DAY NEEDED FOR DIARRHEA Expr:03-12-24 5) LORATADINE 10MG TAB Qty: 90 for 90 days ACTIVE Issu:03-12-23 Sig: TAKE ONE TABLET BY MOUTH EVERY Refills: 3 Last:03-12-23 DAY FOR ALLERGIES Expr:03-12-24 6) OMEPRAZOLE 20MG EC CAP Qty: 90 for 90 ACTIVE Issu:03-12-23 days Sig: TAKE ONE CAPSULE BY MOUTH Refills: 3 Last:03-12-23 EVERY DAY ON AN EMPTY STOMACH, AT Expr:03-12-24 LEAST 30 MINUTES PRIOR TO A MEAL FOR STOMACH ACID 7) SILDENAFIL CITRATE 50MG TAB Qty: 18 for ACTIVE Issu:04-08-23 90 days Sig: TAKE ONE TABLET BY MOUTH Refills: 3 Last:04-09-23 EVERY DAY NEEDED FOR ERECTILE Expr:04-08-24 DYSFUNCTION TAKE 30 MINUTES -4 HOURS BEFORE SEXUAL ACTIVITY, MAX- 100MG PER 24 HOURS 8) TAMSULOSIN HCL 0.4MG CAP Qty: 90 for 90 ACTIVE Issu:04-08-23 days Sig: TAKE ONE CAPSULE BY MOUTH Refills: 3 Last:04-09-23 EVERY MORNING FOR BLADDER SYMPTOMS Expr:04-08-24 AFTER MEAL 9) VANICREAM TOP CREAM Qty: 454 for 90 ACTIVE Issu:03-12-23 days Sig: APPLY THIN LAYER TOPICALLY Refills: 1 Last:03-12-23 EVERY MORNING FOR DRY SKIN Expr:03-12-24 Issue Date Status Last Fill Pending Outpatient Medications Refills Expiration === 1) AMLODIPINE BESYLATE 10MG TAB Qty: 90 PENDING Sig: TAKE ONE TABLET BY MOUTH EVERY Refills: 0 DAY 2) ARTIFICIAL TEARS PVA 1.4%/POVIDONE (PF) PENDING Qty: 30 Sig: INSTILL DROP(S) IN BOTH Refills: 0 EYES TWICE A DAY NEEDED Issue Date Status Last Fill Inactive Outpatient Medications Refills Expiration === 1) AMLODIPINE BESYLATE 10MG TAB Qty: 90 DISCONTINUED Issu:10-10-22 for 90 days Sig: TAKE ONE TABLET BY Refills: 2 Last:01-07-23 MOUTH EVERY DAY FOR BLOOD PRESSURE Expr:10-11-23 2) APIXABAN 5MG TAB Qty: 180 for 90 days DISCONTINUED Issu:10-09-22 Sig: TAKE ONE TABLET BY MOUTH EVERY 12 (EDIT) Last:10-10-22 HOURS TO TREAT AND/OR PREVENT BLOOD Refills: 3 Expr:10-10-23 CLOTS 3) CARBAMIDE PEROXIDE 6.5% OTIC SOLN Qty: Issu:03-12-23 15 for 90 days Sig: INSTILL 2 DROPS Refills: 0 Last:03-12-23 IN BOTH EARS EVERY MORNING FOR EAR WAX Expr:06-10-23 REMOVAL FOR NEXT 7DAYS 4) LORATADINE 10MG TAB Qty: 90 for 90 days DISCONTINUED Issu:10-10-22 Sig: TAKE ONE TABLET BY MOUTH EVERY Refills: 3 Last:10-10-22 DAY FOR ALLERGIES Expr:10-11-23 15 Total Medications Physical Exam: Vitals: BP: 134/89 (07/03/2023 10:12) P: 93 (07/03/2023 10:12) R: 16 (07/03/2023 10:12) T: 99.3 F [37.4 C] (07/03/2023 10:12) WT: 230.9 lb. [104.73 kg] (07/03/2023 10:12) BMI: 34.7 Pain: 6 (07/03/2023 10:12) O2 Sat: 96% (07/03/2023 10:12) General: Alert, well dressed and groomed, no apparent distress HEENT: Normocephalic, atraumatic, ear canals clear, TMs normal, OP clear, neck supple without mass, adenopathy or thyromegaly Lungs: Clear; no wheezes, rhonchi or rales CV: RRR without murmur, rub or gallop GI: Abdomen non distended, soft, non-tender, normal bowel sounds, no mass or HSM Skin: Warm and moist, no rash or erythema MS: ROM intact in left shoulder and elbow-pain with movement, 5 out of 5 strength, mild swelling medial forearm and left hand all digits , left hand numbness and tingling psych: Good eye contact, speech normal rate and rhythm, affect full range Assessment and plan: #Left arm pain with numbness and tingling -Left shoulder and left elbow x-ray ordered today -Reviewed his symptoms, previous medical history and recommended him to go to [facility] ER to have an ultrasound done to rule out DVT in his left arm -He does not want to drive to the city so he will go back to the [place] ER- -CBC with differential and BMP, COVID-19 RSV influenza swab ordered today -EKG-NSR today -Refresh prescription provided for dry eyes -Refilled his blood pressure medication -RTC as needed I will follow-up on labs and x-rays once available. verbalized the understanding of the above plan and in agreement to go to ED for further evaluation. Disclaimer: This note consists of symbols derived from keyboarding, dictation and/or voice recognition software. As a result, there may be errors in the script that have gone undetected. Please consider this when interpreting information found in this chart. /junior FERREIRA DNP, APRN, ARDMS Signed: 07/03/2023 11:29 07/03/2023 ADDENDUM STATUS: COMPLETED Please update that his COVID-19 /RSV/ flu swab came back negative for any of the viral infection. His x-rays are also negative for any acute fracture or dislocation. Tell him to update us after his ER visit regarding on his left arm swelling in numbness and tingling with pain. /junior FERREIRA DNP, APRN, ARDMS Signed: 07/03/2023 15:09 Receipt Acknowledged By: 07/03/2023 15:12 /junior BROWN LPN 07/03/2023 ADDENDUM STATUS: COMPLETED Called Pt. to PCP message, and Pt. isn't happy with result of going to [facility] ER, Pt. said they did the same stuff that was done at [facility]. Pt. said that they want him to be seen by neurology. Pt. understood message from PCP at the [facility]. /junior BROWN LPN Signed: 07/03/2023 15:30 07/04/2023 ADDENDUM STATUS: COMPLETED [employer] Inspector called and spoke with regarding ER visit and how he is doing now. Per stated I continue to have a problem with LT arm hurting and 3-5 fingers and palm of hand are swollen and numb. My thumb and 1st two are ok. I need to have something done because my arm/hand feel . They are mailing out the diclofenac gel and haven't received yet. They want me to see a neurologist for some testing for carpal tunnel they think I have. Per provider you labs were ok. M[employer] Inspector asked if he would consider PT and stated Not at this time because I want to know what to see Neurology for the nerve testing before deciding on anything else. M[employer] Inspector explained that will send message to provider to review and recommend if appropriate. [place] understands and agrees with plan. Clinic number provided to call with questions or concerns. /junior VAUGHN REGISTERED NURSE Signed: 07/04/2023 14:24 07/04/2023 ADDENDUM STATUS: COMPLETED M[employer] Inspector called and explained provider recommendation of being seen today in [place] ER to be evaluated for LT arm pain, swelling and numbness. Per stated I have a to go to tomorrow so won't being going to the ER and really want to wait until I can be seen in Neurology. M[employer] Inspector explained that provider is placing a STAT US for [facility] and they will be calling to schedule within a week and provider is reaching out to speak with the Neurologist regarding your issue. understands and agrees with plan except going to the ER. Clinic number provided to call with questions or concerns. /junior VAUGHN REGISTERED NURSE Signed: 07/04/2023 14:31 Receipt Acknowledged By: * AWAITING SIGNATURE * FIONA FERREIRA MANISHA D [place]
--- OUTSIDE RECORDS SUMMARY | 2023-07-08 13:14 | XMS_ITS | Encounter Summary ---
Author Name Department of [facility] Organization [facility] of [facility] Address [address] [place] [id number] Support Name Relationship Address Phone REJI WATTS Next of Kin RT 4 JANA SALINAS REJI WATTS Emergency Contact RT 4 JANA SALINAS [phone] Insurance Providers: All historical and current Section [...] MEDIC ARE SUPPL EMENT Jun 10, 2016 [id number] [phone] DELMA ZARATE PATIENT [place] MED[place] SUPPLEMEN [place]ARDO MEDIC ARE SUPPL EMENT Jun 10, 2016 [id number] [phone] DELMA ZARATE PATIENT MEDICARE (WNR) MEDICARE (M) PART A Jul 11, 2013 PART A [id number] [phone] DELMA ZARATE PATIENT MEDICARE (WNR) MEDICARE (M) PART B Jul 11, 2013 PART B [id number] [phone] DELMA ZARATE PATIENT Selected Encounter This section includes the information on record at [place] for the Encounter. Date/Time Encounter Type Encounter Description Reason Pro vider Source Apr 08, 2023 07:33 AM Outpatient Encounter TELEPHONE PRIMARY CARE E Encounter Template Text not used by [place] Lab Results: +/- 30 days of the [...] Range Comment Mar 12, 2023 09:20 AM [facility] TSH W/REFLEX TO FREE T4 Specimen Type: PLASMA No comment entered. Ordering Provider: FIONA FERREIRA Report Released Date/Time: Mar 12, 2023 09:07 AM Reporting Lab: [facility] [id number] Performing Lab: [facility] [id number] TSH 1.72 0.35-4.94 Mar 12, 2023 09:20 AM [facility] HEMOGLOBIN A1C Specimen Type: BLOOD Comment: [...] Mar 12, 2023 09:07 AM Reporting Lab: [facility] [id number] Performing Lab: [facility] [id number] HEMOGLOBIN A1C 5.5 4.0-6.0 Mar 12, 2023 09:20 AM [facility] CBC Specimen Type: BLOOD No comment entered. Ordering Provider: FIONA FERREIRA Report Released Date/Time: Mar 12, 2023 09:07 AM Reporting Lab: [facility] [id number] Performing Lab: [facility] [id number] WBC 6.10 4.0-11.0 RBC 5.14 4.6-6.2 HGB 16.2 13.5-17.9 HCT 46.5 41-54 MCV 90.5 80-100 MCH 31.5 27-33 MCHC 34.8 32.0-37.5 PLT 221 150-400 MPV 11.2 H 7.4-10.4 RDW 12.0 11.5-14.5 Mar 12, 2023 09:20 AM [facility] COMPREHENSIVE METABOLIC PANEL+MG Specimen Type: PLASMA No comment entered. Ordering Provider: FIONA FERREIRA Report Released Date/Time: Mar 12, 2023 09:07 AM Reporting Lab: [facility] [id number] Performing Lab: [facility] [id number] CREATININE 1.0 0.7-1.2 UREA NITROGEN 22 8-26 [...] 23, 2021 08:44 AM VA-TOBACCO NEVER USED [facility] Tobacco Use History This section includes a history of the smoking, or tobacco-related health factors, that were collected on or before the date of the Encounter. The data comes from the [place] facility where the Encounter took place. Date/Time Smoking Status/Tobacco Use Comment F [email or web address] Feb 24, 2019 12:45 PM VA-TOBACCO NEVER USED [facility] Jul 16, 2018 09:59 AM VA-TOBACCO NEVER USED [facility] Jul 09, 2017 07:52 AM FORMER TOBACCO USER 7Y OR GREATE R [facility] Jul 03, 2016 08:23 AM FORMER TOBACCO USER 7Y OR GREATE R [facility] May 27, 2015 08:15 AM LIFETIME NON-TOBACCO USER [facility] Mar 12, 2014 08:16 AM LIFETIME NON-TOBACCO USER [facility] Feb 12, 2007 07:57 AM LIFETIME NON-TOBACCO USER [facility] Encounter Notes: All associated encounter notes This section contains the clinical notes associated to the Encounter. Date/Time Encounter Note(s) Provider Source Apr 08, 2023 07:33 AM PRIMARY CARE NONVA NOTE: LOCAL TITLE: CO-MANAGED CARE NOTE STANDARD TITLE: PRIMARY CARE NONVA NOTE DATE OF NOTE: APR 08, 2023@07:33 ENTRY DATE: APR 08, 2023@07:33:33 AUTHOR: ORTIZ ALFORD EXP COSIGNER: URGENCY: STATUS: COMPLETED Received request for: 1. sildenafil 50 mg tablet take 1 tablet (50 mg) 1 times daily if needed for erectile dysfunction. Take 30 minutes to 4 hours before sexual activity. Max 100mg/24 hours QTY: 12 Refills: 5 2. tamsulosin 0.4 mg capsule take 1 capsule (0.4 mg) daily after a meal. QTY: 90 Refills: 3 Rx written by: Leigha Galarza PA-C Facility: [facility] Local provider phone # [phone] Local provider fax # [phone] Records scanned and available for review in [employer] or [employer]. Please view alert signwriter if: [facility] PCP needs further information to make decision (specify) -or- VA PCP recommends alternative (specify) -or- Request is denied (pt. will need to continue to fill outside of [facility]). Sales Promotion Coordinator will then relay the above to local prescriber's office. /melissa/ ORTIZ ALFORD LPN Co-Dinkey Engineer Signed: 04/08/2023 07:37 Receipt Acknowledged By: 04/08/2023 15:57 /melissa/ FIONA FERREIRA DNP,WAITER/WAITRESS FORMAL,ARTHIAGOS ORTIZ ALFORD [facility]
--- OUTSIDE RECORDS SUMMARY | 2023-07-08 13:15 | XMS_ITS | Data Portability ---
Author Name Unknown Address [address] [place] [address] Phone [phone] Organization [facility], [facility] Address [address] [place] [address] Care Team Providers Care Mask Former Name Role Amrit KNOX JOSE Referring Provider Assessment Encounter Date Assessment Date Assessment LastModified by Organization Details LastModified Time 06/18/2023 06/18/2023 72-year-old male with history of hypertension, sleep apnea here for the evaluation and treatment of increased urinary urgency and frequency [email or web address] Not available 06/18/2023 12:17:10 Plan of Treatment Reminders Order Date Submit Date Provider Last Modified By Organization Details Last Modified Time Details Appointments ESTABLISH ED 20 2023 11:00A Susie Frye PA-C Not available Not available Not available Lab None recorded. Referral pelvic floor therapy referral - Please call patient to schedule Pelvic Floor Physical Therapy. Thank you 2023 024 [email or web address] [facility], [address], Mario [place] [facility] [place], [address], 06/19/2023 15:10:51 Procedures None recorded. Surgeries None recorded. Imaging None recorded. Medication Orders None recorded. Patient TargetsNo targets recorded. Patient Instructions Encounter Date Encounter Id Patient Instructions Last Modified By Organization Details Last Modified Time 06/18/2023 [id number] BPH/OAB Long discussion with patient regarding the pathophysiology of benign prostatic hyperplasia with lower urinary tract symptoms. I discussed the treatment options including continued conservative management versus medical therapy versus surgical therapy. Conservative management options discussed included avoiding bladder irritants (handout provided), timed voiding, double voiding, and eliminating fluid intake 2 hours before bed. Also considering his faecal incontinence, I think he would benefit from PFPT. Medical management options discussed included alpha blockers and 5 alpha reductase inhibitors. The mechanism of action as well as side effects of each of these medications were discussed in detail. Pt reports that he may have a bottle of tamsulosin at home. He will restart meds. He will let me know if he needs meds The surgical options discussed included transurethral resection of the prostate, UroLift, steam ablation of the prostate, holmium laser enucleation of the prostate, and robotic and open simple prostatectomy. Om exam prostate is enlarged, no nodules. recommenced lifestyle modification, PFPT and restart Tamsulosin and follow up in 3 months [email or web address] Not available 06/18/2023 12:38:15 Reason for Referral Pelvic Floor Therapy Referra l for Increased frequency of urination Please call patient to schedule Pelvic Floor Physical Therapy. Thank you Referring Physician: Kellie Frye, Urology, Encounter Date: 06/18/2023 Results Created Date Observation Date Name Description Value Unit Range Abnormal Flag LastModifiedBy Organization Detail LastModifiedTime 05/28/2010/09/2021 CT, abdom en + pelvi s, w/ contr ast No observ ation record ed. Not Available 05/28/2023 15:49:55 Result Notes None recorded. Procedures Surgical History Date Name Laterality Status Provider Name and Address Organization Details Recorded Time Bladder Scan completed Lien Braun [facility] 06/18/2023 12:24:40 Excise epiphyseal bar completed Not Available Health Note 06/18/2023 11:25:57 Imaging Results Imaging Date Name Status LastModified by Organiz ation Details LastModified Time 10/09/2021 CT, abdomen + pelvis, w/ contrast completed Information not available 05/28/2023 15:49:55 Procedure Notes None recorded. Medical Equipment None Reported. Allergies No known drug allergies Medications Name Sig Start Date Stop Date Status Note LastModified by Organization Details LastModified Time loperamide 2 mg capsule TAKE 2 CAPSULES BY MOUTH WITH 1ST LOOSE STOOL, THEN ONE CAPSULE WITH EACH SUBSEQUENT LOOSE STOOL. MAX 8 CAPSULES (16MG) IN 24 HOURS active Not Available Not Available No t Available metronidazol e 500 mg tablet TAKE ONE TABLET BY MOUTH TWICE A DAY FOR 7 DAYS active Not Available Not Available No t Available amlodipine 5 mg tablet TAKE 2 TABLETS BY MOUTH ONCE DAILY. DOSE INCREASE 06/19/2022 active Not Available Not Available N ot Available tamsulosin 0.4 mg capsule TAKE 1 CAPSULE BY MOUTH ONCE DAILY AFTER A MEAL. active Not Available Not Available No t Available omeprazole 20 mg capsule,will yed release TAKE ONE CAPSULE BY MOUTH TWICE A DAY BEFORE MEALS active Not Available Not Available No t Available cefuroxime axetil 500 mg tablet TAKE ONE TABLET BY MOUTH TWICE A DAY FOR 7 DAYS active Not Available Not Available No t Available omeprazole 20 mg-sodium bicarbonate 1.1 gram capsule 20mg/1100mg 1/day active Not Available Not Available No t Available apixaban APIXABAN 2/day active Not Available Not Available No t Available Vitals Date Recorded Body weight Body mass index (BMI) Body height Provider Name and Address Organization Details Last Updated DateTime 06/18/2023 [id number] 15088 g 35 kg/m2 172.72 cm Not Available Health Note 06/18/2023 11:36:21 Social History Question Answer Notes LastModified by Organizat ion Details LastModified Time Tobacco Smoking Status Never Smoker Not Available Health Note 06/18/2023 11:25:58 What Is Your Level Of Alcohol Consumption? Occasional Information not available 06/18/2023 What Is Your Level Of Caffeine Consumption? Moderate [email or web address] Information not available 06/18/2023 How Much Tobacco Do You Chew? None [email or web address] Information not available 06/18/2023 Do You Or Have You Ever Used E-cigarettes Or Vape? Never Used Electronic Cigarettes [email or web address] Information not available 06/18/2023 What Was The Date Of Your Most Recent Tobacco Screening? 06/18/2023 [email or web address] Information not available 06/18/2023 Have You Ever Been Counseled For Unhealthy Alcohol Use? No Information not available 06/18/2023 What Is Your Relationship Status? [email or web address] Information not available 06/18/2023 Are You Sexually Active? Yes [email or web address] Information not available 06/18/2023 Do You Or Have You Ever Used Smokeless Tobacco? Never Used Smokeless Tobacco [email or web address] Information not available 06/18/2023 Do You Use Any Illicit Or Recreational Drugs? No [email or web address] Information not available 06/18/2023 Has Tobacco Cessation Counseling Been Provided? No Information not available 06/18/2023 Do You Or Have You Ever Used Any Other Forms Of Tobacco Or Nicotine? No Information not available 06/18/2023 How Many Days In The Past Year Have You Consumed 5 Or More Drinks? 3 [email or web address] Information no t available 06/18/2023 Sex: Male Functional Status None recorded. Mental Status None recorded. Family History Relationship Description Onset Age of this Age Resolved Age Notes Father Family history of pr ostate cancer 45 Medical History Condition Response Diabetes N Sexually Transmitted Infection N Bleeding Disorder N High Blood Pressure Y Kidney Stones N Cancer N Depression N Lung Disease N High Cholesterol N GERD/Acid Reflux Y Heart Disease N Immunizations Vaccine Type Date Status Provider Name and Address Organization Details Recorded Time SARS-COV-2 (COVID-19) vaccine, UNSPECIFIED 2019 completed Lien macedo [facility] 06/18/2023 11:48:06 influenza, unspecified formulation 06/25/2019 completed Lien macedo [facility] 06/18/2023 11:48:06 pneumococcal, unspecified formulation 2019 completed Lien macedo [facility] 06/18/2023 11:48:06 [facility] live [facility] 11:48:06 COVID-19, mRNA, LNP-S, PF, 30 mcg/0.3 mL dose 06/29/2021 completed Lien macedo [facility] 06/18/2023 11:48:06 COVID-19 vaccine, vector-nr, [id number], PF, 0.5 mL 10/28/2020 completed Lien macedo [facility] 06/18/2023 11:48:06 Tdap 08/30/2008 [facility] 11:48:06 Past Encounters Encounter ID Performer Location Encounter Start Date Encounter Closed Date Diagnosis/Indication [id number] Kellie Frye PA-C [address] [place] [address] 06/18/2023 11:32:03 06/18/2023 12:54:33 Increased frequency of urination Lower urinary tract symptoms due to benign prostatic hypertrophy Screening for malignant neoplasm of prostate Health Concerns Section Related Observation LastModified by Organization Detai ls LastModified Time None Recorded Concern Status LastModified by Organization Details LastModified Time None Recorded Advance Directives Directive None Recorded Payers Encounter Date Sequence Insurance Name Policy Number Policy Mejias Covered Member ID Mejias Member ID Guarantor Name 06/18/2023 1 [place] [employer] Elie Bonifacio William [id number] Elie William 06/18/2023 2 [place] [id number] Elie William [id number] Elie William Notes Date Note Type Note Provider Name and Address Organization Details Recorded Time 06/18/2023 text/html HPI Notes: 72-year-old male with history of hypertension, sleep apnea here for the evaluation and treatment of increased urinary urgency and frequency -Pt was previously on tamsulosin. Pt does not recall taking medication NF: 3-4 DF: every hour pads per day: no. leakage with urgency. Associated fecal incontinence No history of recurrent urinary tract infections, kidney stones, gross hematuria Abdominal surgeries: cholecytosomy No constipation No neurologic history caffeine use: 4 cups in the morning No smoking history FOS: moderate/weak, continous with post void dribbling and occasional straining No sensation incomplete emptying IPSS: 22 PVR: PSA 04/04/23: 2.77 Family h/o prostrate cancer- father Kellie Frye PA-C [address], [place], [address], [facility] 06/18/2023 12:39:48
--- OUTSIDE RECORDS SUMMARY | 2023-07-08 13:15 | XMS_ITS | Encounter Summary ---
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 [facility] of [facility] Address [address] [place] [id number] Support Name Relationship Address Phone REJI WATTS Next of Kin RT 4 JANA SALINAS REJI WATTS Emergency Contact RT 4 JANA SALINAS [phone] Insurance Providers: All historical and current Section [...] MEDIC ARE SUPPL EMENT Jun 10, 2016 [id number] [phone] DELMA ZARATE PATIENT [place] SUPPLEMEN [place] MEDIC ARE SUPPL EMENT Jun 10, 2016 [id number] DELMA ZARATE PATIENT MEDICARE (WNR) MEDICARE (M) PART A Jul 11, 2013 PART A [id number] [phone] DELMA ZARATE PATIENT MEDICARE (WNR) MEDICARE (M) PART B Jul 11, 2013 PART B [id number] [phone] CRISTY ZARATEE PATIENT Selected Encounter This section includes the information on record at [place] for the Encounter. Date/Time Encounter Type Encounter Description Reason Provider Source Jul 03, 2023 12:03 PM EMERGENCY DEPT VISIT [facility] EMERGENCY DEPT ICD-10-CM R20.2 Paresthesia of skin LADY SELBY EA Encounter Template Text not used by [place] Assessments - Encounter Diagnoses This section includes the primary and secondary diagnoses documented for the Encounter. Date/Time Primary/Secondary Diagnosis Diagnosis Name Provider Source Jul 03, 2023 01:49 PM PRIMARY Paresthesia of skin LADY SELBY EA [facility] Jul 03, 2023 01:49 PM SECONDARY Pain in left forearm LADY SELBY EA [facility] Plan of Treatment: Future Appointments (+ 6 months) and Future Tests (+/- 45 days) The Plan of Treatment section includes future care activities for the patient from all [place] [facility]. This section includes future appointments and future orders which are active, pending or scheduled. Future Appointments This section includes appointments that were scheduled to occur 6 months from the date of the Encounter, up to a maximum of 20 appointments. The data comes from all [facility]. Appointment Date/Time Appointment Type Appointme nt Facility Name Jul 19, 2023 06:00 PM [facility] Aug 01, 2023 01:00 PM AMBULATORY - REHAB MEDICIN E [facility] Active, Pending, and Scheduled Orders This section includes a listing of several types of active, pending, and scheduled orders, including clinic medications orders, diagnostic test orders, procedure orders and consult orders; where the start date of the order is 45 days before the date of the Encounter or 45 days after the date of theEncounter. The data comes from all [facility]. Test Date/Time Test Type Test Details Facility Name Jul 03, 2023 01:37 PM Consult Order EMG OUTPT Cons Review Manager's Choice [facility] Lab Results: +/- 30 days of the encounter This section includes the Chemistry and Hematology Lab Results on record with [place] for the patient. Radiology Reports and Pathology Reports are provided separately, in subsequent sections. Lab Results This section contains the Chemistry/Hematology Results that were resulted 30 days before or 30 daysafter the date of the Encounter. Date/Time Source Result Type Result - Unit Interpretation Reference Range Comment Jul 03, 2023 11:18 AM [facility] COVID-19 AND FLU/RSV DIAG PANEL([facility]) Specimen Type: NASOPHARYNGEAL No comment entered. Ordering Provider: FIONA FERREIRA Report Released Date/Time: Jul 03, 2023 11:57 AM Reporting Lab: [facility] [address] [place] [address] Performing Lab: [facility] [address] [facility] [id number] COVID-19 (CEPHEID) Not Detected Not Detected INFLUENZA A (PCR) Not Detected Not Detected INFLUENZA B (PCR) Not Detected Not Detected RSV (PCR) Not Detected Not Detected Jul 03, 2023 11:10 AM [facility] BASIC METABOLIC PANEL+MG Specimen Type: PLASMA No comment entered. Ordering Provider: FIONA FERREIRA Report Released Date/Time: Jul 03, 2023 10:44 AM Reporting Lab: [facility] [id number] Performing Lab: [facility] [address] CREATININE 1.0 0.7-1.2 UREA NITROGEN 25 8-26 GLUCOSE 137 H 70-100 SODIUM 142 136-145 POTASSIUM 4.1 3.5-5.1 CHLORIDE 110 H 98-107 CO2 22 22-29 CALCIUM 9.2 8.4-10.2 MAGNESIUM 2.0 1.6-2.6 ANION GAP 10 5-15 .CREAT EGFR(CKD-EPI ) 79 >60 Jul 03, 2023 11:10 AM [facility] CBC & DIFF Specimen Type: BLOOD Comment: Automated Differential Performed Ordering Provider: FIONA FERREIRA Report Released Date/Time: Jul 03, 2023 10:44 AM Reporting Lab: [facility] [id number] Performing Lab: [facility] [id number] WBC 6.54 4.0-11.0 RBC 4.66 4.6-6.2 HGB [...] Body Mass Index Source Jul 03, 2023 12:22 PM 98.3 F 91 /min 126/83 mm[Hg] 16 /min 96 % 6 [facility] Social History: Smoking Status (Most current) and Tobacco Use (All prior to encounter date) This section includes the most current, and the historical, smoking and tobacco- related health factors from the [place] facility where the Encounter took place. Current Smoking Status This section includes the most current smoking, or tobacco-related health factor, from the [place] facility where the Encounter took place. Date/Time Current Smoking Status Comment Facil ity Feb 23, 2021 08:44 AM MI-TOBACCO NEVER USED [facility] Tobacco Use History This section includes a history of the smoking, or tobacco-related health factors, that were collected on or before the date of the Encounter. The data comes from the [place] facility where the Encounter took place. Date/Time Smoking Status/Tobacco Use Comment F acility Feb 24, 2019 12:45 PM MI-TOBACCO NEVER USED [facility] Jul 16, 2018 09:59 AM MI-TOBACCO NEVER USED [facility] Jul 09, 2017 07:52 AM FORMER TOBACCO USER 7Y OR GREATE R [facility] Jul 03, 2016 08:23 AM FORMER TOBACCO USER 7Y OR GREATE R [facility] May 27, 2015 08:15 AM LIFETIME NON-TOBACCO USER [facility] Mar 12, 2014 08:16 AM LIFETIME NON-TOBACCO USER [facility] Feb 12, 2007 07:57 AM LIFETIME NON-TOBACCO USER [facility] Radiology Reports: +/- 30 days of [...] the Encounter. The data comes from all [place] treatment facilities. Date/Time Radiology Report Provider Source Jul 03, 2023 10:48 AM ELBOW LEFT 2 VIEWS : DELMA ZARATE [id number] -[id number] M Exm Date: JUL 03, 2023@10:48 Req Phys: FIONA FERREIRA Pat Loc: [facility] PACT DIAMONDS (Req'g Loc) Img Loc: [facility] RADIOLOGY Service: Unknown (Case [id number] COMPLETE) ELBOW LEFT 2 VIEWS (RAD Detailed) CPT:47219 Proc Modifiers : LEFT Reason for Study: [...] 03, 2023 Date Verified: JUL 03, 2023 Welder Setter Electron Beam Machine E-Sig:/ES/RAÚL QUILES MD Report: Exam: Two views left elbow. History: Left elbow pain from past one week with numbness and tingling. Comparison: None Impression: There is no displacement of the normal elbow fat pads. No displaced fracture. Normal mineralization. Normal joint alignment. Primary Interpreting Staff: RAÚL QUILES MD, STAFF NUCLEAR RADIOLOGIST (Welder Setter Electron Beam Machine) /RAÚL VELIZ [facility] Jul 03, 2023 10:48 AM SHOULDER LEFT 2-3 VIEWS: DELMA ZARATE [id number] -[id number] M Exm Date: JUL 03, 2023@10:48 Req Phys: FIONA FERREIRA Loc: [facility] PACT DIAMONDS (Req'g Loc) Img Loc: [facility] RADIOLOGY Service: Unknown (Case [id number] COMPLETE) SHOULDER LEFT 2-3 VIEWS (RAD Detailed) CPT:67285 Proc Modifiers : LEFT Reason for Study: pain from past one week Clinical History: [facility] IS NOT under investigation for COVID-19 or is COVID-19 negative left arm pain Responsible provider name and phone number to notify for critical findings if other than user placing the order and pager listed below: User placing orders pager: LAST CREATININE 1.0 (03/12/23) Report Status: Verified Date Reported: JUL 03, 2023 Date Verified: JUL 03, 2023 Welder Setter Electron Beam Machine E-Sig:/MELISSA/RAÚL QUILES MD Report: Exam: Three views left [...] Staff: RAÚL QUILES MD, STAFF NUCLEAR RADIOLOGIST (Francis) /RAÚL VELIZ [facility] Encounter Notes: All associated encounter notes This section contains the clinical notes associated to the Encounter. Date/Time Encounter Note(s) Provider Source Jul 03, 2023 01:56 PM NURSING EMERGENCY DEPT NOTE: LOCAL TITLE: EMERGENCY DEPT NURSING NOTE STANDARD TITLE: NURSING EMERGENCY DEPT NOTE DATE OF NOTE: JUL 03, 2023@13:56 ENTRY DATE: JUL 03, 2023@13:56:47 AUTHOR: JEANETH LAGUNAS EXP COSIGNER: URGENCY: STATUS: COMPLETED Emergency Department Discharge Education Personal Protective Equipment (PPE): Patient was in mask on arrival, patient remained masked for entire visit, RN used PPE during every encounter with the patient, MD/PA/FLOATMAN used PPE during every encounter with the patient The patient was given education on the following: EDUCATION/TEACH BACK: [facility] discharge instructions have been reviewed with Patient AND had an opportunity to ask questions, has verbalized understanding, have received a copy of the [facility] instructions EDUCATIONAL LEVEL OF UNDERSTANDING: Patient was ready and receptive to education. BARRIERS TO LEARNING: No barriers identified Accompanied by: Family Mode of Transportation: Relative/friend EXIT ADDITIONAL EDUCATION GIVE: Discharged to: Home /melissa/ JEANETH LAGUNAS RN REGISTERED NURSE Signed: 07/03/2023 13:57 JEANETH LAGUNAS [facility] Jul 03, 2023 01:51 PM NURSING EMERGENCY DEPT NOTE: LOCAL TITLE: EMERGENCY DEPT NURSING NOTE STANDARD TITLE: NURSING EMERGENCY DEPT NOTE DATE OF NOTE: JUL 03, 2023@13:51 ENTRY DATE: JUL 03, 2023@13:51:12 AUTHOR: JEANETH LAGUNASIGNER: URGENCY: STATUS: COMPLETED Nursing Focused Assessment: CHIEF COMPLAINT: Allergies/ADR:Patient has answered NKA Additional allergies not listed: Vital Signs * Blood Pressure: 126/83 (07/03/2023 12:22) Heart Rate: 91 (07/03/2023 12:22) Respirations: 16 (07/03/2023 12:22) Temperature: 98.3 F [36.8 C] (07/03/2023 12:22) Pain: 6 (07/03/2023 12:22) Weight: 230.9 lb [104.73 kg] (07/03/2023 10:12) O2 Sats: 96% (07/03/2023 12:22) Tobacco use: No Alcohol use: No Any drugs besides what is prescribed or over the counter: No ABUSE/NEGLECT: No evidence of abuse/neglect REVIEW OF SYSTEM-FOCUSED ASSESSMENT Neurological: Alert Respiratory: Quality of breath: Equal and unlabored chest rise and fall Musculoskeletal: Left Upper Extremity: Specific location of complaint: ARM Range of motion: full, active Sensation: Able to differentiate between dull and sharp sensations Color: Normal for ethnicity Temperature: Within Normal Limits /melissa/ JEANETH LAGUNAS RN REGISTERED NURSE Signed: 07/03/2023 13:56 JEANETH LAGUNAS [facility] Jul 03, 2023 01:36 PM EMERGENCY DEPT EDUCATION NOTE: LOCAL TITLE: EMERGENCY DEPT DISCHARGE INSTRUCTIONS STANDARD TITLE: EMERGENCY DEPT EDUCATION NOTE DATE OF NOTE: JUL 03, 2023@13:36:43 ENTRY DATE: JUL 03, 2023@13:36:43 AUTHOR: MISHA SELBYIGNER: URGENCY: STATUS: COMPLETED DISCHARGE INSTRUCTIONS IMPORTANT: We examined and treated you today on an emergency basis only. This was not a substitute for, or an effort to provide, comprehensive medical care. In most cases, you must let your healthcare provider check you again. Tell your healthcare provider about any new or lasting problems. We cannot recognize and treat all injuries or illnesses in one Emergency Department visit. After you leave, you should follow the instructions below. You were treated today by Misha Selby PA-C. Special Information I am referring you to the neurologist for nerve testing for your left finger numbess. You can use diclofenac gel to help with pain until you see them. Return to be seen if you have new numbness or weakness in a different location. Return if you have new swelling or skin changes. This Information Is About Your Follow Up Care We have sent a consultation request to the Neurology Clinic on your behalf. The Neurology Clinic will call you to schedule this appointment. If you have not received a call in 2 business days please call , ask for the clinic to which you have been referred, request to schedule the appointment. Future Appointments Future Appointments List not available This Information Is About Your Illness and Diagnosis PARESTHESIA AND NUMBNESS Paresthesia is numbness, itching, tingling, or a burning sensation. Most people have had a temporary feeling of this kind when sitting in a certain position for too long: a body part, such as the foot, falls asleep. The nerve that supplies the foot, in this case, is being compressed. This interferes with the blood supply to the nerve and causes the nerve to give off irregular signals (tingling feeling). Numbness is caused by compression or damage to a nerve or nerves. Chronic paresthesia or paresthesia that comes and goes over a long period of time is usually a nerve disease or traumatic nerve damage. This may be related to an infection, inflammation, or trauma to the affected nerve. Please follow these instructions: -Keep all follow-up appointments with your health care provider. -Avoid activities or positions that cause the numbness and tingling. -Keep a diary that describes your paresthesia or numbness by: -location -length of time the numbness or tingling is present -activity when the numbness or tingling started -description (stinging, burning, achy, stabbing, etc.) -time of day the numbness or tingling occurs -Show your diary to your health care provider during your follow-up visit. Contact your health care provider immediately if: -you are unable to move one side of your body. -your speech becomes slurred. -you have sudden changes in your vision. Contact your health care provider as soon as possible if: -your symptoms change or are getting worse. -you have any new or unusual symptoms. This Information Is About Procedures CUBITAL TUNNEL RELEASE WITH OR WITHOUT TRANSPOSITION OF THE ULNAR NERVE What is ulnar nerve entrapment? The ulnar nerve is one of the three main nerves in the arm. It travels from the neck area down to the hand. Ulnar nerve entrapment occurs when this nerve becomes compressed or irritated. The ulnar nerve can get constricted in several areas along the length of the arm: under the collar bone, in the wrist area, and behind the inside part of the elbow. The tight space in the elbow area through which the nerve travels is called the cubital tunnel. When the ulnar nerve is compressed at the elbow, the condition is called cubital tunnel syndrome. This area is prone to injury because the nerve isn't surrounded by protective soft tissue. The nerve travels on the outer surface of the elbow's sixto bump, called the medial epicondyle. When you bend your elbow, the ulnar nerve has to stretch around the medial epicondyle. Keeping the elbow bent (such as when sleeping) or repeated bending (such as with certain sports or work) can cause the nerve to become irritated. In some people, bending the elbow causes the ulnar nerve to slide out from behind the medial epicondyle, then slide back when the elbow is straightened. This also irritates the nerve. An irritated nerve causes pain and swelling. What is cubital tunnel release surgery with or without nerve transposition? During a cubital tunnel release surgery, the surgeon made an incision in the elbow area, then located and cut the top portion of the cubital tunnel. The top of the cubital tunnel is made of a ligament. Cutting or dividing this ligament allows more space in the cubital tunnel. This decreases pressure on the ulnar nerve. As the wound and ligament begin to heal, new tissue will grow above the cubital tunnel. The new, healthy tissue will allow more space through which the ulnar nerve can slide. You may have also had a nerve transposition. If so, the surgeon moved the ulnar nerve from behind the medial epicondyle to a new location in front of the medial epicondyle. This prevents the nerve from sliding back and forth or getting caught on the medial epicondyle. Research has shown that smoking slows the healing process. It is important to follow your treatment and therapy instructions in order to fully recover. Please follow these instructions: -Keep your arm elevated above the level of your heart. This prevents pain and swelling. -Apply ice packs or the cooling unit exactly as directed. Place a cloth between your arm and the ice pack to prevent damage to the skin. -Take your pain medicines exactly as prescribed. The pain is often worse at night or after physical therapy. -Do not drink alcohol, drive a car, make legal decisions, cook or operate heavy machinery for twenty-four (24) hours after receiving anesthesia, or while taking pain medication. -Observe your wound for signs of infection: redness, swelling, foul odor, drainage or fever over 100 degrees F. These signs may appear after 36 to 48 hours. -Keep the dressing clean and dry. -Do not wear rings on your fingers of the affected side. -When you are able to eat regularly, eat a healthy diet with plenty protein, calcium and fiber. Foods high in protein include meat, fish, poultry, beans, cheese, milk, eggs, and tofu. -Keep all follow-up appointments with your health care provider and physical therapist. Contact your health care provider as soon as possible if you have any of the following: -increased swelling in your hand or fingers. -numbness, tingling or loss of feeling in hand or fingers. -a change in the color (dark or pale) or temperature of your hand or fingers. -increased bleeding or drainage from your incision. -swelling, redness or opening of your incision. -foul smell from your incision or dressing. -chills or fever over 101 degrees (by mouth). -pain not helped by your pain medicine. -any new or bothersome symptoms. IMPORTANT MEDICATION INFORMATION -Your medication list includes any medications that were recently prescribed but not filled by the Pharmacy (PENDING Medicines). -Included are any known ACTIVE Medicines. Please review this list to make sure it is accurate, if this list does not match the current medications you are taking please follow-up with your Primary Care Team to have your Medication List reviewed. Medicines Medication List not available YOU ARE THE MOST IMPORTANT FACTOR IN YOUR RECOVERY. Follow the above instructions carefully. Take your medicines as prescribed. If you do not understand any of your medicines, please ask questions. If you have any outstanding tests from the emergency department, please contact your provider to review them in the next 3-5 days. If you have new symptoms, feel worse, or are not getting better as discussed, call to discuss your health questions and arrange for follow-up care, or return to the Emergency Room IF YOU ARE EXPERIENCING A MEDICAL EMERGENCY CALL 911 OR GO TO THE NEAREST EMERGENCY ROOM /melissa/ SHEREEN BAXTER PHYSICIAN VACUUM DRUM DRIER OPERATOR Signed: 07/03/2023 13:36 MISHA SELBY [facility] Jul 03, 2023 12:28 PM PHYSICIAN EMERGENCY DEPT NOTE: LOCAL TITLE: EMERGENCY DEPT NOTE STANDARD TITLE: PHYSICIAN EMERGENCY DEPT NOTE DATE OF NOTE: JUL 03, 2023@12:28 ENTRY DATE: JUL 03, 2023@12:29:06 AUTHOR: MISHA SELBY EXP COSIGNER: URGENCY: STATUS: COMPLETED Personal Protective Equipment (PPE): Patient was in mask on arrival, Patient was in mask on arrival, patient remained masked for entire visit, RN used PPE during every encounter with the patient, /SHEREEN/FLOATMAN used PPE during every encounter with the patient Chief Complaint: The patient is a 72 y/o MALE complaining of: left forearm tingling for months TDAP/TD Immunizations No data available for: TETANUS TOXOID, ADSORBED TETANUS TOXOID, NOT ADSORBED TETANUS TOXOID, UNSPECIFIED FORMULATION TDAP Covid-19 Immunizations ADMINISTERED Immunization Series Date Facility Reaction Info COVID-19 ([employer]), VECTOR-NR, R* 1 10/28/2020 [facility]* COVID-19 ([employer]), MRNA, LNP-S, * 06/29/2021 [facility]:[place] [facility] CONTRAINDICATED No data available REFUSED ======= No data available * Value is truncated; see the Detailed Immunizations Health Summary Component[DIM] for complete text History of present illness: 72 YO M with HTN, MDD, ISIDRO, DVT and PE on eliquis, OA, ISIDRO who presents for left arm numbness. He was seen in clinic today and was sent down for evaluation for a blood clot? Unclear why he was sent here from clinic. He tells me he has has months of progressive numbness, tingling into his left hand 4th and 5th digits. This happened to his right hand previously. 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 Reports pain that is burning/tingling into those fingers, never above his elbow. Denies any arm swelling. He takes eliquis for blood clots and has not missed any doses. He denies any SOB, CP, weakness, slurred speech. Allergies: Patient has answered NKA Past Medical History: Active problems - Computerized Problem List is the source for the followin. 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 Depressed mood (SNOMED CT [id number]) 4. History of surgery - Jun 06, 2004 Laparoscopy, Surgical, Esophagogastric Fundoplasty in [place] - s/p RIGHT KNEE REPLACEMENT - S/P Cholecystectomy 5. Gynecomastia * 6. Benign neoplasm of adrenal gland 7. Overactive Bladder 8. Erectile dysfunction (SNOMED CT [id number]) 9. HYPERTENSION 10. Chest Wall Pain 11. Hyperlipidemia (SNOMED CT [id number]) 12. Family social history - Lives alone, [...] [facility] - OK to leave phone message 13. [...] 30+ - obesity 23. Allergic Rhinitis (SCT [id number]) 24. Umbilical hernia - without obstruction and without gangrene 25. Hiatal hernia - [facility]. Christian Noland, stae C5-M5 5 cm in size - last visit- 08/2022 26. Pain in left arm Medications: Active Outpatient Medications (excluding Supplies): Outpatient Medications Status ===== 1) AMLODIPINE BESYLATE 10MG TAB TAKE ONE TABLET BY MOUTH ACTIVE EVERY DAY FOR BLOOD PRESSURE 2) AMLODIPINE BESYLATE 10MG TAB TAKE ONE TABLET BY MOUTH PENDING EVERY DAY 3) APIXABAN 5MG TAB TAKE ONE TABLET BY MOUTH EVERY 12 ACTIVE HOURS TO TREAT AND/OR PREVENT BLOOD CLOTS 4) ARTIFICIAL TEARS PVA 1.4%/POVIDONE (PF) INSTILL PENDING DROP(S) IN BOTH EYES TWICE A DAY NEEDED 5) FLUTICASONE PROP 50MCG 120D NASAL INHL SPRAY 1 SPRAY ACTIVE IN EACH NOSTRIL TWICE A DAY USE REGULARLY FOR RELIEF OF ALLERGIES/CONGESTION 6) LOPERAMIDE HCL 2MG CAP TAKE ONE CAPSULE BY FEEDING ACTIVE TUBE EVERY DAY NEEDED FOR DIARRHEA 7) LORATADINE 10MG TAB TAKE ONE TABLET BY MOUTH EVERY ACTIVE DAY FOR ALLERGIES 8) OMEPRAZOLE 20MG EC CAP TAKE ONE CAPSULE BY MOUTH ACTIVE EVERY DAY ON AN EMPTY STOMACH, AT LEAST 30 MINUTES PRIOR TO A MEAL FOR STOMACH ACID 9) SILDENAFIL CITRATE 50MG TAB TAKE ONE TABLET BY MOUTH ACTIVE EVERY DAY NEEDED FOR ERECTILE DYSFUNCTION TAKE 30 MINUTES -4 HOURS BEFORE SEXUAL ACTIVITY, MAX- 100MG PER 24 HOURS 10) TAMSULOSIN HCL 0.4MG CAP TAKE ONE CAPSULE BY MOUTH ACTIVE EVERY MORNING FOR BLADDER SYMPTOMS AFTER MEAL 11) VANICREAM TOP CREAM APPLY THIN LAYER TOPICALLY EVERY ACTIVE MORNING FOR DRY SKIN Physical Exam: BP: 126/83 (07/03/2023 12:22) P: 91 (07/03/2023 12:22) R: 16 (07/03/2023 12:22) T: 98.3 F [36.8 C] (07/03/2023 12:22) O2 Sats: 96% (07/03/2023 12:22) General: well developed, well nourished, NAD Skin: no rash, no lesions HEENT: No facial droop or facial asymmetry, cranial nerves 2-12 grossly intact, no tongue deviation Neck: supple CV: well perfused Pulm: no increased WOB Pulses: radial 2+ bilaterally Neuro: alert and oriented, grossly non-focal. NIHSS 0 Extremities: left hand with hypothenar atrophy. Able to flex/extend at all digits of left hand. Able to reproduce symptoms with palpation over ulnar groove of elbow. Paresthesias reported to 4th and 5th digits, sensation intact to light touch. Able to abduct/adduct all fingers. No pronator drift, no swelling, no erythema. BUE strength 5/5 Psych: calm, cooperative ED Course/Medical Decision Making/Assessment: CPRS Notes/Labs Reviewed for Patient Encounter: Emergency department triage, emergency department nursing note 72 YO M with HTN, MDD, ISIDRO, DVT and PE on eliquis, OA, ISIDRO who presents for left forearm numbness and tingling for weeks. Physical exam as above. Arrives sent from clinic after they reported he needed evaluation for a blood clot? Unclear on my exam why clinic was concerned, as he has no UE swelling or redness and is already anticoagulated. 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 His NIHSS is 0. 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 He is frustrated he was sent here for evaluation, but we discussed he likely needs an EMG for follow up. He will try to use some diclofenac gel, continues his anticoagulation, and follow up for EMG. 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 Objective: Ambulated to desk independently, no distress noted. The patient is not a fall risk. Vital Signs * Blood Pressure: 126/83 (07/03/2023 12:22) Heart Rate: 91 (07/03/2023 12:22) Respirations: 16 (07/03/2023 12:22) Temperature: 98.3 F [36.8 C] (07/03/2023 12:22) Pain: 6 (07/03/2023 12:22) Weight: 230.9 lb [104.73 kg] (07/03/2023 10:12) O2 Sats: 96% (07/03/2023 12:22) Emergency Severity Index (RYAN) level Level 4 Current Medications: Active Outpatient Medications (including Supplies): Active Outpatient Medications Status ===== 1) AMLODIPINE BESYLATE 10MG TAB TAKE ONE [...] STOMACH ACID 7) SILDENAFIL CITRATE 50MG TAB TAKE ONE TABLET BY MOUTH ACTIVE EVERY DAY NEEDED FOR ERECTILE DYSFUNCTION TAKE 30 MINUTES -4 HOURS BEFORE SEXUAL ACTIVITY, MAX- 100MG PER 24 HOURS 8) TAMSULOSIN HCL 0.4MG CAP TAKE ONE CAPSULE BY MOUTH ACTIVE EVERY MORNING FOR BLADDER SYMPTOMS AFTER MEAL 9) VANICREAM TOP CREAM APPLY THIN LAYER TOPICALLY EVERY ACTIVE MORNING FOR DRY SKIN Pending Outpatient Medications Status ===== 1) AMLODIPINE BESYLATE 10MG TAB TAKE ONE TABLET BY MOUTH PENDING EVERY DAY 2) ARTIFICIAL TEARS PVA 1.4%/POVIDONE (PF) INSTILL PENDING DROP(S) IN BOTH EYES TWICE A DAY NEEDED 11 Total Medications Current Problems: MDD, Recurrent, unspec (ICD-9-CM 296.30)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) Depressed mood ([facility] 413236033) History of surgery ([facility] 913261604) Gynecomastia (ICD-9-CM 611.1) Benign neoplasm of adrenal gland (ICD-9-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) Overactive Bladder (ICD-9-CM 596.51) Erectile dysfunction (SCT 234894249) HYPERTENSION (ICD-9-CM 401.9) Chest Wall Pain (ICD-9-CM 786.52) Hyperlipidemia (SCT 18673114) Family social history (SCT 232890449) Obstructive sleep apnea of adult (SCT 11Osteoarthritis (SCT 619067094) Abnormal glucose level (SCT 828065677) Onychomycosis (SCT 194585790) Benign prostatic hyperplasia (SCT 883357Fkdd-agod current use of anticoagulant (SCT 647794525) DVT - Deep vein thrombosis ([facility] 00537378Lbnbfyhsq embolism ([facility] 75490924) Cerebral atherosclerosis ([facility] 96620796) Body mass index 30+ - obesity ([facility] 605017311) Allergic Rhinitis ([facility] 28543001) Umbilical hernia ([facility] 957778945) Hiatal hernia ([facility] 75408435) Pain in left arm ([facility] 792316496) Identification of Seniors at Risk (ISAR):* Defer screen Under age Suicide Screen: [place] Suicide Severity Rating Scale (C-SSRS) screener 1. [...] required due to responses to other questions. /melissa/ SAAD CHASE, MSN, RN REGISTERED NURSE Signed: 07/03/2023 12:25 SAAD CHASE [facility]
--- OUTSIDE RECORDS SUMMARY | 2023-07-08 13:15 | XMS_ITS | Patient Health Record ---
Author Name Unknown Organization [facility], [place] Address [address] [place] [id number] Care Team Providers Care Tensile Tester Name Role Phone NAEEM ARROYO Unavailable [phone] DANA DAISY Unavailable [phone] Allergies No Known Allergies Reason For Referral No Information Medications Medication SIG (Take, Route, Frequency, Duration) Notes Start Date End Date Status Amlodipine 1 tab by mouth daily Active Eliquis Active Social History Tobacco Use: Social History Observation Description Date Details (start date - stop date) Never Smoker NA - NA Tobacco Use/Smoking Question Answer Notes Are you a nonsmoker Alcohol Screen (Audit-C) Question Answer Notes Did you have a drink contain ing alcohol in the past year? Yes How often did you have a dri nk containing alcohol in the past year? 2 to 3 times a week (3 points) How many drinks did you have on a typical day when you were drinking in the past year? 1 or 2 drinks (0 point) How often did you have 6 or more drinks on one occasion in the past year? Less than monthly (1 point) Points 4 Interpretation Positive Problems Problem Type SNOMED Code ICD Code Onset Dates Problem Status W/U Status Risk Notes Problem 124456212391534 Primary osteoarthritis of left knee (M17.12) Active confirmed Problem 42424536 Essential (primary) hypertension (I10) Active confirmed Problem 548048514 Femoral neuritis (G57.20) Active confirmed Problem Elevated blood pressure (20288338) Elevated blood pressure (I10) Active confirmed Problem 3604345927402 Status post righ t knee replacement (Z96.651) Active confirmed Vital Signs Temperature 97.9 degrees Fahrenheit 06/07/2023 Blood pressure diastolic 82 mm Hg 06/07/2023 Height 68 in 06/14/2023 Blood pressure systolic 134 mm Hg 06/07/2023 Weight 230 lbs 07/16/2022 BMI 34.97 kg/m2 07/16/2022 Encounters Encounter Location Date Provider Diagnosis [address] [facility] [address] [place] [address] 07/09/2022 DAISY MERCADO Primary osteoarthrit is of left knee M17.12 [facility] [place] [address] [facility] [address] [place] [address] 07/16/2022 DAISY MERCADO Primary osteoarthrit is of left knee M17.12 and Right knee pain M25.561 [facility] [place] [address] [facility] [address] [place] [address] 04/25/2023 NAEEM RANDZEN Primary osteoarthrit is of left knee M17.12 [facility] [place] [address] [facility] [address] [place] [address] 05/17/2023 NAEEM JACKIE Primary osteoarthrit is of left knee M17.12 [facility] [place] [address] [facility] [address] [place] [address] 05/24/2023 NAEEM JACKIE Primary osteoarthrit is of left knee M17.12 [address] [place] [address] [facility] [address] [place] [address] 06/07/2023 NAEEM RANDZEN Primary osteoarthrit is of left knee M17.12 [facility] [place] [address] [facility] [address] [place] [address] 06/14/2023 NAEEM RANDZEN Primary osteoarthrit is of left knee M17.12 Assessments Encounter Date Diagnosis (ICD Code) Assessment Notes Treatment Notes Treatment Clinical Notes 07/09/2022 Primary osteoarthritis of left knee (ICD-10 - M17.12) Treatment options discussed with the patient and all of their questions were answered at this time. Based on review of their response to previous treatments, exam and discussion with the patient and Left Knee Supartz injection #4 of 5 is recommended 07/16/2022 Right knee pain (ICD-10 - M25.561) Discussed regenerative therapy options. The patient was educated on PRP for the extraarticular structures. I recommend he have this done along with some saphenous nerve injections for his pain. Handout with pricing was given to the patient patient was quoted 30% off if he does the treatments before 07/16/2022 Primary osteoarthritis of left knee (ICD-10 - M17.12) -Treatment options discussed with the patient and all of their questions were answered at this time. Based on review of their response to previous treatments, exam and discussion with the patient and Left Knee Supartz injection #5 of 5 is recommended -Patient has the same pain level 5/10 compared to his last injections a week ago, so we discussed a possible cortisone knee injection if he will not get better in near future -Discussed regenerative therapy options. The patient was educated on PRP, and Stem cell treatments. 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 Based on patient''s candidacy rating and symptoms recommended SC as optimal treatment. Educational handout was given -Continue to wear his brace quoated patient 30% off if he does the treatment before 04/25/2023 Primary osteoarthritis of left knee (ICD-10 - M17.12) Treatment options were discussed with the patient and all their questions were answered at this time. Based on review of their history and discussion with the patient, Supartz knee injection is recommended and performed today 05/17/2023 Primary osteoarthritis of left knee (ICD-10 - M17.12) Treatment options were discussed with the patient and all their questions were answered at this time. Based on review of their history and discussion with the patient, Supartz #2 knee injection is recommended and performed today 05/24/2023 Primary osteoarthritis of left knee (ICD-10 - M17.12) Treatment options discussed with the patient and all of their questions were answered at this time. Based on review of their response to previous treatments, exam and discussion with the patient, Supartz #3 recommended and performed today 06/07/2023 Primary osteoarthritis of left knee (ICD-10 - M17.12) Treatment options discussed with the patient and all of their questions were answered at this time. Based on review of their response to previous treatments, exam and discussion with the patient, a Supartz knee injection is recommended and performed today 06/14/2023 Primary osteoarthritis of left knee (ICD-10 - M17.12) Treatment options discussed with the patient and all of their questions were answered at this time. Based on review of their response to previous treatments, exam and discussion with the patient, Supartz knee injection is recommended and performed today 07/09/2022 Other Documentation was performed by Adelina Stewart LPN under the direction and supervision of Daisy Mercado MD 07/16/2022 Other Documentation was performed by Elva Reddy under the direction and supervision of Daisy Mercado MD 04/25/2023 Other Documentation was performed by JULI Chairez under the direct supervision of Naeem Arroyo MD 05/17/2023 Other Documentation was performed by Joe Marin MA under the direct supervision of Naeem Arroyo MD 05/24/2023 Other Documentation was performed by JULI Chairez under the direct supervision of Naeem Arroyo MD 06/07/2023 Other Documentation was performed by Joe Marin Physician Diamond Cutter under direct supervision Moreno Arroyo MD 06/14/2023 Other Documentation was performed by Joe Marin Physician Diamond Cutter under the direct supervision of Naeem Arroyo MD Plan Of Treatment No Information Insurance Providers Payer Name Payer Address Payer Phone Subscriber Number Group Number Insured Name Patient Relationship to Insured Coverage Start Date Coverage End Date MEDICARE PART B [address] [place], [place] [id number] NataliotkElie driscoll Self - patient is the insured [facility] Medicare Supplement [address] [address] [place], [place] [id number] Tinayamila Elie Self - patient is the insured MEDICARE - [facility] [address] [place] [id number] Nataliotkyamila Elie Self - patient is the insured Medical (General) History Medical History History ICD Code high blood pressure Right knee total replacement GERD Surgical History Surgery Date(Month/Year) right knee total replacement 07/20/2013 gallbladder removal 04/2017 Hospitalization History Reason Date(Month/Year) TKR right knee 07/20/2013
--- OUTSIDE RECORDS SUMMARY | 2023-07-08 13:15 | XMS_ITS | Continuity of Care Document ---
Author Name Unknown Address [address] [place] [address] Phone [phone] Organization [facility] Address [address] [facility] [address] [place] [address] Care Team Providers Care Set Up Worker Name Role JOSE Merchant Referring Provider Assessment Encounter Date Assessment Date [...] Details Appointments ESTABLISH ED 20 2023 11:00A M Kellie Frye PA-C Not available Not available Not available Lab None recorded. Referral pelvic floor therapy referral - Please call patient to schedule Pelvic Floor Physical Therapy. Thank you 2023 024 [email or web address] [facility], [address], [place], [address], 06/19/2023 15:10:51 Procedures None recorded. Surgeries None recorded. Imaging None recorded. Medication Orders None recorded. Patient TargetsNo targets recorded. Patient Instructions Encounter Date Encounter Id Patient Instructions Last Modified By Organization Details Last Modified Time 06/18/2023 [id number] BPH/OAB Long discussion with patient regarding the [...] contr ast No observ ation record ed. [email or web address] Not Available 05/28/2023 15:49:55 Result Notes None recorded. Procedures Surgical History Date Name Laterality Status Provider Name and Address Organization Details Recorded Time Bladder Scan completed Lien Braun [facility] 06/18/2023 12:24:40 Excise epiphyseal bar completed Not Available Health Note 06/18/2023 11:25:57 Imaging Results None recorded. Procedure Notes None recorded. Medical Equipment None [...] Address Organization Details Last Updated DateTime 06/18/2023 [id number] 93872 g 35 kg/m2 172.72 cm Not Available [...] Pressure Y Kidney Stones N Cancer N Lung Disease N Depression N High Cholesterol N GERD/Acid Reflux Y Heart Disease N Immunizations Vaccine Type Date Status Provider Name and Address Organization Details Recorded Time SARS-COV-2 (COVID-19) vaccine, UNSPECIFIED 2019 completed Lien macedo [facility] 06/18/2023 11:48:06 influenza, unspecified formulation 06[facility]25/[facility] 11:48:06 pneumococcal, unspecified formulation 2019 completed Lien macedo [facility] 06/18/2023 11:48:06 zoster live 2019 [facility]2023 11:48:06 COVID-19, mRNA, LNP-S, PF, 30 mcg/0.3 mL dose 06/29/2021 completed Lien macedo [facility] 06/18/2023 11:48:06 COVID-19 vaccine, vector-nr, rS-Ad26, PF, 0.5 mL 10/28/2020 completed Lien macedo [facility] 06/18/2023 11:48:06 Tdap 08/30/2008 [facility]2023 11:48:06 Past Encounters Encounter ID Performer Location Encounter Start Date Encounter Closed Date Diagnosis/Indication [id number] [facility] [address] [place] [address],[address] [address] 06/18/2023 11:32:03 06/18/2023 12:54:33 Increased frequency of urination Lower urinary tract symptoms due to benign prostatic hypertrophy Screening for malignant neoplasm of prostate Health Concerns Section Related Observation LastModified by Organization Detai ls LastModified Time None Recorded Concern Status LastModified by Organization Details LastModified Time None Recorded Payers Encounter Date Sequence Insurance Name Policy Number Policy Mejias Covered Member ID Mejias Member ID Guarantor Name 06/18/2023 1 [place] [employer] Elie William [id number] Elie Lancetkyamila 06/18/2023 2 [place] [id number] Elie William [id number] Elie William Notes Date Note Type Note [...] prostrate cancer- father Kellie Frye PA-C [address] [facility],[address], [place], [address], [facility] 06/18/2023 12:39:48
--- OUTSIDE RECORDS SUMMARY | 2023-07-08 13:15 | XMS_ITS | Clinical Summary ---
Author Name Unknown Organization [facility] Address [place], [place] [address] Care Team Providers Care Dental Technologist Name Role Phone Kristin Bird MD Primary Care Prov ider Allergies No known active allergies Medications Medication Sig Dispensed Refills Start Date End Date Status fluticasone (50 mcg per actuation) nasal solution (FLONASE)Indication s:Chronic non-seasonal allergic rhinitis Inhale 1 Wayne into affected nostril(s) once daily. 33.3 mL 3 06/29/2021 Active triamcinolone 0.5% (ARISTOCORT) 0.5 % creamIndications:Ra sh Apply topically to affected area(s) 2 times daily. HOLD until patient calls 60 g 1 06/29/2021 Active loperamide (IMODIUM) 2 mg tabletIndications:C hronic diarrhea Take 4mg by mouth with 1st loose stool, then 2mg with each subsequent loose stool. Max 16 mg in 24 hrs 90 Tablet 2 06/19/2022 Active amLODIPine (NORVASC) 5 mg tabletIndications:H ypertension, unspecified type Take 2 Tablets (10 mg) by mouth once daily. Dose increase 06/19/2022 180 Tablet 3 06/19/2022 Active Graduated Compression StockingsIndication s:Acute deep vein thrombosis (DVT) of distal vein of right lower extremity (HC) For personal use. Length: calf Strength: 16-20 mmHg Size large regular E 2 pairs 2 Packet 3 09/06/2022 Active omeprazole (PRILOSEC) 20 mg Delayed-Release capsuleIndications: Otto's esophagus determined by endoscopy TAKE ONE CAPSULE BY MOUTH TWICE A DAY BEFORE MEALS 180 Capsule 2 11/25/2022 Active apixaban (ELIQUIS) 5 mg tabletIndications:A cute deep vein thrombosis (DVT) of distal vein of right lower extremity (HC) Take 0.5 Tablets (2.5 mg) by mouth two times daily. 180 Tablet 1 12/25/2022 Active sildenafil citrate (VIAGRA) 50 mg tabletIndications:E rectile dysfunction of organic origin Take 1 Tablet (50 mg) by mouth once daily if needed for Erectile Dysfunction. Take 30min to 4 hours before sexual activity. Max 100mg/24hr 12 Tablet 5 04/04/2023 Active tamsulosin (FLOMAX) 0.4 mg capsuleIndications: BPH without urinary obstruction Take 1 Capsule (0.4 mg) by mouth once daily after a meal. 90 Capsule 3 04/04/2023 Active loratadine (CLARITIN) 10 mg tablet 10 mg. 0 03/12/2023 Active Active Problems Problem Noted Date Diagnosed Date History of DVT (deep vein thrombosis) 12/25/2022 Overview: Recommend reducing apixaban dose to 2.5 mg twice daily long-term. Advised to avoid concurrent antiplatelet therapy. Would benefit from CBC, LFTs and creatinine with primary care physician every 6 months. History of pulmonary embolus (PE) 12/25/2022 Overview: Recommend reducing apixaban dose to 2.5 mg twice daily long-term. Advised to avoid concurrent antiplatelet therapy. Would benefit from CBC, LFTs and creatinine with primary care physician every 6 months. Otto's esophagus determined by endoscopy 12/09 Overview: EGD 03/2019 Otto's, repeat EGD in 3 years Use Prilosec (omeprazole) 20 mg PO daily indefinitely. EGD 08/2021 Otto's, repeat EGD in 3 years, propofol Adenomatous colon polyp 08/26/2017 Overview: Colonoscopy 08/2017 polyps, repeat in 5 years Severe obesity (BMI 35.0-39.9) with comorbidity 02/28/2017 Junctional nevus of back 09/02/2016 Abnormal LFTs 06/18/2016 ACP (advance care planning) 06/18/2016 Overview: Patient has identified Health Care Agent(s): Yes Add Health Care Agents: Yes Health Care Agent(s): Primary Health Care Agent: Melissa Relationship: sister Phone: Secondary Health Care Agent: Relationship: Phone: Conservator: Relationship: Phone: Guardian: Relationship: Phone: Patient has Advance Care Plan Documents (Health Care Directive, POLST): No, Health Care Packet given to patient. Patient has identified Specific Treatment Preferences: Yes Specific Treatment Preferences: a.) Code Status: CPR/Attempt Resuscitation Abdominal pain 06/18/2016 Fatty liver 09/19/2015 Adenoma of right adrenal gland 09/19/2015 Sleep apnea in adult 09/09/2015 Overview: Not using his CPAP. Did not work for him so stopped. Not snoring or apnea that he is aware Umbilical hernia without obstruction and without gangrene 11/29/2014 Overview: Noted on CT 10/07/2014 Diverticulosis of large intestine without hemorr marva 11/29/2014 Overview: Noted on CT 10/07/2014 Gallstone 11/29/2014 Overview: Noted on CT 10/07/2014 (small) S/P knee replacement 07/24/2013 Overview: R, 2-10-14 HTN (hypertension) 07/24/2013 Urinary retention Resolved Problems Problem Noted Date Diagnosed Date Resolved Date Recurrent major depressive d isorder, in full remission 06/29/2021 06/19/2022 Encounters Date Type Department Care Team Description 06/26/2023 Travel 06/18/2023 Telephone [facility] [address] [place] [address] Christian Noland MD Appointment Reminder (Colonoscopy 06/25/2023 arriving at 10:00 am) 06/17/2023 10:15 AM [employer] [employer] Ancillary Procedure [facility] [address] [place] [address] 06/17/2023 Travel 05/21/2023 10:40 AM [employer] Office Visit [facility] [address] [place] [address] Yury Kay MD Consult (ANTONY'S CTA HEAD/NECK-04/16/23 SLEEP CONSULT(DR BEAR)-04/05/23 REF:SHEREEN JASSO ) 05/21/2023 Travel 04/18/2023 Orders Only [facility] [address] [place] [address] Leigha Jasso PA <No scans attached> 04/16/2023 9:40 AM [employer] Orders Only [facility] [address] [place] [address] [facility] [place] [facility] 04/16/2023 8:30 AM [employer] Ancillary Procedure [facility] [address] [place] [address] 04/16/2023 Travel from Last 3 Months Immunizations Name Administration Dates Next Due COVID-19 vaccine (BoombotixJ&J) JERSON JUAREZ COVID-19 vaccine (Dhir Diamonds 30mcg/0.3mL) JERSON Fletcher 06/29/2021 Tdap 08/30/2008 Family History Medical History Relation Name Comments Good Health Daughter breast issue no t sure what Cancer-prostate Father Good Health Mother age 100 Stroke Sister 1 Good Health Sister 2 Relation Name Status Comments Daughter Father Mother Sister 1 Sister 2 Alive Social History Tobacco Use Types Packs/Day Years Used Date Smoking Tobacco: Never Smokeless Tobacco: Never Tobacco Cessation:Counseling Given: Yes Alcohol Use Standard Drinks/Week Comments Yes 0 (1 standard drink = 0.6 oz pur e alcohol) occ 1-2 drinks per week PHQ-2 Answer Date Recorded PHQ-2 TOTAL SCORE 0 04/04/2023 Social Connections Answer Date Recorded Frequency of Communication with Friends and Fami ly Not on file 06/24/2023 Financial Resource Strain Answer Date R ecorded Difficulty of Paying Living Expenses 3 06/19/2022 Difficulty of Paying Living Expenses Not on file 06/19/2022 Food Insecurity Answer Date Recorded Worried About Running Out of Food in the Last Ye ar 1 06/19/2022 Transportation Needs Answer Date Record ed Lack of Transportation (Medical) 1 06/19/2022 Housing Stability Answer Date Recorded Unable to Pay for Housing in the Last Year 1 06/19/2022 Sex and Gender Information Value Date Recorded Sex Assigned at Not on file Gender Identity Not on file Sexual Orientation Not on file Obstetrics History Last Filed Vital Signs Vital Sign Reading Time Taken Comments Blood Pressure 128/82 05/21/2023 10:36 AM [employer] Pulse 89 05/21/2023 10:36 AM [employer] Temperature 36.8 ??C (98.3 ??F) 06/16/2019 2:15 PM CS T Respiratory Rate 18 11/10/2020 4:25 PM CDT Oxygen Saturation 95% 05/21/2023 10: 36 AM [employer] Inhaled Oxygen Concentration - - Weight 107.6 kg (237 lb 4.8 oz) 023 10:36 AM [employer] Height 170.2 cm (5' 7) 04/05/2023 9:57 AM CDT Body Mass Index 37.17 04/05/2023 9:57 AM CDT Plan of Treatment Health Maintenance Due Date Last Done Comments Zoster (shingles) series for age 50+ (1 of 2) 1998 Pneumococcal series for age 65+ (1 of 1 - PCV) 2013 Tetanus booster 08/30/2018 08/30/2008 Colonoscopy through age 75 08/22/202208/22, 08/22/2017, 08/22/2017 COVID-19 vaccine series ( season) 2023 06/29/2021, 10/28/2020 Influenza for age 65+ 02/08/2023 Medicare Wellness for age 65+ 04/03/2024, 06/29/2021, 10/20/2018 BMI (ht and wt on same day) for age 18+ 04/05/2024 04/05/2023, 04/04/2023, 12/25/2022, Additional history exists Depression screening for age 12+ 04/05/2024 04/05/2023, 04/04/2023, 04/04/2023, Additional history exists Lipids for age 45-75 04/04/2028 04/04/2023, 03/30/2020, 10/05/2014 Tdap Completed 08/30/2008 Hepatitis C screening for ag e 18-79 Completed 04/04/2023 Procedures Procedure Name Priority Date/Time Associated Diagnosis Comments MR SPINE CERVICAL WO Routine 06/17/2023 10:43 AM [employer] Chronic intractable headache, unspecified headache type CT ANGIO HEAD AND NECK CAROTID Routine 04/16/2023 11:33 AM [employer] Chronic intractable headache, unspecified headache type CREATININE,ISTAT Routine 04/16/2023 8:54 AM [employer] Observation or evaluation for suspected condition from Last 3 Months Results * MR SPINE CERVICAL WO CONTRAST (06/17/2023 10:43 AM [employer]) Anatomical Region Laterality Modality Spine, CERVICAL SPINE Magnetic R esonance 06/17/2023 10:5 8 AM [employer] Impressions 06/17/2023 10:58 AM [employer] 1. Normal alignment. No fractures. 2. Normal cord signal. No intradural mass or lesion. 3. At C3-4, moderate severe right and moderate left neural foraminal narrowing. Potential impingement of the right C4 nerve root. 4. At C4-5, mild narrowing of spinal canal. Moderate to severe narrowing of bilateral neural foramina with potential impingement of the C5 nerve roots. Dictated by John Mitchell MD @ 06/17/2023 10:58:59 AM (Electronically Signed) Narrative 06/17/2023 10:58 AM [employer] For Patients: ??As a result of the Century Cures Act, medical imaging exams and procedure reports are released immediately into your electronic medical record. ??You may view this report before your referring provider. ??If you have questions, please contact your health care provider. INDICATION: Head pain. Neck pain. Right arm pain. COMPARISON: None available. TECHNIQUE: Sagittal T1, T2, and STIR sequences. Axial T2/gradient sequences. FINDINGS: Normal vertebral body and facet alignment. No fractures. No vertebral body loss of height. No spondylolisthesis. No ligamentous injury. No suspicious osseous lesions. Normal cord signal. No intradural mass or lesion. C1-2: No spinal canal narrowing. C2-3: No narrowing of the spinal canal. No neural foraminal narrowing. C3-4: Disc generation posted disc bulging disc osteophyte complex. No narrowing of the spinal canal. Uncovertebral set joint hypertrophy results in moderate severe right and moderate left neural foraminal narrowing. Potential impingement of the right C4 nerve root. C4-5: Disc generation broad-based disc osteophyte complex. Mild narrowing of spinal canal. Moderate severe narrowing of bilateral foramina potential impingement of the C5 nerve root. C5-6: Disc degeneration. No spinal canal neural foraminal narrowing. C6-7: No spinal canal neural foraminal narrowing. C7-T1: No spinal canal or neural foraminal narrowing. No spinal canal or neural foraminal narrowing in the visualized upper thoracic spine. Procedure Note John Mitchell MD, PhD - 06/17/2023 For Patients: As a result of the Cures Act, medical imagingexams and procedure reports are released immediately into your electronicmedical record. You may view this report before your referring provider.If you have questions, please contact your health care provider. INDICATION: Head pain. Neck pain. Right arm pain. COMPARISON: None available. TECHNIQUE: Sagittal T1, T2, and STIR sequences. Axial T2/gradient sequences. FINDINGS: Normal vertebral body and facet alignment. No fractures. No vertebral bodyloss of height. No spondylolisthesis. No ligamentous injury. No suspicious osseous lesions. Normal cord signal. No intradural mass orlesion. C1-2: No spinal canal narrowing. C2-3: No narrowing of the spinal canal. No neural foraminal narrowing. C3-4: Disc generation posted disc bulging disc osteophyte complex. Nonarrowing of the spinal canal. Uncovertebral set joint hypertrophy resultsin moderate severe right and moderate left neural foraminal narrowing.Potential impingement of the right C4 nerve root. C4-5: Disc generation broad-based disc osteophyte complex. Mild narrowingof spinal canal. Moderate severe narrowing of bilateral foramina potentialimpingement of the C5 nerve root. C5-6: Disc degeneration. No spinal canal neural foraminal narrowing. C6-7: No spinal canal neural foraminal narrowing. C7-T1: No spinal canal or neural foraminal narrowing. No spinal canal or neural foraminal narrowing in the visualized upperthoracic spine. IMPRESSION: 1. Normal alignment. No fractures. 2. Normal cord signal. No intradural mass or lesion. 3. At C3-4, moderate severe right and moderate left neural foraminalnarrowing. Potential impingement of the right C4 nerve root. 4. At C4-5, mild narrowing of spinal canal. Moderate to severe narrowingof bilateral neural foramina with potential impingement of the C5 nerveroots. Dictated by John Mitchell MD @ 06/17/2023 10:58:59 AM (Electronically Signed) Yury Kay MD MR * CT ANGIO HEAD AND NECK CAROTID (04/16/2023 11:33 AM [employer]) Anatomical Region Laterality Modality BRAIN, NECK Computed Tomogra phy 04/16/2023 1:02 PM [employer] Addenda Addendum by Gilberto Crisostomo MD on 04/16/2023 1:05 PM [employer] For Patients: ??As a result of the Cures Act, medical imaging exams and procedure reports are released immediately into your electronic medical record. ??You may view this report before your referring provider. ?? If you have questions, please contact your health care provider. INDICATION: Chronic pulsating headache. TECHNIQUE: CTA neck with contrast bolus tracking, 3D angiographic rendering using maximum intensity projection (MIP) and images permanently archived. FINDINGS: There is minor carotid atherosclerosis. There is no significant carotid artery stenosis or dissection. There is no significant vertebral artery stenosis or dissection. The soft tissues of the neck are within normal limits. The cervical spine is in normal alignment; degenerative changes are incidentally noted. IMPRESSION: No significant carotid or vertebral artery stenosis or dissection. Please note that all CT scans at this facility use dose modulation, iterative reconstruction, and/or weight-based dosing when appropriate to reduce radiation dose to as low as reasonably achievable. Dictated by Gilberto Crisostomo MD @ 04/16/2023 1:05:38 PM (Electronically Signed) Addendum by Gilberto Crisostomo MD on 04/16/2023 1:03 PM [employer] For Patients: ??As a result of the Cures Act, medical imaging exams and procedure reports are released immediately into your electronic medical record. ??You may view this report before your referring provider. ?? If you have questions, please contact your health care provider. INDICATION: Chronic pulsating headache. TECHNIQUE: CTA head with contrast bolus tracking, 3D angiographic rendering using maximum intensity projection (MIP) and images permanently archived. FINDINGS: There is normal opacification of the intracranial vasculature. There is no large vessel occlusion or significant intracranial stenosis. No aneurysm is identified. IMPRESSION: Unremarkable head CTA. Please note that all CT scans at this facility use dose modulation, iterative reconstruction, and/or weight-based dosing when appropriate to reduce radiation dose to as low as reasonably achievable. Dictated by Gilberto Crisostomo MD @ 04/16/2023 1:03:37 PM (Electronically Signed) Impressions 04/16/2023 1:02 PM [employer] No acute intracranial abnormality at noncontrast CT. Please note that all CT scans at this facility use dose modulation, iterative reconstruction, and/or weight-based dosing when appropriate to reduce radiation dose to as low as reasonably achievable. Dictated by Gilberto Crisostomo MD @ 04/16/2023 1:02:51 PM (Electronically Signed) Narrative 04/16/2023 1:02 PM [employer] For Patients: ??As a result of the Cures Act, medical imaging exams and procedure reports are released immediately into your electronic medical record. ??You may view this report before your referring provider. ??If you have questions, please contact your health care provider. INDICATION: Chronic pulsating headache. TECHNIQUE: CT head without contrast. FINDINGS: There is no intracranial hemorrhage. There are nonspecific white matter hypodensities commonly seen with chronic small vessel ischemic disease. The prado white matter differentiation is maintained. The ventricles and cisterns are clear. Procedure Note Gilberto Crisostomo MD - 04/16/2023 For Patients: As a result of the Cures Act, medical imagingexams and procedure reports are released immediately into your electronicmedical record. You may view this report before your referring provider.If you have questions, please contact your health care provider. INDICATION: Chronic pulsating headache. TECHNIQUE: CT head without contrast. FINDINGS: There is no intracranial hemorrhage. There are nonspecific white matterhypodensities commonly seen with chronic small vessel ischemic disease.The prado white matter differentiation is maintained. The ventricles andcisterns are clear. IMPRESSION: No acute intracranial abnormality at noncontrast CT. Please note that all CT scans at this facility use dose modulation,iterative reconstruction, and/or weight-based dosing when appropriate toreduce radiation dose to as low as reasonably achievable. Dictated by Gilberto Crisostomo MD @ 04/16/2023 1:02:51 PM (Electronically Signed) Leigha REGAN CT * (ABNORMAL) CREATININE,ISTAT (04/16/2023 8:54 AM [employer]) CREATININE, POCT 1.10 0.57 - 1.11 mg/dL 04/16/2023 8:57 AM [employer] [facility] Comment:Caution: Patients ta michelle Hydroxyurea have falsely increased iStat Creatinine results. Verify creatinine results ordering a Creatinine (54917.2) eGFR 70(L) >90 mL/min/1.7 3m2 04/16/2023 8:57 AM [employer] [facility] Comment:As of 2021, eG FR is calculated by the CKD-EPI creatinine equation without race adjustment. eGFR can be influenced by muscle mass, exercise, and diet. The reported eGFR is an estimation only and is only applicable if the renal function is stable. Blood BLOOD SPECIMEN / Unknown 04/16/2023 8:54 AM [employer] 04/16/2023 8:56 AM [employer] Leigha REGAN CHEMISTRY [facility] [address] [place] [address], from Last 3 Months Advance Directives Documents on File Type Date Recorded Patient Mill Representative Expl anation Healthcare Directive 12/18/2022 023 Latest Code Status on File Code Status Date Activated Date Inactivated Comments Full Code 06/18/2016 9:24 PM 06/20/2016 4:46 PM Code Status History Code Status Date Activated Date Inactivated Comments Full Code 05/20/2014 8:15 AM 05/20/2014 12:43 PM Care Teams Dental Technologist Relationship Specialty Start Date End Date Kristin Bird MD [address] [place] [address] PCP - General Family Practice 08/03/13
[2023-07-08 13:45] LABS: Strep A DNA Probe* NOT DETECTED (Not Detectd)
[2023-07-08 14:39] LABS: PCR FLU A Negative PCR FLU A (Negative); PCR FLU B Negative PCR FLU B (Negative); SARS PCR* Negative SARS-CoV-2 (Negative)
[2023-07-08 14:40] LABS: PCR RSV Negative PCR RSV (Negative)
--- NOTE | 2023-07-08 14:42 | ED.NURSE ---
Notified patient via phone that triple swab was negative.
== END 2023-07-08 14:19 | disposition home or self-care (01) ==
LOC: ED 13:02
PROVIDERS: Emergency Provider Emergency Medicine; PCP Family Medicine
DX: G56.22 Lesion of ulnar nerve, left upper limb (principal)
CPT/HCPCS: 87631; 87651; 99283; 99284

== ENCOUNTER 2024-06-26 07:12 | Outpatient (CLI) | payer MEDICARE, BC, SELFPAY ==
--- NOTE | 2024-06-26 08:32 | P.ANES_ITS ---
Anesthesia Charges Start Date/Time Anesthesia Start Date: 06/26/24 Anesthesia Start Time: 07:55 Stop Date/Time Anesthesia Stop Date: 06/26/24 Anesthesia Stop Time: 08:30 Summary Extremes of Age - Over 70 or under 1: SUPERVISOR REFINING Coding CPT Codes CPT Codes: ANES LWR INTST NDSC NOS - 97308 ([id number]) P3 - PATIENT W/SEVERE SYS DISEASE, QZ - SUPERVISOR REFINING SVC W/O DRY PASTE SUPERVISOR BY Additional Codes: Summary - Extremes of Age - Over 70 or under 1: SUPERVISOR REFINING ([id number])
--- NOTE | 2024-06-26 08:32 | W.ANESCHARGE ---
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
== END 2024-06-26 07:13 | disposition home or self-care (01) ==
LOC: OP CLINIC 07:14
PROVIDERS: PCP Family Medicine; Visit Provider Internal Medicine Gastroenterology
DX: Z12.11 Encounter for screening for malignant neoplasm of colon (principal); D12.0 Benign neoplasm of cecum; D12.5 Benign neoplasm of sigmoid colon; D12.8 Benign neoplasm of rectum; K57.30 Diverticulosis of large intestine without perforation or abscess without bleeding; Z86.0101 Personal history of adenomatous and serrated colon polyps
CPT/HCPCS: 00811; 45385; 88305; 99100; J2704